=== PATIENT | male | born 1950 | race Caucasian/White ===

== ENCOUNTER 2020-08-21 09:32 | Inpatient (IN) | payer MEDICARE, SELFPAY ==
[2020-08-21] VITALS (52 sets, daily range): BP systolic 118–173; BP diastolic 73–106; PULSE 59–122; RESP 11–27; TEMP 35.9–36.7; O2SAT 87–100; BMI 37.0
--- NOTE | ~2020-08-21 | XR_ITS ---
EXAMINATION: XR chest 1V portable INDICATION: Shortness of breath, congestive heart failure TECHNIQUE: Portable AP chest at 0511 hours COMPARISON: 08/21/2020 FINDINGS: The endotracheal tube ends approximately 7.0 cm above the jose alfredo. The nasogastric tube is f ollowed as far as the stomach. Its tip is beyond the inferior margin of the radiograph. Diffuse inter stitial and airspace opacities persist without significant change. A small left pleural effusion is s uggested. There is no pneumothorax. Cardiomegaly is noted. IMPRESSION: 1. Stable diffuse lung disease, consistent with pneumonia and/or pulmonary edema. Reviewed, dictated and finalized at location A. A CENTER DIRECTOR SCHOOL IMPRESSION: 1. Stable diffuse lung disease, consistent with pneumonia and/or pulmonary nimco a.
--- NOTE | ~2020-08-21 | US_ITS ---
EXAMINATION: US renal BI EXAM DATE: 08/23/2020 12:18 INDICATION: Elevated creatinine. TECHNIQUE: Multiple grayscale and Doppler images of the kidneys were obtained (by a technologist who performed the scan) and subsequently reviewed. Comparison is made to prior examination from 02/04/2014. FINDINGS: Right kidney: There is normal contour and echogenicity. It measures 12.5 x 5.3 x 5.4 centimeters. Th ere are several small anechoic regions with increased through transmission, simple cysts measuring up to 1.6 cm. There is no hydronephrosis. Left kidney: Significantly limited evaluation from current patient positioning (on ventilator) dimens ions obtained approximately 13 x 7 x 6 cm and no definite hydronephrosis. Maddox catheter within collapsed bladder. Incidental note made of small amount of ascites. IMPRESSION: 1. Limited evaluation left kidney, but no hydronephrosis suspected. 2. Incidental small amount of ascites. Reviewed, dictated and finalized at location A. CTOR OF QUALITY IMPROVEMENT
--- NOTE | ~2020-08-21 | XR_ITS ---
EXAMINATION: XR Abdomen PICC EXAM DATE: 09/07/2020 14:22 INDICATION: mid-thigh picc line placement . TECHNIQUE: Frontal projection(s) of the abdomen, pelvis for interpretation. Comparison is made to lashawn or examination from earlier same date. FINDINGS: There is a new left-sided femoral venous line with a loop at the inguinal canal region. Ti p is overlying the common iliac vein. There is a right common femoral venous catheter unchanged. Naso gastric tube. Moderate amount of rectosigmoid gas. No small bowel dilation. IMPRESSION: Left femoral line with loop over inguinal region. Consider power flushing, over the wire catheter exchange or replacing. I discussed these images, options with vascular access nurse Jennifer at 09/07/2020 14:30 WEAP[employer] OFF[employer]ER [employer]. Reviewed, dictated and finalized at location B. ONS OFFICER [employer] IMPRESSION: Left femoral line with loop over inguinal region. Consider power f lushing, over the wire catheter exchange or replacing. I discussed these images, options with vascular access nurse Jennifer at 09/07/2020 14:30 WEAP[employer] OFF[employer]ER [employer].
--- NOTE | ~2020-08-21 | CT_ITS ---
EXAMINATION: CT brain wo con DATE: 08/30/2020 09:30 INDICATION: Altered mental status. Carpal speech. TECHNIQUE: Computed tomography (CT) of the head was performed without intravenous contrast. The mA wa s adjusted according to patient size. Iterative reconstruction technique was employed. Exam dose: 68 1.00 mGy-cm total exam DLP. COMPARISON: 02/04/2014 CT brain FINDINGS: Cavum septum pellucidum. There is nonspecific diminished attenuation of the cerebral white matter, likely due to chronic small vessel ischemic changes. Bilateral carotid siphon internal carotid artery calcifications are noted. No intracranial mass lesion or hemorrhage or cerebrovascular accident is evident. No midline shift or mass effect effect. No subdural or epidural hematoma. No fracture or bone destruction of the cranial vault. Included paranasal sinuses and mastoid air cell s are normally developed and aerated. IMPRESSION: Cerebral atherosclerosis and chronic small vessel ischemic changes of the cerebral white matter No acute intracranial finding Reviewed, dictated and finalized at Location A. Reviewed, dictated and finalized at location A. NG PRESSER
--- NOTE | ~2020-08-21 | XR_ITS ---
EXAMINATION: XR chest 1V portable DATE: 09/13/2020 05:42 INDICATION: Heart failure. Respiratory failure. TECHNIQUE: A single frontal view of the chest was obtained on 2 radiographs. COMPARISON: Chest single view 09/12/2020 FINDINGS: There are small pleural effusions. There are airspace opacities and interstitial opacities throughout the lungs bilaterally with a basilar predominance. No pneumothorax. The heart size is norm al. There is a tracheostomy tube in expected position. A right internal jugular central venous cathet er is seen with tip in the superior vena cava. A left internal jugular central venous catheter is see n with tip in the left brachiocephalic vein. IMPRESSION: 1. Stable diffuse lung disease, consistent with pulmonary edema and/or pneumonia. 2. Stable small pleural effusions. Reviewed, dictated and finalized at location A. IMPRESSION: 1. Stable diffuse lung disease, consistent with pulmonary edema and/or pneumoni a. 2. Stable small pleural effusions.
--- NOTE | ~2020-08-21 | XR_ITS ---
EXAMINATION: XR chest 1V portable DATE: 09/17/2020 05:44 INDICATION: Respiratory failure. TECHNIQUE: A single frontal view of the chest was obtained on 2 radiographs. COMPARISON: Chest single view 09/16/2020 FINDINGS: There is a diffuse interstitial pattern in the lungs. There are airspace opacities in the m id and lower lung zones. There are small pleural effusions no pneumothorax. The heart size is normal. A left internal jugular central venous catheter is seen with tip in the left brachiocephalic vein. T here is a tracheostomy tube in expected position. A right internal jugular central venous catheter is seen with tip in the superior vena cava. IMPRESSION: 1. Stable diffuse lung disease, consistent with pulmonary edema versus pneumonia. 2. Stable small pleural effusions. Reviewed, dictated and finalized at location A. IMPRESSION: 1. Stable diffuse lung disease, consistent with pulmonary edema versus pneumoni a. 2. Stable small pleural effusions.
--- NOTE | ~2020-08-21 | XR_ITS ---
EXAMINATION: XR chest 1V portable INDICATION: Shortness of breath TECHNIQUE: Portable AP chest at 0959 hours COMPARISON: 02/04/2014 FINDINGS: There are small pleural effusions, left greater than right. Cardiomegaly is noted. A mild d iffuse interstitial pattern is present. There are more focal opacities of the lung bases. No pneumoth orax is identified. IMPRESSION: 1. Cardiomegaly with likely pulmonary edema. 2. Small pleural effusions. 3. Bibasilar airspace opacities, consistent with atelectasis versus pneumonia. Reviewed, dictated and finalized at location A. THE HORIZON TARGETING SUPERVISOR
--- NOTE | ~2020-08-21 | XR_ITS ---
EXAMINATION: XR chest 1V portable DATE: 08/28/2020 05:46 INDICATION: Respiratory failure TECHNIQUE: frontal view of the chest was obtained. COMPARISON: Chest radiograph dated 08/27/2020 FINDINGS: Improved aeration of the left lung with resolution of the prior leftward mediastinal shift. There is persistent opacity in the mid and lower lung zone. Mild airspace opacities and mildly increased inter stitial pattern in the right lower lung zone with a few peripheral Milo B-lines. No pneumothorax. T he cardiomediastinal silhouette is normal. IMPRESSION: 1. Mild pulmonary edema and small to moderate left and small right pleural effusions. 2. Significant improvement in aeration of the left lung with residual opacities in the mid and lower lung zone as well as mild opacities in the right lower lung zone which could represent atelectasis an d/or pneumonia. Reviewed, dictated and finalized at location A. HAND FISHING VESSEL IMPRESSION: 1. Mild pulmonary edema and small to moderate left and small right pleural effu sions. 2. Significant improvement in aeration of the left lung with residual opacities in the mid and lower lung zone as well as mild opacities in the right lower clara ng zone which could represent atelectasis and/or pneumonia.
--- NOTE | ~2020-08-21 | XR_ITS ---
EXAMINATION: XR chest 1V portable INDICATION: Respiratory failure TECHNIQUE: Portable AP chest at 0523 hours COMPARISON: 09/08/2020 FINDINGS: The endotracheal tube ends approximately 8.8 cm above the jose alfredo. The nasogastric tube is f ollowed as far as the stomach. Its tip is beyond the inferior margin of the radiograph. A right inter nal jugular dialysis catheter ends with its tip in the distal superior vena cava. Diffuse interstitia l and airspace opacities persist with slight improvement in the upper lung zones. Small pleural effus ions persist but have decreased. There is no pneumothorax. The cardiomediastinal silhouette is stable . IMPRESSION: 1. Diffuse lung disease with interval improvement in the upper lung zones, consistent with pneumonia and/or pulmonary edema and/or acute respiratory distress syndrome (ARDS). Reviewed, dictated and finalized at location A. TER SUPERVISOR IMPRESSION: 1. Diffuse lung disease with interval improvement in the upper lung zones, cons istent with pneumonia and/or pulmonary edema and/or acute respiratory distress syndrome (ARDS).
--- NOTE | ~2020-08-21 | XR_ITS ---
EXAMINATION: XR chest 1V portable EXAM DATE: 09/06/2020 05:41 INDICATION: Respiratory failure. TECHNIQUE: Portable AP frontal chest x-ray was obtained. Comparison is made to prior examination from 09/04/2020. FINDINGS: Endotracheal tube tip is 7 centimeters above the jose alfredo. There is a nasogastric tube seen with tip collimated off the study, but below the left hemidiaphragm. There is right-sided IJ double l umen dialysis catheter. Again there is diffuse ill-defined airspace disease, edema and/or pneumonia small bilateral pleural effusions. There is no pneumothorax suspected. Heart size is upper limits of normal. There is hype rinflation. The bones and soft tissues are unremarkable. There is no significant interval change compared to prior exam. IMPRESSION: 1. ET tube 7 cm above jose alfredo. 2. Diffuse airspace disease, edema and/or pneumonia unchanged. 3. Small pleural effusions. Reviewed, dictated and finalized at location A. ER OPERATOR
--- NOTE | ~2020-08-21 | XR_ITS ---
EXAMINATION: XR chest 1V portable DATE: 09/04/2020 05:30 INDICATION: Respiratory failure. TECHNIQUE: A single frontal view of the chest was obtained. COMPARISON: Chest single view 09/03/20 FINDINGS: Left lateral costophrenic angle is excluded. There are airspace and interstitial opacities throughout the lungs bilaterally with a lower lung predominance. There are small pleural effusions. N o pneumothorax. The heart size is normal. The endotracheal tube tip is 7.2 cm above the jose alfredo. A rig ht internal jugular central venous catheter is seen with tip in the superior vena cava. IMPRESSION: 1. Diffuse lung disease with worsening in left upper lobe, consistent with pulmonary edema versus pne umonia. 2. Small pleural effusions. Reviewed, dictated and finalized at location A. HEALTH SCHEDULER IMPRESSION: 1. Diffuse lung disease with worsening in left upper lobe, consistent with pulm onary edema versus pneumonia. 2. Small pleural effusions.
--- NOTE | ~2020-08-21 | XR_ITS ---
EXAMINATION: XR chest 1V portable DATE: 08/25/2020 05:47 INDICATION: COPD and congestive heart failure. Intubated. TECHNIQUE: frontal view of the chest was obtained. COMPARISON: Chest radiograph dated 08/24/2020 FINDINGS: Endotracheal tube tip 5.2 cm above the jose alfredo. Nasogastric tube extends below the left hemidiaphragm with distal tip collimated off the study. Persistent gradient of basilar predominant hazy airspace opacities in the bilateral mid and lower moses g zones, left greater than right, consistent with layering bilateral pleural effusions with associate d bibasilar atelectasis and/or pneumonia. The cardiomediastinal silhouette is normal. IMPRESSION: 1. Persistent small right and small to moderate left posterior layering pleural effusions with associ ated bibasilar atelectasis and/or pneumonia. Reviewed, dictated and finalized at location A. HOLOGIST IMPRESSION: 1. Persistent small right and small to moderate left posterior layering pleural effusions with associated bibasilar atelectasis and/or pneumonia.
--- NOTE | ~2020-08-21 | XR_ITS ---
EXAMINATION: XR abdomen obstructive series DATE: 09/07/2020 10:46 INDICATION: Abdominal distention. TECHNIQUE: Upright and supine views of the abdomen were obtained. COMPARISON: CT abdomen and pelvis 02/05/2014, chest single view 09/07/2020 FINDINGS: There are no dilated loops of bowel. There is a small volume of stool in the colon. The eliel ogastric tube tip is in the stomach. There is a catheter overlying the right pelvis. No free intraper itoneal gas. There are small pleural effusions. There are airspace opacities in the visualized portio ns of the mid and lower lung zones with a basilar predominance. IMPRESSION: 1. Normal bowel gas pattern. 2. Small pleural effusions. 3. Airspace opacities in the mid and lower lung zones, consistent with pulmonary edema versus pneumon ia. Reviewed, dictated and finalized at location A. T BINDING AND FINISHING WORKER IMPRESSION: 1. Normal bowel gas pattern. 2. Small pleural effusions. 3. Airspace opacities in the mid and lower lung zones, consistent with pulmonar y edema versus pneumonia.
--- NOTE | ~2020-08-21 | XR_ITS ---
EXAMINATION: XR chest 1V portable INDICATION: Respiratory failure TECHNIQUE: Portable AP chest at 0506 hours COMPARISON: 09/06/2020 FINDINGS: A right internal jugular central venous catheter ends with its tip in the distal superior v shawn cava. There are small pleural effusions which are stable. The endotracheal tube is approximately 9.0 cm above the jose alfredo. The nasogastric tube is in the stomach. Diffuse interstitial and airspace op acities persist without significant change. The heart size is upper limits of normal for technique. T here is no pneumothorax. IMPRESSION: 1. Stable diffuse lung disease, consistent with pneumonia and/or pulmonary edema and/or acute respira tory distress syndrome (ARDS). 2. Stable small pleural effusions. 3. Endotracheal tube approximately 9 cm above the jose alfredo Reviewed, dictated and finalized at location A. MER RECOVERY OPERATOR IMPRESSION: 1. Stable diffuse lung disease, consistent with pneumonia and/or pulmonary nimco a and/or acute respiratory distress syndrome (ARDS). 2. Stable small pleural effusions. 3. Endotracheal tube approximately 9 cm above the jose alfredo
--- NOTE | ~2020-08-21 | XR_ITS ---
EXAMINATION: XR chest 1V portable INDICATION: Hypoxia TECHNIQUE: Portable AP chest at 0724 hours COMPARISON: 09/10/2020 FINDINGS: The endotracheal tube ends approximately 9.9 cm above the jose alfredo. The nasogastric tube is f ollowed as far as the stomach. Its tip is beyond the inferior margin of the radiograph. A large bore right internal jugular catheter ends with its tip in the distal superior vena cava. A left internal j ugular catheter ends with its tip in the proximal superior vena cava. Small pleural effusions are sta ble. There are unchanged interstitial and airspace opacities of the mid and lower lung zones. The car diomediastinal silhouette is stable. IMPRESSION: 1. Stable interstitial and airspace opacities of the mid and lower lung zones, consistent with pneumo jennifer and/or pulmonary edema and/or acute respiratory distress syndrome (ARDS). 2. Stable pleural effusions. Reviewed, dictated and finalized at location A. HANDLER IMPRESSION: 1. Stable interstitial and airspace opacities of the mid and lower lung zones, consistent with pneumonia and/or pulmonary edema and/or acute respiratory distr ess syndrome (ARDS). 2. Stable pleural effusions.
--- NOTE | ~2020-08-21 | XR_ITS ---
XR chest 1V portable DATE: 08/29/2020 08:13 INDICATION: Hypoxia. Pulmonary vascular congestion. Respiratory failure. TECHNIQUE: Portable AP chest on August 29, 2020 at 0814 hours COMPARISON: August 28, 2020 portable AP chest at 0512 hours FINDINGS: There is pulmonary vascular congestion and redistribution, prominence of the minor fissure cyst with subpleural edema and there are bilateral pulmonary infiltrates, left greater than right. Th ere is mild improvement of the bilateral infiltrates since August 28, 2020. There is slight right pleural effusion and mild to moderate left pleural effusion. IMPRESSION: Pulmonary vascular congestion, subpleural edema, bilateral infiltrates (left greater than right), bilateral pleural effusions (left greater than right); mild improvement of bilateral infiltr ates since 10/26/2020 Reviewed, dictated and finalized at location A. GER CONCRETE IMPRESSION: Pulmonary vascular congestion, subpleural edema, bilateral infiltra isrrael (left greater than right), bilateral pleural effusions (left greater than r ight); mild improvement of bilateral infiltrates since 10/26/2020
--- NOTE | ~2020-08-21 | XR_ITS ---
EXAMINATION: XR abdomen obstructive series DATE: 09/17/2020 10:21 INDICATION: Adynamic ileus. TECHNIQUE: Upright and supine views of the abdomen were obtained. COMPARISON: Abdomen radiographs 09/16/2020 FINDINGS: There is a gastrostomy tube in expected position. The small bowel is normal in caliber. The re is mild gaseous distention of the colon. No free intra-abdominal gas. There are small pleural effu sions. IMPRESSION: 1. Improved mild gaseous distention of the colon, likely adynamic ileus. 2. Small pleural effusions. Reviewed, dictated and finalized at location A.
--- NOTE | ~2020-08-21 | XR_ITS ---
EXAMINATION: XR abdomen/kub 1V EXAM DATE: 09/05/2020 05:35 INDICATION: Constipation. TECHNIQUE: Frontal projection(s) of the abdomen for interpretation. Comparison is made to prior exami nation from 08/31/2020. FINDINGS: Feeding tube tip and side-port both project over gastric bubble, expected position. There i s a right-sided femoral venous line. There is moderate amount of colonic gas, smaller amount of colon ic stool. No small bowel dilation. There are bony degenerative changes. IMPRESSION: 1. Feeding tube in position. 2. Moderate colonic gas, smaller colonic stool. Reviewed, dictated and finalized at location A. HEAD CARPENTER
--- NOTE | ~2020-08-21 | XR_ITS ---
EXAMINATION: XR chest 1V portable DATE: 09/01/2020 05:39 INDICATION: Respiratory failure. TECHNIQUE: A single frontal view of the chest was obtained. COMPARISON: Chest single view 08/31/2020, CT abdomen and pelvis 02/05/2014 FINDINGS: There are interstitial airspace opacities throughout the lungs bilaterally with a lower moses g predominance. There is a small left pleural effusion. No pneumothorax. The heart size is normal. Th e nasogastric tube tip is beyond the inferior margin of the radiograph, but at least to the stomach. The endotracheal tube tip is 8.1 cm above the jose alfredo. IMPRESSION: 1. Stable diffuse lung disease, consistent with pulmonary edema versus pneumonia. 2. Small left pleural effusion. Reviewed, dictated and finalized at location A. ING MANAGER IMPRESSION: 1. Stable diffuse lung disease, consistent with pulmonary edema versus pneumoni a. 2. Small left pleural effusion.
--- NOTE | ~2020-08-21 | XR_ITS ---
EXAMINATION: XR chest 1V portable DATE: 09/14/2020 05:40 INDICATION: Heart failure. Respiratory failure. TECHNIQUE: A single frontal view of the chest was obtained on 2 radiographs. COMPARISON: Chest single view 09/13/2020 FINDINGS: There are interstitial and airspace opacities throughout the lungs bilaterally. There are s mall pleural effusions. No pneumothorax. The heart size is normal. There is a tracheostomy tube in ex pected position. A left internal jugular central venous catheter is seen with tip in the left brachio cephalic vein. A right internal jugular central venous catheter is seen with tip in superior vena cav a. A gastrostomy tube overlies the stomach. IMPRESSION: 1. Stable diffuse lung disease, consistent with pulmonary edema versus pneumonia. 2. Stable small pleural effusions. Reviewed, dictated and finalized at location A. IMPRESSION: 1. Stable diffuse lung disease, consistent with pulmonary edema versus pneumoni a. 2. Stable small pleural effusions.
--- NOTE | ~2020-08-21 | XR_ITS ---
XR Abdomen PICC 09/08/2020 19:32 Indication: PICC line placement Procedure: KUB Comparison: Comparison to multiple prior studies sequentially, with oldest reviewed study dated 07/2020. Findings: There is a left-sided femoral venous line with loop at the inguinal canal. The distal tip o verlies the common iliac vein. There is a right common femoral venous catheter, position unchanged. M oderate gas throughout the rectosigmoid colon. Impression: 1: Left femoral venous catheter tip in the common iliac vein, coiled proximally overlying the inguina l region. No significant change to position. Reviewed, dictated and finalized at location A. OR SPEECH PATHOLOGIST Impression: 1: Left femoral venous catheter tip in the common iliac vein, coiled proximally overlying the inguinal region. No significant change to position.
--- NOTE | ~2020-08-21 | US_ITS ---
EXAMINATION: US thoracentesis DATE: 09/01/2020 15:44 INDICATION: pleural effusion TECHNIQUE: The skin was prepped and draped in sterile fashion. 1% lidocaine was used for local anesth esia. Under ultrasound guidance, a 5 Fr catheter with trochar was advanced into the left pleural effu evelin. Fluid was aspirated. The catheter was removed, and a dressing was applied. There were no immedi ate complications. FINDINGS: Ultrasound images demonstrate a left pleural effusion and the catheter within the fluid. IMPRESSION: 1. Successful ultrasound-guided thoracentesis yielding 1000 mL of yellow fluid. Reviewed, dictated and finalized at location E. ETARY ADMINISTRATIVE ASSISTANT IMPRESSION: 1. Successful ultrasound-guided thoracentesis yielding 1000 mL of yellow fluid .
--- NOTE | ~2020-08-21 | US_ITS ---
EXAMINATION: US venous doppler LE EXAM DATE: 08/21/2020 18:07 INDICATION: Bilateral leg edema. TECHNIQUE: Multiple grayscale, color flow and Doppler images of the lower extremity deep venous syste ms bilaterally were obtained and reviewed. Comparison is made to prior examination from 10/19/2016. FINDINGS: Right side: The right common femoral, femoral and profunda veins demonstrate normal color flow, respi ratory variation, augmentation and compressibility. Compressibility, color flow confirmed within the right popliteal, posterior tibial, peroneal, and greater saphenous veins. Left side: The left common femoral, femoral and profunda veins demonstrate normal color flow, respira tory variation, augmentation and compressibility. Compressibility, color flow confirmed within the l eft popliteal, posterior tibial, peroneal, and greater saphenous veins. IMPRESSION: 1. No lower extremity deep venous thrombosis bilaterally. Reviewed, dictated and finalized at location A. BIT CLEANER
--- NOTE | ~2020-08-21 | XR_ITS ---
EXAMINATION: XR fl guide central line place DATE: 09/02/2020 13:15 INDICATION: Central line placement TECHNIQUE: 2 fluoroscopic images of the central chest were obtained during procedure performed by Dr. Soriano. Radiologist was not present for the imaging or procedure. The amount of fluoroscopy time us ed during this procedure was 0.5 minutes. COMPARISON: 09/02/2020 FINDINGS: Interval placement of a large-bore dual-lumen tunneled right internal jugular central venous catheter with distal tip at the caudal superior vena cava. Markers from lap sponge projects over the right up per lung likely at the site of catheter insertion. Again seen is a nasogastric tube extending down th e visualized esophagus and collimated beyond the caudal margin of the [id number]. There is also an unchanged endotracheal tube with tip in the proximal thoracic trachea below the level of the thoraci c inlet. IMPRESSION: 1. Fluoroscopy utilized during right internal jugular central venous catheter placement with distal t ip of the catheter at the caudal superior vena cava. Reviewed, dictated and finalized at location B. RIAL CUTTER IMPRESSION: 1. Fluoroscopy utilized during right internal jugular central venous catheter p lacement with distal tip of the catheter at the caudal superior vena cava.
--- NOTE | ~2020-08-21 | XR_ITS ---
EXAMINATION: XR chest ET placement, XR abdomen NG/feed tube insert DATE: 08/31/2020 12:26 INDICATION: Endotracheal tube placement. Orogastric tube placement. TECHNIQUE: 1. Portable AP supine view of the chest was obtained. 2. Portable AP supine view of the abdomen was obtained. COMPARISON: Chest radiograph dated 08/31/2020 at 3:13 AM FINDINGS: Chest: Endotracheal tube tip 7.4 cm above the jose alfredo. Gradient of basilar predominant hazy airspace opacitie s throughout the bilateral lungs with more dense opacities at the lung bases consistent with small ri ght and moderate left posterior layering pleural effusions with associated basilar atelectasis and/or pneumonia. Pulmonary edema with increased interstitial pattern in the lower lungs suggesting mild pu lmonary edema. No pneumothorax. Heart size within normal limits for AP technique. Abdomen : Orogastric tube with distal tip initially in the proximal body of the stomach on the initial image. T he orogastric tube tip has been advanced into the more distal body of the stomach with proximal side- port in the proximal body on the second image. Moderate amount of stool in the transverse colon. No d ilated loops of gas-filled bowel in the visualized upper abdomen. IMPRESSION: 1. Endotracheal tube tip 7.4 cm above the jose alfredo. Consider advancement by 5 cm. 2. Nasogastric tube in the stomach. 3. Likely mild pulmonary edema with small right and moderate-sized left pleural effusions with associ ated basilar atelectasis and/or pneumonia. Reviewed, dictated and finalized at location B. ELLER IMPRESSION: 1. Endotracheal tube tip 7.4 cm above the jose alfredo. Consider advancement by 5 cm. 2. Nasogastric tube in the stomach. 3. Likely mild pulmonary edema with small right and moderate-sized left pleural effusions with associated basilar atelectasis and/or pneumonia.
--- NOTE | ~2020-08-21 | XR_ITS ---
EXAMINATION: XR chest 1V portable EXAM DATE: 08/27/2020 10:34 INDICATION: Respiratory failure. TECHNIQUE: Portable AP frontal chest x-ray was obtained. Comparison is made to prior examination from 08/26/2020. FINDINGS: Compared to yesterday, left lung is completely collapsed, opacified hemithorax. There is it s lateral mediastinal shift, volume loss. Can't quantify amount of pleural fluid Asir. Indistinct rig ht reticulation, most consistent with pulmonary edema. IMPRESSION: 1. Development of completely collapsed left lung. Mucous plugging? 2. Probable pulmonary edema. I discussed this case with Raymundo Vanegas MD at 08/27/2020 10:42 WATER FITNESS INSTRUCTOR. Reviewed, dictated and finalized at location B. R FITNESS INSTRUCTOR
--- NOTE | ~2020-08-21 | US_ITS ---
EXAMINATION: US aorta EXAM DATE: 09/01/2020 15:41 INDICATION: Pulsatile epigastrium. Palpable abnormality. TECHNIQUE: Multiple grayscale and Doppler images of the aorta were obtained (by a technologist who pe rformed the scan) and subsequently reviewed. Correlation is made to CT abdomen 02/05/2014. FINDINGS: Limited exam from body habitus, but the abdominal aorta is normal in proximal and mid aspects at 2.5, 1.[address] scan in 2013 the abdominal aorta was normal in caliber through bifurcatio n. IMPRESSION: No proximal or mid abdominal aortic aneurysm. Reviewed, dictated and finalized at location A. ETING MANAGER HEALTH COMMUNICATIONS
--- NOTE | ~2020-08-21 | XR_ITS ---
EXAMINATION: XR chest 1V portable DATE: 09/02/2020 06:01 INDICATION: Respiratory failure. TECHNIQUE: A single frontal view of the chest was obtained on 2 radiographs. COMPARISON: Chest single view 09/01/2020 FINDINGS: There are interstitial airspace and opacities throughout the lungs bilaterally. There are s mall pleural effusions. No pneumothorax. The heart size is normal. The endotracheal tube tip is 8.2 c m above the jose alfredo. The nasogastric tube tip is in the stomach. IMPRESSION: 1. Diffuse lung disease with improvement in left lower lung zone, consistent with pulmonary edema westley aimee pneumonia. 2. Small pleural effusions. Reviewed, dictated and finalized at location A. ASSEMBLER IMPRESSION: 1. Diffuse lung disease with improvement in left lower lung zone, consistent wi th pulmonary edema versus pneumonia. 2. Small pleural effusions.
--- NOTE | ~2020-08-21 | XR_ITS ---
EXAMINATION: XR chest 1V portable DATE: 08/24/2020 05:44 INDICATION: Intubated. COPD. CHF. TECHNIQUE: frontal view of the chest was obtained. COMPARISON: Chest radiograph dated 08/23/2020 FINDINGS: Endotracheal tube tip 7.5 cm above the jose alfredo. Nasogastric tube extends below the left hemidiaphragm with distal tip collimated off the study. Persistent gradient basilar predominant opacities in the left mid and lower lung and right lower lung zones. Heart cardiac consolidation in the left lower lung zone with obscuration of the diaphragm. Al l diffuse increased interstitial pattern. No pneumothorax. The cardiomediastinal silhouette is normal . IMPRESSION: 1. Endotracheal tube tip 7.5 cm above the jose alfredo. Recommend advancement by 5 cm. 2. Retrocardiac consolidation in the left lower lung zone which could represent atelectasis and/or pn eumonia. 3. Mild pulmonary edema with small right and small to moderate left posterior layering pleural effusi ons Reviewed, dictated and finalized at location A. ER SOLDERER IMPRESSION: 1. Endotracheal tube tip 7.5 cm above the jose alfredo. Recommend advancement by 5 cm . 2. Retrocardiac consolidation in the left lower lung zone which could represent atelectasis and/or pneumonia. 3. Mild pulmonary edema with small right and small to moderate left posterior l ayering pleural effusions
--- NOTE | ~2020-08-21 | XR_ITS ---
EXAMINATION: XR chest 1V portable DATE: 08/31/2020 03:30 INDICATION: Pulmonary edema. TECHNIQUE: A single frontal view of the chest was obtained on 2 radiographs. COMPARISON: Chest single view 08/30/2020, CT abdomen and pelvis 02/05/2014 FINDINGS: There is a diffuse interstitial pattern in the lungs. There are airspace opacities at the l merry bases. There is a moderate-sized left pleural effusion. No pneumothorax. The heart size is normal . IMPRESSION: 1. Worsened diffuse lung disease, likely pulmonary edema. 2. Worsened moderate-sized left pleural effusion. Reviewed, dictated and finalized at location A. DOZER PRESS OPERATOR
--- NOTE | ~2020-08-21 | XR_ITS ---
EXAMINATION: XR chest 1V portable DATE: 08/26/2020 05:40 INDICATION: Pneumonia. Acute respiratory failure. TECHNIQUE: frontal view of the chest was obtained. COMPARISON: Chest radiograph dated 08/25/2020 FINDINGS: Slight decrease in a gradient of hazy basilar predominant opacities in the bilateral mid to lower moses g zones. Persistent retrocardiac consolidation in the left lower lung zone. No pneumothorax. Heart si ze is normal. IMPRESSION: 1. Decrease in size of small bilateral pleural effusions. 2. Persistent retrocardiac consolidation at the left lower lung zone which could represent atelectasi s and/or pneumonia. Reviewed, dictated and finalized at location A. LY REQUIREMENTS OFFICER IMPRESSION: 1. Decrease in size of small bilateral pleural effusions. 2. Persistent retrocardiac consolidation at the left lower lung zone which coul d represent atelectasis and/or pneumonia.
--- NOTE | ~2020-08-21 | XR_ITS ---
EXAMINATION: XR chest 1V portable DATE: 09/12/2020 05:38 INDICATION: Heart failure. Respiratory failure. TECHNIQUE: A single frontal view of the chest was obtained on 2 radiographs. COMPARISON: Chest single view 09/11/2020, CT abdomen and pelvis 02/05/2014 FINDINGS: There are small pleural effusions. There is a diffuse interstitial pattern in the lungs. Th ere are airspace opacities in the mid and lower lung zones with a basilar predominance. No pneumothor ax. The heart size is normal. There is a tracheostomy tube in expected position. A left internal jugu lar central venous catheter is seen with tip in the superior vena cava. A right internal jugular cent ral venous catheter is seen with tip in the superior vena cava. IMPRESSION: 1. Stable diffuse lung disease, consistent with pulmonary edema and basilar predominant atelectasis v ersus pneumonia. 2. Small pleural effusions. Reviewed, dictated and finalized at location A. TERY VAULT INSTALLER IMPRESSION: 1. Stable diffuse lung disease, consistent with pulmonary edema and basilar pre dominant atelectasis versus pneumonia. 2. Small pleural effusions.
--- NOTE | ~2020-08-21 | XR_ITS ---
EXAMINATION: XR chest 1V portable DATE: 09/03/2020 05:56 INDICATION: Respiratory failure. TECHNIQUE: A single frontal view of the chest was obtained. COMPARISON: Chest single view 09/02/2020 FINDINGS: There are airspace and interstitial opacities throughout the lungs bilaterally. There are s mall pleural effusions. No pneumothorax. The heart size is normal. The endotracheal tube tip is 8.1 c m above the jose alfredo. The nasogastric tube tip is beyond the inferior margin of the radiograph, but at least to the stomach. A right internal jugular central venous catheter is seen with tip in the superi or vena cava. IMPRESSION: 1. Stable diffuse lung disease, consistent with pulmonary edema versus pneumonia. 2. Stable small pleural effusions. Reviewed, dictated and finalized at location A. ECTIVE SERVICES OFFICER IMPRESSION: 1. Stable diffuse lung disease, consistent with pulmonary edema versus pneumoni a. 2. Stable small pleural effusions.
--- NOTE | ~2020-08-21 | XR_ITS ---
EXAMINATION: XR chest ET placement DATE: 09/03/2020 08:19 INDICATION: Endotracheal tube adjustment. TECHNIQUE: A single frontal view of the chest was obtained. COMPARISON: Chest single view at 5:13 AM FINDINGS: There are airspace and interstitial opacities in all lung zones bilaterally, left worse daja n right. The lung bases are excluded. No visible pleural effusion. No pneumothorax. The heart size is normal. The endotracheal tube tip is 7.0 cm above the jose alfredo. The nasogastric tube tip is beyond the inferior margin of the radiograph, but at least to the stomach. A right internal jugular central mary ous catheter is seen with tip in the superior vena cava. IMPRESSION: 1. Diffuse lung disease with improvement on the left, consistent with pulmonary edema versus pneumoni a. Reviewed, dictated and finalized at location A. LLIGENCE CLERK IMPRESSION: 1. Diffuse lung disease with improvement on the left, consistent with pulmonary edema versus pneumonia.
--- NOTE | ~2020-08-21 | XR_ITS ---
EXAMINATION: XR chest port-a-cath/central DATE: 09/02/2020 14:10 INDICATION: Central line placement. TECHNIQUE: A single frontal view of the chest was obtained on 2 radiographs. COMPARISON: Chest single view at 5:28 AM FINDINGS: There are interstitial airspace opacities throughout the lungs with a lower lung predominan ce. There are small pleural effusions. No pneumothorax. The heart size is normal. The endotracheal tu be tip is 7.2 cm above the jose alfredo. The nasogastric tube tip is beyond the inferior margin of the radi ograph, but at least to the stomach. A right internal jugular central venous catheter is seen with ti p in the superior vena cava. IMPRESSION: 1. Central line tip in superior vena cava. 2. Worsened diffuse lung disease, consistent with pulmonary edema versus pneumonia. 3. Stable small pleural effusions. Reviewed, dictated and finalized at location A. TOOL OPERATOR IMPRESSION: 1. Central line tip in superior vena cava. 2. Worsened diffuse lung disease, consistent with pulmonary edema versus pneumo jennifer. 3. Stable small pleural effusions.
--- NOTE | ~2020-08-21 | XR_ITS ---
EXAMINATION: XR chest port-a-cath/central INDICATION: Central line insertion TECHNIQUE: Portable AP chest at 1219 hours COMPARISON: 0523 hours FINDINGS: A left internal jugular central venous catheter has been inserted which ends with its tip i n the proximal superior vena cava. The endotracheal tube ends approximately 8.5 cm above the jose alfredo. The nasogastric tube is followed as far as the stomach. Its tip is beyond the inferior margin of the radiograph. A right internal jugular large bore catheter ends with its tip in the distal superior cav a. Small pleural effusions are stable. Diffuse interstitial and airspace opacities persist without si gnificant change. There is no pneumothorax. The cardiomediastinal silhouette is stable. IMPRESSION: 1. Left internal jugular central venous catheter insertion with no pneumothorax, otherwise no change. Reviewed, dictated and finalized at location A. ING ENGINEER IMPRESSION: 1. Left internal jugular central venous catheter insertion with no pneumothorax , otherwise no change.
--- NOTE | ~2020-08-21 | XR_ITS ---
XR chest 1V portable DATE: 08/30/2020 05:43 INDICATION: Congestive heart failure TECHNIQUE: Portable upright AP views on 01/27/2021 at 0520 0521 hours COMPARISON: August 29, 2020 portable AP chest at 0814 hours FINDINGS: There is cardiomegaly and increased pulmonary vascular congestion and redistribution and th ere are increased bilateral pulmonary infiltrates, Milo B-lines as well as prominence of the minor fissure, consistent with congestive heart failure, pulmonary edema. Increased retrocardiac density on left consistent with left lower lobe atelectasis and/or consolidati on. The costophrenic angles are excluded from examination. There may be small pleural effusions. Aortic arch calcification. Diffuse osteopenia. Degenerative spurring of the thoracic spine. IMPRESSION: Increased pulmonary edema since August 29, 2020 Reviewed, dictated and finalized at location A. ATOR OPERATOR
--- NOTE | ~2020-08-21 | XR_ITS ---
EXAMINATION: XR chest 1V portable DATE: 09/14/2020 14:53 INDICATION: Respiratory failure. TECHNIQUE: A single frontal view of the chest was obtained. COMPARISON: Chest single view at 5:12 AM FINDINGS: There are airspace opacities in all lung zones bilaterally with a lower lung predominance. There are small pleural effusions. No pneumothorax. The heart size is normal. A left internal jugular central venous catheter is seen with tip in the left brachiocephalic vein. A right internal jugular central venous catheter is seen with tip in the superior vena cava. There is a tracheostomy tube in e xpected position. IMPRESSION: 1. Diffuse lung disease with improvement in the upper lobes, consistent with pulmonary edema versus p neumonia. 2. Stable small pleural effusions. Reviewed, dictated and finalized at location A. IMPRESSION: 1. Diffuse lung disease with improvement in the upper lobes, consistent with pu lmonary edema versus pneumonia. 2. Stable small pleural effusions.
--- NOTE | ~2020-08-21 | XR_ITS ---
EXAMINATION: XR chest 1V portable INDICATION: Respiratory failure, congestive heart failure TECHNIQUE: Portable AP chest at 0530 hours COMPARISON: 08/22/2020 FINDINGS: The endotracheal tube ends approximately 5.0 cm above the jose alfredo. The nasogastric tube is f ollowed as far as the stomach. Its tip is beyond the inferior margin of the radiograph. Diffuse inter stitial and airspace opacities persist with slight worsening in the left midlung zone. There are smal l, stable pleural effusions. Cardiomegaly is noted. There is no pneumothorax. IMPRESSION: 1. Diffuse lung disease with slight worsening in the left midlung zone, consistent with pneumonia and /or pulmonary edema. 2. Small pleural effusions. 3. Cardiomegaly. Reviewed, dictated and finalized at location A. SITE MANAGER IMPRESSION: 1. Diffuse lung disease with slight worsening in the left midlung zone, consist ent with pneumonia and/or pulmonary edema. 2. Small pleural effusions. 3. Cardiomegaly.
--- NOTE | ~2020-08-21 | XR_ITS ---
EXAMINATION: XR chest 1V portable INDICATION: Respiratory failure TECHNIQUE: Portable AP chest at 0510 hours COMPARISON: 09/07/2020 FINDINGS: The endotracheal tube ends approximately 4.0 cm above the jose alfredo. The nasogastric tube is f ollowed as far as the stomach. Its tip is beyond the inferior margin of the radiograph. A right inter nal jugular dialysis catheter ends with its tip in the distal superior vena cava. Small pleural effus ions have decreased. Diffuse interstitial and airspace opacities persist without significant change. The heart size is upper limits of normal for technique. There is no pneumothorax. IMPRESSION: 1. Stable diffuse lung disease, consistent with pneumonia and/or pulmonary edema and/or acute respira tory distress syndrome (ARDS). 2. Small, improved pleural effusions Reviewed, dictated and finalized at location A. B TRAINER IMPRESSION: 1. Stable diffuse lung disease, consistent with pneumonia and/or pulmonary nimco a and/or acute respiratory distress syndrome (ARDS). 2. Small, improved pleural effusions
--- NOTE | ~2020-08-21 | XR_ITS ---
EXAMINATION: XR chest 1V portable DATE: 09/15/2020 06:06 INDICATION: Heart failure. Respiratory failure. TECHNIQUE: A single frontal view of the chest was obtained on 2 radiographs. COMPARISON: Chest single view 09/14/2020 FINDINGS: There is complete opacification of left hemithorax with volume loss. There is a small right pleural effusion. There are airspace opacities in all right lung zones with a basilar predominance. No pneumothorax. The heart size is obscured. There is a tracheostomy tube in expected position. A lef t internal jugular central venous catheter is seen with tip in the left brachiocephalic vein. A right internal jugular central venous catheter is seen with tip in the superior vena cava. IMPRESSION: 1. Complete opacification of left hemithorax with volume loss with interval worsening, likely predomi nantly atelectasis and mucus plugging. 2. Stable small right pleural effusion. 3. Diffuse right lung disease with a basilar predominance with slight worsening, consistent with pulm onary edema versus pneumonia. Reviewed, dictated and finalized at location A. IMPRESSION: 1. Complete opacification of left hemithorax with volume loss with interval wor sening, likely predominantly atelectasis and mucus plugging. 2. Stable small right pleural effusion. 3. Diffuse right lung disease with a basilar predominance with slight worsening , consistent with pulmonary edema versus pneumonia.
--- NOTE | ~2020-08-21 | XR_ITS ---
EXAMINATION: XR chest 1V portable INDICATION: Respiratory failure TECHNIQUE: Portable AP chest at 0514 hours COMPARISON: 09/09/2020 FINDINGS: The endotracheal tube ends approximately 9.5 cm above the jose alfredo. The nasogastric tube is f ollowed as far as the stomach. Its tip is beyond the inferior margin of the radiograph. A large bore right internal jugular catheter ends with its tip in the distal superior vena cava. A left internal j ugular central venous catheter ends with its tip in the proximal superior vena cava. Small pleural ef fusions have slightly improved. Interstitial and airspace opacities of the mid and lower lung zones p ersist with slight improvement. The heart size is normal. IMPRESSION: 1. Diffuse lung disease with interval improvement, consistent with pneumonia and/or pulmonary edema a nd/or acute respiratory distress syndrome (ARDS). 2. Small but decreased pleural effusions. Reviewed, dictated and finalized at location A. RIDER IMPRESSION: 1. Diffuse lung disease with interval improvement, consistent with pneumonia an d/or pulmonary edema and/or acute respiratory distress syndrome (ARDS). 2. Small but decreased pleural effusions.
--- NOTE | ~2020-08-21 | XR_ITS ---
EXAMINATION: XR chest ET placement EXAM DATE: 08/22/2020 00:00 INDICATION: Endotracheal tube placement. Orogastric tube placement. TECHNIQUE: Portable AP frontal chest x-ray was obtained. Comparison is made to prior examination from earlier same date. FINDINGS: Endotracheal and nasogastric tubes in position. There is been mild interval progression in the amount of acute bilateral edema or pneumonia compared to earlier same date. No pneumothorax. Smal l pleural effusions. The cardiomediastinal silhouette is prominent but magnified on this AP technique . IMPRESSION: 1. Tubes in position. 2. Mild progression moderate amount of pneumonia and/or edema. 3. Small pleural effusions. Reviewed, dictated and finalized at location G. NOPATHOLOGIST
--- NOTE | ~2020-08-21 | XR_ITS ---
EXAMINATION: XR chest 1V portable DATE: 09/16/2020 05:40 INDICATION: Respiratory failure. Heart failure. TECHNIQUE: A single frontal view of the chest was obtained. COMPARISON: Chest single view 09/15/2020 FINDINGS: There are airspace and interstitial opacities in all lung zones bilaterally with a basilar predominance. There are small pleural effusions. No pneumothorax. The heart size is normal. There is a tracheostomy tube in expected position. A left internal jugular central venous catheter is seen wit h tip in the left brachiocephalic vein. A right internal jugular central venous catheter is seen with tip in the superior vena cava. IMPRESSION: 1. Diffuse lung disease with improved aeration of left lung, consistent with pulmonary edema versus p neumonia. 2. Small pleural effusions. Reviewed, dictated and finalized at location A. IMPRESSION: 1. Diffuse lung disease with improved aeration of left lung, consistent with pu lmonary edema versus pneumonia. 2. Small pleural effusions.
--- NOTE | ~2020-08-21 | XR_ITS ---
EXAMINATION: XR abdomen obstructive series DATE: 09/15/2020 08:30 INDICATION: Abdominal distention. TECHNIQUE: Upright and supine views of the abdomen on 3 radiographs were obtained. COMPARISON: CT abdomen and pelvis 02/05/2014, chest single view at 5:10 AM FINDINGS: A gastrostomy tube overlies the stomach. There is gaseous distention of small and large bow el. No free intraperitoneal gas. Partially visualized is improved aeration of left lung. IMPRESSION: 1. Gaseous distention of small and large bowel, consistent with adynamic ileus versus distal colonic obstruction. 2. Partially visualized improved aeration of left lung. Reviewed, dictated and finalized at location A.
--- NOTE | ~2020-08-21 | XR_ITS ---
EXAMINATION: XR abdomen obstructive series DATE: 09/16/2020 13:47 INDICATION: Abdominal distention. TECHNIQUE: Upright and supine views of the abdomen on 3 radiographs were obtained. COMPARISON: Abdomen radiographs 09/15/2020 FINDINGS: There is a gastrostomy tube in expected position. There is gaseous distention of the colon. There is gaseous distention of small bowel loops. No free intraperitoneal gas. There are small pleur al effusions. There are airspace opacities in the lungs bilaterally. IMPRESSION: 1. Gaseous distention of small and large bowel, likely adynamic ileus. 2. Small pleural effusions. 3. Diffuse lung disease, consistent with pulmonary edema versus pneumonia. Reviewed, dictated and finalized at location A.
--- NOTE | ~2020-08-21 | XR_ITS ---
EXAMINATION: [id number] EXAM DATE: 09/01/2020 15:54 INDICATION: Postthoracentesis. TECHNIQUE: Portable AP frontal chest x-ray was obtained. Comparison is made to prior examination from earlier same day. FINDINGS: Endotracheal tube tip is 8 centimeters above the jose alfredo. There is a nasogastric tube seen with tip collimated off the study, but below the left hemidiaphragm. Again there is diffuse bilateral edema and/or pneumonia. No evidence of postprocedural pneumothorax. Heart is normal in size. Evidenc e of small bilateral pleural effusions. Mild to moderate thoracic spondylosis. IMPRESSION: 1. No evidence postprocedure pneumothorax. 2. Diffuse edema and/or pneumonia. 3. Small pleural effusions. Reviewed, dictated and finalized at location A. TRAINING INSTRUCTOR
--- NOTE | 2020-08-21 09:34 | ED.SOB ---
HPI - SOB/Dyspnea General Chief Complaint: Shortness of Breath/Dyspnea Stated Complaint: sob Time Seen by Provider: 08/21/20 09:34 Source: patient Mode of arrival: ambulatory Limitations: no limitations History of Present Illness HPI Narrative: A 70-year-old male comes into the emergency department today with complaints of shortness of breath. He does endorse a history of respiratory problems, his son is present with him and states that he has a history of COPD. Patient's history is somewhat limited as he is quite dyspneic. He states that his symptoms have been present for the last couple of weeks and seem to be escalating. Patient does note that he has an inhaler at home that is no longer helping. He denies any fevers, chills, body aches or headaches. Related Data Home Medications Medication Instructions Recorded Confirmed amlodipine 5 mg PO DAILY 08/21/20 atorvastatin 10 mg PO HS 08/21/20 budesonide-formoterol [Symbicort] 2 puff INHALATION Q12H 08/21/20 clonidine HCl 0.3 mg PO DAILY 08/21/20 duloxetine 60 mg PO DAILY 08/21/20 finasteride 5 mg PO DAILY 08/21/20 gabapentin 600 mg PO TID 08/21/20 lisinopril-hydrochlorothiazide 1 tablet PO DAILY 08/21/20 metformin 850 mg 08/21/20 metoprolol succinate 200 mg PO DAILY 08/21/20 tamsulosin 0.4 mg PO DAILY 08/21/20 Allergies Allergy/AdvReac Type Severity Reaction Status Date / Time No Known Allergies Allergy Verified 08/21/20 09:39 Review of Systems Review of Systems: Narrative: CONSTITUTIONAL: Denies fever, chills, or sweats. EYES: Denies visual changes, redness, or discharge. ENT: Denies rhinorrhea, congestion, sore throat, or otalgia. CARDIOVASCULAR: Denies chest pain, palpitations, or edema. RESPIRATORY: Denies cough or dyspnea. GASTROINTESTINAL: Denies abdominal pain, nausea, vomiting, or diarrhea. GENITOURINARY: Denies dysuria or hematuria. SKIN: Denies rash or itching. MUSCULOSKELETAL: Denies back pain, joint pain, or myalgia. NEUROLOGIC: Denies headache, numbness, dizziness, or weakness. PSYCHIATRIC: Denies anxiety or depression. [facility] Family History Family History Sibling Patient's sister is in good health Family history of diabetes mellitus in first degree relative Father Family history of arthritis, Onset Age: 74 Family history of heart disease in male family member before age 55, Onset Age: 74 Mother Family history of Alzheimer's disease, Onset Age: 82 Patient's mother is , Onset Age: 82 Social History Social History Smoking status: Former smoker Alcohol intake: never Exam Narrative: Exam Narrative: GENERAL: Well-appearing, well-nourished, and exhibits respiratory distress. HEAD: Normocephalic, atraumatic. EYES: PERRLA and EOMI. ENT: Nares clear, no rhinorrhea or epistaxis. Mucous membranes moist. NECK: Supple. No adenopathy or masses. No carotid bruits or JVD CHEST: Tachypneic, coarse breath sounds with expiratory wheezing HEART: Regular rate and rhythm. No murmur heard. Normal peripheral pulses. ABDOMEN: Soft, nontender, nondistended, normal active bowel sounds. EXTREMITIES: Normal range of motion. No edema. Chronic venous stasis changes noted in the bilateral lower extremities SKIN: Warm, dry, no rash. NEURO: No focal deficits. Alert and oriented x3. PSYCH: Normal mood and affect. Course Reevaluation(s) Reevaluation #1: Reevaluated patient to reassess his breathing status. Patient stated that he was breathing easier but overall he seemed to be a bit more confused. He was not answering questions appropriately and seemed a bit more somnolent. Ordered ABG stat with respiratory. Time: 11:34 Consultations Consultation #1: Spoke with Dr. Tello, hospitalist. After discussing pertinent details of the patient's presentation, evaluation and work-up he agrees to accept the patient for admission and fur
--- NOTE | 2020-08-21 09:37 | ECG_ITS ---
Measurements Intervals [place] Rate: 74 P: 73 ID: 158 QRS: 136 QRSD: 89 T: 17 QT: 387 QTc: 430 Interpretive Statements SINUS RHYTHM RIGHT AXIS DEVIATION DELAYED PRECORDIAL R/S TRANSITION BORDERLINE ST-T WAVE ABNORMALITY- ANT/INF LEADS BORDERLINE ECG Electronically Signed On 08-21-2020 11:58:13 SAND MIXER MACHINE by Sergei Gonzalez D.O.
[2020-08-21 10:27] LABS: Anion Gap 7 mmol/L (8-16); Blood Urea Nitrogen 64 mg/dL (9-20); Calcium 8.2 mg/dL (8.4-10.2); Carbon Dioxide 28 mmol/L (22-30); Chloride 106 mmol/L (98-107); Estimated CRCL calculation 25 ml/min; Estimated Glomerular Filt Rate 17; Glucose 127 mg/dL (75-110); Potassium 5.7 mmol/L (3.4-5.0); Sodium 141 mmol/L (137-145)
[2020-08-21 10:38] LABS: Basophils Percent Auto 0.5 % (0.2-1.2); Eosinophils Absolute Auto 0.1 K/mm3 (0-0.3); Eosinophils Percent Auto 1.2 % (0-4.4); Hematocrit 55.7 % (42.0-52.0); Hemoglobin 16.5 g/dL (14.0-18.0); Immature Granulocyte Absolute 0.03 K/mm3 (0.00-0.031); Immature Granulocyte Percent A 0.4 % (0-0.5); Lymphocytes Absolute Auto 0.71 K/mm3 (0.9-3.2); Lymphocytes Percent Auto 8.6 % (18.3-44.2); Mean Corpuscular HGB Conc 29.6 g/dl (32-36); Mean Corpuscular Hemoglobin 28.1 pg (26-34); Mean Corpuscular Volume 94.7 fl (80-100); Mean Platelet Volume 9.1 fl (7.4-10.4); Monocytes Absolute Auto 0.6 K/mm3 (0.1-0.6); Monocytes Percent Auto 7.2 % (2.6-8.5); Neutrophils Absolute Auto 6.8 K/mm3 (1.3-6.7); Neutrophils Percent Auto 82.1 % (45.5-73.1); Platelet Count Result 239 k/mm3 (150-375); Red Blood Count 5.88 M/mm3 (4.6-6.20); Red Cell Distribution Width 18.6 % (11.5-14.5); White Blood Count 8.2 K/mm3 (4.5-10.0)
[2020-08-21] MEDS: FUROSEMIDE INJ 40 MG/4 ML VIAL IV PUSH (10:39)
[2020-08-21] MEDS: IPRATROPIUM BR 0.02% INH SOLN 0.5 MG/2.5 ML VIAL 1 MG INHALATION (10:40)
[2020-08-21] MEDS: ALBUTEROL SULFATE NEB 2.5 MG/0.5 ML INH 10 MG INHALATION (10:40)
[2020-08-21 10:41] LABS: NT Pro B Type Natriuretic Pept 22200 PG/ML (5-100); Troponin I 0.046 ng/mL (0.000-0.034)
[2020-08-21 10:47] LABS: Prothrombin Time 13.7 Seconds (11.1-14.7)
[2020-08-21 10:48] LABS: Partial Thromboplastin Time 30.3 SECONDS (22.3-36.8)
--- NOTE | 2020-08-21 11:30 | PC.NURSE ---
received report from Maki MARSHALL. patient resting on stretcher. respiratory at bedside now for ABG. patient on RA with sat 85%. placed back on 3L NC. respiratory states patient just finished nebulizer treatment. waiting for ABG results. patient is more lethargic than on arrival to ED but awakens to verbal stimuli. oriented x 3-4. aware of current treatment plan.
[2020-08-21 11:39] LABS: Alveolar/Arterial O2 Gradient 17.8 mmHg; Base Excess ABG -0.5 mEq/l (+/-2.0); Fractional Inspired Oxygen 21 %; HCO3 ABG 28.8 mEq/l (22.0-26.0); Oxygen Content ABG 17.4 %vol (16.0-22.0); Oxyhemoglobin 77.8 % THb (90.0-100.0); PO2 FiO2 Ratio Arterial Blood 2.43 %; Total Hemoglobin 15.9 g/dL (12.0-18.0)
[2020-08-21 11:40] LABS: Device ROOM AIR; Modified Allen's Test Pass; Oxygen Saturation ABG 79.1 % (95.0-100.0); PCO2 ABG 67.6 mmHg (35.0-45.0); Site Drawn RIGHT RADIAL; pH ABG 7.248 (7.350-7.450)
--- NOTE | 2020-08-21 12:00 | PC.NURSE ---
respiratory in room. patient placed on bipap. on research and development scientist. call light in reach.
[2020-08-21 12:54] LABS: Alveolar/Arterial O2 Gradient 152.4 mmHg; Fractional Inspired Oxygen 40 %; HCO3 ABG 25.6 mEq/l (22.0-26.0); Oxygen Content ABG 19.4 %vol (16.0-22.0); Oxygen Saturation ABG 88.6 % (95.0-100.0); Oxyhemoglobin 85.6 % THb (90.0-100.0); PCO2 ABG 59.7 mmHg (35.0-45.0); PO2 ABG 64.1 mmHg (80.0-100.0); Total Hemoglobin 16.1 g/dL (12.0-18.0)
[2020-08-21 12:55] LABS: Device NON-INVASIVE VENT; Modified Allen's Test Pass; Site Drawn RIGHT RADIAL
[2020-08-21 12:56] LABS: Non-Invasive Expiratory Pressure 6 CMH2O; Non-Invasive Inspiratory Pressure 15 CMH2O; Non-Invasive Vent Rate 4 /MIN
--- NOTE | 2020-08-21 14:30 | PC.NURSE ---
resting on stretcher. continues to be lethargic but easily awakened. provider aware. waiting for bed assignment upstairs. denies needs when awakened. call light in reach.
--- NOTE | 2020-08-21 15:05 | PC.NURSE ---
patient has bed assigned in IMU. this RN and respiratory to bedside to transport patient on bipap. patient was placed on bedpan. had large BM. patient cleaned and repositioned by ED staff. remains on bipap.
--- NOTE | 2020-08-21 15:30 | PC.NURSE ---
report given to IMU RN. patient taken to 212 via stretcher on bipap and ekg monitor tech. RN in room. report given. patient released to IMU staff care.
--- NOTE | 2020-08-21 16:30 | PM.IMHP ---
H&P: HPI History of Present Illness Date/Time: 08/21/20 16:30 Chief Complaint: Shortness of breath. Narrative: This is a 70-year-old male, former smoker, with COPD/emphysema, diabetes, hypertension, hyperlipidemia, chronic kidney disease, and benign prostatic hyperplasia who presented to the emergency department [facility] shortness of breath. Over the last couple of days he has had progressive dyspnea on lesser and lesser exertion, to the point where his inhalers have not been helping. He has also had some sinus congestion and pain in his maxillary teeth. Today he was seen at [facility] where he was hypoxic in the 70s on arrival for which he was placed on 4 liters nasal cannula. In the emergency department he was hypoxic and hypercarbic on ABG and was placed on BiPAP. At the time my evaluation, the patient is on the BiPAP, sitting at the side of the bed in somewhat of a tripod position. His hands, feet, and ears are cyanotic which he indicates is a chronic finding although may be a bit worse than usual. He also indicates to me that his baseline respiratory status is very poor, to the point where he does not climb steps or go to the store. When walking around the home he will have to stop and rest to catch his breath. It does not sound as though he has ever been evaluated for home oxygen. In any regard, despite changes in the BiPAP he continues to be hypercarbic and the decision was made to intubated after discussions with the patient, Dr. Vanegas (dive superintendent), and Dr. Brice (director of state). Review of Systems Review of Systems: Narrative: Twelve systems were reviewed with pertinent positives and negatives as per HPI. He denies fever, chills, and sweats. No headache. He has been having some sinus congestion and discomfort in his maxillary teeth. He has a mild cough but is been nonproductive. No sick contacts or exposure to those positive for COVID-19 to his knowledge. He denies chest pain, pleuritic pain, and palpitations. Denies concerns for sleep apnea. He has chronic lower extremity edema which is unchanged. No history of DVT. He believes his diabetes is well controlled, and in fact his most recent hemoglobin A1c was I think 5.8%. Except as documented, all other systems were reviewed and are negative PMFSH Past Medical History Medical History (Updated 08/22/20 @ 00:07 by Aditi Fry PA-C) Benign prostatic hyperplasia Chronic kidney failure Baseline creatinine are unknown at this time but was noted to be about 1.80 in 2014. COPD with emphysema Dyslipidemia Essential hypertension Gastroesophageal reflux disease Gout Tobacco abuse Type 2 diabetes mellitus Surgical History Surgical History (Updated 08/21/20 @ 16:36 by Aditi Fry PA-C) History of cardiac catheterization Many years ago, reportedly unremarkable. Family History Family History Sibling Patient's sister is in good health Family history of diabetes mellitus in first degree relative Father Family history of arthritis, Onset Age: 74 Family history of heart disease in male family member before age 55, Onset Age: 74 Mother Family history of Alzheimer's disease, Onset Age: 82 Patient's mother is , Onset Age: 82 Social History Social History (Updated 08/21/20 @ 23:57 by Aditi Fry PA-C) Social History: The patient lives in [place] with his girlfriend. 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 He smoked up to 2 packs of cigarettes per day for greater than 50 years and now smokes about half a pack a day. No alcohol or illicit substance abuse. He designates his daughter Park as his surrogate decision maker and he wishes to be a full code. Smoking packs per day: 0.5 Smoking cigarettes per day: 10.0 Smoking status: Current every day smoker Tobacco type: cigarettes Spiritual care concer
[2020-08-21 16:55] LABS: Troponin I 0.048 ng/mL (0.000-0.034)
--- NOTE | 2020-08-21 17:07 | ADMGEN ---
This patient, Dax Morrison, was admitted to IMU Room 212-01 at 1615. Patient/family oriented to hospital policies and general routines including ID bracelet, bed and alarms, visiting hours, pain management, procedures, bathroom and other care routines, personal items, smoking policy, room service/diet, and visiting hours. Information on how to activate the Rapid Response Team has been discussed. Patient/Family are encouraged to report perceived risks to care and to ask questions if they do not understand what they are told or what they should do.
[2020-08-21 17:30] LABS: Alveolar/Arterial O2 Gradient 223.5 mmHg; Base Excess ABG -1.3 mEq/l (+/-2.0); Carboxyhemoglobin 2.1 % THb (0-2.0); Fractional Inspired Oxygen 50 %; HCO3 ABG 28.2 mEq/l (22.0-26.0); Methemoglobin ABG 0.4 %THb (0-1.5); Oxygen Content ABG 19.4 %vol (16.0-22.0); Oxyhemoglobin 83.3 % THb (90.0-100.0); PO2 ABG 56.6 mmHg (80.0-100.0); PO2 FiO2 Ratio Arterial Blood 1.13 %; Reduced Hemoglobin 14.2 %THb (0-5.0); Total Hemoglobin 16.6 g/dL (12.0-18.0)
[2020-08-21 17:31] LABS: Device NON-INVASIVE VENT; Modified Allen's Test Pass; Oxygen Saturation ABG 83.4 % (95.0-100.0); PCO2 ABG 67.9 mmHg (35.0-45.0); Site Drawn LEFT RADIAL; pH ABG 7.237 (7.350-7.450)
[2020-08-21 17:32] LABS: Non-Invasive Expiratory Pressure 6 CMH2O; Non-Invasive Inspiratory Pressure 15 CMH2O; Non-Invasive Vent Rate 4 /MIN
[2020-08-21 17:36] LABS: Glucose Point of Care 141 (65-105)
[2020-08-21] MEDS: FUROSEMIDE INJ 40 MG/4 ML VIAL 20 MG IV PUSH (18:00)
[2020-08-21 18:59] LABS: Hemoglobin A1C 5.9 % (<5.7)
[2020-08-21 19:58] LABS: Alanine Aminotransferase 40 U/L (4-50); Albumin Level 3.7 g/dL (3.5-5.1); Alkaline Phosphatase 97 U/L (38-126); Anion Gap 5 mmol/L (8-16); Aspartate Amino Transferase 33 U/L (17-59); Bilirubin,Total 0.6 mg/dL (0.2-1.3); Blood Urea Nitrogen 67 mg/dL (9-20); Calcium 8.3 mg/dL (8.4-10.2); Carbon Dioxide 31 mmol/L (22-30); Chloride 106 mmol/L (98-107); Estimated CRCL calculation 25 ml/min; Estimated Glomerular Filt Rate 18; Glucose 125 mg/dL (75-110); Magnesium 1.5 mg/dL (1.6-2.3); Potassium 5.8 mmol/L (3.4-5.0); Sodium 142 mmol/L (137-145)
[2020-08-21 20:16] LABS: Troponin I 0.046 ng/mL (0.000-0.034)
[2020-08-21 21:12] LABS: Glucose Point of Care 111 (65-105)
[2020-08-21] MEDS: ALBUTEROL SULFATE NEB 2.5 MG/0.5 ML INH 5 MG INHALATION (21:26)
[2020-08-21] MEDS: IPRATROPIUM BR 0.02% INH SOLN 0.5 MG/2.5 ML VIAL INHALATION (21:26)
[2020-08-21] MEDS: HEPARIN SODIUM 5,000 UNITS/ML VIAL 5000 UNITS SUB-Q (21:48)
[2020-08-21 21:49] LABS: Alveolar/Arterial O2 Gradient 155.2 mmHg; Carboxyhemoglobin 1.8 % THb (0-2.0); Fractional Inspired Oxygen 40 %; HCO3 ABG 25.4 mEq/l (22.0-26.0); Methemoglobin ABG 0.4 %THb (0-1.5); Oxygen Content ABG 20.5 %vol (16.0-22.0); Oxygen Saturation ABG 88.1 % (95.0-100.0); Oxyhemoglobin 88.1 % THb (90.0-100.0); PCO2 ABG 58.5 mmHg (35.0-45.0); PO2 ABG 62.7 mmHg (80.0-100.0); PO2 FiO2 Ratio Arterial Blood 1.57 %; Reduced Hemoglobin 9.7 %THb (0-5.0); Total Hemoglobin 16.6 g/dL (12.0-18.0)
[2020-08-21 21:51] LABS: Device NON-INVASIVE VENT; Modified Allen's Test Pass; Non-Invasive Expiratory Pressure 8 CMH2O; Non-Invasive Inspiratory Pressure 18 CMH2O; Non-Invasive Vent Rate 20 /MIN; Site Drawn LEFT RADIAL; pH ABG 7.256 (7.350-7.450)
[2020-08-21 21:59] LABS: SARS-CoV-2 RNA PCR Negative
--- NOTE | 2020-08-21 22:34 | PC.NURSE ---
Called daughter Park at pt's request to let her know of impending intubation. Phone number provided by pt [phone]
--- NOTE | 2020-08-21 23:25 | P.PCNBED_ITS ---
Procedures Intubation Intubation Date: 08/21/20 Intubation Time: 23:25 Consent: Patient gave verbal consent. A pre-procedural Time-Out was completed immediately before starting the procedure and confirmed: Patient Identification, Site, Procedure, Patient Position and the Availability of Requisite Equipment: Yes Sedative: etomidate Mg given: 20 Paralytic: succinylcholine Mg given: 75 Laryngoscope: Yasmeen (4) Assist device used: fiber optic device ET tube size: 8 Tube secured depth (cm): 24 Tube secured location: teeth Tube placement confirmation: visualized tube passing through cords, equal breath sounds bilaterally, no breath sounds over epigastrium and confirmation by capnometry Patient tolerated procedure: well Intubation complications: none Additional comments: Chest x-ray pending at this time. I discussed the patient's case with Dr. Vanegas, side seam envelope machine operator, and he agreed with the decision to intubate. Dr. Alber Rico, attending ED, was available in house if needed.
[2020-08-21] MEDS: FENTANYL 2,500MCG/NS250ML(*CRX 2,500 MCG/250 ML BAG IV CONT (23:48)
[2020-08-21] MEDS: MIDAZOLAM 100MG/NS 100ML(*CRX) 100 MG/100 ML BAG 6 MG IV CONT (23:49)
[2020-08-22] VITALS (36 sets, daily range): BP systolic 107–157; BP diastolic 51–97; PULSE 71–100; RESP 20–24; TEMP 36.2–37.2; O2SAT 92–100
[2020-08-22] MEDS: DEXTROSE 50% 25 GM/50 ML SYRINGE IV PUSH ×2 (00:06→05:44)
[2020-08-22] MEDS: SODIUM BICARBONATE 8.4% 50 MEQ/50 ML SYRINGE IV PUSH ×2 (00:06→05:44)
[2020-08-22] MEDS: INSULIN HUMAN REGULAR (*BKC) 100 UNITS/ML 10 UNITS IV PUSH ×2 (00:06→05:44)
[2020-08-22 00:21] LABS: Glucose Point of Care 140 (65-105)
--- NOTE | 2020-08-22 00:22 | PC.NURSE ---
This patient, Dax Morrison, was transferred to [ICU-9 ] for declining respiratory status, pending intubation on 08/21/20 at 2315. Personal belongings sent with patient. Report given to [Joyce]. Appropriate documentation sent with patient.
[2020-08-22] MEDS: CALCIUM GLUC 1,000 MG/NS 50 ML 1,000 MG/50 ML BAG 100 MG IVPB ×2 (00:23→05:58)
[2020-08-22 00:43] LABS: Alveolar/Arterial O2 Gradient 312.8 mmHg; Base Excess ABG -0.3 mEq/l (+/-2.0); Carboxyhemoglobin 1.6 % THb (0-2.0); Fractional Inspired Oxygen 65 %; HCO3 ABG 27.6 mEq/l (22.0-26.0); Methemoglobin ABG 0.4 %THb (0-1.5); Oxygen Content ABG 20.4 %vol (16.0-22.0); Oxygen Saturation ABG 95.4 % (95.0-100.0); Oxyhemoglobin 93.6 % THb (90.0-100.0); PCO2 ABG 58.5 mmHg (35.0-45.0); PO2 FiO2 Ratio Arterial Blood 1.34 %; Reduced Hemoglobin 4.4 %THb (0-5.0); Total Hemoglobin 15.5 g/dL (12.0-18.0); pH ABG 7.292 (7.350-7.450)
[2020-08-22 00:44] LABS: Modified Allen's Test Unable to perform; Site Drawn LEFT RADIAL
[2020-08-22 00:45] LABS: Arterial Blood Gas PEEP 5 cmH2O; Arterial Blood Gas Tidal Volume 550 ml; Arterial Blood Gas Vent Mode CMV; Arterial Blood Gas Ventilator rate 24 /MIN; Device VENTILATOR
[2020-08-22] MEDS: methylPREDNISolone SOD SUCC 125 MG VIAL IV PUSH (00:45)
[2020-08-22] MEDS: ALBUTEROL SULFATE NEB 2.5 MG/0.5 ML INH 5 MG INHALATION ×3 (01:59→14:23)
[2020-08-22] MEDS: IPRATROPIUM BR 0.02% INH SOLN 0.5 MG/2.5 ML VIAL INHALATION ×4 (02:00→20:14)
[2020-08-22 02:17] LABS: Anion Gap 6 mmol/L (8-16); Blood Urea Nitrogen 67 mg/dL (9-20); Carbon Dioxide 30 mmol/L (22-30); Chloride 106 mmol/L (98-107); Estimated CRCL calculation 25 ml/min; Estimated Glomerular Filt Rate 19; Glucose 146 mg/dL (75-110); Potassium 4.8 mmol/L (3.4-5.0); Sodium 142 mmol/L (137-145)
[2020-08-22 04:24] LABS: Basophils Percent Auto 0.2 % (0.2-1.2); Eosinophils Percent Auto 0.1 % (0-4.4); Hematocrit 51.8 % (42.0-52.0); Hemoglobin 15.8 g/dL (14.0-18.0); Immature Granulocyte Absolute 0.04 K/mm3 (0.00-0.031); Immature Granulocyte Percent A 0.3 % (0-0.5); Lymphocytes Absolute Auto 0.24 K/mm3 (0.9-3.2); Mean Corpuscular HGB Conc 30.5 g/dl (32-36); Mean Corpuscular Volume 91.8 fl (80-100); Mean Platelet Volume 8.9 fl (7.4-10.4); Monocytes Absolute Auto 0.3 K/mm3 (0.1-0.6); Monocytes Percent Auto 2.7 % (2.6-8.5); Neutrophils Absolute Auto 11.4 K/mm3 (1.3-6.7); Neutrophils Percent Auto 94.7 % (45.5-73.1); Platelet Count Result 174 k/mm3 (150-375); Red Blood Count 5.64 M/mm3 (4.6-6.20); White Blood Count 12.1 K/mm3 (4.5-10.0)
[2020-08-22 04:44] LABS: Alveolar/Arterial O2 Gradient 321.2 mmHg; Carboxyhemoglobin 1.4 % THb (0-2.0); Fractional Inspired Oxygen 65 %; HCO3 ABG 26.9 mEq/l (22.0-26.0); Methemoglobin ABG 0.3 %THb (0-1.5); Oxygen Content ABG 21.4 %vol (16.0-22.0); Oxygen Saturation ABG 96.7 % (95.0-100.0); Oxyhemoglobin 94.9 % THb (90.0-100.0); PCO2 ABG 47.2 mmHg (35.0-45.0); PO2 ABG 90.9 mmHg (80.0-100.0); Reduced Hemoglobin 3.4 %THb (0-5.0); pH ABG 7.373 (7.350-7.450)
[2020-08-22 04:45] LABS: Arterial Blood Gas PEEP 5 cmH2O; Arterial Blood Gas Tidal Volume 550 ml; Arterial Blood Gas Vent Mode CMV; Arterial Blood Gas Ventilator rate 24 /MIN; Device VENTILATOR; Modified Allen's Test Unable to perform; Site Drawn RIGHT RADIAL
[2020-08-22 04:49] LABS: Anion Gap 7 mmol/L (8-16); Blood Urea Nitrogen 69 mg/dL (9-20); Calcium 8.1 mg/dL (8.4-10.2); Carbon Dioxide 25 mmol/L (22-30); Chloride 110 mmol/L (98-107); Estimated CRCL calculation 26 ml/min; Estimated Glomerular Filt Rate 19; Glucose 125 mg/dL (75-110); Potassium 6.2 mmol/L (3.4-5.0); Sodium 142 mmol/L (137-145)
[2020-08-22] MEDS: SODIUM POLYSTYRENE SULFONONATE 15 GM/60 ML BTL PO (05:43)
[2020-08-22] MEDS: methylPREDNISolone SOD SUCC 125 MG VIAL 60 MG IV PUSH ×2 (05:45→12:05)
[2020-08-22 05:58] LABS: Glucose Point of Care 122 (65-105)
[2020-08-22] MEDS: HEPARIN SODIUM 5,000 UNITS/ML VIAL 5000 UNITS SUB-Q ×2 (08:56→20:00)
[2020-08-22] MEDS: FUROSEMIDE INJ 40 MG/4 ML VIAL 20 MG IV PUSH (08:59)
[2020-08-22 09:45] LABS: Anion Gap 7 mmol/L (8-16); Blood Urea Nitrogen 67 mg/dL (9-20); Calcium 8.2 mg/dL (8.4-10.2); Carbon Dioxide 31 mmol/L (22-30); Chloride 106 mmol/L (98-107); Estimated CRCL calculation 25 ml/min; Estimated Glomerular Filt Rate 19; Glucose 157 mg/dL (75-110); Potassium 5.1 mmol/L (3.4-5.0); Sodium 144 mmol/L (137-145)
[2020-08-22] MEDS: FENTANYL 2,500MCG/NS250ML(*CRX 2,500 MCG/250 ML BAG 20 MCG IV CONT (11:59)
[2020-08-22] MEDS: PERFLUTREN LIPID MICROSPHERES 1.5 ML VIAL DILUTED TO 10 ML TOTAL VOLUME (12:01)
[2020-08-22 12:38] LABS: Glucose Point of Care 167 (65-105)
[2020-08-22] MEDS: MIDAZOLAM 100MG/NS 100ML(*CRX) 100 MG/100 ML BAG 6 MG IV CONT (14:28)
--- NOTE | 2020-08-22 14:52 | WPDCNINT ---
Assessment and Plan Assessment and plan (1) Congestive heart failure: Code(s): I50.9 - Heart failure, unspecified Status: Acute (2) Acute respiratory failure with hypoxia and hypercapnia: Code(s): J96.01 - Acute respiratory failure with hypoxia; J96.02 - Acute respiratory failure with hypercapnia Status: Acute (3) Acute CHF (congestive heart failure): Qualifiers: Heart failure type: unspecified Qualified Code(s): I50.9 - Heart failure, unspecified Code(s): I50.9 - Heart failure, unspecified Status: Acute Assessment and Plan: I reviewed the patient's ABGs, chest x-ray and laboratory work. This patient appears to have subacute congestive heart failure which is a new diagnosis. I will increase his Lasix to 80 mg IV Q 6 hours and monitor his renal function. Hope to extubate in the next 24-48 hours. An echocardiogram was done this morning and is currently pending results. Blood pressure and heart rate are well controlled And no signs of acute coronary syndrome are currently present. (4) COPD (chronic obstructive pulmonary disease): Code(s): J44.9 - Chronic obstructive pulmonary disease, unspecified Status: Acute Assessment and Plan: Continue ipratropium 0.5 mg Q 6 hours scheduled Will add Pulmicort 0.5 mg q.12 hours Change albuterol to 2.5 mg Q 6 hours and p.r.n. only will hold off onsystemic steroids and antibiotics for now. Additional Plan . Code status: Full code Critical care time spent:32 minutes Due to a high probability of clinically significant, life threatening deterioration, the patient required my highest level of preparedness to intervene emergently and I personally spent this critical care time directly and personally managing the patient. This critical care time included obtaining a history; examining the patient; pulse oximetry; ordering and review of studies; arranging urgent treatment with development of a management plan; evaluation of patient's response to treatment; frequent reassessment; and discussions with other providers. It was exclusive of separately billable procedures and treating other patients and teaching time. Please see Assessment and Plan section and the rest of the note for further information on patient assessment and treatment Canal Equipment Maintenance Supervisor Consult Note Consult date: 08/22/20 Time Seen: 14:30 HPI: Dax Morrison is a 70 year old male Full presents with acute respiratory failure and failed NIV therapy and was intubated. I took most of the history from his daughter who was at the bedside. She does not live with him but was aware of his deteriorating condition over the past few weeks. According to her he has been short of breath now for few weeks and refused to seek care. He actually went to an urgent care yesterday and was told he was in congestive heart failure but refused to come to the hospital. He was brought in by EMS with significant hypoxic and hypercapnic respiratory failure. BiPAP was tried in the emergency department with no improvement after changing of settings. It a decision was made to intubate him. And chest x-ray showed bilateral diffuse interstitial infiltrates with mild bilateral pleural effusions. [place] was [address]01 with a creatinine of 3.3. His last creatinine in 2013 was 2.1. He has a history of hypertension, undiagnosed COPD, diabetes but no history of congestive heart failure or acute coronary syndrome or MT according to his daughter. She says he is noncompliant with medications and has a long smoking history but has cut down to about 3 cigarettes a day since he has been ill for the past few weeks. There were no infectious symptoms reported by his significant other no sore throat no runny nose no productive cough no fevers chills or night sweats. He has had no ill contacts with with patients with COVID or patients who have had flu-like illnesses. Review of Systems Review of Systems: All syste
[2020-08-22] MEDS: FUROSEMIDE INJ 100 MG/10 ML VIAL 80 MG IV PUSH ×2 (15:08→20:01)
--- NOTE | 2020-08-22 15:36 | PM.IMPN ---
Progress Note: A&P Assessment and Plan (1) Acute respiratory failure with hypoxia and hypercapnia: Code(s): J96.01 - Acute respiratory failure with hypoxia; J96.02 - Acute respiratory failure with hypercapnia Status: Acute Assessment and Plan: The patient originally presented to urgent care with complaints of shortness of breath and was directed to the ED as he was hypoxic in the 70s on room air. He was placed on BiPAP but despite several setting changes, he continued to be hypercarbic with evidence of respiratory distress and ultimately intubated 08/21/20. Suspect COPD and CHF exacerbation. Stable on MV with improved ABG. Wean vent as tolerated. Appreciate warehouse distribution specialist input. (2) Congestive heart failure: Code(s): I50.9 - Heart failure, unspecified Status: Acute Assessment and Plan: CHF contributing to [place] [address]. Chest x-ray shows cardiomegaly pulmonary edema. Currently on IV diuretics. Urine output improving. Echocardiogram ordered. Continue monitor urine output and renal function. (3) COPD with acute exacerbation: Code(s): J44.1 - Chronic obstructive pulmonary disease with (acute) exacerbation Status: Acute Assessment and Plan: ABG improved. No wheezing. Continue Pulmicort Respules and Atrovent. Solu-Medrol stopped. Antibiotics have been stopped as well. Continue monitor. (4) Elevated troponin: Code(s): R77.8 - Other specified abnormalities of plasma proteins Status: Acute Assessment and Plan: Troponin elevated to 0.046 but flat. EKG showed borderline findings with poor R-wave progression. Most likely type 2 FL related to demand ischemia and/or from his CKD. Continue telemetry. (5) Hyperkalemia: Code(s): E87.5 - Hyperkalemia Status: Acute Assessment and Plan: Potassium 6.2 this morning. This was treated. Repeat potassium 5.1. Monitor closely. (6) Chronic kidney failure: Code(s): N18.9 - Chronic kidney disease, unspecified Status: Chronic Assessment and Plan: Creatinine was 2.1 in 2013. No other values to compare. Creatinine was 3.5 on admission and suspect this is his baseline. It has improved slightly to 3.2 today. Monitor closely on diuretics therapy. (7) Essential hypertension: Code(s): I10 - Essential (primary) hypertension Status: Chronic Assessment and Plan: BP reviewed on 08/22 and remains well controlled. Contineu to monitor. (8) Type 2 diabetes mellitus: Code(s): E11.9 - Type 2 diabetes mellitus without complications Status: Chronic Assessment and Plan: A1c 5.9. The patient's blood glucose was reviewed on 08/22 Glucose remains well controlled. Metformin on hold. Continue AccuCheks covering with sliding scale. Hypoglycemia protocol available as needed. (9) Benign prostatic hyperplasia: Code(s): N40.0 - Benign prostatic hyperplasia without lower urinary tract symptoms Status: Chronic Assessment and Plan: Maddox secured. Flomax and proscar on hold. Resume when able. (10) Tobacco abuse: Code(s): Z72.0 - Tobacco use Status: Acute Assessment and Plan: Tobacco cessation is imperative. (11) DVT prophylaxis: Code(s): Z29.9 - Encounter for prophylactic measures, unspecified Status: Acute Assessment and Plan: Heparin Subjective Date/time seen: 08/22/20 15:36 Interval history: Date of service 08/22 70yo male with COPD, DM, HTN and CKD here for SOB and developed respiratory failure. Patietn had pink urine and pink secretions for the OG tube but these have cleared. Javedn currently on Fentanyl and Versed. PEEP 5 and 60% but turned to 40% this morning. Potassium 6.2 this morning and was treated. Review of Systems Review of Systems: ROS unobtainable: Yes unobtainable due to endotracheal tube Exam Narrative: Exam N
--- NOTE | 2020-08-22 16:26 | ECHO_ITS ---
Patient Info Name: Dax Morrison Age: 70 years : 1950 Gender: Male Ht: 73 in Wt: 284 lbs BSA: 2.62 m2 HR: 76 bpm BP: 142 / 56 mmHg Heart Rhythm: Sinus Rhythm Technical Quality: Poor Exam Date: 08/22/2020 11:12 AM Exam Location: [facility] Card Pulmonary Patient Status: Inpatient Admit Date: 08/21/2020 Staff Ordering Physician: Aditi Fry PA-C Store Clerk Cashier: Traci Simons RDCS Attending Provider: Kevyn Arriola MD Referring Physician: Ang TERAN; Exam Type: CA echo dop color flow w con Contrast/Agitated Saline Contrast/Ag. Saline: Definity Amount: 4.00 ml Summary 1. Small left ventricular cavity size with normal wall thickness and hyperdynamic systolic function, EF greater than 70%. Indeterminate diastolic function. No segmental wall motion abnormalities. 2. Severe right ventricular enlargement, with right ventricular hypertrophy and severe hypokinesis. 3. Left atrial chamber dimension is mildly enlarged. 4. Right atrial chamber dimension is mildly enlarged. 5. There is mild mitral valve regurgitation. 6. There is mild to moderate tricuspid valve regurgitation. 7. Dilated inferior vena cava with no collapse upon inspiration consistent with elevated right atrial pressure. 8. Unable to estimate pulmonary pressure with this study. 9. Technically difficult study. IV echo contrast used. 10. Normal sinus rhythm. Left Ventricle Left ventricular chamber dimension is normal. Left ventricular systolic function is hyperdynamic, estimated at >70%. There is no increased left ventricular wall thickness. Left ventricular septal wall motion is normal. The left ventricular diastolic function is indeterminate. Right Ventricle Right ventricular chamber dimension is severely enlarged. Right ventricular systolic function is reduced. Left Atria Left atrial chamber dimension is mildly enlarged. Right Atria Right atrial chamber dimension is mildly enlarged. Aortic Valve The aortic valve is trileaflet. There is no aortic valve sclerosis. There is no aortic valve stenosis. There is no aortic valve regurgitation. Pulmonic Valve The pulmonic valve is normal. There is no pulmonic valve stenosis. There is no pulmonic regurgitation. Mitral Valve The mitral valve has normal leaflets. There is no mitral valve stenosis. There is mild mitral valve regurgitation. Tricuspid Valve The tricuspid valve leaflets are normal. There is no significant tricuspid valve stenosis. There is mild to moderate tricuspid valve regurgitation. No pulmonary hypertension, estimated pulmonary arterial systolic pressure is Empty. Pericardium/Pleural The pericardium appears normal. There is no pericardial effusion. Inferior Vena Cava Dilated inferior vena cava with no collapse upon inspiration consistent with elevated right atrial pressure. Aorta The aortic root size at the sinus of Valsalva is normal. The prox ascending aorta size is normal. Left Ventricular Outflow Tract Name Value Normal LVOT 2D LVOT Diameter 2.01 cm LVOT Doppler LVOT Peak Gradient
[2020-08-22 18:03] LABS: Glucose Point of Care 137 (65-105)
[2020-08-22] MEDS: BUDESONIDE RESPULE NEB 0.5 MG/2 ML AMP 1 MG INHALATION (20:14)
[2020-08-22 23:22] LABS: Glucose Point of Care 154 (65-105)
[2020-08-23] VITALS (44 sets, daily range): BP systolic 109–143; BP diastolic 53–83; PULSE 71–159; RESP 10–20; TEMP 36.3–36.8; O2SAT 93–100
[2020-08-23] MEDS: FENTANYL 2,500MCG/NS250ML(*CRX 2,500 MCG/250 ML BAG 20 MCG IV CONT (01:18)
[2020-08-23] MEDS: IPRATROPIUM BR 0.02% INH SOLN 0.5 MG/2.5 ML VIAL INHALATION ×3 (02:10→20:02)
[2020-08-23 04:36] LABS: Alveolar/Arterial O2 Gradient 230.9 mmHg; Carboxyhemoglobin 0.9 % THb (0-2.0); Fractional Inspired Oxygen 50 %; HCO3 ABG 30.3 mEq/l (22.0-26.0); Methemoglobin ABG 0.3 %THb (0-1.5); Oxygen Saturation ABG 92.8 % (95.0-100.0); Oxyhemoglobin 91.2 % THb (90.0-100.0); PO2 ABG 67.1 mmHg (80.0-100.0); PO2 FiO2 Ratio Arterial Blood 1.34 %; Reduced Hemoglobin 7.6 %THb (0-5.0); Total Hemoglobin 14.8 g/dL (12.0-18.0); pH ABG 7.383 (7.350-7.450)
[2020-08-23 04:37] LABS: Modified Allen's Test Pass; Site Drawn LEFT RADIAL
[2020-08-23 04:38] LABS: Arterial Blood Gas PEEP 5 cmH2O; Arterial Blood Gas Vent Mode CMV; Arterial Blood Gas Ventilator rate 20 /MIN; Device VENTILATOR
[2020-08-23 04:39] LABS: Arterial Blood Gas Tidal Volume 500 ml
[2020-08-23 06:00] LABS: Glucose Point of Care 148 (65-105)
[2020-08-23 06:54] LABS: Hematocrit 47.6 % (42.0-52.0); Hemoglobin 14.1 g/dL (14.0-18.0); Mean Corpuscular HGB Conc 29.6 g/dl (32-36); Mean Corpuscular Hemoglobin 27.6 pg (26-34); Mean Corpuscular Volume 93.3 fl (80-100); Mean Platelet Volume 9.4 fl (7.4-10.4); Platelet Count Result 207 k/mm3 (150-375); Red Cell Distribution Width 17.2 % (11.5-14.5); White Blood Count 12.8 K/mm3 (4.5-10.0)
[2020-08-23 07:10] LABS: Alanine Aminotransferase 23 U/L (4-50); Albumin Level 2.9 g/dL (3.5-5.1); Alkaline Phosphatase 71 U/L (38-126); Anion Gap 5 mmol/L (8-16); Aspartate Amino Transferase 19 U/L (17-59); Bilirubin,Total 0.5 mg/dL (0.2-1.3); Blood Urea Nitrogen 71 mg/dL (9-20); CRP 4.3 mg/dL (<1.0); Calcium 7.9 mg/dL (8.4-10.2); Carbon Dioxide 31 mmol/L (22-30); Chloride 107 mmol/L (98-107); Estimated CRCL calculation 21 ml/min; Estimated Glomerular Filt Rate 15; Glucose 140 mg/dL (75-110); Magnesium 1.9 mg/dL (1.6-2.3); Phosphorus 5.8 mg/dL (2.5-4.5); Potassium 4.6 mmol/L (3.4-5.0); Sodium 143 mmol/L (137-145)
[2020-08-23 07:24] LABS: Lymphocytes Absolute Manual 0.12 K/mm3 (1.1-4.5); Monocytes Absolute Manual 0.25 K/mm3 (0.1-0.90); Monocytes Percent Manual 2 % (3-9); Neutrophils Percent Manual 97 % (46-73); Platelet Estimate Adequate (Adequate); Total Cells Counted 100
[2020-08-23 07:25] LABS: Hypochromasia 1+ (NORMAL); Smudge Cells PRESENT
[2020-08-23] MEDS: FUROSEMIDE INJ 100 MG/10 ML VIAL 80 MG IV PUSH (08:21)
[2020-08-23] MEDS: HEPARIN SODIUM 5,000 UNITS/ML VIAL 5000 UNITS SUB-Q ×2 (08:22→21:57)
[2020-08-23] MEDS: MIDAZOLAM HCL (*CRX) 2 MG/2 ML VIAL IV PUSH (10:20)
--- NOTE | 2020-08-23 10:24 | PM.CNNEP ---
Assessment and Plan Assessment and plan (1) Chronic kidney failure: Code(s): N18.9 - Chronic kidney disease, unspecified Status: Chronic Assessment and Plan: The patient has chronic kidney disease. His creatinine was 2.1 back in 2013. It is likely that he may have baseline that is higher than that currently. Will try to get old records. Most likely his chronic kidney disease is on the basis of diabetes, hypertension, and vascular disease. (2) MARSHA (acute kidney injury): Code(s): N17.9 - Acute kidney failure, unspecified Status: Acute Assessment and Plan: The patient has acute kidney injury as well. His creatinine maria luisa from 3.2-3.9 within a day. This may be due to his diuretics. However he is fluid overloaded and needs to fluid off for him to get off the ventilator so I agree with continuing the diuretics and spite of the rising creatinine. If he does not make enough urine, he will need to be dialyzed. He is currently getting Lasix and so will switch to Bumex due to better bioavailability at the nephron level. Will add metolazone as well. Will need to watch the electrolytes with all this. There other causes of kidney disease as well, including GN, AIN, and vascular issues. These are less likely in this clinical scenario. (3) Fluid overload, unspecified: Code(s): E87.70 - Fluid overload, unspecified Status: Acute Assessment and Plan: Patient has volume overload. His cardiac function seems to be pretty good except that he probably does have some pulmonary hypertension. Will continue diuretics in order to effect some urine output.. (4) Essential hypertension: Code(s): I10 - Essential (primary) hypertension Status: Chronic Assessment and Plan: Blood pressure is well controlled. (5) COPD (chronic obstructive pulmonary disease): Code(s): J44.9 - Chronic obstructive pulmonary disease, unspecified Status: Acute Assessment and Plan: He currently smokes. (6) Type 2 diabetes mellitus: Code(s): E11.9 - Type 2 diabetes mellitus without complications Status: Chronic Assessment and Plan: On Accu-Cheks and sliding-scale insulin History of Present Illness Reason for Consult Consult date: 08/23/20 Chief Complaint Chief complaint: Acute hypercapnic respiratory failure History of Present Illness Narrative: Dax is a very pleasant 70-year-old gentleman who has multiple medical problems including chronic kidney disease with a creatinine of 2.1 in 2014, BPH, COPD, hypertension, hyperlipidemia, diabetes, he still smokes, GERD, and gout. The patient came into the hospital because of shortness of breath. This had been going on for couple of few days before hospitalization was gradually worse. He is on inhalers at home and was trying does to see if that would make him better but it did not seem to this last couple of days. He also had pain in the sinuses. He went to Urgent Care to see if they could give him an antibiotic but his O2 saturation was low so they sent him over to the ER. Here the patient was admitted eventually transferred sent to the ICU and intubated. His creatinine on admission was. This seemed to improve a little bit by the next day but then today a maria luisa to 3.9 so renal consultation was requested. There is no history of nonsteroidal anti-inflammatory agents according to his admission med list. Currently the patient is intubated in the ICU on multiple medications. He opens his eyes and can follow commands but does not really interact. Past history is as above Review of Systems Review of Systems: ROS unobtainable: Yes unobtainable due to medical condition [facility] Past Medical History Medical History Benign prostatic hyperplasia Chronic kidney failure Baseline creatinine are unknown at this time but was noted to be about 1.80 in 2014. COPD with emph
[2020-08-23] MEDS: MIDAZOLAM 100MG/NS 100ML(*CRX) 100 MG/100 ML BAG 6 MG IV CONT (10:32)
--- NOTE | 2020-08-23 10:38 | PCRCNOTE ---
Window of time for administration has passed. See next scheduled administration.
[2020-08-23 10:59] LABS: Iron 21 ug/dL (49-181)
[2020-08-23 11:03] LABS: Creatine Kinase 142 U/L (55-170)
[2020-08-23 11:05] LABS: Complement C3 86 mg/dL (88-165)
[2020-08-23 11:08] LABS: Percent Iron Saturation 8 % (20-50)
[2020-08-23 11:22] LABS: Erythrocyte Sedimentation Rate 17 mm/hr (0-20)
[2020-08-23 11:26] LABS: Lactic Acid Reflex 0.9 mmol/L (0.7-2.1)
[2020-08-23] MEDS: metOLazone 5 MG TABLET PO (11:38)
[2020-08-23 11:56] LABS: Creatinine Urine 71.3 mg/dL; Total Protein Urine Random 50 mg/dL
[2020-08-23 12:03] LABS: Urea Random Urine 356 MG/DL
--- NOTE | 2020-08-23 12:16 | PM.IMPN ---
Progress Note: A&P Assessment and Plan (1) Acute respiratory failure with hypoxia and hypercapnia: Code(s): J96.01 - Acute respiratory failure with hypoxia; J96.02 - Acute respiratory failure with hypercapnia Status: Acute Assessment and Plan: The patient originally presented to urgent care with complaints of shortness of breath and was sent to the ED as he was hypoxic in the 70s on room air. He was placed on BiPAP but despite several adjustments, he continued to be hypercarbic with evidence of respiratory distress and ultimately intubated 08/21/20. Suspect COPD and CHF exacerbation. Stable on MV with improved ABG. Wean vent as tolerated. Appreciate ecd input. (2) Congestive heart failure: Code(s): I50.9 - Heart failure, unspecified Status: Acute Assessment and Plan: CHF contributing to [place] [address]. Chest x-ray shows cardiomegaly pulmonary edema. Treated with IV diuretics. Urine output better yesterday but decreased overnight. Echo showing small LV cavity, EF 70%, severe RVE with RVH and severe hypokinesis. Indeterminate diastolic function. Appears more right sided failure than left. Continue monitor urine output and renal function. (3) COPD with acute exacerbation: Code(s): J44.1 - Chronic obstructive pulmonary disease with (acute) exacerbation Status: Acute Assessment and Plan: ABG improved. No wheezing. Continue Pulmicort Respules and Atrovent. Solu-Medrol stopped. Antibiotics have been stopped as well. Continue monitor. (4) Elevated troponin: Code(s): R77.8 - Other specified abnormalities of plasma proteins Status: Acute Assessment and Plan: Troponin elevated to 0.046 but flat. EKG showed borderline findings with poor R-wave progression. Most likely type 2 [place] related to demand ischemia and/or from his CKD. Continue telemetry. (5) Hyperkalemia: Code(s): E87.5 - Hyperkalemia Status: Acute Assessment and Plan: Potassium 6.2 yesterday morning that was treated appropriately. Repeat potassium better yesterday and now 4.6 today. Monitor closely. (6) Chronic kidney failure: Code(s): N18.9 - Chronic kidney disease, unspecified Status: Chronic Assessment and Plan: Creatinine was 2.1 in 2013. No other values to compare. Creatinine was 3.5 on admission and suspect this is his baseline. It improved slightly to 3.2 yesterday but Lasix dose increased to 80mg IV Q6h and now Cr 3.9. Changed to Bumex now. Monitor Cr closely on diuretics therapy. (7) Essential hypertension: Code(s): I10 - Essential (primary) hypertension Status: Chronic Assessment and Plan: BP reviewed on 08/23 and remains well controlled. Continue to monitor. (8) Type 2 diabetes mellitus: Code(s): E11.9 - Type 2 diabetes mellitus without complications Status: Chronic Assessment and Plan: A1c 5.9. The patient's blood glucose was reviewed on 08/23 Glucose remains well controlled. Metformin on hold. Continue AccuCheks covering with sliding scale. Hypoglycemia protocol available as needed. (9) Benign prostatic hyperplasia: Code(s): N40.0 - Benign prostatic hyperplasia without lower urinary tract symptoms Status: Chronic Assessment and Plan: Maddox secured. Flomax and proscar on hold. Resume when able. (10) Tobacco abuse: Code(s): Z72.0 - Tobacco use Status: Acute Assessment and Plan: Tobacco cessation is imperative. (11) DVT prophylaxis: Code(s): Z29.9 - Encounter for prophylactic measures, unspecified Status: Acute Assessment and Plan: Heparin Subjective Date/time seen: 08/23/20 12:16 Interval history: Date of service 08/23 70yo male with COPD, DM, HTN and CKD here for SOB and developed respiratory failure. Versed stopped. Still on Fentanyl but will be stopped thi
[2020-08-23 12:19] LABS: Sodium Urine Random 68 meq/L
[2020-08-23 12:48] LABS: Glucose Point of Care 121 (65-105)
--- NOTE | 2020-08-23 13:41 | WPDINTPN ---
Progress Note: A&P Assessment and Plan (1) COPD (chronic obstructive pulmonary disease): Code(s): J44.9 - Chronic obstructive pulmonary disease, unspecified Status: Acute Assessment and Plan: Sputum culture will be sent today. Hold off on antibiotics unless sputum is positive Continue ipratropium 0.5 mg nebulized q.6 hours Continue Pulmicort 1 mg q.12 hours nebulized Continue albuterol 2.5 mg Q 6 hours p.r.n. for wheezing or shortness of breath. (2) Acute CHF (congestive heart failure): Qualifiers: Heart failure type: unspecified Qualified Code(s): I50.9 - Heart failure, unspecified Code(s): I50.9 - Heart failure, unspecified Status: Acute Assessment and Plan: Congestive heart failure with preserved ejection fraction. Ejection fraction was approximately 70%. Diastolic dysfunction could not be assessed. He did have significant right ventricular hypertrophy strain and hypokinesis But pulmonary artery pressures could not be estimated. He did not respond to high-dose Lasix as was expected so will attempt Bumex with metolazone per Nephrology's recommendations. (3) Acute respiratory failure with hypoxia and hypercapnia: Code(s): J96.01 - Acute respiratory failure with hypoxia; J96.02 - Acute respiratory failure with hypercapnia Status: Acute Assessment and Plan: Likely due to mostly congestive heart failure but some COPD as well. (4) Acute on chronic renal failure: Code(s): N17.9 - Acute kidney failure, unspecified; N18.9 - Chronic kidney disease, unspecified Status: Acute Assessment and Plan: Nephrology has been consulted and their input is greatly appreciated. (5) Gastroesophageal reflux disease: Code(s): K21.9 - Gastro-esophageal reflux disease without esophagitis Status: Chronic Additional Plan Spoke to and updated his daughter. Spoke to Dr. Kramer Code Status is full A total of 32 minutes of critical care time was spent excluding all procedures Subjective Date/time seen: 08/23/20 13:41 Interval history: Chest x-ray has improved with decreased pulmonary edema but urine output was suboptimal with 80 mg of IV Lasix scheduled q.6 hours. He did not tolerate a spontaneous breathing trial today and had to be put back on his prior assist controlled ventilator settings. Review of Systems Review of Systems: All systems reviewed & are unremarkable except as noted in HPI and below Exam Narrative: Exam Narrative: General: Acutely ill-appearing male sitting up at the side of the bed on BiPAP, in tripod position. Weight: 124 kilograms. BMI: 37.1. HEENT: PERRL, EOMI. Sclerae anicteric. Tacky mucous membranes. Oropharynx not visualized as he is on the BiPAP. Neck: Supple. No obvious JVD. Respiratory: bilateral inspiratory rhonci Cardiovascular: Regular rate and rhythm with S1-S2. Gastrointestinal: Abdomen is soft, protuberant, and nontender with positive bowel sounds. Skin: Cool and dry. Hands, feet, ears, and nail beds are cyanotic. Feet are dry and callused. There are several, shallow ulcerations of the lower legs, and 1 larger ulceration on the right medial calf which she states was a blister that popped. There chronic skin changes of the lower legs bilaterally. Decreased capillary refill. Extremities: Hands, feet, and nail beds are cyanotic. He has chronic pitting and nonpitting lower extremity edema up to the thighs. No calf pain or tenderness to palpation. Negative Dasha sign bilaterally. Neurological: Alert and oriented. Cranial nerves 2-12 are grossly intact. No gross focal deficits to casual conversation. Psychiatric: Cooperative with appropriate mood and affect. Objective Data Vital Signs Vital Signs: Vital Signs - 24 hr 08/22/20 14:00 08/22/20 14:25 08/22/20 14:28 Temperature Pulse Rate 77 77 77 Respiratory Rate 24 H 24 H 24 H Blood Pressure 130/60 Pulse Oximetry 92 92 0
[2020-08-23] MEDS: BUMETANIDE INJ 1 MG/4 ML VIAL 2 MG IV PUSH (17:37)
[2020-08-23 17:50] LABS: Glucose Point of Care 113 (65-105)
[2020-08-23] MEDS: FENTANYL 2,500MCG/NS250ML(*CRX 2,500 MCG/250 ML BAG 12.5 MCG IV CONT (18:52)
--- NOTE | 2020-08-23 19:17 | ECG_ITS ---
Measurements Intervals [place] Rate: 142 P: [place]: 0 QRS: 51 QRSD: 94 T: 24 QT: 304 QTc: 467 Interpretive Statements ATRIAL FIBRILLATION WITH RAPID VENTRICULAR RESPONSE LOW QRS VOLTAGE IN LIMB LEADS BORDERLINE R WAVE PROGRESSION, ANTERIOR LEADS BORDERLINE ST-T WAVE ABNORMALITY- INF/HIGH LAT LEADS ABNORMAL ECG Electronically Signed On 08-24-2020 7:08:59 ELECTRONICS HARDWARE DESIGN ENGINEER by Sergei Gonzalez D.O.
--- NOTE | 2020-08-23 19:24 | PC.NURSE ---
Pt has elevated heart rate. 12 lead EKG obtained and pt is in Afib with RVR. Dr. Winn notified of patient's condition. New order for amiodarone drip with bolus per hospital protocol.
[2020-08-23] MEDS: AMIODARONE 150 MG/D5W 100 ML 150 MG/100 ML BAG 600 MG IV CONT (19:40)
[2020-08-23] MEDS: AMIODARONE 360 MG/D5W 200 ML 360 MG/200 ML BAG 33.33 MG IV CONT (19:51)
[2020-08-23] MEDS: BUDESONIDE RESPULE NEB 0.5 MG/2 ML AMP 1 MG INHALATION (20:02)
--- NOTE | 2020-08-23 20:08 | ECG_ITS ---
Measurements Intervals [place] Rate: 87 P: 93 SD: 138 QRS: 55 QRSD: 93 T: 7 QT: 377 QTc: 456 Interpretive Statements SINUS RHYTHM ATRIAL PREMATURE COMPLEXES LOW QRS VOLTAGE IN LIMB LEADS BORDERLINE R WAVE PROGRESSION, ANTERIOR LEADS BORDERLINE ST-T WAVE ABNORMALITY- INF/HIGH LAT LEADS BASELINE ARTIFACT- AVR, AVL, AVF, V1 BORDERLINE ECG Electronically Signed On 08-24-2020 7:10:24 EMERGING SOLUTIONS EXECUTIVE by Sergei Gonzalez D.O.
[2020-08-23 23:36] LABS: Glucose Point of Care 116 (65-105)
[2020-08-24] VITALS (48 sets, daily range): BP systolic 114–149; BP diastolic 57–87; PULSE 70–116; RESP 9–95; TEMP 36.2–36.8; O2SAT 14–99; BMI 35.4
[2020-08-24] MEDS: AMIODARONE 360 MG/D5W 200 ML 360 MG/200 ML BAG 16.67 MG IV CONT ×2 (01:19→12:54)
[2020-08-24] MEDS: IPRATROPIUM BR 0.02% INH SOLN 0.5 MG/2.5 ML VIAL INHALATION ×4 (01:43→19:55)
[2020-08-24 04:41] LABS: Hematocrit 48.3 % (42.0-52.0); Hemoglobin 14.7 g/dL (14.0-18.0); Mean Corpuscular HGB Conc 30.4 g/dl (32-36); Mean Corpuscular Hemoglobin 27.9 pg (26-34); Mean Corpuscular Volume 91.7 fl (80-100); Mean Platelet Volume 9.9 fl (7.4-10.4); Platelet Count Result 190 k/mm3 (150-375); Red Blood Count 5.27 M/mm3 (4.6-6.20); Red Cell Distribution Width 17.2 % (11.5-14.5); White Blood Count 9.6 K/mm3 (4.5-10.0)
[2020-08-24 06:02] LABS: Alveolar/Arterial O2 Gradient 224.6 mmHg; Base Excess ABG 9.2 mEq/l (+/-2.0); Carboxyhemoglobin 1.7 % THb (0-2.0); Fractional Inspired Oxygen 50 %; Methemoglobin ABG 0.1 %THb (0-1.5); Oxygen Content ABG 19.6 %vol (16.0-22.0); Oxygen Saturation ABG 95.3 % (95.0-100.0); Oxyhemoglobin 92.5 % THb (90.0-100.0); PCO2 ABG 51.5 mmHg (35.0-45.0); PO2 FiO2 Ratio Arterial Blood 1.48 %; Reduced Hemoglobin 5.7 %THb (0-5.0); Total Hemoglobin 15.1 g/dL (12.0-18.0)
[2020-08-24 06:05] LABS: Arterial Blood Gas Vent Mode ASV; Device VENTILATOR; Modified Allen's Test Unable to perform; Site Drawn RIGHT RADIAL
[2020-08-24 06:06] LABS: Arterial Blood Gas Minute Volume 9 LPM; Arterial Blood Gas PEEP 5 cmH2O
[2020-08-24 06:23] LABS: Glucose Point of Care 104 (65-105)
[2020-08-24] MEDS: MIDAZOLAM 100MG/NS 100ML(*CRX) 100 MG/100 ML BAG 6 MG IV CONT (07:04)
[2020-08-24] MEDS: FENTANYL 2,500MCG/NS250ML(*CRX 2,500 MCG/250 ML BAG 20 MCG IV CONT (07:33)
[2020-08-24] MEDS: BUMETANIDE INJ 1 MG/4 ML VIAL 2 MG IV PUSH ×2 (08:05→17:27)
[2020-08-24] MEDS: metOLazone 5 MG TABLET PO (08:05)
[2020-08-24] MEDS: HEPARIN SODIUM 5,000 UNITS/ML VIAL 5000 UNITS SUB-Q ×2 (08:12→21:14)
[2020-08-24 08:22] LABS: Alanine Aminotransferase 18 U/L (4-50); Alkaline Phosphatase 66 U/L (38-126); Anion Gap 4 mmol/L (8-16); Aspartate Amino Transferase 31 U/L (17-59); Bilirubin,Total 0.6 mg/dL (0.2-1.3); Blood Urea Nitrogen 79 mg/dL (9-20); Calcium 7.7 mg/dL (8.4-10.2); Carbon Dioxide 34 mmol/L (22-30); Chloride 106 mmol/L (98-107); Estimated CRCL calculation 23 ml/min; Estimated Glomerular Filt Rate 17; Glucose 106 mg/dL (75-110); Potassium 5.1 mmol/L (3.4-5.0); Sodium 144 mmol/L (137-145)
[2020-08-24] MEDS: BUDESONIDE RESPULE NEB 0.5 MG/2 ML AMP 1 MG INHALATION ×2 (08:34→19:55)
--- NOTE | 2020-08-24 10:45 | PM.IMPN ---
Progress Note: A&P Assessment and Plan (1) Atrial fib/flutter, transient: Status: Acute Assessment and Plan: Patient with transient AFib with RVR. TSH normal. Treated with Amiodarone and converted to NSR. Will add back his metoprolol but at lower dose. Monitor BP. Contineu tele. (2) Acute respiratory failure with hypoxia and hypercapnia: Code(s): J96.01 - Acute respiratory failure with hypoxia; J96.02 - Acute respiratory failure with hypercapnia Status: Acute Assessment and Plan: The patient originally presented to urgent care with complaints of shortness of breath and was sent to the ED as he was hypoxic in the 70s on room air. He was placed on BiPAP but despite several adjustments, he continued to be hypercarbic with evidence of respiratory distress and ultimately intubated 08/21/20. Suspect COPD and CHF exacerbation. Stable on MV with improved ABG. Wean vent as tolerated. Appreciate kennel operator input. (3) Congestive heart failure: Code(s): I50.9 - Heart failure, unspecified Status: Acute Assessment and Plan: CHF contributing to [place] [address]. Chest x-ray shows cardiomegaly pulmonary edema. Treated with IV diuretics. Urine output excellent. Echo showing small LV cavity, EF 70%, severe RVE with RVH and severe hypokinesis. Indeterminate diastolic function. Appears more right sided failure than left. Continue monitor urine output and renal function. (4) COPD with acute exacerbation: Code(s): J44.1 - Chronic obstructive pulmonary disease with (acute) exacerbation Status: Acute Assessment and Plan: ABG improved. No wheezing. Continue Pulmicort Respules and Atrovent. Solu-Medrol stopped. Antibiotics have been stopped as well. Continue monitor. (5) Elevated troponin: Code(s): R77.8 - Other specified abnormalities of plasma proteins Status: Acute Assessment and Plan: Troponin elevated to 0.046 but flat. EKG showed borderline findings with poor R-wave progression. Most likely type 2 [place] related to demand ischemia and/or from his CKD. Could also be related to AFib if he is having this intermittently. Continue telemetry. (6) Hyperkalemia: Code(s): E87.5 - Hyperkalemia Status: Acute Assessment and Plan: Potassium 6.2 08/22 that was treated appropriately. Repeat potassium improved but up again to 5.1 today. Contineu to follow. Check Cortisol level. Monitor closely. (7) Chronic kidney failure: Code(s): N18.9 - Chronic kidney disease, unspecified Status: Chronic Assessment and Plan: Creatinine was 2.1 in 2013. No other values to compare. Creatinine was 3.5 on admission and suspect this is his baseline. It has remained stable in the 3 range. Was on high dose Lasix but changed to Bumex. Monitor Cr closely on diuretics therapy. (8) Essential hypertension: Code(s): I10 - Essential (primary) hypertension Status: Chronic Assessment and Plan: BP reviewed on 08/24 and remains well controlled. Continue to monitor. Resume metoprolol at lower dose given the AFib. Monitor BP (9) Type 2 diabetes mellitus: Code(s): E11.9 - Type 2 diabetes mellitus without complications Status: Chronic Assessment and Plan: A1c 5.9. The patient's blood glucose was reviewed on 08/24 Glucose remains well controlled. Metformin on hold. Continue AccuCheks covering with sliding scale. Hypoglycemia protocol available as needed. (10) Benign prostatic hyperplasia: Code(s): N40.0 - Benign prostatic hyperplasia without lower urinary tract symptoms Status: Chronic Assessment and Plan: Maddox secured. Flomax and proscar on hold. Resume when able. (11) Tobacco abuse: Code(s): Z72.0 - Tobacco use Status: Acute Assessment and Plan: Tobacco cessation is imperative. (12) DVT prophylaxis:
[2020-08-24] MEDS: dexmedeTOMIDine 400 MCG/100 ML 400 MCG/100 ML BAG 14.84 MCG IV CONT (10:48)
[2020-08-24 11:50] LABS: Glucose Point of Care 131 (65-105)
--- NOTE | 2020-08-24 12:16 | WPDINTPN ---
Progress Note: A&P Assessment and Plan (1) Acute respiratory failure with hypoxia and hypercapnia: Code(s): J96.01 - Acute respiratory failure with hypoxia; J96.02 - Acute respiratory failure with hypercapnia Status: Acute Assessment and Plan: Patient with acute respiratory failure likely related to COPD and CHF. Patient was intubated on 08/21/2020 -currently on ASV mode of ventilation -will start Precedex infusion and wean off fentanyl and Versed infusions -will place patient on SBT once awake and evaluate for extubation -continue bronchodilators, diuretics (2) COPD (chronic obstructive pulmonary disease): Code(s): J44.9 - Chronic obstructive pulmonary disease, unspecified Status: Acute Assessment and Plan: Sputum culture from 08/23/2020 pending. Hold off on antibiotics unless sputum is positive Continue ipratropium 0.5 mg nebulized q.6 hours Continue Pulmicort 1 mg q.12 hours nebulized Continue albuterol 2.5 mg Q 6 hours p.r.n. for wheezing or shortness of breath. (3) Acute CHF (congestive heart failure): Qualifiers: Heart failure type: unspecified Qualified Code(s): I50.9 - Heart failure, unspecified Code(s): I50.9 - Heart failure, unspecified Status: Acute Assessment and Plan: Congestive heart failure with preserved ejection fraction. Ejection fraction was approximately 70%. Diastolic dysfunction could not be assessed. He did have significant right ventricular hypertrophy strain and hypokinesis But pulmonary artery pressures could not be estimated. He did not respond to high-dose Lasix as was expected but responded well tot Bumex with metolazone per Nephrology's recommendations. (4) Acute on chronic renal failure: Code(s): N17.9 - Acute kidney failure, unspecified; N18.9 - Chronic kidney disease, unspecified Status: Acute Assessment and Plan: Nephrology has been consulted and their input is greatly appreciated. (5) Gastroesophageal reflux disease: Code(s): K21.9 - Gastro-esophageal reflux disease without esophagitis Status: Chronic Assessment and Plan: Protonix Additional Plan Discussed with patient's daughter, Lyric, updated her with patient's condition and plan of care. I answered questions Code status: Full code Critical care time spent: 34 minutes Subjective Date/time seen: 08/24/20 12:17 Interval history: Patient remains intubated, on ASV mode of ventilation, 50% FiO2, peep of 5. Patient has been diuresing well. Creatinine slightly down. -patient sedated with fentanyl and Versed infusion -chest x-ray shows pulmonary edema Review of Systems Review of Systems: ROS unobtainable: Yes unobtainable due to endotracheal tube Exam Narrative: Exam Narrative: General: Currently intubated on mechanical ventilation in no acute distress. HEENT: PERRL, Sclerae anicteric. ETT in place Neck: Supple. No obvious JVD. Respiratory: bilateral inspiratory rhonci, good air entry, diminished at bases Cardiovascular: Regular rate and rhythm with S1-S2. Gastrointestinal: Abdomen is soft, protuberant, and nontender with positive bowel sounds. Skin: Cool and dry. Hands, feet, ears, and nail beds are cyanotic. Feet are dry and callused. There are several, shallow ulcerations of the lower legs, and 1 larger ulceration on the right medial calf which she states was a blister that popped. There chronic skin changes of the lower legs bilaterally. Decreased capillary refill. Extremities: Hands, feet, and nail beds are cyanotic. He has chronic pitting and nonpitting lower extremity edema up to the thighs. No calf pain or tenderness to palpation. Negative Dasha sign bilaterally. Neurological: Patient is sedated and intubated, does not open his eyes or follow simple commands Psychiatric: Unable to assess at this time Objective Data Vital Signs Vital Signs: Vital Signs - 24 hr 08/23/20 14:00 08/23/20
[2020-08-24] MEDS: PANTOPRAZOLE SODIUM IV 40 MG VIAL IV PUSH ×2 (12:26→21:14)
[2020-08-24] MEDS: DULoxetine HCL 60 MG CAPSULE.DR PO (12:27)
[2020-08-24] MEDS: METOPROLOL TARTRATE 25 MG TABLET PO ×2 (12:30→21:14)
[2020-08-24] MEDS: EUCERIN CREAM 120 GM JAR 1 APPLIC TOPICAL (12:30)
[2020-08-24] MEDS: GABAPENTIN 300 MG CAPSULE 600 MG PO ×2 (12:30→17:27)
[2020-08-24] MEDS: ALBUTEROL SULFATE NEB 2.5 MG/0.5 ML INH INHALATION ×2 (13:57→19:55)
--- NOTE | 2020-08-24 14:42 | PM.PNNEP ---
Progress Note: A&P Assessment and Plan (1) MARSHA (acute kidney injury): Code(s): N17.9 - Acute kidney failure, unspecified Status: Acute Assessment and Plan: due to diuretics (but this is needed/required at this time creatinine stable if not mildly improved today better diuresis in the last 24 hours follow trend of creatinine with ongoing diuresis dialysis may be needed more so if he fails to have effective diuresis (2) Chronic kidney failure: Code(s): N18.9 - Chronic kidney disease, unspecified Status: Chronic Assessment and Plan: unclear what baseline creatinine is but his creatinine was 2.1 back in 2013 suspect current creatinine is likely higher obtain old records if possible CKD likely secondary to DM, HTN, and vascular disease (3) Acute respiratory failure with hypoxia and hypercapnia: Code(s): J96.01 - Acute respiratory failure with hypoxia; J96.02 - Acute respiratory failure with hypercapnia Status: Acute Assessment and Plan: due to a combination of COPD and CHF on ventilator support continue nebulizer treatments, bronchodilators, and diuretics (4) Fluid overload, unspecified: Code(s): E87.70 - Fluid overload, unspecified Status: Acute Assessment and Plan: cardiac function seems to be pretty good except some pulmonary hypertension continue diuretic follow I/Os (5) Essential hypertension: Code(s): I10 - Essential (primary) hypertension Status: Chronic Assessment and Plan: reasonable control follow trend of hemodynamics (6) Type 2 diabetes mellitus: Code(s): E11.9 - Type 2 diabetes mellitus without complications Status: Chronic Assessment and Plan: follow accu-cheks onsliding-scale insulin Will continue to follow. Subjective Date/time seen: 08/24/20 14:42 Remains intubated/sedated and on mechanical ventilation; reasonable diuresis with current diuretic regimen with relative stability in kidney function; no apparent issues/events overnight or earlier this AM; no distress noted at the time of my visit. Exam Narrative: Exam Narrative: General: WD/WN male in NAD; intubated/sedated Heart: normal S1 and S2; no rub Lungs: crackles bilaterally and decreased BS at bases Abdomen: soft, nontender, nondistended, positive bowel sounds Extremities: no cyanosis or clubbing; 1+edema Skin: chronic skin changes with few ulcerations Objective Data Vital Signs Vital Signs: Vital Signs Temp Pulse Resp BP Pulse Ox 08/24/20 14:00 99 13 127/75 91 08/24/20 13:59 99 91 08/24/20 13:57 91 9 L 08/24/20 13:48 97 14 08/24/20 12:54 95 118/68 08/24/20 12:30 95 08/24/20 12:26 88 10 L 08/24/20 12:25 86 11 L 08/24/20 12:00 36.4 C L 84 12 118/68 91 08/24/20 10:50 75 14 08/24/20 10:48 71 14 08/24/20 10:39 79 91 08/24/20 10:00 75 95 H 148/67 H 14 L 08/24/20 08:55 76 13 08/24/20 08:42 75 10 L 08/24/20 08:35 75 99 08/24/20 08:00 36.6 C 76 10 L 149/74 H 96 08/24/20 07:33 85 11 L 08/24/20 07:04 85 11 L 08/24/20 06:00 81 15 142/68 H 96 08/24/20 05:43 74 96 08/24/20 05:28 79 145/76 H 08/24/20 05:27 72 11 L 08/24/20 05:24 80 11 L 08/24/20 04:00 36.6 C 116 H 12 149/74 H 89 L 08/24/20 02:16 115 H 11 L 08/24/20 02:15 115 H 11 L 08/24/20 02:00 76 10 L 129/61 97 08/24/20 01:52 81 10 L 08/24/20 01:43 75 12 96 08/24/20 01:19 70 118/61 08/24/20 00:00 36.5 C 79 12 121/57 L 97 08/23/20 23:33 77 97 08/23/20 22:00 79 12 111/59 L 96 08/23/20 20:10 79 10 L 08/23/20 20:06 93 08/23/20 20:02 104 H 10 L 95 08/23/20 20:00 36.5 C 137 H 10 L 117/63 96 08/23/20 19:51 146 H 121/66 08/23/20 19:40 158 H 124/83 08/23/20 19:39 156 H 10 L 124/83 94 08/23/20 19:32 159 H
--- NOTE | 2020-08-24 14:42 | P.PNNP_ITS ---
Progress Note: A&P Assessment and Plan (1) MARSHA (acute kidney injury): Code(s): N17.9 - Acute kidney failure, unspecified Status: Acute Assessment and Plan: * due to diuretics (but this is needed/required at this time * creatinine stable if not mildly improved today * better diuresis in the last 24 hours * follow trend of creatinine with ongoing diuresis * dialysis may be needed more so if he fails to have effective diuresis (2) Chronic kidney failure: Code(s): N18.9 - Chronic kidney disease, unspecified Status: Chronic Assessment and Plan: * unclear what baseline creatinine is but his creatinine was 2.1 back in 2013 * suspect current creatinine is likely higher * obtain old records if possible * CKD likely secondary to DM, HTN, and vascular disease (3) Acute respiratory failure with hypoxia and hypercapnia: Code(s): J96.01 - Acute respiratory failure with hypoxia; J96.02 - Acute respiratory failure with hypercapnia Status: Acute Assessment and Plan: * due to a combination of COPD and CHF * on ventilator support * continue nebulizer treatments, bronchodilators, and diuretics (4) Fluid overload, unspecified: Code(s): E87.70 - Fluid overload, unspecified Status: Acute Assessment and Plan: * cardiac function seems to be pretty good except some pulmonary hypertension * continue diuretic * follow I/Os (5) Essential hypertension: Code(s): I10 - Essential (primary) hypertension Status: Chronic Assessment and Plan: * reasonable control * follow trend of hemodynamics (6) Type 2 diabetes mellitus: Code(s): E11.9 - Type 2 diabetes mellitus without complications Status: Chronic Assessment and Plan: * follow accu-cheks * onsliding-scale insulin Will continue to follow. Subjective Date/time seen: 08/24/20 14:42 Remains intubated/sedated and on mechanical ventilation; reasonable diuresis with current diuretic regimen with relative stability in kidney function; no apparent issues/events overnight or earlier this AM; no distress noted at the time of my visit. Exam Narrative: Exam Narrative: General: WD/WN male in NAD; intubated/sedated Heart: normal S1 and S2; no rub Lungs: crackles bilaterally and decreased BS at bases Abdomen: soft, nontender, nondistended, positive bowel sounds Extremities: no cyanosis or clubbing; 1+edema Skin: chronic skin changes with few ulcerations Objective Data Vital Signs Vital Signs: Vital Signs Temp Pulse Resp BP Pulse Ox 08/24/20 14:00 99 13 127/75 91 08/24/20 13:59 99 91 08/24/20 13:57 91 9 L 08/24/20 13:48 97 14 08/24/20 12:54 95 118/68 08/24/20 12:30 95 08/24/20 12:26 88 10 L 08/24/20 12:25 86 11 L 08/24/20 12:00 36.4 C L 84 12 118/68 91 08/24/20 10:50 75 14 08/24/20 10:48 71 14 08/24/20 10:39 79 91 08/24/20 10:00 75 95 H 148/67 H 14 L 08/24/20 08:55 76 13 08/24/20 08:42 75 10 L 08/24/20 08:35 75 99 08/24/20 08:00 36.6 C 76 10 L 149/74 H 96 08/24/20 07:33 85 11 L 08/24/20 07:04 85 11 L 08/24/20 06:00 81 15 142/68 H 96 08/24/20 05:43 74 96 08/24/20 05:28 79 145/76 H 08/24
[2020-08-24 16:43] LABS: Anion Gap 5 mmol/L (8-16); Blood Urea Nitrogen 77 mg/dL (9-20); Calcium 7.8 mg/dL (8.4-10.2); Carbon Dioxide 39 mmol/L (22-30); Chloride 103 mmol/L (98-107); Estimated CRCL calculation 23 ml/min; Estimated Glomerular Filt Rate 17; Glucose 127 mg/dL (75-110); Potassium 4.2 mmol/L (3.4-5.0); Sodium 147 mmol/L (137-145)
[2020-08-24] MEDS: SILVERGEL (ELTA) 45 ML 1 APPLIC TOPICAL (16:45)
[2020-08-24] MEDS: dexmedeTOMIDine 400 MCG/100 ML 400 MCG/100 ML BAG 11.87 MCG IV CONT (18:15)
[2020-08-24 18:16] LABS: Glucose Point of Care 124 (65-105)
[2020-08-24] MEDS: ATORVASTATIN 10 MG TABLET PO (21:14)
[2020-08-25] VITALS (36 sets, daily range): BP systolic 124–159; BP diastolic 58–92; PULSE 72–108; RESP 8–26; TEMP 36–37.8; O2SAT 90–98
[2020-08-25 00:46] LABS: Glucose Point of Care 155 (65-105)
[2020-08-25] MEDS: AMIODARONE 360 MG/D5W 200 ML 360 MG/200 ML BAG 16.67 MG IV CONT (01:10)
[2020-08-25] MEDS: IPRATROPIUM BR 0.02% INH SOLN 0.5 MG/2.5 ML VIAL INHALATION ×4 (02:27→19:44)
[2020-08-25] MEDS: ALBUTEROL SULFATE NEB 2.5 MG/0.5 ML INH INHALATION (02:27)
[2020-08-25] MEDS: dexmedeTOMIDine 400 MCG/100 ML 400 MCG/100 ML BAG 11.87 MCG IV CONT ×2 (02:44→10:18)
[2020-08-25 04:52] LABS: Hematocrit 58.8 % (42.0-52.0); Hemoglobin 16.6 g/dL (14.0-18.0); Mean Corpuscular HGB Conc 28.2 g/dl (32-36); Mean Corpuscular Hemoglobin 27.7 pg (26-34); Mean Corpuscular Volume 98.2 fl (80-100); Mean Platelet Volume 9.2 fl (7.4-10.4); Platelet Count Result 160 k/mm3 (150-375); Red Blood Count 5.99 M/mm3 (4.6-6.20); Red Cell Distribution Width 17.7 % (11.5-14.5); White Blood Count 7.6 K/mm3 (4.5-10.0)
[2020-08-25 05:10] LABS: Alveolar/Arterial O2 Gradient 218.6 mmHg; Base Excess ABG 11.2 mEq/l (+/-2.0); Carboxyhemoglobin 1.2 % THb (0-2.0); Fractional Inspired Oxygen 50 %; HCO3 ABG 38.4 mEq/l (22.0-26.0); Methemoglobin ABG 0.4 %THb (0-1.5); Oxygen Content ABG 20.5 %vol (16.0-22.0); Oxygen Saturation ABG 94.1 % (95.0-100.0); Oxyhemoglobin 91.6 % THb (90.0-100.0); PCO2 ABG 59.8 mmHg (35.0-45.0); PO2 ABG 70.6 mmHg (80.0-100.0); PO2 FiO2 Ratio Arterial Blood 1.41 %; Reduced Hemoglobin 6.8 %THb (0-5.0); Total Hemoglobin 15.9 g/dL (12.0-18.0); pH ABG 7.426 (7.350-7.450)
[2020-08-25 05:11] LABS: Arterial Blood Gas PEEP 5 cmH2O; Arterial Blood Gas Vent Mode ASV; Device VENTILATOR; Modified Allen's Test Unable to perform; Site Drawn RIGHT RADIAL
[2020-08-25 05:12] LABS: Arterial Blood Gas Minute Volume 7 LPM
[2020-08-25 05:15] LABS: Alanine Aminotransferase 20 U/L (4-50); Albumin Level 3.6 g/dL (3.5-5.1); Alkaline Phosphatase 78 U/L (38-126); Anion Gap 7 mmol/L (8-16); Aspartate Amino Transferase 35 U/L (17-59); Blood Urea Nitrogen 75 mg/dL (9-20); Calcium 8.2 mg/dL (8.4-10.2); Carbon Dioxide 34 mmol/L (22-30); Chloride 102 mmol/L (98-107); Estimated CRCL calculation 23 ml/min; Estimated Glomerular Filt Rate 17; Glucose 141 mg/dL (75-110); Magnesium 1.9 mg/dL (1.6-2.3); Phosphorus 5.2 mg/dL (2.5-4.5); Potassium 4.2 mmol/L (3.4-5.0); Sodium 143 mmol/L (137-145)
[2020-08-25 06:43] LABS: Glucose Point of Care 158 (65-105)
[2020-08-25] MEDS: BUDESONIDE RESPULE NEB 0.5 MG/2 ML AMP 1 MG INHALATION ×2 (07:41→19:44)
[2020-08-25] MEDS: metOLazone 5 MG TABLET PO (08:51)
[2020-08-25] MEDS: BUMETANIDE INJ 1 MG/4 ML VIAL 2 MG IV PUSH ×2 (08:51→16:54)
[2020-08-25] MEDS: HEPARIN SODIUM 5,000 UNITS/ML VIAL 5000 UNITS SUB-Q ×2 (08:51→21:16)
[2020-08-25] MEDS: GABAPENTIN 300 MG CAPSULE 600 MG PO ×3 (08:51→16:55)
[2020-08-25] MEDS: EUCERIN CREAM 120 GM JAR 1 APPLIC TOPICAL (08:52)
[2020-08-25] MEDS: PANTOPRAZOLE SODIUM IV 40 MG VIAL IV PUSH ×2 (08:52→21:14)
[2020-08-25] MEDS: METOPROLOL TARTRATE 25 MG TABLET PO ×2 (08:52→21:15)
[2020-08-25] MEDS: SILVERGEL (ELTA) 45 ML 1 APPLIC TOPICAL (08:53)
--- NOTE | 2020-08-25 09:18 | WPDINTPN ---
Progress Note: A&P Assessment and Plan (1) Acute respiratory failure with hypoxia and hypercapnia: Code(s): J96.01 - Acute respiratory failure with hypoxia; J96.02 - Acute respiratory failure with hypercapnia Status: Acute Assessment and Plan: Patient with acute respiratory failure likely related to COPD and CHF. Patient was intubated on 08/21/2020 -currently on ASV mode of ventilation -patient on Precedex for sedation, more awake, will place patient on SBT and evaluate for extubation -chest x-ray and ABGs reviewed, sputum cultures growing staph aureus, started vancomycin (initiated on 08/25/2020) -continue bronchodilators, -diuresed well in the last 24 hours with negative fluid balance (2) COPD (chronic obstructive pulmonary disease): Code(s): J44.9 - Chronic obstructive pulmonary disease, unspecified Status: Acute Assessment and Plan: Sputum culture from 08/23/2020 growing staph aureus, started vancomycin as above Continue ipratropium 0.5 mg nebulized q.6 hours Continue Pulmicort 1 mg q.12 hours nebulized Continue albuterol 2.5 mg Q 6 hours p.r.n. for wheezing or shortness of breath. (3) Acute CHF (congestive heart failure): Qualifiers: Heart failure type: unspecified Qualified Code(s): I50.9 - Heart failure, unspecified Code(s): I50.9 - Heart failure, unspecified Status: Acute Assessment and Plan: Congestive heart failure with preserved ejection fraction. Ejection fraction was approximately 70%. Diastolic dysfunction could not be assessed. He did have significant right ventricular hypertrophy strain and hypokinesis But pulmonary artery pressures could not be estimated. -continuet Bumex with metolazone per Nephrology's recommendations. (4) Acute on chronic renal failure: Code(s): N17.9 - Acute kidney failure, unspecified; N18.9 - Chronic kidney disease, unspecified Status: Acute Assessment and Plan: Nephrology has been consulted and their input is greatly appreciated. -responding well to diuresis, creatinine has been stable at 3.6, will continue to monitor renal function, electrolytes and urine output (5) Gastroesophageal reflux disease: Code(s): K21.9 - Gastro-esophageal reflux disease without esophagitis Status: Chronic Assessment and Plan: Protonix Additional Plan Discussed with patient's daughter, Lyric, updated her with patient's condition and plan of care. I answered questions. She is aware that his sputum cultures are growing staph aureus and we have initiated antibiotics. Code status: Full code Critical care time spent: 33 minutes Subjective Date/time seen: 08/25/20 09:18 Interval history: REASON FOR CONSULT: COPD exacerbation and CHF exacerbation, acute respiratory failure requiring intubation 08/25/2020: Patient remains intubated on ASV mode of ventilation, 50% FiO2, peep of 5. Patient diuresed very well in the last 24 hours. With negative fluid balance. Creatinine stable at 3.6. Patient is on Precedex infusion. Off fentanyl and Versed fusions. Patient has been tolerating tube feeds, chest x-ray still shows bilateral infiltrates and pulmonary vascular congestion Review of Systems Review of Systems: ROS unobtainable: Yes unobtainable due to endotracheal tube Exam Narrative: Exam Narrative: General: Currently intubated on mechanical ventilation in no acute distress. HEENT: PERRL, Sclerae anicteric. ETT in place Neck: Supple. No obvious JVD. Respiratory: bilateral inspiratory rhonci, good air entry, diminished at bases Cardiovascular: Regular rate and rhythm with S1-S2. Gastrointestinal: Abdomen is soft, protuberant, and nontender with positive bowel sounds. Skin: Cool and dry. Hands, feet, ears, and nail beds are cyanotic. Feet are dry and callused. There are several, shallow ulcerations of the lower legs, and one larger ulceration on the right medial calf which she states was a
[2020-08-25 10:33] LABS: Alveolar/Arterial O2 Gradient 194.5 mmHg; Base Excess ABG 10.4 mEq/l (+/-2.0); Fractional Inspired Oxygen 45 %; Oxygen Content ABG 19.3 %vol (16.0-22.0); Oxygen Saturation ABG 91.9 % (95.0-100.0); Oxyhemoglobin 88.8 % THb (90.0-100.0); PCO2 ABG 56.7 mmHg (35.0-45.0); PO2 ABG 61.9 mmHg (80.0-100.0); PO2 FiO2 Ratio Arterial Blood 1.38 %; Total Hemoglobin 15.5 g/dL (12.0-18.0); pH ABG 7.433 (7.350-7.450)
[2020-08-25 10:34] LABS: Arterial Blood Gas Vent Mode SPONTANEOUS; Device VENTILATOR; Modified Allen's Test Pass; Site Drawn LEFT RADIAL
[2020-08-25 10:35] LABS: Arterial Blood Gas Pressure Support 10 cmH2O
--- NOTE | 2020-08-25 10:50 | PCDIET ---
Nutrition Follow-Up Complete: Nutrition Diagnosis: Inadequate oral intake related to oral intubation as evidenced by NPO status. Nutrition Goal: Patient to meet estimated nutritional needs. Goal in progress. Tube feedings on hold for possible extubation; however, patient previously tolerating tube feedings which were advancing toward goal. Last recorded weight is 116.4 kg which is down from last review. -I/O. Bowel Motility: No documented BM as of yet. Labs Reviewed: Hgb (58.8), Glu (158), BUN (75), Cr (3.6), Alb (3.6), PO4 (5.2) Meds Noted: Albuterol, Pulmicort, Lopressor, Lipitor, Bumex, Versed, Precedex, Heparin, Atrovent, Protonix, Vancomycin Additional Notes: Right lower leg blister reported during rounds. Will continue to monitor with same goal. Nutrition Monitoring and Evaluation: Follow up every Monday/Monday. Follow daily in ICU rounds.
[2020-08-25 12:15] LABS: Glucose Point of Care 170 (65-105)
--- NOTE | 2020-08-25 12:25 | PM.PNNEP ---
Progress Note: A&P Assessment and Plan (1) MARSHA (acute kidney injury): Code(s): N17.9 - Acute kidney failure, unspecified Status: Acute Assessment and Plan: due to diuretics (but this is needed/required at this time) creatinine stable at this time better diuresis in the last 24 hours follow trend of creatinine with ongoing diuresis follow trend of repeat labs and UOP (2) Chronic kidney failure: Code(s): N18.9 - Chronic kidney disease, unspecified Status: Chronic Assessment and Plan: unclear what baseline creatinine is but his creatinine was 2.1 back in 2013 suspect current creatinine is likely higher obtain old records if possible CKD likely secondary to DM, HTN, and vascular disease (3) Acute respiratory failure with hypoxia and hypercapnia: Code(s): J96.01 - Acute respiratory failure with hypoxia; J96.02 - Acute respiratory failure with hypercapnia Status: Acute Assessment and Plan: due to a combination of COPD and CHF on ventilator support continue nebulizer treatments, bronchodilators, and diuretics (4) Fluid overload, unspecified: Code(s): E87.70 - Fluid overload, unspecified Status: Acute Assessment and Plan: cardiac function seems to be pretty good except some pulmonary hypertension continue diuretic follow I/Os (5) Essential hypertension: Code(s): I10 - Essential (primary) hypertension Status: Chronic Assessment and Plan: reasonable control follow trend of hemodynamics (6) Type 2 diabetes mellitus: Code(s): E11.9 - Type 2 diabetes mellitus without complications Status: Chronic Assessment and Plan: follow accu-cheks onsliding-scale insulin Discussed with Dr. Vanegas. Will continue to follow. Subjective Date/time seen: 08/25/20 12:25 Remains intubated at the time of my visit; good diuresis in the last 24 hours as noted by I/Os although his CXR still shows evidence of pulmonary vascular congestion; kidney function appears to be tolerating diuresis; no events/issues overnight or earlier this AM. Exam Narrative: Exam Narrative: General: WD/WN male in NAD; intubated/sedated Heart: normal S1 and S2; no rub Lungs: crackles bilaterally and decreased BS at bases Abdomen: soft, nontender, nondistended, positive bowel sounds Extremities: no cyanosis or clubbing; 1+edema Skin: chronic skin changes with few ulcerations Objective Data Vital Signs Vital Signs: Vital Signs Temp Pulse Resp BP Pulse Ox 08/25/20 11:27 88 93 08/25/20 10:18 84 12 08/25/20 10:17 94 12 08/25/20 10:00 85 15 152/85 H 92 08/25/20 08:52 98 08/25/20 08:05 100 90 08/25/20 08:00 36.6 C 103 H 12 149/77 H 95 08/25/20 07:51 100 10 L 08/25/20 07:41 108 H 9 L 93 08/25/20 06:00 88 10 L 124/71 96 08/25/20 05:12 95 94 08/25/20 05:02 100 10 L 08/25/20 05:00 100 157/78 H 08/25/20 04:00 36.4 C 89 10 L 157/78 H 94 08/25/20 02:40 91 10 L 08/25/20 02:27 87 8 L 94 08/25/20 02:00 95 14 143/82 H 96 08/25/20 01:10 95 159/85 H 08/25/20 00:00 36.0 C L 88 10 L 153/92 H 94 08/24/20 22:54 85 95 08/24/20 22:00 84 10 L 139/87 92 08/24/20 21:14 106 H 08/24/20 20:11 75 11 L 08/24/20 20:00 36.6 C 70 10 L 114/58 L 93 08/24/20 19:55 71 9 L 95 08/24/20 18:22 100 10 L 08/24/20 18:21 90 10 L 08/24/20 18:19 92 130/65 08/24/20 18:15 86 12 08/24/20 18:00 83 10 L 130/65 91 08/24/20 16:40 88 92 08/24/20 16:30 88 12 115/71 08/24/20 16:00 36.2 C L 89 11 L 115/71 96 08/24/20 15:01 96 10 L 08/24/20 14:00 99 13 127/75 91 08/24/20 13:59 99 91 08/24/20 13:57 91 9 L 08/24/20 13:48 97 14 08/24/20 12:54 95 118/68 08/24/20 12:30 95 08/24/20 12:26 88 10 L Intake/Output Intake/Output:
[2020-08-25 13:50] LABS: Kappa\\Lambda Light Chains 1.52 (0.26-1.65); Lambda Light Chain 71.5 mg/L (5.7-26.3)
[2020-08-25] MEDS: dexmedeTOMIDine 400 MCG/100 ML 400 MCG/100 ML BAG 17.81 MCG IV CONT (16:53)
[2020-08-25 18:51] LABS: Glucose Point of Care 169 (65-105)
[2020-08-25 20:54] LABS: Alveolar/Arterial O2 Gradient 148.4 mmHg; Base Excess ABG 9.5 mEq/l (+/-2.0); Device NASAL CANNULA; Fractional Inspired Oxygen 40 %; HCO3 ABG 36.4 mEq/l (22.0-26.0); Modified Allen's Test Pass; Oxygen Content ABG 21.2 %vol (16.0-22.0); Oxygen Saturation ABG 94.4 % (95.0-100.0); Oxyhemoglobin 91.8 % THb (90.0-100.0); PCO2 ABG 56.7 mmHg (35.0-45.0); PO2 ABG 71.6 mmHg (80.0-100.0); PO2 FiO2 Ratio Arterial Blood 1.79 %; Site Drawn RIGHT RADIAL; Total Hemoglobin 16.4 g/dL (12.0-18.0); pH ABG 7.425 (7.350-7.450)
[2020-08-25] MEDS: ATORVASTATIN 10 MG TABLET PO (21:14)
--- NOTE | 2020-08-25 22:37 | PC.NURSE ---
Pt self extubated while being turned at 1924. Rt called, placed on NRB mask. RAGINI Phoenix at bedside at 1940 and did not reintubate as pt is doing well. Placed on 5 L NC at 1939. ABG's drawn at 2051. Pt continues to do well. VSS, SAO2 93-98%. Dr. Vanegas updated at 2214 and no new orders received.
[2020-08-25 23:44] LABS: Glucose Point of Care 120 (65-105)
[2020-08-26] VITALS (27 sets, daily range): BP systolic 145–182; BP diastolic 72–104; PULSE 75–94; RESP 13–21; TEMP 36.1–37; O2SAT 84–96
[2020-08-26] MEDS: ONDANSETRON INJ 4 MG/2 ML VIAL IV PUSH (00:25)
[2020-08-26 06:31] LABS: Base Excess ABG 9.8 mEq/l (+/-2.0); HCO3 ABG 37.9 mEq/l (22.0-26.0); Oxygen Saturation ABG 95.1 % (95.0-100.0); PO2 ABG 78.4 mmHg (80.0-100.0); Total Hemoglobin 16.8 g/dL (12.0-18.0)
[2020-08-26 06:32] LABS: Alveolar/Arterial O2 Gradient 206.1 mmHg; Carboxyhemoglobin 1.2 % THb (0-2.0); Methemoglobin ABG 0.5 %THb (0-1.5); Oxygen Content ABG 21.9 %vol (16.0-22.0); Oxyhemoglobin 92.7 % THb (90.0-100.0); PO2 FiO2 Ratio Arterial Blood 1.57 %; Reduced Hemoglobin 5.6 %THb (0-5.0)
[2020-08-26 06:33] LABS: Device NON-INVASIVE VENT; Fractional Inspired Oxygen 50 %; Modified Allen's Test Pass; Site Drawn RIGHT RADIAL
[2020-08-26 06:34] LABS: Non-Invasive Expiratory Pressure 5 CMH2O; Non-Invasive Inspiratory Pressure 15 CMH2O; Non-Invasive Vent Rate 10 /MIN
[2020-08-26 06:50] LABS: Basophils Percent Auto 0.2 % (0.2-1.2); Eosinophils Absolute Auto 0.1 K/mm3 (0-0.3); Eosinophils Percent Auto 0.8 % (0-4.4); Hematocrit 55.3 % (42.0-52.0); Hemoglobin 16.3 g/dL (14.0-18.0); Immature Granulocyte Absolute 0.06 K/mm3 (0.00-0.031); Immature Granulocyte Percent A 0.7 % (0-0.5); Lymphocytes Absolute Auto 0.39 K/mm3 (0.9-3.2); Lymphocytes Percent Auto 4.6 % (18.3-44.2); Mean Corpuscular HGB Conc 29.5 g/dl (32-36); Mean Corpuscular Volume 91.7 fl (80-100); Mean Platelet Volume 9.5 fl (7.4-10.4); Monocytes Absolute Auto 0.7 K/mm3 (0.1-0.6); Monocytes Percent Auto 7.9 % (2.6-8.5); Neutrophils Absolute Auto 7.3 K/mm3 (1.3-6.7); Neutrophils Percent Auto 85.8 % (45.5-73.1); Platelet Count Result 171 k/mm3 (150-375); Red Blood Count 6.03 M/mm3 (4.6-6.20); Red Cell Distribution Width 16.4 % (11.5-14.5); White Blood Count 8.5 K/mm3 (4.5-10.0)
[2020-08-26 07:10] LABS: Potassium 3.5 mmol/L (3.4-5.0)
[2020-08-26 07:17] LABS: Alanine Aminotransferase 21 U/L (4-50); Albumin Level 3.4 g/dL (3.5-5.1); Alkaline Phosphatase 98 U/L (38-126); Aspartate Amino Transferase 33 U/L (17-59); Bilirubin,Total 0.9 mg/dL (0.2-1.3); Blood Urea Nitrogen 65 mg/dL (9-20); Carbon Dioxide > 40 mmol/L (22-30); Chloride 96 mmol/L (98-107); Estimated CRCL calculation 22 ml/min; Estimated Glomerular Filt Rate 16; Glucose 125 mg/dL (75-110); Magnesium 1.7 mg/dL (1.6-2.3); Sodium 146 mmol/L (137-145)
[2020-08-26 07:24] LABS: Anisocytosis 1+ (NORMAL); Platelet Estimate Adequate (Adequate)
[2020-08-26] MEDS: IPRATROPIUM BR 0.02% INH SOLN 0.5 MG/2.5 ML VIAL INHALATION ×3 (08:20→19:47)
[2020-08-26] MEDS: BUDESONIDE RESPULE NEB 0.5 MG/2 ML AMP 1 MG INHALATION ×2 (08:21→19:47)
[2020-08-26] MEDS: acetaZOLAMIDE SODIUM FOR INJ 500 MG VIAL 250 MG IV PUSH (09:11)
[2020-08-26] MEDS: GABAPENTIN 300 MG CAPSULE 600 MG PO ×3 (09:13→18:26)
[2020-08-26] MEDS: metOLazone 5 MG TABLET PO (09:13)
[2020-08-26] MEDS: METOPROLOL TARTRATE 25 MG TABLET PO ×2 (09:14→20:13)
[2020-08-26] MEDS: PANTOPRAZOLE SODIUM IV 40 MG VIAL IV PUSH ×2 (09:14→20:13)
[2020-08-26] MEDS: SILVERGEL (ELTA) 45 ML 1 APPLIC TOPICAL (09:14)
[2020-08-26] MEDS: EUCERIN CREAM 120 GM JAR 1 APPLIC TOPICAL (09:14)
[2020-08-26] MEDS: HEPARIN SODIUM 5,000 UNITS/ML VIAL 5000 UNITS SUB-Q ×2 (09:19→20:13)
[2020-08-26] MEDS: WATER, STERILE FOR INJECTION 10 ML VIAL XX (09:20)
[2020-08-26 09:49] LABS: Arterial Blood Gas PEEP 5 cmH2O
--- NOTE | 2020-08-26 10:56 | WPDINTPN ---
Progress Note: A&P Assessment and Plan (1) Acute respiratory failure with hypoxia and hypercapnia: Code(s): J96.01 - Acute respiratory failure with hypoxia; J96.02 - Acute respiratory failure with hypercapnia Status: Acute Assessment and Plan: Patient with acute respiratory failure likely related to COPD and CHF. Patient was intubated on 08/21/2020 -08/25/2020: ET tube was pulled out so the patient was extubated -initially nasal cannula 5 L, placed on BiPAP. Currently on 06/07, 50% FiO2, does desaturated with removal of the BiPAP. Have discussed with family regarding re-intubation if patient fails BiPAP to which the agreeable. -off all sedation -chest x-ray and ABGs reviewed, sputum cultures growing MRSA, started vancomycin (initiated on 08/25/2020) -continue bronchodilators, -diuresed well in the last 24 hours with negative fluid balance -continue diuresis (2) COPD (chronic obstructive pulmonary disease): Code(s): J44.9 - Chronic obstructive pulmonary disease, unspecified Status: Acute Assessment and Plan: Sputum culture from 08/23/2020 growing MRSA, on vancomycin as above Continue ipratropium 0.5 mg nebulized q.6 hours Continue Pulmicort 1 mg q.12 hours nebulized Continue albuterol 2.5 mg Q 6 hours p.r.n. for wheezing or shortness of breath. (3) Acute CHF (congestive heart failure): Qualifiers: Heart failure type: unspecified Qualified Code(s): I50.9 - Heart failure, unspecified Code(s): I50.9 - Heart failure, unspecified Status: Acute Assessment and Plan: Congestive heart failure with preserved ejection fraction. Ejection fraction was approximately 70%. Diastolic dysfunction could not be assessed. He did have significant right ventricular hypertrophy strain and hypokinesis But pulmonary artery pressures could not be estimated. -patient with contraction alkalosis, will hold Bumex today and give Diamox - continue metolazone per Nephrology's recommendations. (4) Acute on chronic renal failure: Code(s): N17.9 - Acute kidney failure, unspecified; N18.9 - Chronic kidney disease, unspecified Status: Acute Assessment and Plan: Nephrology has been consulted and their input is greatly appreciated. -responding well to diuresis, creatinine has been stable , will continue to monitor renal function, electrolytes and urine output (5) Gastroesophageal reflux disease: Code(s): K21.9 - Gastro-esophageal reflux disease without esophagitis Status: Chronic Assessment and Plan: Protonix Additional Plan Discussed with patient's daughter in rounds and updated her with patient's condition and plan of care. I answered questions. She is aware that his sputum cultures are growing MRSA and we have initiated antibiotics. Code status: Full code Critical care time spent: 33 minutes Subjective Date/time seen: 08/26/20 10:56 Interval history: REASON FOR CONSULT: COPD exacerbation and CHF exacerbation, acute respiratory failure requiring intubation -MRSA in sputum 08/26/2020: Patient is ETT good pulled out last evening, so they extubated him, he did well on nasal cannula initially and then the head to place him on a BiPAP. He is currently on BiPAP 12/, 50% FiO2. Patient does desaturate with removal of his BiPAP. Hemodynamically stable at this time, diuresed very well the last 24 hours. Significant negative fluid balance. Creatinine remains stable, patient is off Precedex infusion. He is awake, alert, follows simple commands and answers to questions. Denies any chest pain, shortness of breath, nausea, vomiting, abdominal pain Review of Systems Review of Systems: All systems reviewed & are unremarkable except as noted in HPI and below Exam Narrative: Exam Narrative: General: On BiPAP, alert in no acute distress HEENT: PERRL, Sclerae anicteric. Neck: Supple. No obvious JVD. Respiratory: bilateral inspiratory rhonci, good
--- NOTE | 2020-08-26 11:11 | PCDIET ---
ICU Rounding Note: Patient self-extubated overnight. Currently on bipap. RN reports emesis overnight which has resolved. MD keeping patient NPO today. Last recorded weight is 114.6kg which is down from last review. -I/O. Bowel Motility: No documented BM. Labs Reviewed: Glu (125), BUN (65), Cr (3.70), Na (146), Alb (3.4), Lele Ca (8.48), PO4 (5.0) Meds Noted: Albuterol, Lipitor, Pulmicort, Bumex, Atrovent, Lopressor, Zofran, Protonix, Vancomycin Additional Notes: Right lower leg blister. No changes reported. Following daily in ICU rounds. Assessing/reassessing every Monday/Monday.
[2020-08-26 11:35] LABS: Glucose Point of Care 130 (65-105)
--- NOTE | 2020-08-26 12:07 | PM.PNNEP ---
Progress Note: A&P Assessment and Plan (1) MARSHA (acute kidney injury): Code(s): N17.9 - Acute kidney failure, unspecified Status: Acute Assessment and Plan: due to diuretics (but this is needed/required at this time) creatinine stable at this time better diuresis in the last 24 hours follow trend of creatinine with ongoing diuresis follow trend of repeat labs and UOP (2) Chronic kidney failure: Code(s): N18.9 - Chronic kidney disease, unspecified Status: Chronic Assessment and Plan: unclear what baseline creatinine is but his creatinine was 2.1 back in 2013 suspect current creatinine is likely higher obtain old records if possible CKD likely secondary to DM, HTN, and vascular disease (3) Acute respiratory failure with hypoxia and hypercapnia: Code(s): J96.01 - Acute respiratory failure with hypoxia; J96.02 - Acute respiratory failure with hypercapnia Status: Acute Assessment and Plan: due to a combination of COPD and CHF on BiPAP continue nebulizer treatments, bronchodilators, and diuretics follow respiratory status closely (4) Fluid overload, unspecified: Code(s): E87.70 - Fluid overload, unspecified Status: Acute Assessment and Plan: cardiac function seems to be pretty good except some pulmonary hypertension continue diuretic follow I/Os (5) Essential hypertension: Code(s): I10 - Essential (primary) hypertension Status: Chronic Assessment and Plan: reasonable control follow trend of hemodynamics (6) Type 2 diabetes mellitus: Code(s): E11.9 - Type 2 diabetes mellitus without complications Status: Chronic Assessment and Plan: follow accu-cheks onsliding-scale insulin Long and extensive discussion (> 20 minutes) with patient's daughter at bedside regarding his kidney function and ongong medical issues as well as the plan of care as outlined above. Will continue to follow. Subjective Date/time seen: 08/26/20 19:07 Patient pulled out his ET tube yesterday evening so they left him extubated; did okay on supplement oxygen but then had to be placed on BiPAP and remains on it currently; daughter at bedside and we discussed the situation; no acute complaints voiced at this time. Exam Narrative: Exam Narrative: General: WD/WN male in NAD; on BiPAP Heart: normal S1 and S2; no rub Lungs: crackles bilaterally and decreased BS at bases Abdomen: soft, nontender, nondistended, positive bowel sounds Extremities: no cyanosis or clubbing; 1+edema Skin: chronic skin changes with few ulcerations Objective Data Vital Signs Vital Signs: Vital Signs Temp Pulse Resp BP Pulse Ox 08/26/20 12:00 36.2 C L 83 18 159/101 H 95 08/26/20 10:43 79 17 92 08/26/20 10:30 85 94 08/26/20 10:00 36.4 C L 86 16 182/104 H 96 08/26/20 09:44 86 84 L 08/26/20 09:14 85 08/26/20 08:34 89 17 08/26/20 08:23 83 16 95 08/26/20 08:21 85 21 H 08/26/20 08:00 36.7 C 89 14 174/88 H 95 08/26/20 06:00 78 15 154/72 H 92 08/26/20 04:03 75 20 95 08/26/20 04:00 37.0 C 82 13 152/84 H 95 08/26/20 02:00 86 20 160/76 H 94 08/25/20 23:56 36.4 C L 88 20 144/76 H 91 08/25/20 23:54 86 20 08/25/20 23:00 79 19 08/25/20 22:00 85 19 153/85 H 94 08/25/20 21:25 88 19 08/25/20 21:15 86 08/25/20 20:30 93 19 08/25/20 20:00 36.9 C 95 19 152/92 H 98 08/25/20 19:51 86 20 08/25/20 19:50 95 19 Intake/Output Intake/Output: Intake & Output 08/23/20 08/24/20 08/25/20 08/26/20 23:59 23:59 23:59 23:59 Intake Total 587.6 761.8 1399.6 1085 Output Total 1782 5156 4851 5450 [facility] [place] -2037.4 -4388.2 -3425.4 -4365 Meds/Results Medications: Active Medications Generic Name Dose Route Start Last Admin Trade Name Freq PRN Reason Stop Dose Admin Albuterol 2.5 mg 08/22/20 14:45
[2020-08-26 13:53] LABS: Complement Total CH50 >60 U/mL (31-60)
[2020-08-26 18:32] LABS: Glucose Point of Care 117 (65-105)
[2020-08-26] MEDS: ALBUTEROL SULFATE NEB 2.5 MG/0.5 ML INH INHALATION (19:55)
[2020-08-26] MEDS: ATORVASTATIN 10 MG TABLET PO (20:13)
[2020-08-27] VITALS (25 sets, daily range): BP systolic 76–179; BP diastolic 54–114; PULSE 84–116; RESP 16–27; TEMP 36–37.5; O2SAT 89–100
[2020-08-27 00:25] LABS: Glucose Point of Care 144 (65-105)
[2020-08-27] MEDS: ALBUTEROL SULFATE NEB 2.5 MG/0.5 ML INH INHALATION ×3 (01:40→20:38)
[2020-08-27] MEDS: IPRATROPIUM BR 0.02% INH SOLN 0.5 MG/2.5 ML VIAL INHALATION ×4 (01:40→20:37)
[2020-08-27 04:30] LABS: Hematocrit 56.5 % (42.0-52.0); Mean Corpuscular HGB Conc 30.1 g/dl (32-36); Mean Corpuscular Hemoglobin 27.4 pg (26-34); Mean Corpuscular Volume 91.1 fl (80-100); Mean Platelet Volume 9.5 fl (7.4-10.4); Platelet Count Result 162 k/mm3 (150-375); Red Cell Distribution Width 16.2 % (11.5-14.5); White Blood Count 9.5 K/mm3 (4.5-10.0)
[2020-08-27 04:58] LABS: Alanine Aminotransferase 21 U/L (4-50); Albumin Level 3.5 g/dL (3.5-5.1); Alkaline Phosphatase 82 U/L (38-126); Aspartate Amino Transferase 29 U/L (17-59); Bilirubin,Total 0.9 mg/dL (0.2-1.3); Blood Urea Nitrogen 57 mg/dL (9-20); Calcium 8.2 mg/dL (8.4-10.2); Carbon Dioxide > 40 mmol/L (22-30); Chloride 95 mmol/L (98-107); Estimated CRCL calculation 22 ml/min; Estimated Glomerular Filt Rate 17; Glucose 109 mg/dL (75-110); Potassium 3.6 mmol/L (3.4-5.0); Sodium 140 mmol/L (137-145)
[2020-08-27] MEDS: BUDESONIDE RESPULE NEB 0.5 MG/2 ML AMP 1 MG INHALATION ×2 (07:49→20:38)
[2020-08-27] MEDS: GABAPENTIN 300 MG CAPSULE 600 MG PO ×3 (08:00→18:00)
[2020-08-27] MEDS: METOPROLOL TARTRATE 25 MG TABLET PO ×2 (08:22→12:27)
[2020-08-27] MEDS: HEPARIN SODIUM 5,000 UNITS/ML VIAL 5000 UNITS SUB-Q ×2 (08:22→21:17)
[2020-08-27] MEDS: SILVERGEL (ELTA) 45 ML 1 APPLIC TOPICAL (08:23)
[2020-08-27] MEDS: PANTOPRAZOLE SODIUM IV 40 MG VIAL IV PUSH ×2 (08:23→21:17)
[2020-08-27] MEDS: acetaZOLAMIDE SODIUM FOR INJ 500 MG VIAL 250 MG IV PUSH (08:23)
[2020-08-27] MEDS: KCL 20 MEQ/SW 100 ML 100 ML 50 MEQ IVPB (08:29)
--- NOTE | 2020-08-27 09:26 | PCRCNOTE ---
Patient on continuous NIV at night, unable to perform apnea link testing until patient is stable on </= 4 lpm nasal cannula.
--- NOTE | 2020-08-27 11:17 | WPDINTPN ---
Progress Note: A&P Assessment and Plan (1) Acute respiratory failure with hypoxia and hypercapnia: Code(s): J96.01 - Acute respiratory failure with hypoxia; J96.02 - Acute respiratory failure with hypercapnia Status: Acute Assessment and Plan: Patient with acute respiratory failure likely related to COPD and CHF. Patient was intubated on 08/21/2020 -08/25/2020: Extubated - patient with increased oxygen requirements, chest x-ray showed left lung whiteout with atelectasis/collapse. Likely secondary to mucus plug as his being diuresed -off all sedation - sputum cultures growing MRSA, started vancomycin (initiated on 08/25/2020) -diuresed well in the last 24 hours with negative fluid balance -continue diuresis -at chest percussion therapy, Pulmozyme, continue bronchodilators (2) COPD (chronic obstructive pulmonary disease): Code(s): J44.9 - Chronic obstructive pulmonary disease, unspecified Status: Acute Assessment and Plan: Sputum culture from 08/23/2020 growing MRSA, on vancomycin as above Continue ipratropium 0.5 mg nebulized q.6 hours Continue Pulmicort 1 mg q.12 hours nebulized Continue albuterol 2.5 mg Q 6 hours (3) Acute CHF (congestive heart failure): Qualifiers: Heart failure type: unspecified Qualified Code(s): I50.9 - Heart failure, unspecified Code(s): I50.9 - Heart failure, unspecified Status: Acute Assessment and Plan: Congestive heart failure with preserved ejection fraction. Ejection fraction was approximately 70%. Diastolic dysfunction could not be assessed. He did have significant right ventricular hypertrophy strain and hypokinesis But pulmonary artery pressures could not be estimated. -patient with contraction alkalosis, will hold Bumex and metolazone today and give Diamox (4) Acute on chronic renal failure: Code(s): N17.9 - Acute kidney failure, unspecified; N18.9 - Chronic kidney disease, unspecified Status: Acute Assessment and Plan: Nephrology has been consulted and their input is greatly appreciated. -responding well to diuresis, creatinine has been stable , will continue to monitor renal function, electrolytes and urine output (5) Gastroesophageal reflux disease: Code(s): K21.9 - Gastro-esophageal reflux disease without esophagitis Status: Chronic Assessment and Plan: Protonix Additional Plan Discussed with patient's daughter in rounds and updated her with patient's condition and plan of care. I answered questions. She is aware that his sputum cultures are growing MRSA and we have initiated antibiotics. She is also aware of the repeat white on the left side, which with patient and the daughter that if the not improve will have to intubate him and perform bronchoscopy Code status: Full code Critical care time spent: 34 minutes Subjective Date/time seen: 08/27/20 11:17 Interval history: REASON FOR CONSULT: COPD exacerbation and CHF exacerbation, acute respiratory failure requiring intubation -MRSA in sputum 08/27/2020: Patient on BiPAP with 100% FiO2, chest x-ray shows complete whiteout of left lung likely related to mucus plugging. He was switched to high-flow nasal therapy with non-rebreather. Chest percussion therapy, Pulmozyme, bronchodilators given. Patient is hemodynamically stable, blood pressures are slightly elevated. Has been responding very well to diuresis. Creatinine remains stable. Patient is awake, alert, answers to questions, follows simple commands. Complains of shortness of breath or denies any chest pain, nausea, vomiting abdominal pain Review of Systems Review of Systems: All systems reviewed & are unremarkable except as noted in HPI and below Exam Narrative: Exam Narrative: General: On BiPAP, alert in no acute distress HEENT: PERRL, Sclerae anicteric. Neck: Supple. No obvious JVD. Respiratory: Significantly decreased breath sounds on the left
--- NOTE | 2020-08-27 11:33 | PCDIET ---
ICU Rounding Note: Diet is advancing to heart healthy, renal. also added Nepro (425kcal, 19g protein) with meals. Last recorded weight is 108.8kg which is down from last review. -I/O. Bowel Motility: Last reported BM on 08/21/20, per RN. Discussed during rounds. Labs Reviewed: Hct (56.5), BUN (57), Cr (3.6), Ca (8.2) Meds Noted: Albuterol, Lipitor, Pulmicort, Bumex, Precedex, Heparin, Atrovent, Lopressor, Zofran, Protonix, KCl, Vancomycin Additional Notes: Right lower leg ulcer documented. Following daily in ICU rounds. Assessing/reassessing every 3 days.
[2020-08-27 12:01] LABS: Glucose Point of Care 172 (65-105)
[2020-08-27] MEDS: DORNASE ALFA INH SOLN 1 MG/ML 2.5 ML AMP 2.5 MG INHALATION ×2 (13:27→20:38)
--- NOTE | 2020-08-27 13:33 | PM.PNNEP ---
Progress Note: A&P Assessment and Plan (1) MARSHA (acute kidney injury): Code(s): N17.9 - Acute kidney failure, unspecified Status: Acute Assessment and Plan: due to diuretics (but this is needed/required at this time) creatinine relatively stable at this time follow trend of creatinine with ongoing diuresis - seems reasonable to hold loop diuretics and give diamox given contraction alkalosis follow trend of repeat labs and UOP (2) Chronic kidney failure: Code(s): N18.9 - Chronic kidney disease, unspecified Status: Chronic Assessment and Plan: unclear what baseline creatinine is but his creatinine was 2.1mg/dl back in 2013 suspect current baseline creatinine is likely higher CKD likely secondary to DM, HTN, and vascular disease (3) Acute respiratory failure with hypoxia and hypercapnia: Code(s): J96.01 - Acute respiratory failure with hypoxia; J96.02 - Acute respiratory failure with hypercapnia Status: Acute Assessment and Plan: due to a combination of COPD and CHF on BiPAP continue nebulizer treatments, bronchodilators, and diuretics follow respiratory status closely given recent CXR findings, may require intubation again with bronchoscopy (4) Fluid overload, unspecified: Code(s): E87.70 - Fluid overload, unspecified Status: Acute Assessment and Plan: cardiac function seems to be pretty good except some pulmonary hypertension continue diuretics follow I/Os (5) Essential hypertension: Code(s): I10 - Essential (primary) hypertension Status: Chronic Assessment and Plan: reasonable control follow trend of hemodynamics (6) Type 2 diabetes mellitus: Code(s): E11.9 - Type 2 diabetes mellitus without complications Status: Chronic Assessment and Plan: follow accu-cheks onsliding-scale insulin Will continue to follow. Subjective Date/time seen: 08/27/20 13:33 Remains on BiPAP therapy at the time of my visit but requiring 100% FiO2 to maintain oxygenation - was previously on non-rebreather mask with high flow oxygen; CXR results noted and has been instituted on chest physiotherapy in hopes this will help with suspected mucus plugging; awake, alert, and responsive at this time; continues to remain responsive to diuretic therapy. Exam Narrative: Exam Narrative: General: WD/WN male in NAD; on BiPAP Heart: normal S1 and S2; no rub Lungs: decreased breath sounds on the left Abdomen: soft, nontender, nondistended, positive bowel sounds Extremities: no cyanosis or clubbing; 1+ edema Skin: chronic skin changes with few ulcerations Objective Data Vital Signs Vital Signs: Vital Signs Temp Pulse Resp BP Pulse Ox 08/27/20 13:28 95 22 H 08/27/20 12:27 101 H 08/27/20 12:00 37.5 C 100 27 H 139/81 94 08/27/20 10:00 95 24 H 166/82 H 89 L 08/27/20 09:03 97 92 08/27/20 08:22 96 08/27/20 08:00 98 22 H 179/99 H 91 08/27/20 07:56 94 23 H 08/27/20 07:53 93 24 H 92 08/27/20 06:00 92 19 158/86 H 91 08/27/20 04:00 36.6 C 88 19 163/91 H 91 08/27/20 02:00 89 20 163/82 H 93 08/27/20 01:46 84 19 08/27/20 01:40 84 18 93 08/27/20 00:00 36.0 C L 86 16 133/71 94 08/26/20 22:20 77 21 H 92 08/26/20 22:00 78 18 152/100 H 95 08/26/20 20:13 94 08/26/20 20:00 36.4 C L 89 19 166/89 H 91 08/26/20 19:57 88 19 08/26/20 19:48 89 18 90 Intake/Output Intake/Output: Intake & Output 08/24/20 08/25/20 08/26/20 08/27/20 23:59 23:59 23:59 23:59 Intake Total 761.8 1899.6 1585 1450 Output Total 5150 4825 5450 [address] [facility]4388.2 -2925.4 -3865 -850 Meds/Results Medications: Active Medications Generic Name Dose Route Start Last Admin Trade Name Freq PRN Reason Stop Dose Admin Albuterol 2.5 mg 08/27/20 14:00 08/27/20 13:27 Albuterol Sulfate Neb 2.5 Mg/0.5 Ml
[2020-08-27 13:38] LABS: Anti Nuclear Antibody Pattern Nuclear, Speckled
[2020-08-27] MEDS: hydrALAZINE HCL 20 MG/ML VIAL 10 MG IV PUSH (17:29)
[2020-08-27 17:37] LABS: Glucose Point of Care 251 (65-105)
[2020-08-27] MEDS: INSULIN ASPART (*BKC) 100 UNITS/ML SUB-Q (17:59)
[2020-08-27 18:28] LABS: Alveolar/Arterial O2 Gradient 567.8 mmHg; Base Excess ABG 6.7 mEq/l (+/-2.0); Carboxyhemoglobin 0.4 % THb (0-2.0); Fractional Inspired Oxygen 100 %; HCO3 ABG 34.9 mEq/l (22.0-26.0); Methemoglobin ABG 0.5 %THb (0-1.5); Oxygen Content ABG 24.8 %vol (16.0-22.0); Oxygen Saturation ABG 95.8 % (95.0-100.0); Oxyhemoglobin 94.4 % THb (90.0-100.0); PO2 ABG 83.8 mmHg (80.0-100.0); PO2 FiO2 Ratio Arterial Blood 0.84 %; Reduced Hemoglobin 4.7 %THb (0-5.0); Total Hemoglobin 18.7 g/dL (12.0-18.0); pH ABG 7.372 (7.350-7.450)
[2020-08-27 18:29] LABS: Device HIGH FLOW THERAPY; Modified Allen's Test Pass; PCO2 ABG 61.4 mmHg (35.0-45.0); Site Drawn LEFT RADIAL
[2020-08-27] MEDS: dexmedeTOMIDine 400 MCG/100 ML 400 MCG/100 ML BAG 8.16 MCG IV CONT (19:00)
[2020-08-27] MEDS: ATORVASTATIN 10 MG TABLET PO (21:18)
[2020-08-27] MEDS: METOPROLOL TARTRATE 50 MG TAB PO (21:18)
[2020-08-27 23:34] LABS: Glucose Point of Care 138 (65-105)
[2020-08-28] VITALS (40 sets, daily range): BP systolic 58–151; BP diastolic 44–89; PULSE 75–114; RESP 13–26; TEMP 36.2–37.3; O2SAT 90–100
[2020-08-28] MEDS: SODIUM CHLORIDE 0.9% IV 250 ML 999 ML IV CONT ×2 (01:10→01:42)
[2020-08-28] MEDS: NOREPINEPHRINE 8 MG/D5W 250 ML 8 MG/250 ML BAG 9.38 MG IV CONT (03:05)
[2020-08-28] MEDS: ALBUTEROL SULFATE NEB 2.5 MG/0.5 ML INH INHALATION ×4 (03:09→20:01)
[2020-08-28] MEDS: IPRATROPIUM BR 0.02% INH SOLN 0.5 MG/2.5 ML VIAL INHALATION ×4 (03:09→20:01)
[2020-08-28 05:24] LABS: Albumin 65 %; Creat 24 Hr 1.26 g/24 h (0.50-2.15); Measured Kappa Chains 1.39 mg/dL (<2.00); Measured Lambda Chains 0.46 mg/dL (<2.00); Pro/Creat Ratio 1062 mg/g creat (<115); Total Kappa Chains 59.77 mg/24 h; Total Lambda Chains 19.78 mg/24 h
[2020-08-28] MEDS: CENTRAL LINE FLUSH 10 ML IV PUSH ×4 (05:25→21:24)
[2020-08-28 05:39] LABS: Hematocrit 52.2 % (42.0-52.0); Mean Corpuscular HGB Conc 30.7 g/dl (32-36); Mean Corpuscular Hemoglobin 27.4 pg (26-34); Mean Corpuscular Volume 89.2 fl (80-100); Platelet Count Result 170 k/mm3 (150-375); Red Blood Count 5.85 M/mm3 (4.6-6.20); Red Cell Distribution Width 16.7 % (11.5-14.5); White Blood Count 11.8 K/mm3 (4.5-10.0)
[2020-08-28 05:54] LABS: Alanine Aminotransferase 24 U/L (4-50); Albumin Level 3.2 g/dL (3.5-5.1); Alkaline Phosphatase 73 U/L (38-126); Anion Gap 3 mmol/L (8-16); Aspartate Amino Transferase 28 U/L (17-59); Bilirubin,Total 0.8 mg/dL (0.2-1.3); Blood Urea Nitrogen 63 mg/dL (9-20); Calcium 7.9 mg/dL (8.4-10.2); Carbon Dioxide 39 mmol/L (22-30); Chloride 95 mmol/L (98-107); Estimated CRCL calculation 20 ml/min; Estimated Glomerular Filt Rate 15; Glucose 124 mg/dL (75-110); Potassium 3.8 mmol/L (3.4-5.0); Sodium 137 mmol/L (137-145)
[2020-08-28] MEDS: BUDESONIDE RESPULE NEB 0.5 MG/2 ML AMP 1 MG INHALATION ×2 (08:03→20:00)
[2020-08-28] MEDS: DORNASE ALFA INH SOLN 1 MG/ML 2.5 ML AMP 2.5 MG INHALATION ×2 (08:04→20:01)
[2020-08-28] MEDS: GABAPENTIN 300 MG CAPSULE 600 MG PO ×3 (09:15→16:58)
[2020-08-28] MEDS: EUCERIN CREAM 120 GM JAR 1 APPLIC TOPICAL (09:16)
[2020-08-28] MEDS: HEPARIN SODIUM 5,000 UNITS/ML VIAL 5000 UNITS SUB-Q ×2 (09:16→21:24)
[2020-08-28] MEDS: SILVERGEL (ELTA) 45 ML 1 APPLIC TOPICAL (09:16)
[2020-08-28] MEDS: PANTOPRAZOLE SODIUM IV 40 MG VIAL IV PUSH ×2 (09:16→21:23)
--- NOTE | 2020-08-28 09:56 | P.PNNP_ITS ---
Progress Note: A&P Assessment and Plan (1) MARSHA (acute kidney injury): Code(s): N17.9 - Acute kidney failure, unspecified Status: Acute Assessment and Plan: * presumably due to diuretics (but this is needed/required at this time) * creatinine relatively stable at this time * follow trend of creatinine with ongoing diuresis * follow trend of repeat labs and UOP (2) Chronic kidney failure: Code(s): N18.9 - Chronic kidney disease, unspecified Status: Chronic Assessment and Plan: * unclear what baseline creatinine is but his creatinine was 2.1mg/dl back in 2013 * suspect current baseline creatinine is likely higher * CKD likely secondary to DM, HTN, and vascular disease (3) Acute respiratory failure with hypoxia and hypercapnia: Code(s): J96.01 - Acute respiratory failure with hypoxia; J96.02 - Acute respiratory failure with hypercapnia Status: Acute Assessment and Plan: * due to a combination of COPD and CHF * on BiPAP PRN and high flow oxygen * continue nebulizer treatments, bronchodilators, and diuretics * follow respiratory status closely (4) Fluid overload, unspecified: Code(s): E87.70 - Fluid overload, unspecified Status: Acute Assessment and Plan: * cardiac function seems to be pretty good except some pulmonary hypertension * continue diuretics * follow I/Os (5) Essential hypertension: Code(s): I10 - Essential (primary) hypertension Status: Chronic Assessment and Plan: * reasonable control * follow trend of hemodynamics (6) Type 2 diabetes mellitus: Code(s): E11.9 - Type 2 diabetes mellitus without complications Status: Chronic Assessment and Plan: * follow accu-cheks * onsliding-scale insulin Will continue to follow. Subjective Date/time seen: 08/28/20 09:56 Still requiring significant oxygen support to maintain his O2 saturations; mentation appears stable at this time although intermittent confusion noted by nursing staff particularly overnight; good urine output noted with relative stability in kidney function; no distress to report. Exam Narrative: Exam Narrative: General: WD/WN male in NAD; on high flow oxygen mask Heart: normal S1 and S2; no rub Lungs: decreased breath sounds on the left Abdomen: soft, nontender, nondistended, positive bowel sounds Extremities: no cyanosis or clubbing; 1+ edema Skin: chronic skin changes with few ulcerations Objective Data Vital Signs Vital Signs: Vital Signs Temp Pulse Resp BP Pulse Ox 08/28/20 09:00 93 22 H 94 08/28/20 08:09 91 16 98 08/28/20 08:05 89 21 H 08/28/20 06:12 93 08/28/20 06:00 89 19 121/65 95 08/28/20 05:45 88 18 08/28/20 05:44 88 151/80 H 08/28/20 04:42 84 108/74 08/28/20 04:03 86 117/68 08/28/20 04:00 37.2 C 86 18 117/68 96 08/28/20 03:41 83 106/85 08/28/20 03:17 83 19 08/28/20 03:10 87 22 H 99 08/28/20 03:05 88 81/49 L 08/28/20 02:42 78 18 76/52 L 99 08/28/20 02:00 77 20 114/55 L 100 08/28/20 01:58 77 20 08/28/20 01:42 75 22 H 81/49 L 99 08/28/20 01:30 77 20 106/70 100 08/28/20 01:15 89 23 H 58/44 L 99 08/28/20 01:14 91 26 H 08/28/20 00:00 36.2 C L 89 24 H 103/73 100
--- NOTE | 2020-08-28 09:56 | PM.PNNEP ---
Progress Note: A&P Assessment and Plan (1) MARSHA (acute kidney injury): Code(s): N17.9 - Acute kidney failure, unspecified Status: Acute Assessment and Plan: presumably due to diuretics (but this is needed/required at this time) creatinine relatively stable at this time follow trend of creatinine with ongoing diuresis follow trend of repeat labs and UOP (2) Chronic kidney failure: Code(s): N18.9 - Chronic kidney disease, unspecified Status: Chronic Assessment and Plan: unclear what baseline creatinine is but his creatinine was 2.1mg/dl back in 2013 suspect current baseline creatinine is likely higher CKD likely secondary to DM, HTN, and vascular disease (3) Acute respiratory failure with hypoxia and hypercapnia: Code(s): J96.01 - Acute respiratory failure with hypoxia; J96.02 - Acute respiratory failure with hypercapnia Status: Acute Assessment and Plan: due to a combination of COPD and CHF on BiPAP PRN and high flow oxygen continue nebulizer treatments, bronchodilators, and diuretics follow respiratory status closely (4) Fluid overload, unspecified: Code(s): E87.70 - Fluid overload, unspecified Status: Acute Assessment and Plan: cardiac function seems to be pretty good except some pulmonary hypertension continue diuretics follow I/Os (5) Essential hypertension: Code(s): I10 - Essential (primary) hypertension Status: Chronic Assessment and Plan: reasonable control follow trend of hemodynamics (6) Type 2 diabetes mellitus: Code(s): E11.9 - Type 2 diabetes mellitus without complications Status: Chronic Assessment and Plan: follow accu-cheks onsliding-scale insulin Will continue to follow. Subjective Date/time seen: 08/28/20 09:56 Still requiring significant oxygen support to maintain his O2 saturations; mentation appears stable at this time although intermittent confusion noted by nursing staff particularly overnight; good urine output noted with relative stability in kidney function; no distress to report. Exam Narrative: Exam Narrative: General: WD/WN male in NAD; on high flow oxygen mask Heart: normal S1 and S2; no rub Lungs: decreased breath sounds on the left Abdomen: soft, nontender, nondistended, positive bowel sounds Extremities: no cyanosis or clubbing; 1+ edema Skin: chronic skin changes with few ulcerations Objective Data Vital Signs Vital Signs: Vital Signs Temp Pulse Resp BP Pulse Ox 08/28/20 09:00 93 22 H 94 02/26/21 08:09 91 16 98 08/28/20 08:05 89 21 H 08/28/20 06:12 93 08/28/20 06:00 89 19 121/65 95 08/28/20 05:45 88 18 08/28/20 05:44 88 151/80 H 08/28/20 04:42 84 108/74 08/28/20 04:03 86 117/68 08/28/20 04:00 37.2 C 86 18 117/68 96 08/28/20 03:41 83 106/85 08/28/20 03:17 83 19 08/28/20 03:10 87 22 H 99 08/28/20 03:05 88 81/49 L 08/28/20 02:42 78 18 76/52 L 99 08/28/20 02:00 77 20 114/55 L 100 08/28/20 01:58 77 20 08/28/20 01:42 75 22 H 81/49 L 99 08/28/20 01:30 77 20 106/70 100 08/28/20 01:15 89 23 H 58/44 L 99 08/28/20 01:14 91 26 H 08/28/20 00:00 36.2 C L 89 24 H 103/73 100 08/27/20 22:00 101 H 23 H 76/54 L 97 08/27/20 21:18 104 H 08/27/20 20:51 107 H 22 H 08/27/20 20:40 106 H 16 97 08/27/20 20:39 103 H 23 H 08/27/20 20:00 36.7 C 106 H 25 H 112/58 L 100 08/27/20 19:00 114 H 26 H 08/27/20 18:00 116 H 24 H 143/114 H 95 08/27/20 16:00 37.4 C 116 H 24 H 143/114 H 95 08/27/20 14:00 96 23 H 144/81 H 94 08/27/20 13:28 95 22 H 08/27/20 12:27 101 H 08/27/20 12:00 37.5 C 100 27 H 139/81 94 08/27/20 10:00 95 24 H 166/82 H 89 L Intake/Output Intake/Output: Intake & Output 08/25/20 08/26/20 08/27/20 08/28/20 23:59 23:59 23:59
[2020-08-28] MEDS: METOPROLOL TARTRATE 25 MG TABLET PO (09:58)
--- NOTE | 2020-08-28 10:57 | PCPTNOTE ---
Physical therapy evaluation completed this date. Spoke with Dr. Vanegas prior to evaluation, instructed to get patient up to chair despite femoral line.
[2020-08-28 11:33] LABS: Vancomycin Trough 15.5 ug/mL (10.0-20.0)
--- NOTE | 2020-08-28 11:34 | PM.IMPN ---
Progress Note: A&P Assessment and Plan (1) Acute respiratory failure with hypoxia and hypercapnia: Code(s): J96.01 - Acute respiratory failure with hypoxia; J96.02 - Acute respiratory failure with hypercapnia Status: Acute Assessment and Plan: The patient originally presented to urgent care with complaints of shortness of breath and was sent to the ED as he was hypoxic in the 70s on room air. He was placed on BiPAP but despite several adjustments, he continued to be hypercarbic with evidence of respiratory distress and ultimately intubated 08/21/20. Suspect COPD and CHF exacerbation. 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 08/28/2020 Patient is extubated now, breathing is better, will continue to monitor. (2) Congestive heart failure: Code(s): I50.9 - Heart failure, unspecified Status: Acute Assessment and Plan: CHF contributing to [place] [address]. Chest x-ray shows cardiomegaly pulmonary edema. Treated with IV diuretics. Urine output better yesterday but decreased overnight. Echo showing small LV cavity, EF 70%, severe RVE with RVH and severe hypokinesis. Indeterminate diastolic function. Appears more right sided failure than left. Continue monitor urine output and renal function. Breathing better today and is extubated now. (3) COPD with acute exacerbation: Code(s): J44.1 - Chronic obstructive pulmonary disease with (acute) exacerbation Status: Acute Assessment and Plan: Extubated normal continue current treatment. (4) Elevated troponin: Code(s): R77.8 - Other specified abnormalities of plasma proteins Status: Acute Assessment and Plan: Troponin elevated to 0.046 but flat. EKG showed borderline findings with poor R-wave progression. Most likely type 2 OH related to demand ischemia and/or from his CKD. Continue telemetry. (5) Hyperkalemia: Code(s): E87.5 - Hyperkalemia Status: Acute Assessment and Plan: Resolved will monitor closely (6) Chronic kidney failure: Code(s): N18.9 - Chronic kidney disease, unspecified Status: Chronic Assessment and Plan: Creatinine was 2.1 in 2013. No other values to compare. Creatinine was 3.5 on admission and suspect this is his baseline. It improved slightly to 3.2 yesterday but Lasix dose increased to 80mg IV Q6h and now Cr 3.9. Changed to Bumex now. Monitor Cr closely on diuretics therapy. (7) Essential hypertension: Code(s): I10 - Essential (primary) hypertension Status: Chronic Assessment and Plan: BP reviewed on 08/23 and remains well controlled. Continue to monitor. (8) Type 2 diabetes mellitus: Code(s): E11.9 - Type 2 diabetes mellitus without complications Status: Chronic Assessment and Plan: A1c 5.9. The patient's blood glucose was reviewed on 08/23 Glucose remains well controlled. Metformin on hold. Continue AccuCheks covering with sliding scale. Hypoglycemia protocol available as needed. (9) Benign prostatic hyperplasia: Code(s): N40.0 - Benign prostatic hyperplasia without lower urinary tract symptoms Status: Chronic Assessment and Plan: Maddox secured. Flomax and proscar on hold. Resume when able. (10) Tobacco abuse: Code(s): Z72.0 - Tobacco use Status: Acute Assessment and Plan: Tobacco cessation is imperative. (11) DVT prophylaxis: Code(s): Z29.9 - Encounter for prophylactic measures, unspecified Status: Acute Assessment and Plan: Heparin Additional Plan Subjective Date/time seen: 08/28/20 11:34 Interval history: Date of service 08/24 70yo male with COPD, DM, HTN and CKD here for SOB and developed respiratory failure. 08/28/2020 Patient was seen during the morning rounds today. Extubated and is on BiPAP. Mild shortness of breath. No chest pain. Mood stable. Review of Systems Review
[2020-08-28 12:50] LABS: Glucose Point of Care 251 (65-105)
[2020-08-28] MEDS: INSULIN ASPART (*BKC) 100 UNITS/ML SUB-Q ×2 (12:53→16:59)
--- NOTE | 2020-08-28 13:14 | WPDINTPN ---
Progress Note: A&P Assessment and Plan (1) Shock: Code(s): R57.9 - Shock, unspecified Status: Acute Assessment and Plan: Patient was hypotensive overnight, could be related to over-diuresis, hypovolemia, metoprolol -metoprolol and diuretics have been discontinued -patient is off Levophed, maintaining adequate blood pressure -will continue monitor closely (2) Acute respiratory failure with hypoxia and hypercapnia: Code(s): J96.01 - Acute respiratory failure with hypoxia; J96.02 - Acute respiratory failure with hypercapnia Status: Acute Assessment and Plan: Patient with acute respiratory failure likely related to COPD and CHF. Patient was intubated on 08/21/2020 -08/25/2020: Extubated -08/27/2020, complete whiteout on the left side likely secondary mucus plugging -continue chest percussion therapy, Pulmozyme, bronchodilators -repeat chest x-ray on 08/28/2020 shows improvement in the aeration on the left side, oxygen requirements trending down - sputum cultures growing MRSA, started vancomycin (initiated on 08/25/2020) -hold diuresis as patient was hypotensive overnight (3) COPD (chronic obstructive pulmonary disease): Code(s): J44.9 - Chronic obstructive pulmonary disease, unspecified Status: Acute Assessment and Plan: Sputum culture from 08/23/2020 growing MRSA, on vancomycin as above Continue ipratropium 0.5 mg nebulized q.6 hours Continue Pulmicort 1 mg q.12 hours nebulized Continue albuterol 2.5 mg Q 6 hours (4) Acute CHF (congestive heart failure): Qualifiers: Heart failure type: unspecified Qualified Code(s): I50.9 - Heart failure, unspecified Code(s): I50.9 - Heart failure, unspecified Status: Acute Assessment and Plan: Congestive heart failure with preserved ejection fraction. Ejection fraction was approximately 70%. Diastolic dysfunction could not be assessed. He did have significant right ventricular hypertrophy strain and hypokinesis But pulmonary artery pressures could not be estimated. -hold all diuretics as patient was hypotensive requiring Levophed briefly overnight (5) Acute on chronic renal failure: Code(s): N17.9 - Acute kidney failure, unspecified; N18.9 - Chronic kidney disease, unspecified Status: Acute Assessment and Plan: Nephrology has been consulted and their input is greatly appreciated. -responding well to diuresis, creatinine has been stable , will continue to monitor renal function, electrolytes and urine output (6) Gastroesophageal reflux disease: Code(s): K21.9 - Gastro-esophageal reflux disease without esophagitis Status: Chronic Assessment and Plan: Protonix Additional Plan DVT prophylaxis: Heparin subcu Nutrition: Heart healthy diet -stress ulcer prophylaxis Protonix Discussed with patient and his daughter in the room and updated them with patient's condition and plan of care. They are aware that there is improvement in aeration on the left side. Patient sitting up in chair, appetite much improved Code status: Full code Critical care time spent: 32 minutes Subjective Date/time seen: 08/28/20 13:14 Interval history: REASON FOR CONSULT: COPD exacerbation and CHF exacerbation, acute respiratory failure requiring intubation -MRSA in sputum 08/28/2020: Patient with a BiPAP at night, getting his chest percussion therapy, bronchodilators, Pulmozyme. Chest x-ray this morning shows significant improvement in aeration of the left lung. Patient was switched to high-flow therapy, oxygen requirements are trending down. Patient did drop his blood pressures overnight, central line was placed in his groin and was on Levophed briefly. Currently Levophed is off. Urine output has been adequate. Patient does not complain of any shortness of breath, chest pain, abdominal pain, nausea, vomiting. Review of Systems Review of Systems: All systems reviewed & ar
--- NOTE | 2020-08-28 13:39 | PCDIET ---
Nutrition Follow-Up Complete: Nutrition Diagnosis: Inadequate oral intake related to oral intubation as evidenced by NPO status. Nutrition Goal: Patient to meet estimated nutritional needs. Goal in progress. Patient eating breakfast during time of rounds and eating well, per RN. Continues on renal dialysis, heart healthy diet with Nepro supplements TID. Last recorded weight is 108.1 kg which is slightly decreased from last review. Bowel Motility: Last BM on 08/21/20. MD informed. Labs Reviewed: WBC (11.8), Hct (52.2), Glu (124), BUN (63), Cr (3.9), Alb (3.2), Lele Ca (8.54) Meds Noted: Albuterol, Zaroxolyn, Lipitor, Hydralazine, Lopressor, Pulmicort, Atrovent, Levophed, Protonix, Bumex, Vancomycin Additional Notes: Right lower leg arterial ulcer. Will continue to monitor with same goal. Nutrition Monitoring and Evaluation: Follow up every 3 days. Follow daily in ICU rounds.
[2020-08-28 16:58] LABS: Glucose Point of Care 253 (65-105)
[2020-08-28 21:21] LABS: Glucose Point of Care 200 (65-105)
[2020-08-28] MEDS: ATORVASTATIN 10 MG TABLET PO (21:24)
[2020-08-29] VITALS (29 sets, daily range): BP systolic 99–166; BP diastolic 45–92; PULSE 89–141; RESP 18–28; TEMP 36.4–37.2; O2SAT 67–99
[2020-08-29] MEDS: ALBUTEROL SULFATE NEB 2.5 MG/0.5 ML INH INHALATION ×4 (02:30→20:08)
[2020-08-29] MEDS: IPRATROPIUM BR 0.02% INH SOLN 0.5 MG/2.5 ML VIAL INHALATION ×4 (02:31→20:08)
[2020-08-29] MEDS: CENTRAL LINE FLUSH 10 ML IV PUSH ×4 (05:21→20:45)
[2020-08-29 05:29] LABS: Hematocrit 46.5 % (42.0-52.0); Hemoglobin 14.1 g/dL (14.0-18.0); Mean Corpuscular HGB Conc 30.3 g/dl (32-36); Mean Corpuscular Hemoglobin 26.4 pg (26-34); Mean Corpuscular Volume 87.1 fl (80-100); Mean Platelet Volume 10.2 fl (7.4-10.4); Platelet Count Result 170 k/mm3 (150-375); Red Blood Count 5.34 M/mm3 (4.6-6.20); Red Cell Distribution Width 15.9 % (11.5-14.5); White Blood Count 11.5 K/mm3 (4.5-10.0)
[2020-08-29 05:51] LABS: Alanine Aminotransferase 30 U/L (4-50); Alkaline Phosphatase 71 U/L (38-126); Anion Gap 4 mmol/L (8-16); Aspartate Amino Transferase 34 U/L (17-59); Bilirubin,Total 0.7 mg/dL (0.2-1.3); Blood Urea Nitrogen 72 mg/dL (9-20); Calcium 7.7 mg/dL (8.4-10.2); Carbon Dioxide 37 mmol/L (22-30); Chloride 93 mmol/L (98-107); Estimated CRCL calculation 21 ml/min; Estimated Glomerular Filt Rate 16; Glucose 146 mg/dL (75-110); Potassium 3.4 mmol/L (3.4-5.0); Sodium 134 mmol/L (137-145)
[2020-08-29] MEDS: BUDESONIDE RESPULE NEB 0.5 MG/2 ML AMP 1 MG INHALATION ×2 (07:30→20:08)
[2020-08-29] MEDS: DORNASE ALFA INH SOLN 1 MG/ML 2.5 ML AMP 2.5 MG INHALATION ×2 (07:30→20:08)
[2020-08-29] MEDS: EUCERIN CREAM 120 GM JAR 1 APPLIC TOPICAL (08:07)
--- NOTE | 2020-08-29 09:00 | WPDINTPN ---
Progress Note: A&P Assessment and Plan (1) Shock: Code(s): R57.9 - Shock, unspecified Status: Acute Assessment and Plan: RESOLVED 08/27 night: Patient was hypotensive could be related to over-diuresis, hypovolemia, metoprolol. Was on Levophed very briefly. Currently off -metoprolol and diuretics have been discontinued -blood pressures have been stable (2) Acute respiratory failure with hypoxia and hypercapnia: Code(s): J96.01 - Acute respiratory failure with hypoxia; J96.02 - Acute respiratory failure with hypercapnia Status: Acute Assessment and Plan: Patient with acute respiratory failure likely related to COPD and CHF. Patient was intubated on 08/21/2020 -08/25/2020: Extubated -08/27/2020, complete whiteout on the left side likely secondary mucus plugging -continue chest percussion therapy, Pulmozyme, bronchodilators -- sputum cultures growing MRSA, started vancomycin (initiated on 08/25/2020) -will start Bumex 1 mg q.12 hours as chest x-ray shows pulmonary vascular congestion, bilateral infiltrates (3) COPD (chronic obstructive pulmonary disease): Code(s): J44.9 - Chronic obstructive pulmonary disease, unspecified Status: Acute Assessment and Plan: Sputum culture from 08/23/2020 growing MRSA, on vancomycin as above Continue ipratropium 0.5 mg nebulized q.6 hours Continue Pulmicort 1 mg q.12 hours nebulized Continue albuterol 2.5 mg Q 6 hours (4) Acute CHF (congestive heart failure): Qualifiers: Heart failure type: unspecified Qualified Code(s): I50.9 - Heart failure, unspecified Code(s): I50.9 - Heart failure, unspecified Status: Acute Assessment and Plan: Congestive heart failure with preserved ejection fraction. Ejection fraction was approximately 70%. Diastolic dysfunction could not be assessed. He did have significant right ventricular hypertrophy strain and hypokinesis But pulmonary artery pressures could not be estimated. -restart Bumex (5) Acute on chronic renal failure: Code(s): N17.9 - Acute kidney failure, unspecified; N18.9 - Chronic kidney disease, unspecified Status: Acute Assessment and Plan: Nephrology has been consulted and their input is greatly appreciated. -responding well to diuresis, creatinine has been stable , will continue to monitor renal function, electrolytes and urine output (6) Gastroesophageal reflux disease: Code(s): K21.9 - Gastro-esophageal reflux disease without esophagitis Status: Chronic Assessment and Plan: Protonix (7) Confusion: Code(s): R41.0 - Disorientation, unspecified Status: Acute Assessment and Plan: Patient more confused, agitated during the night, could be owning -will start patient on low-dose Seroquel Additional Plan DVT prophylaxis: Heparin subcu Nutrition: Heart healthy diet -stress ulcer prophylaxis Protonix Discussed with patient and his daughter in the room and updated them with patient's condition and plan of care. They are aware that there is improvement in aeration on the left side. Patient sitting up in chair, appetite much improved Code status: Full code Critical care time spent: 32 minutes Subjective Date/time seen: 08/29/20 09:01 Interval history: REASON FOR CONSULT: COPD exacerbation and CHF exacerbation, acute respiratory failure requiring intubation -MRSA in sputum 08/29/2020: Patient was on Airvo overnight, got confused, was chewing on his Airvo tubing. This morning patient is more awake, alert, oriented to self, not to place. He otherwise does answer questions appropriately. Denies any shortness of breath, chest pain, abdominal pain at this time. Patient is hemodynamically stable, blood pressures have been stable. Patient has had adequate urine output, afebrile. Remains on high-flow therapy with 30 L flow rate and 85% FiO2 with O2 sats of 100% Review of Systems Rev
[2020-08-29] MEDS: SILVERGEL (ELTA) 45 ML 1 APPLIC TOPICAL (09:20)
[2020-08-29] MEDS: BUMETANIDE INJ 1 MG/4 ML VIAL IV PUSH ×2 (09:20→20:44)
[2020-08-29] MEDS: HEPARIN SODIUM 5,000 UNITS/ML VIAL 5000 UNITS SUB-Q (09:21)
[2020-08-29] MEDS: GABAPENTIN 300 MG CAPSULE 600 MG PO ×3 (09:21→18:14)
[2020-08-29] MEDS: PANTOPRAZOLE SODIUM IV 40 MG VIAL IV PUSH ×2 (09:21→20:43)
[2020-08-29 12:38] LABS: Glucose Point of Care 283 (65-105)
[2020-08-29] MEDS: INSULIN ASPART (*BKC) 100 UNITS/ML SUB-Q ×2 (12:43→18:13)
--- NOTE | 2020-08-29 12:50 | ECG_ITS ---
Measurements Intervals [place] Rate: 138 P: TX: 0 QRS: 90 QRSD: 105 T: 0 QT: 292 QTc: 444 Interpretive Statements ATRIAL FIBRILLATION WITH RAPID VENTRICULAR RESPONSE RIGHT AXIS DEVIATION DELAYED PRECORDIAL R/S TRANSITION LOW QRS VOLTAGE IN LIMB LEADS BORDERLINE T WAVE ABNORMALITY- INFERIOR LEADS BASELINE WANDER- V6 ABNORMAL ECG Electronically Signed On 08-29-2020 15:52:39 [employer] HAND by Sergei Gonzalez D.O.
[2020-08-29] MEDS: METOPROLOL TARTRATE INJ 5 MG/5 ML VIAL IV PUSH (13:00)
[2020-08-29] MEDS: HEPARIN SODIUM 5,000 UNITS/ML VIAL 7000 UNITS IV PUSH (14:14)
[2020-08-29] MEDS: HEPARIN SOD/D5W 100 UNITS/ML 25,000 UNITS/250 ML BAG 15 UNITS IV CONT (14:17)
[2020-08-29 14:25] LABS: INR 1.1; Prothrombin Time 14.4 Seconds (11.1-14.7)
[2020-08-29 14:26] LABS: Partial Thromboplastin Time 34.9 SECONDS (22.3-36.8)
[2020-08-29 14:32] LABS: Basophils Absolute Auto 0.1 K/mm3 (0.0-0.1); Basophils Percent Auto 0.5 % (0.2-1.2); Eosinophils Absolute Auto 0.2 K/mm3 (0-0.3); Eosinophils Percent Auto 1.6 % (0-4.4); Hematocrit 50.3 % (42.0-52.0); Hemoglobin 15.5 g/dL (14.0-18.0); Immature Granulocyte Absolute 0.07 K/mm3 (0.00-0.031); Immature Granulocyte Percent A 0.6 % (0-0.5); Lymphocytes Absolute Auto 0.52 K/mm3 (0.9-3.2); Lymphocytes Percent Auto 4.8 % (18.3-44.2); Mean Corpuscular HGB Conc 30.8 g/dl (32-36); Mean Corpuscular Hemoglobin 27.3 pg (26-34); Mean Corpuscular Volume 88.7 fl (80-100); Mean Platelet Volume 9.9 fl (7.4-10.4); Monocytes Absolute Auto 1.1 K/mm3 (0.1-0.6); Monocytes Percent Auto 10.2 % (2.6-8.5); Neutrophils Percent Auto 82.3 % (45.5-73.1); Platelet Count Result 175 k/mm3 (150-375); Red Blood Count 5.67 M/mm3 (4.6-6.20); Red Cell Distribution Width 16.1 % (11.5-14.5); White Blood Count 10.9 K/mm3 (4.5-10.0)
--- NOTE | 2020-08-29 15:15 | PCPTNOTE ---
The patient treatment was not able to be completed on 08/29/20, per RN due to A-fib. Will plan to continue treatment per plan of care.
[2020-08-29] MEDS: AMIODARONE 150 MG/D5W 100 ML 150 MG/100 ML BAG 600 MG IV CONT (15:22)
--- NOTE | 2020-08-29 15:36 | PM.PNNEP ---
Progress Note: A&P Assessment and Plan (1) MARSHA (acute kidney injury): Code(s): N17.9 - Acute kidney failure, unspecified Status: Acute Assessment and Plan: due to diuretics (but this is needed/required at this time) creatinine relatively stable at this time follow trend of creatinine with ongoing diuresis follow trend of repeat labs and UOP (2) Chronic kidney failure: Code(s): N18.9 - Chronic kidney disease, unspecified Status: Chronic Assessment and Plan: unclear what baseline creatinine is but his creatinine was 2.1mg/dl back in 2013 suspect current baseline creatinine is likely higher CKD likely secondary to DM, HTN, and vascular disease (3) Acute respiratory failure with hypoxia and hypercapnia: Code(s): J96.01 - Acute respiratory failure with hypoxia; J96.02 - Acute respiratory failure with hypercapnia Status: Acute Assessment and Plan: due to a combination of COPD and CHF on BiPAP continue nebulizer treatments, bronchodilators, and diuretics follow respiratory status closely (4) Fluid overload, unspecified: Code(s): E87.70 - Fluid overload, unspecified Status: Acute Assessment and Plan: cardiac function seems to be pretty good except some pulmonary hypertension continue diuretics follow I/Os (5) Essential hypertension: Code(s): I10 - Essential (primary) hypertension Status: Chronic Assessment and Plan: reasonable control follow trend of hemodynamics (6) Type 2 diabetes mellitus: Code(s): E11.9 - Type 2 diabetes mellitus without complications Status: Chronic Assessment and Plan: follow accu-cheks onsliding-scale insulin Will continue to follow. Subjective Date/time seen: 08/29/20 15:36 Respiratory status appears relatively stable in comparison when I saw him yesterday; remains hemodynamically stable with adequate urine output; still with intermittent confusion as noted overnight but seems more awake/alert at this time. Exam Narrative: Exam Narrative: General: WD/WN male in NAD; on high flow oxygen mask Heart: normal S1 and S2; no rub Lungs: decreased breath sounds on the left Abdomen: soft, nontender, nondistended, positive bowel sounds Extremities: no cyanosis or clubbing; 1+ edema Skin: chronic skin changes with few ulcerations Objective Data Vital Signs Vital Signs: Vital Signs Temp Pulse Resp BP Pulse Ox 08/29/20 15:22 105 H 127/76 08/29/20 14:35 136 H 08/29/20 14:15 141 H 116/75 08/29/20 14:00 118 H 25 H 116/75 91 08/29/20 13:39 119 H 18 08/29/20 13:34 128 H 22 H 08/29/20 13:00 129 H 08/29/20 12:00 37.0 C 109 H 25 H 159/92 H 92 08/29/20 10:00 109 H 21 H 134/56 L 94 08/29/20 08:00 36.4 C 98 25 H 133/78 91 08/29/20 07:41 89 22 H 08/29/20 07:32 93 08/29/20 07:30 93 22 H 08/29/20 06:00 98 22 H 99/56 L 91 08/29/20 04:00 37.1 C 102 H 26 H 141/75 H 92 08/29/20 02:40 102 H 20 08/29/20 02:31 101 H 22 H 08/29/20 02:20 67 L 08/29/20 02:00 100 24 H 144/45 H 93 08/29/20 00:50 95 08/29/20 00:00 37.1 C 103 H 20 159/86 H 99 08/28/20 23:35 101 H 16 93 08/28/20 22:00 106 H 23 H 135/89 92 08/28/20 20:25 112 H 20 08/28/20 20:13 93 08/28/20 20:07 108 H 22 H 08/28/20 20:00 37.3 C 104 H 23 H 129/70 96 Intake/Output Intake/Output: Intake & Output 08/26/20 08/27/20 08/28/20 08/29/20 23:59 23:59 23:59 23:59 Intake Total 1585 1450 3069 410 Output Total 5429 [address] [facility] -6039 -087 3290 -6850 Meds/Results Medications: Active Medications Generic Name Dose Route Start Last Admin Trade Name Freq PRN Reason Stop Dose Admin Albuterol 2.5 mg 08/27/20 14:00 08/29/20 13:34 Albuterol Sulfate Neb 2.5 Mg/0.5 Ml Inh INHALATION 2.5 mg Q6HRT TOSHIA Administration Atorvastatin Calcium
--- NOTE | 2020-08-29 16:24 | PM.IMPN ---
Subjective Date/time seen: 08/29/20 16:24 Interval history: COPD exacerbation and CHF exacerbation, acute respiratory failure requiring Objective Data Vital Signs Vital Signs: Vital Signs - 24 hr 08/28/20 17:04 08/28/20 18:00 08/28/20 20:00 Temperature 37.3 C Pulse Rate 105 H 104 H Respiratory Rate 26 H 23 H Blood Pressure 106/86 129/70 Pulse Oximetry 95 91 96 08/28/20 20:07 08/28/20 20:13 08/28/20 20:25 Temperature Pulse Rate 108 H 112 H Respiratory Rate 22 H 20 Blood Pressure Pulse Oximetry 93 08/28/20 22:00 08/28/20 23:35 08/29/20 00:00 Temperature 37.1 C Pulse Rate 106 H 101 H 103 H Respiratory Rate 23 H 16 20 Blood Pressure 135/89 159/86 H Pulse Oximetry 92 93 99 08/29/20 00:50 08/29/20 02:00 08/29/20 02:20 Temperature Pulse Rate 100 Respiratory Rate 24 H Blood Pressure 144/45 H Pulse Oximetry 95 93 67 L 08/29/20 02:31 08/29/20 02:40 08/29/20 04:00 Temperature 37.1 C Pulse Rate 101 H 102 H 102 H Respiratory Rate 22 H 20 26 H Blood Pressure 141/75 H Pulse Oximetry 92 08/29/20 06:00 08/29/20 07:30 08/29/20 07:32 Temperature Pulse Rate 98 93 Respiratory Rate 22 H 22 H Blood Pressure 99/56 L Pulse Oximetry 91 93 08/29/20 07:41 08/29/20 08:00 08/29/20 10:00 Temperature 36.4 C Pulse Rate 89 98 109 H Respiratory Rate 22 H 25 H 21 H Blood Pressure 133/78 134/56 L Pulse Oximetry 91 94 08/29/20 12:00 08/29/20 13:00 08/29/20 13:34 Temperature 37.0 C Pulse Rate 109 H 129 H 128 H Respiratory Rate 25 H 22 H Blood Pressure 159/92 H Pulse Oximetry 92 08/29/20 13:39 08/29/20 14:00 08/29/20 14:15 Temperature Pulse Rate 119 H 118 H 141 H Respiratory Rate 18 25 H Blood Pressure 116/75 116/75 Pulse Oximetry 91 08/29/20 14:35 08/29/20 15:22 Temperature Pulse Rate 136 H 105 H Respiratory Rate Blood Pressure 127/76 Pulse Oximetry Intake/Output Intake/Output: Intake & Output 08/26/20 08/27/20 08/28/20 08/29/20 23:59 23:59 23:59 23:59 Intake Total 1585 1450 3069 290 Output Total 5450 2300 317 955 Balance -4658 -957 5263 -932 Meds/Results Medications: Active Medications Generic Name Dose Route Start Last Admin Trade Name Freq PRN Reason Stop Dose Admin Albuterol 2.5 mg 08/27/20 14:00 08/29/20 13:34 Albuterol Sulfate Neb 2.5 Mg/0.5 Ml Inh INHALATION 2.5 mg Q6HRT TOSHIA Administration Atorvastatin Calcium 10 mg 08/24/20 21:00 08/28/20 21:24 Atorvastatin 10 Mg Tablet PO 10 mg HS TOSHIA Administration Budesonide 1 mg 08/22/20 20:00 08/29/20 07:30 Budesonide Respule Neb 0.5 Mg/2 Ml Amp INHALATION 1 mg Q12HRT TOSHIA Administration Bumetanide 1 mg 08/29/20 09:05 08/29/20 09:20 Bumetanide Inj 1 Mg/4 Ml Vial IV PUSH 1 mg Q12HR TOSHIA Administration Dextrose 12.5 gm 08/21/20 16:29 Dextrose 50% 25 Gm/50 Ml Syringe IV PUSH PRN PRN Hypoglycemia Protocol Dornase Mauricio 2.5 mg 08/27/20 10:40 08/29/20 07:30 Dornase Mauricio Inh Soln 1 Mg/Ml 2.5 Ml Amp INHALATION 2.5 mg Q12HRT TOSHIA Administration Duloxetine HCl 60 mg 08/24/20 11:05 08/24/20 12:27 Duloxetine Hcl 60 Mg Capsule.Dr PO 60 mg DAILY TOSHIA Administration Gabapentin 600 mg 08/24/20 13:00 08/29/20 12:43 Gabapentin 300 Mg Capsule PO 600 mg TID TOSHIA Administration Glucagon 1 mg 08/21/20 16:29 Glucagon For Inj 1 Mg Vial IM PRN PRN Hypoglycemia Protocol Glucose 15 gm 08/21/20 16:29 Glucose Oral Gel 15 Gm Of Glucse In 37.5 Gm Tube PO PRN PRN Hypoglycemia Protocol Heparin Sodium (Porcine) 7,000 units 08/29/20 13:39 Heparin Sodium 5,000 Units/Ml Vial IV PUSH PRN PRN aPTT less than 55 seconds Heparin Sodium (Porcine) 3,500 units 08/29/20 13:39 Heparin Sodium 5,000 Units/Ml Vial IV PUSH PRN PRN aPTT 55 - 70 seconds Hydralazine HCl 10 mg 08/27/20 10:18 08/27/20 17:29 Hydralazine Hcl 20 Mg/Ml
[2020-08-29 17:20] LABS: Glucose Point of Care 209 (65-105)
[2020-08-29] MEDS: ATORVASTATIN 10 MG TABLET PO (20:43)
[2020-08-29] MEDS: QUEtiapine FUMARATE 12.5 MG TABLET PO (20:44)
[2020-08-29 21:10] LABS: Partial Thromboplastin Time 164.2 SECONDS (22.3-36.8)
[2020-08-30] VITALS (31 sets, daily range): BP systolic 106–176; BP diastolic 46–97; PULSE 84–121; RESP 14–26; TEMP 35.9–36.9; O2SAT 10–98
[2020-08-30] MEDS: hydrALAZINE HCL 20 MG/ML VIAL 10 MG IV PUSH (00:40)
[2020-08-30] MEDS: OLANZapine 10 MG INJ VIAL IM (01:43)
[2020-08-30] MEDS: IPRATROPIUM BR 0.02% INH SOLN 0.5 MG/2.5 ML VIAL INHALATION ×4 (02:11→21:20)
[2020-08-30] MEDS: ALBUTEROL SULFATE NEB 2.5 MG/0.5 ML INH INHALATION ×4 (02:11→21:20)
[2020-08-30 04:25] LABS: Basophils Percent Auto 0.3 % (0.2-1.2); Eosinophils Absolute Auto 0.1 K/mm3 (0-0.3); Eosinophils Percent Auto 0.9 % (0-4.4); Hematocrit 48.7 % (42.0-52.0); Hemoglobin 15.1 g/dL (14.0-18.0); Immature Granulocyte Absolute 0.12 K/mm3 (0.00-0.031); Lymphocytes Percent Auto 5.6 % (18.3-44.2); Mean Corpuscular Hemoglobin 27.3 pg (26-34); Mean Corpuscular Volume 87.9 fl (80-100); Mean Platelet Volume 9.8 fl (7.4-10.4); Monocytes Absolute Auto 1.2 K/mm3 (0.1-0.6); Monocytes Percent Auto 9.6 % (2.6-8.5); Neutrophils Absolute Auto 10.3 K/mm3 (1.3-6.7); Neutrophils Percent Auto 82.6 % (45.5-73.1); Platelet Count Result 179 k/mm3 (150-375); Red Blood Count 5.54 M/mm3 (4.6-6.20); Red Cell Distribution Width 15.9 % (11.5-14.5); White Blood Count 12.4 K/mm3 (4.5-10.0)
[2020-08-30 04:41] LABS: Alanine Aminotransferase 31 U/L (4-50); Albumin Level 3.3 g/dL (3.5-5.1); Alkaline Phosphatase 85 U/L (38-126); Aspartate Amino Transferase 35 U/L (17-59); Bilirubin,Total 0.7 mg/dL (0.2-1.3); Blood Urea Nitrogen 74 mg/dL (9-20); Calcium 8.3 mg/dL (8.4-10.2); Carbon Dioxide > 40 mmol/L (22-30); Chloride 93 mmol/L (98-107); Estimated CRCL calculation 19 ml/min; Estimated Glomerular Filt Rate 14; Glucose 210 mg/dL (75-110); Magnesium 1.7 mg/dL (1.6-2.3); Phosphorus 3.4 mg/dL (2.5-4.5); Potassium 3.1 mmol/L (3.4-5.0); Sodium 138 mmol/L (137-145)
[2020-08-30 07:12] LABS: Partial Thromboplastin Time 34.3 SECONDS (22.3-36.8)
[2020-08-30] MEDS: BUDESONIDE RESPULE NEB 0.5 MG/2 ML AMP 1 MG INHALATION ×2 (08:04→21:20)
[2020-08-30] MEDS: DORNASE ALFA INH SOLN 1 MG/ML 2.5 ML AMP 2.5 MG INHALATION ×2 (08:05→21:20)
[2020-08-30 08:19] LABS: Alveolar/Arterial O2 Gradient 340.9 mmHg; Base Excess ABG 7.8 mEq/l (+/-2.0); Fractional Inspired Oxygen 65 %; HCO3 ABG 34.4 mEq/l (22.0-26.0); Oxygen Content ABG 20.1 %vol (16.0-22.0); Oxyhemoglobin 90.5 % THb (90.0-100.0); PCO2 ABG 54.9 mmHg (35.0-45.0); PO2 ABG 62.9 mmHg (80.0-100.0); PO2 FiO2 Ratio Arterial Blood 0.97 %; Total Hemoglobin 15.8 g/dL (12.0-18.0); pH ABG 7.415 (7.350-7.450)
[2020-08-30 08:20] LABS: Device HIGH FLOW THERAPY; Modified Allen's Test Pass; Site Drawn LEFT RADIAL
[2020-08-30] MEDS: HEPARIN SODIUM 5,000 UNITS/ML VIAL 7000 UNITS IV PUSH (08:27)
[2020-08-30] MEDS: HEPARIN SOD/D5W 100 UNITS/ML 25,000 UNITS/250 ML BAG 16 UNITS IV CONT (08:37)
[2020-08-30] MEDS: MAGNESIUM SULF 2 GM/WATER 50ML 2 GM/50 ML BAG IVPB (08:40)
[2020-08-30] MEDS: CENTRAL LINE FLUSH 10 ML IV PUSH ×4 (08:43→21:50)
[2020-08-30] MEDS: INSULIN ASPART (*BKC) 100 UNITS/ML SUB-Q ×2 (08:47→17:22)
[2020-08-30] MEDS: PANTOPRAZOLE SODIUM IV 40 MG VIAL IV PUSH ×2 (08:51→21:49)
[2020-08-30] MEDS: GABAPENTIN 300 MG CAPSULE 600 MG PO ×3 (08:51→17:16)
[2020-08-30] MEDS: SILVERGEL (ELTA) 45 ML 1 APPLIC TOPICAL (08:51)
[2020-08-30] MEDS: EUCERIN CREAM 120 GM JAR 1 APPLIC TOPICAL (08:51)
[2020-08-30 09:15] LABS: Add Urine Microscopic? YES; Appearance Urine Cloudy (Clear); Bacteria Urine 1+ /hpf; Bilirubin Urine Negative (Negative); Blood Urine 3+ (Negative); Color Urine Yellow (Yellow); Glucose Urine UA Negative (Negative); Ketones Urine Negative (Negative); Leukocyte Esterase Ur 2+ LEU/UL (Negative); Mucus Urine Rare /lpf; Nitrate Urine Negative (Negative); Protein Urine 2+ mg/dL (Negative); RBC Urine >75 /hpf (0-2); Specific Grav Ur 1.011 (1.001-1.035); Urobilinogen Urine Negative mg/dL (<2.0); WBC Urine 31-50 /hpf
--- NOTE | 2020-08-30 12:30 | PM.CNCAR ---
Assessment and Plan Assessment and plan (1) Atrial fibrillation with RVR: Code(s): I48.91 - Unspecified atrial fibrillation Status: Acute Assessment and Plan: Resolved at this time, remains on Diltiazem gtt at 10mg/hour. No reponse with IV Metoprolol initially. amiodarone appears to have contributed to conversion from A.Fib to wither MAT vs ST with freq PAC's, although variable P wave morphology suggestive of MAT. No prior known or documented history until yesterday afternoon. Discussed discontinuation of diltiazem infusion in favor of amiodarone as we know precisely when he developed AFib with no prior history along with systemic anticoagulation. Furthermore, as patient is a poor candidate for sedation efforts to restore sinus rhythm with medical therapy far preferable. However, at this time patient appears to be likely be in multifocal atrial tachycardia. As such I recommend continued treatment was respiratory status, monitor electrolytes, replete hypokalemia. Magnesium 1.7. Potassium 3.1 today. If reverts to atrial fibrillation with RVR then will discontinue calcium channel aaron in favor of amiodarone with plan for short-term use given underlying lung disease. Continue systemic anticoagulation for the time being. Discussed embolic stroke risk with patient and his son at bedside, they verbalized understanding. All questions answered to their satisfaction. Depending upon changes in the patient's clinical circumstances management recommendations may change as above. (2) Multifocal atrial tachycardia: Code(s): I47.1 - Supraventricular tachycardia Status: Acute Assessment and Plan: Currently, I believe his rhythm to be more consistent with multi focal atrial tachycardia. Twelve lead EKG today. As above. (3) Confusion: Code(s): R41.0 - Disorientation, unspecified Status: Acute Assessment and Plan: Stable, overnight, reported garbled speech this morning CT head negative for acute bleed. No acute embolic stroke noted no clear focal deficits identified. (4) MARHSA (acute kidney injury): Code(s): N17.9 - Acute kidney failure, unspecified Status: Acute Assessment and Plan: Renal function is not improving thus far. Nephrology following. Hemodialysis may required if this trend persists and/or if intolerant to diuresis with worsening heart failure or hemodynamic instability. (5) Acute respiratory failure with hypoxia and hypercapnia: Code(s): J96.01 - Acute respiratory failure with hypoxia; J96.02 - Acute respiratory failure with hypercapnia Status: Acute Assessment and Plan: Extubated but remains dyspneic on high-flow nasal cannula, chest x-ray today consistent with increased pulmonary edema. (6) Acute CHF (congestive heart failure): Qualifiers: Heart failure type: unspecified Qualified Code(s): I50.9 - Heart failure, unspecified Code(s): I50.9 - Heart failure, unspecified Status: Acute Assessment and Plan: Diuresis as tolerated although progressive renal failure risk for hypotension problematic prompting metolazone and Bumex to be held.. Heart failure with preserved ejection fraction, EF 70%. If AFib recurrence amiodarone recommended. (7) COPD with acute exacerbation: Code(s): J44.1 - Chronic obstructive pulmonary disease with (acute) exacerbation Status: Acute Assessment and Plan: Per primary service. Bronchodilator therapy, Pulmozyme. History of Present Illness History of Present Illness Consult date/time: Date of service: 08/30/20 12:30 Cardiology consultation at the request of Dr. Vanegas for my opinion regarding new onset atrial fibrillation with RVR. Requesting physician: Raymundo Vanegas MD Consult reason: atrial fibrillation Reason For Visit: Acute hypercapnic respiratory failure Narrative: Patient is a 70-year-old male with past medical history significant for CKD
--- NOTE | 2020-08-30 12:31 | ECG_ITS ---
Measurements Intervals [place] Rate: 103 P: NE: 0 QRS: 92 QRSD: 104 T: 1 QT: 338 QTc: 443 Interpretive Statements SINUS RHYTHM FREQUENT ATRIAL PREMATURE COMPLEXES RIGHT AXIS DEVIATION LOW QRS VOLTAGE IN LIMB LEADS POOR R WAVE PROGRESSION, ANTERIOR LEADS BORDERLINE T WAVE ABNORMALITY- INF/HIGH LAT LEADS BASELINE ARTIFACT- I, II, III, AVL, AVF ABNORMAL ECG Electronically Signed On 08-30-2020 16:05:39 [facility] by Sergei Gonzalez D.O.
--- NOTE | 2020-08-30 12:49 | WPDINTPN ---
Progress Note: A&P Assessment and Plan (1) Shock: Code(s): R57.9 - Shock, unspecified Status: Acute Assessment and Plan: RESOLVED 08/27 night: Patient was hypotensive could be related to over-diuresis, hypovolemia, metoprolol. Was on Levophed very briefly. Currently off -metoprolol and diuretics have been discontinued -blood pressures have been stable (2) Acute respiratory failure with hypoxia and hypercapnia: Code(s): J96.01 - Acute respiratory failure with hypoxia; J96.02 - Acute respiratory failure with hypercapnia Status: Acute Assessment and Plan: Patient with acute respiratory failure likely related to COPD and CHF. Patient was intubated on 08/21/2020 -08/25/2020: Extubated -08/27/2020, complete whiteout on the left side likely secondary mucus plugging -continue chest percussion therapy, Pulmozyme, bronchodilators -- sputum cultures growing MRSA, started vancomycin (initiated on 08/25/2020) -chest x-ray shows bilateral infiltrates, increasing pulmonary edema (3) COPD (chronic obstructive pulmonary disease): Code(s): J44.9 - Chronic obstructive pulmonary disease, unspecified Status: Acute Assessment and Plan: Sputum culture from 08/23/2020 growing MRSA, on vancomycin as above Continue ipratropium 0.5 mg nebulized q.6 hours Continue Pulmicort 1 mg q.12 hours nebulized Continue albuterol 2.5 mg Q 6 hours (4) Acute CHF (congestive heart failure): Qualifiers: Heart failure type: unspecified Qualified Code(s): I50.9 - Heart failure, unspecified Code(s): I50.9 - Heart failure, unspecified Status: Acute Assessment and Plan: Congestive heart failure with preserved ejection fraction. Ejection fraction was approximately 70%. Diastolic dysfunction could not be assessed. He did have significant right ventricular hypertrophy strain and hypokinesis But pulmonary artery pressures could not be estimated. -worsening creatinine, hold diuresis (5) Acute on chronic renal failure: Code(s): N17.9 - Acute kidney failure, unspecified; N18.9 - Chronic kidney disease, unspecified Status: Acute Assessment and Plan: Nephrology has been consulted and their input is greatly appreciated. -responding well to diuresis, creatinine has been stable , will continue to monitor renal function, electrolytes and urine output (6) Gastroesophageal reflux disease: Code(s): K21.9 - Gastro-esophageal reflux disease without esophagitis Status: Chronic Assessment and Plan: Protonix (7) Confusion: Code(s): R41.0 - Disorientation, unspecified Status: Acute Assessment and Plan: Patient more confused, agitated during the night, could be sundowning, patient's son did state that he has had some cognitive impairment even once he was at home and this confusion does happen sometimes in the evenings and nights. -Increased Seroquel and will dose as such, that he gets it at 6:00 p.m. (8) Atrial fibrillation with RVR: Code(s): I48.91 - Unspecified atrial fibrillation Status: Acute Assessment and Plan: Patient went to AFib RVR, new onset, likely related to respiratory distress and hypoxia -patient started heparin infusion -continue Cardizem infusion Additional Plan DVT prophylaxis: Heparin infusion Nutrition: Heart healthy diet -stress ulcer prophylaxis Protonix Discussed with patient and his son, Christos, and updated them with patient's condition and plan of care. I did discuss with him the results of the CT scan of the brain. It is at this time that the son told me that patient has had some sundowning and confusion at night and possible mild cognitive impairment and beginning of dementia. Code status: Full code Critical care time spent: 33 minutes Subjective Date/time seen: 08/30/20 12:49 Interval history: REASON FOR CONSULT: COPD exacerbation and CHF exacerbation, acute respiratory failur
[2020-08-30 13:19] LABS: Glucose Point of Care 198 (65-105)
[2020-08-30] MEDS: acetaZOLAMIDE SODIUM FOR INJ 500 MG VIAL 250 MG IV PUSH (14:36)
[2020-08-30 14:58] LABS: Partial Thromboplastin Time 109.8 SECONDS (22.3-36.8)
--- NOTE | 2020-08-30 15:04 | PM.PNNEP ---
Progress Note: A&P Assessment and Plan (1) MARSHA (acute kidney injury): Code(s): N17.9 - Acute kidney failure, unspecified Status: Acute Assessment and Plan: due to diuretics (but this is needed/required at this time) creatinine starting to rise a bit (although had been holding ~ 3.6 - 3.8mg/dl for a while) PRN diuretic therapy for now follow trend of creatinine with ongoing diuresis follow trend of repeat labs and UOP (2) Chronic kidney failure: Code(s): N18.9 - Chronic kidney disease, unspecified Status: Chronic Assessment and Plan: unclear what baseline creatinine is but his creatinine was 2.1mg/dl back in 2013 suspect current baseline creatinine is likely higher CKD likely secondary to DM, HTN, and vascular disease (3) Acute respiratory failure with hypoxia and hypercapnia: Code(s): J96.01 - Acute respiratory failure with hypoxia; J96.02 - Acute respiratory failure with hypercapnia Status: Acute Assessment and Plan: due to a combination of COPD and CHF on BiPAP PRN and high flow oxygen therapy continue nebulizer treatments, bronchodilators, and diuretics follow respiratory status closely (4) Fluid overload, unspecified: Code(s): E87.70 - Fluid overload, unspecified Status: Acute Assessment and Plan: cardiac function seems to be pretty good except some pulmonary hypertension continue diuretics PRN follow I/Os (5) Essential hypertension: Code(s): I10 - Essential (primary) hypertension Status: Chronic Assessment and Plan: reasonable control follow trend of hemodynamics (6) Type 2 diabetes mellitus: Code(s): E11.9 - Type 2 diabetes mellitus without complications Status: Chronic Assessment and Plan: follow accu-cheks onsliding-scale insulin Will continue to follow. Subjective Date/time seen: 08/30/20 15:04 Events noted overnight -- increased confusion with agitation as attempted to get out of bed and pulling out leads/IVs..etc; garbled speech noted earlier this AM so stat Head CT done with no acute intracranial findings; continue to make reasonable urine output (with assistance of diuretics); remains on high flow oxygen therapy. Exam Narrative: Exam Narrative: General: WD/WN male in NAD; on high flow oxygen mask Heart: normal S1 and S2; no rub Lungs: coarse with decreased breath sounds on the left Abdomen: soft, nontender, nondistended, positive bowel sounds Extremities: no cyanosis or clubbing; 1+ edema Skin: chronic skin changes with few ulcerations/wounds Objective Data Vital Signs Vital Signs: Vital Signs Temp Pulse Resp BP Pulse Ox 08/30/20 14:18 95 22 H 08/30/20 14:10 97 21 H 08/30/20 14:00 103 H 20 135/76 97 08/30/20 12:00 35.9 C L 92 21 H 151/69 H 95 08/30/20 10:00 102 H 24 H 137/75 92 08/30/20 08:13 95 22 H 08/30/20 08:11 103 H 95 08/30/20 08:05 94 14 08/30/20 08:00 36.7 C 98 24 H 117/97 H 96 08/30/20 07:27 113 H 95 08/30/20 06:00 36.9 C 109 H 25 H 121/81 91 08/30/20 05:50 103 H 08/30/20 04:00 36.6 C 121 H 26 H 148/68 H 94 08/30/20 03:49 92 08/30/20 02:25 97 23 H 08/30/20 02:22 108 H 24 H 97 08/30/20 02:13 101 H 24 H 08/30/20 02:00 104 H 24 H 176/72 H 96 08/30/20 01:41 107 H 21 H 97 08/30/20 00:30 100 26 H 166/89 H 94 08/30/20 00:20 110 H 93 08/30/20 00:00 101 H 94 08/29/20 23:39 101 H 166/78 H 08/29/20 22:00 96 28 H 142/68 H 91 08/29/20 20:43 91 20 137/89 95 08/29/20 20:26 95 20 08/29/20 20:09 91 19 93 08/29/20 20:00 90 95 08/29/20 18:00 90 24 H 149/66 H 94 Intake/Output Intake/Output: Intake & Output 08/27/20 08/28/20 08/29/20 08/30/20 23:59 23:59 23:59 23:59 Intake Total 1450 3069 850 1030 Output Total 2300 425 2125 750 Balance -850 2644 -0671 280 Meds/Res
--- NOTE | 2020-08-30 16:09 | PM.IMPN ---
Progress Note: A&P Assessment and Plan (1) Acute respiratory failure with hypoxia and hypercapnia: Code(s): J96.01 - Acute respiratory failure with hypoxia; J96.02 - Acute respiratory failure with hypercapnia Status: Acute Assessment and Plan: COPD and CHF exacerbation. Pt is still on high flow oxygen stable on this. (2) Congestive heart failure: Code(s): I50.9 - Heart failure, unspecified Status: Acute Assessment and Plan: CHF contributing to his respiratory failure. (3) COPD with acute exacerbation: Code(s): J44.1 - Chronic obstructive pulmonary disease with (acute) exacerbation Status: Acute Assessment and Plan: Extubated, continue current treatment with high flow oxygen. (4) Elevated troponin: Code(s): R77.8 - Other specified abnormalities of plasma proteins Status: Acute Assessment and Plan: Troponin elevated to 0.046 but flat. EKG showed borderline findings with poor R-wave progression. Most likely type 2 [place] related to demand ischemia and/or from his CKD. Continue telemetry.Pt seen by cardiology. (5) Hyperkalemia: Code(s): E87.5 - Hyperkalemia Status: Acute Assessment and Plan: Hypokalemia wih iv diuretics (6) Chronic kidney failure: Code(s): N18.9 - Chronic kidney disease, unspecified Status: Chronic Assessment and Plan: Creatinine was 2.1 in 2013. CReat is 4.2 now. Pt is on bumexIV Monitor Cr closely on diuretics therapy. Pt seen by nephrology. (7) Essential hypertension: Code(s): I10 - Essential (primary) hypertension Status: Chronic Assessment and Plan: Pt is on vasopressor for hypotension (8) Type 2 diabetes mellitus: Code(s): E11.9 - Type 2 diabetes mellitus without complications Status: Chronic Assessment and Plan: A1c 5.9. Metformin on hold. SSI and accuchecks (9) Benign prostatic hyperplasia: Code(s): N40.0 - Benign prostatic hyperplasia without lower urinary tract symptoms Status: Chronic Assessment and Plan: Maddox secured. (10) Tobacco abuse: Code(s): Z72.0 - Tobacco use Status: Acute Assessment and Plan: Tobacco cessation later (11) DVT prophylaxis: Code(s): Z29.9 - Encounter for prophylactic measures, unspecified Status: Acute Assessment and Plan: Heparin Additional Plan Subjective Date/time seen: 08/30/20 16:09 Interval history: COPD exacerbation and CHF exacerbation, acute respiratory failure requiring high flow therapy. Pt also has history of disorientation, gerd and af. Review of Systems Review of Systems: All systems reviewed & are unremarkable except as noted in HPI and below Exam Narrative: Exam Narrative: General - On high flow oxygen HEENT - PERRLA Chest - mild inspiratory and expiratory coarse breath sounds CVS - RRR S1/S2 Abdo - Soft, ND, +BS - Maddox secured draining clear yellow urine Ext - minimal bilateral LE woody edema, wounds with dressing on right lower leg Objective Data Vital Signs Vital Signs: Vital Signs - 24 hr 08/29/20 18:00 08/29/20 20:00 08/29/20 20:09 Temperature Pulse Rate 90 90 91 Respiratory Rate 24 H 19 Blood Pressure 149/66 H Pulse Oximetry 94 95 93 08/29/20 20:26 08/29/20 20:43 08/29/20 22:00 Temperature Pulse Rate 95 91 96 Respiratory Rate 20 20 28 H Blood Pressure 137/89 142/68 H Pulse Oximetry 95 91 08/29/20 23:39 08/30/20 00:00 08/30/20 00:20 Temperature Pulse Rate 101 H 101 H 110 H Respiratory Rate Blood Pressure 166/78 H Pulse Oximetry 94 93 08/30/20 00:30 08/30/20 01:41 08/30/20 02:00 Temperature Pulse Rate 100 107 H 104 H Respiratory Rate 26 H 21 H 24 H Blood Pressure 166/89 H 176/72 H Pulse Oximetry 94 97 96 08/30/20 02:13 08/30/20 02:22 08/30/20 02:25 Temperature Pulse Rate 101 H 108 H 97 Respira
[2020-08-30] MEDS: QUEtiapine FUMARATE 25 MG TABLET 50 MG PO (17:16)
[2020-08-30 17:20] LABS: Glucose Point of Care 209 (65-105)
[2020-08-30 20:08] LABS: Glucose Point of Care 226 (65-105)
[2020-08-30 21:43] LABS: Partial Thromboplastin Time 80.8 SECONDS (22.3-36.8)
[2020-08-31] VITALS (46 sets, daily range): BP systolic 67–131; BP diastolic 39–70; PULSE 62–114; RESP 13–26; TEMP 35.8–36.5; O2SAT 75–100
[2020-08-31] MEDS: HEPARIN SOD/D5W 100 UNITS/ML 25,000 UNITS/250 ML BAG 14 UNITS IV CONT ×2 (02:03→12:11)
[2020-08-31] MEDS: IPRATROPIUM BR 0.02% INH SOLN 0.5 MG/2.5 ML VIAL INHALATION ×4 (02:16→21:15)
[2020-08-31] MEDS: ALBUTEROL SULFATE NEB 2.5 MG/0.5 ML INH INHALATION ×4 (02:16→21:15)
[2020-08-31] MEDS: LORazepam INJ (*CRX) 2 MG/ML VIAL 1 MG IV PUSH (03:02)
[2020-08-31 03:42] LABS: Alveolar/Arterial O2 Gradient 534.6 mmHg; Base Excess ABG 4.9 mEq/l (+/-2.0); Carboxyhemoglobin 0.7 % THb (0-2.0); Fractional Inspired Oxygen 100 %; HCO3 ABG 34.7 mEq/l (22.0-26.0); Methemoglobin ABG 0.4 %THb (0-1.5); Oxygen Content ABG 19.1 %vol (16.0-22.0); Oxygen Saturation ABG 96.4 % (95.0-100.0); Oxyhemoglobin 95.3 % THb (90.0-100.0); PO2 ABG 100.1 mmHg (80.0-100.0); Reduced Hemoglobin 3.6 %THb (0-5.0); Total Hemoglobin 14.2 g/dL (12.0-18.0)
[2020-08-31 03:43] LABS: Device NON-INVASIVE VENT; Modified Allen's Test Unable to perform; PCO2 ABG 78.3 mmHg (35.0-45.0); Site Drawn RIGHT RADIAL; pH ABG 7.265 (7.350-7.450)
[2020-08-31 03:44] LABS: Non-Invasive Expiratory Pressure 6 CMH2O; Non-Invasive Inspiratory Pressure 12 CMH2O; Non-Invasive Vent Rate 20 /MIN
[2020-08-31 04:40] LABS: Basophils Absolute Auto 0.1 K/mm3 (0.0-0.1); Basophils Percent Auto 0.5 % (0.2-1.2); Eosinophils Absolute Auto 0.1 K/mm3 (0-0.3); Hematocrit 44.4 % (42.0-52.0); Hemoglobin 13.4 g/dL (14.0-18.0); Immature Granulocyte Percent A 0.9 % (0-0.5); Lymphocytes Absolute Auto 0.55 K/mm3 (0.9-3.2); Mean Corpuscular HGB Conc 30.2 g/dl (32-36); Mean Corpuscular Hemoglobin 27.5 pg (26-34); Mean Platelet Volume 10.4 fl (7.4-10.4); Monocytes Absolute Auto 0.9 K/mm3 (0.1-0.6); Monocytes Percent Auto 7.8 % (2.6-8.5); Neutrophils Absolute Auto 9.4 K/mm3 (1.3-6.7); Neutrophils Percent Auto 84.8 % (45.5-73.1); Platelet Count Result 163 k/mm3 (150-375); Red Blood Count 4.88 M/mm3 (4.6-6.20); Red Cell Distribution Width 15.9 % (11.5-14.5); White Blood Count 11.1 K/mm3 (4.5-10.0)
[2020-08-31] MEDS: NOREPINEPHRINE 8 MG/D5W 250 ML 8 MG/250 ML BAG 9.38 MG IV CONT (04:42)
[2020-08-31 04:52] LABS: Partial Thromboplastin Time 87.5 SECONDS (22.3-36.8)
[2020-08-31 04:55] LABS: Lactic Acid Reflex 0.6 mmol/L (0.7-2.1)
[2020-08-31 05:01] LABS: Alanine Aminotransferase 29 U/L (4-50); Albumin Level 2.9 g/dL (3.5-5.1); Alkaline Phosphatase 65 U/L (38-126); Anion Gap 5 mmol/L (8-16); Aspartate Amino Transferase 31 U/L (17-59); Bilirubin,Total 0.5 mg/dL (0.2-1.3); Blood Urea Nitrogen 84 mg/dL (9-20); Calcium 8.3 mg/dL (8.4-10.2); Carbon Dioxide 38 mmol/L (22-30); Chloride 94 mmol/L (98-107); Estimated CRCL calculation 16 ml/min; Estimated Glomerular Filt Rate 11; Glucose 179 mg/dL (75-110); Phosphorus 5.4 mg/dL (2.5-4.5); Potassium 3.3 mmol/L (3.4-5.0); Sodium 137 mmol/L (137-145)
[2020-08-31 05:11] LABS: CRP 19.1 mg/dL (<1.0)
[2020-08-31] MEDS: CENTRAL LINE FLUSH 10 ML IV PUSH ×4 (06:37→20:43)
[2020-08-31] MEDS: BUDESONIDE RESPULE NEB 0.5 MG/2 ML AMP 1 MG INHALATION ×2 (07:44→21:14)
[2020-08-31] MEDS: DORNASE ALFA INH SOLN 1 MG/ML 2.5 ML AMP 2.5 MG INHALATION ×2 (07:45→21:15)
[2020-08-31] MEDS: EUCERIN CREAM 120 GM JAR 1 APPLIC TOPICAL (08:18)
[2020-08-31] MEDS: PANTOPRAZOLE SODIUM IV 40 MG VIAL IV PUSH ×2 (08:20→20:43)
[2020-08-31] MEDS: SILVERGEL (ELTA) 45 ML 1 APPLIC TOPICAL (08:23)
[2020-08-31 08:29] LABS: Glucose Point of Care 199 (65-105)
[2020-08-31 08:44] LABS: Alveolar/Arterial O2 Gradient 198.8 mmHg; Base Excess ABG 4.6 mEq/l (+/-2.0); Fractional Inspired Oxygen 50 %; HCO3 ABG 36.2 mEq/l (22.0-26.0); Oxyhemoglobin 81.2 % THb (90.0-100.0); PO2 ABG 52.9 mmHg (80.0-100.0); PO2 FiO2 Ratio Arterial Blood 1.06 %; Total Hemoglobin 14.9 g/dL (12.0-18.0)
[2020-08-31 08:46] LABS: Device NON-INVASIVE VENT; Modified Allen's Test Pass; Oxygen Saturation ABG 77.9 % (95.0-100.0); PCO2 ABG 93.2 mmHg (35.0-45.0); Site Drawn LEFT RADIAL; pH ABG 7.207 (7.350-7.450)
[2020-08-31 08:47] LABS: Non-Invasive Expiratory Pressure 6 CMH2O; Non-Invasive Inspiratory Pressure 12 CMH2O; Non-Invasive Vent Rate 25 /MIN
[2020-08-31] MEDS: KCL 20 MEQ/SW 100 ML 100 ML 50 MEQ IVPB (09:06)
--- NOTE | 2020-08-31 09:21 | WPDINTPN ---
Progress Note: A&P Assessment and Plan (1) Acute respiratory failure with hypoxia and hypercapnia: Code(s): J96.01 - Acute respiratory failure with hypoxia; J96.02 - Acute respiratory failure with hypercapnia Status: Acute Assessment and Plan: Patient with acute respiratory failure likely related to COPD and CHF. Patient was intubated on 08/21/2020 -08/25/2020: Extubated -08/27/2020, complete whiteout on the left side likely secondary mucus plugging -continue chest percussion therapy, Pulmozyme, bronchodilators -- sputum cultures growing MRSA, started vancomycin (initiated on 08/25/2020) Patient was placed back on BiPAP last night ABG this morning shows worsened hypercarbia and respiratory acidosis I have increased the IPAP to 18 and will recheck ABG in 1 hour. If not better will consider Re-intubation Hold all sedatives at this time (2) Shock: Code(s): R57.9 - Shock, unspecified Status: Acute Assessment and Plan: Patient was restarted on Levophed last night likely combination hypovolemia from diuresis, sedation with Ativan, and acidosis from hypercarbia Hold diuretics continue Levophed At 25% albumin Hold diltiazem infusion (3) COPD (chronic obstructive pulmonary disease): Code(s): J44.9 - Chronic obstructive pulmonary disease, unspecified Status: Acute Assessment and Plan: Sputum culture from 08/23/2020 growing MRSA, on vancomycin as above Continue ipratropium 0.5 mg nebulized q.6 hours Continue Pulmicort 1 mg q.12 hours nebulized Continue albuterol 2.5 mg Q 6 hours (4) Acute CHF (congestive heart failure): Qualifiers: Heart failure type: unspecified Qualified Code(s): I50.9 - Heart failure, unspecified Code(s): I50.9 - Heart failure, unspecified Status: Acute Assessment and Plan: Congestive heart failure with preserved ejection fraction. Ejection fraction was approximately 70%. Diastolic dysfunction could not be assessed. He did have significant right ventricular hypertrophy and hypokinesis But pulmonary artery pressures could not be estimated. -worsening creatinine further, hold diuresis at this time (5) Acute on chronic renal failure: Code(s): N17.9 - Acute kidney failure, unspecified; N18.9 - Chronic kidney disease, unspecified Status: Acute Assessment and Plan: Nephrology is following Patient was getting diuresed but now hypertensive. Hold diuresis at this point May need dialysis Discussed with Dr. Kramer Replace low potassium Continue to monitor renal function, electrolytes and urine output (6) Gastroesophageal reflux disease: Code(s): K21.9 - Gastro-esophageal reflux disease without esophagitis Status: Chronic Assessment and Plan: Protonix (7) Confusion: Code(s): R41.0 - Disorientation, unspecified Status: Acute Assessment and Plan: Secondary to delirium. Received Ativan overnight and now drowsy Hold sedation at this time Will use Precedex if needed once patient is more arousable and and if agitated Seroquel was increased last night. Will reassess depending on how he does during the day (8) Atrial fibrillation with RVR: Code(s): I48.91 - Unspecified atrial fibrillation Status: Acute Assessment and Plan: Patient went to AFib RVR, new onset, likely related to respiratory distress and hypoxia -patient started heparin infusion -hold Cardizem infusion at this time as patient is in controlled rate and also hypotensive Additional Plan DVT prophylaxis: Heparin infusion Nutrition: Heart healthy diet -stress ulcer prophylaxis Protonix Code status: Full code Total Critical Care Time - 35 minutes Due to a high probability of clinically significant, life threatening deterioration, the patient required my highest level of preparedness to intervene emergently and I personally spent this critical care time directly and personally managing t
[2020-08-31 10:15] LABS: Alveolar/Arterial O2 Gradient 320.3 mmHg; Base Excess ABG 4.8 mEq/l (+/-2.0); Fractional Inspired Oxygen 65 %; Oxygen Content ABG 15.4 %vol (16.0-22.0); Oxyhemoglobin 74.2 % THb (90.0-100.0); PCO2 ABG 89.6 mmHg (35.0-45.0); Total Hemoglobin 14.8 g/dL (12.0-18.0); pH ABG 7.222 (7.350-7.450)
[2020-08-31 10:16] LABS: Device NON-INVASIVE VENT; Non-Invasive Expiratory Pressure 6 CMH2O; Non-Invasive Inspiratory Pressure 18 CMH2O; Non-Invasive Vent Rate 25 /MIN; Oxygen Saturation ABG 70.6 % (95.0-100.0); PO2 ABG 45.7 mmHg (80.0-100.0); Site Drawn RIGHT BRACHIAL
--- NOTE | 2020-08-31 10:36 | PCRCNOTE ---
Pt repositioned off of Left side, Pt's SpO2 increased to 97%. Dr. Reynolds aware of this improvement.
--- NOTE | 2020-08-31 11:32 | PCDIET ---
Nutrition Follow-Up Complete: Nutrition Diagnosis: Inadequate oral intake related to oral intubation as evidenced by NPO status. Nutrition Goal: Patient to meet estimated nutritional needs. Goal not met. Patient previously eating fairly well on heart healthy diet with Nepro TID; however, O2 requirements significantly increased and patient may require re-intubation. If tube feedings are started later today, recommend Nepro at 20mL/hr with goal of 45mL/hr. Will re-evaluate on 09/01/20. Last recorded weight is 111.9 kg which is increased from last review. +I/O. Bowel Motility: Last documented BM on 08/29/20 x 1. Labs Reviewed: WBC (11.), Hct (13.4), Glu (179), BUN (84), Cr (5.0), K (3.3), Alb (2.9), PO4 (5.4) Meds Noted: Albumin, Albuterol, Pulmicort, Bumex, Cefepime, Hydralazine, Atrovent, Zaroxolyn, Levophed, Protonix, Vancomycin, KCl Additional Notes: Scattered skin tears, per RN. Right lower leg with arterial ulcer. Nutrition Monitoring and Evaluation: Follow up every Monday/Monday. Follow daily in ICU rounds.
--- NOTE | 2020-08-31 11:38 | PM.PNCARD ---
Progress Note: A&P Additional Plan 70-year-old man with: Paroxysmal atrial fibrillation in the setting of respiratory failure. Patient is currently in sinus rhythm after being bolused with amiodarone yesterday. Given his condition he is at high risk for recurrence of atrial fibrillation. If this occurs I will likely place him back on IV amiodarone hopefully for the short term. Given his comorbidities especially now with worsening renal failure his prognosis seems to be poor. Family is still desirous of aggressive care. López Willson MD [facility] Subjective Date/time seen: Date of service: 08/31/20 11:38 Interval history: Follow-up visit in this 70-year-old man with: Episode of atrial fibrillation with RVR probably driven by respiratory failure, currently in sinus rhythm. Patient received a bolus of IV amiodarone and is back in sinus rhythm. For the moment he is not in atrial fibrillation but is shortly about to be reintubated because of respiratory failure. In addition to this his renal function has been steadily deteriorating and he may require dialysis for volume management. Exam Const: Other: Unresponsive man on a BiPAP mask chronically ill-appearing HENMT: Mouth: Yes moist mucous membranes Eyes: Sclera: sclerae normal Pupils: Equal, round and reactive pupils present Neck: Neck: supple Resp: Other: Breath sounds are diminished at the bases bilaterally Cardio: Rate: regular rate Rhythm: regular rhythm GI: GI Palp: Yes Soft to palpation Auscultation: normal bowel sounds Skin: General skin exam: normal color Neuro: Cognition (Neuro): abnormal cognition Objective Data Vital Signs Vital Signs: Vital Signs - 24 hr 08/30/20 12:00 08/30/20 14:00 08/30/20 14:10 Temperature 35.9 C L Pulse Rate 92 103 H 97 Respiratory Rate 21 H 20 21 H Blood Pressure 151/69 H 135/76 Pulse Oximetry 95 97 08/30/20 14:18 08/30/20 15:40 08/30/20 16:00 Temperature 36.5 C Pulse Rate 95 96 96 Respiratory Rate 22 H 21 H Blood Pressure 145/92 H 140/63 Pulse Oximetry 96 08/30/20 18:00 08/30/20 19:30 08/30/20 20:00 Temperature Pulse Rate 100 84 86 Respiratory Rate 19 21 H Blood Pressure 123/64 Pulse Oximetry 92 95 08/30/20 20:02 08/30/20 21:21 08/30/20 21:37 Temperature 36.3 C L Pulse Rate 86 89 87 Respiratory Rate 20 20 22 H Blood Pressure 112/46 L Pulse Oximetry 10 L 08/30/20 22:00 08/31/20 00:00 08/31/20 00:09 Temperature 36.3 C L 36.5 C Pulse Rate 105 H 114 H 109 H Respiratory Rate 23 H 21 H Blood Pressure 106/66 119/60 Pulse Oximetry 98 100 08/31/20 02:00 08/31/20 02:02 08/31/20 02:27 Temperature Pulse Rate 99 99 97 Respiratory Rate 22 H 22 H Blood Pressure 101/60 Pulse Oximetry 99 08/31/20 02:44 08/31/20 02:45 08/31/20 04:00 Temperature Pulse Rate 96 93 100 Respiratory Rate 25 H 20 Blood Pressure Pulse Oximetry 92 08/31/20 04:01 08/31/20 04:42 08/31/20 05:00 Temperature 35.9 C L Pulse Rate 92 91 85 Respiratory Rate 17 19 Blood Pressure 91/39 L 86/40 L 90/50 L Pulse Oximetry 100 100 08/31/20 06:00 08/31/20 06:30 08/31/20 06:40 Temperature Pulse Rate 85 80 79 Respiratory Rate 25 H Blood Pressure 97/46 L 86/43 L 80/47 L Pulse Oximetry 100 08/31/20 06:45 08/31/20 07:00 08/31/20 07:25 Temperature Pulse Rate 80 74 76 Respiratory Rate Blood Pressure 87/53 L 92/47 L 93/49 L Pulse Oximetry 08/31/20 07:45 08/31/20 07:55 08/31/20 08:00 Temperature 35.8 C L Pulse Rate 77 81 75 Respiratory Rate 26 H 26 H 15 Blood Pressure 112/51 L Pulse Oximetry 96 92 08/31/20 08:26 08/31/20 09:08 08/31/20 10:00 Temperature 35.8 C L Pulse Rate 73 94 72 Respiratory Rate 18 Blood Pressure 113/57 L 91/45 L 131/67 Pulse Oximetry 75 L 08/31/20 10:12 08/31/20 11:07 Temperature Pulse Rate 83 Respiratory Rate 26 H Blood Pressure 130/70 Pulse Oximetry 98 Intake/Output Intake/Output: I
--- NOTE | 2020-08-31 11:57 | WPDPROCEDUR ---
Procedures Intubation Intubation Date: 08/31/20 Intubation Time: 11:30 Consent: Consent obtained from patient's daughter A pre-procedural Time-Out was completed immediately before starting the procedure and confirmed: Patient Identification, Site, Procedure, Patient Position and the Availability of Requisite Equipment: Yes Sedative: etomidate Mg given: 20 Laryngoscope: fiber optic video scope Assist device used: fiber optic device ET tube size: 8 Tube secured depth (cm): 24 Tube secured location: teeth Tube placement confirmation: visualized tube passing through cords, equal breath sounds bilaterally, no breath sounds over epigastrium and confirmation by capnometry Patient tolerated procedure: well Intubation complications: none
--- NOTE | 2020-08-31 11:58 | PM.EVENT ---
Event Note Event Note Event Note: Patient's ABG did not show significant improvement. Spoke to patient's daughter at bedside. Recommended re-intubation. Family agreeable. Patient reintubated without any difficulty. Will repeat chest x-ray and ABG
[2020-08-31] MEDS: dexmedeTOMIDine 400 MCG/100 ML 400 MCG/100 ML BAG 13.99 MCG IV CONT ×2 (12:09→16:08)
[2020-08-31] MEDS: FENTANYL 2,500MCG/NS250ML(*CRX 2,500 MCG/250 ML BAG IV CONT (12:29)
[2020-08-31] MEDS: ALBUMIN HUMAN 25% 25 GM/100 ML 100 ML IVPB ×2 (12:41→18:00)
[2020-08-31] MEDS: INSULIN ASPART (*BKC) 100 UNITS/ML SUB-Q (12:46)
--- NOTE | 2020-08-31 13:29 | PCPTNOTE ---
The PT treatment was held today due to change in medical status. Will continue per Plan of Care frequency and duration.
[2020-08-31 13:52] LABS: Alveolar/Arterial O2 Gradient 520.1 mmHg; Base Excess ABG 6.5 mEq/l (+/-2.0); Carboxyhemoglobin 0.7 % THb (0-2.0); Fractional Inspired Oxygen 100 %; Methemoglobin ABG 0.4 %THb (0-1.5); Oxygen Content ABG 19.4 %vol (16.0-22.0); Oxygen Saturation ABG 97.6 % (95.0-100.0); Oxyhemoglobin 96.5 % THb (90.0-100.0); PO2 ABG 116.2 mmHg (80.0-100.0); PO2 FiO2 Ratio Arterial Blood 1.16 %; Reduced Hemoglobin 2.4 %THb (0-5.0); Total Hemoglobin 14.2 g/dL (12.0-18.0)
[2020-08-31 13:54] LABS: Device VENTILATOR; Modified Allen's Test Pass; PCO2 ABG 76.7 mmHg (35.0-45.0); Site Drawn RIGHT RADIAL; pH ABG 7.289 (7.350-7.450)
[2020-08-31 13:55] LABS: Arterial Blood Gas PEEP 5 cmH2O; Arterial Blood Gas Tidal Volume 450 ml; Arterial Blood Gas Vent Mode CMV; Arterial Blood Gas Ventilator rate 20 /MIN
--- NOTE | 2020-08-31 14:05 | P.PNNP_ITS ---
Progress Note: A&P Assessment and Plan (1) MARSHA (acute kidney injury): Code(s): N17.9 - Acute kidney failure, unspecified Status: Acute Assessment and Plan: * due to low blood pressure. * He is on pressors now. * He did get diuretics on Monday and had a good urine output. * Yesterday blood pressure was lower so diuretics were held and urine output was down a bit. * In spite of positive intake /output his creatinine worsen which makes me think that it is the low blood pressure and possibly infection that is causing his creatinine to rise (2) Chronic kidney failure: Code(s): N18.9 - Chronic kidney disease, unspecified Status: Chronic Assessment and Plan: * unclear what baseline creatinine is but his creatinine was 2.1mg/dl back in 2013 * suspect current baseline creatinine is likely higher * CKD likely secondary to DM, HTN, and vascular disease (3) Acute respiratory failure with hypoxia and hypercapnia: Code(s): J96.01 - Acute respiratory failure with hypoxia; J96.02 - Acute respiratory failure with hypercapnia Status: Acute Assessment and Plan: * due to a combination of COPD and CHF * on BiPAP PRN and high flow oxygen therapy * continue nebulizer treatments, bronchodilators * hold diuretics because of the low blood pressure. * follow respiratory status closely (4) Fluid overload, unspecified: Code(s): E87.70 - Fluid overload, unspecified Status: Acute Assessment and Plan: * cardiac function seems to be pretty good except some pulmonary hypertension * continue diuretics Depending on his blood pressure * follow I/Os (5) Essential hypertension: Code(s): I10 - Essential (primary) hypertension Status: Chronic Assessment and Plan: * reasonable control * follow trend of hemodynamics (6) Type 2 diabetes mellitus: Code(s): E11.9 - Type 2 diabetes mellitus without complications Status: Chronic Assessment and Plan: * follow accu-cheks * onsliding-scale insulin Will continue to follow. Subjective Date/time seen: 08/31/20 14:05 Interval history: Patient is sedated with Ativan. Comfortable on the BiPAP. Getting 50% oxygen. Made about 700cc of urine yesterday Review of Systems Review of Systems: ROS unobtainable: Yes unobtainable due to medical condition Exam Narrative: Exam Narrative: General: WD/WN male in NAD; on high flow oxygen mask Heart: normal S1 and S2; no rub or gallop Lungs: coarse with decreased breath sounds on the left Abdomen: soft, nontender, nondistended, positive bowel sounds Extremities: trace edema Skin: chronic skin changes with few ulcerations/wounds Objective Data Vital Signs Vital Signs: Vital Signs - 24 hr 08/30/20 14:10 08/30/20 14:18 08/30/20 15:40 Temperature Pulse Rate 97 95 96 Respiratory Rate 21 H 22 H Blood Pressure 145/92 H Pulse Oximetry 08/30/20 16:00 08/30/20 18:00 08/30/20 19:30 Temperature 36.5 C Pulse Rate 96 100 84 Respiratory Rate 21 H 19 21 H Blood Pressure 140/63 123/64 Pulse Oximetry 96 92 95 08/30/20 20:00 08/30/20 20:02 08/30/20 21:21 Temperature 36.3 C L Pulse Rate 86 86 89 Respiratory Rate 20 20 Blood Pressure 112/4
--- NOTE | 2020-08-31 14:05 | PM.PNNEP ---
Progress Note: A&P Assessment and Plan (1) MARSHA (acute kidney injury): Code(s): N17.9 - Acute kidney failure, unspecified Status: Acute Assessment and Plan: due to low blood pressure. He is on pressors now. He did get diuretics on Monday and had a good urine output. Yesterday blood pressure was lower so diuretics were held and urine output was down a bit. In spite of positive intake /output his creatinine worsen which makes me think that it is the low blood pressure and possibly infection that is causing his creatinine to rise (2) Chronic kidney failure: Code(s): N18.9 - Chronic kidney disease, unspecified Status: Chronic Assessment and Plan: unclear what baseline creatinine is but his creatinine was 2.1mg/dl back in 2013 suspect current baseline creatinine is likely higher CKD likely secondary to DM, HTN, and vascular disease (3) Acute respiratory failure with hypoxia and hypercapnia: Code(s): J96.01 - Acute respiratory failure with hypoxia; J96.02 - Acute respiratory failure with hypercapnia Status: Acute Assessment and Plan: due to a combination of COPD and CHF on BiPAP PRN and high flow oxygen therapy continue nebulizer treatments, bronchodilators hold diuretics because of the low blood pressure. follow respiratory status closely (4) Fluid overload, unspecified: Code(s): E87.70 - Fluid overload, unspecified Status: Acute Assessment and Plan: cardiac function seems to be pretty good except some pulmonary hypertension continue diuretics Depending on his blood pressure follow I/Os (5) Essential hypertension: Code(s): I10 - Essential (primary) hypertension Status: Chronic Assessment and Plan: reasonable control follow trend of hemodynamics (6) Type 2 diabetes mellitus: Code(s): E11.9 - Type 2 diabetes mellitus without complications Status: Chronic Assessment and Plan: follow accu-cheks onsliding-scale insulin Will continue to follow. Subjective Date/time seen: 08/31/20 14:05 Interval history: Patient is sedated with Ativan. Comfortable on the BiPAP. Getting 50% oxygen. Made about 700cc of urine yesterday Review of Systems Review of Systems: ROS unobtainable: Yes unobtainable due to medical condition Exam Narrative: Exam Narrative: General: WD/WN male in NAD; on high flow oxygen mask Heart: normal S1 and S2; no rub or gallop Lungs: coarse with decreased breath sounds on the left Abdomen: soft, nontender, nondistended, positive bowel sounds Extremities: trace edema Skin: chronic skin changes with few ulcerations/wounds Objective Data Vital Signs Vital Signs: Vital Signs - 24 hr 08/30/20 14:10 08/30/20 14:18 08/30/20 15:40 Temperature Pulse Rate 97 95 96 Respiratory Rate 21 H 22 H Blood Pressure 145/92 H Pulse Oximetry 08/30/20 16:00 08/30/20 18:00 08/30/20 19:30 Temperature 36.5 C Pulse Rate 96 100 84 Respiratory Rate 21 H 19 21 H Blood Pressure 140/63 123/64 Pulse Oximetry 96 92 95 08/30/20 20:00 08/30/20 20:02 08/30/20 21:21 Temperature 36.3 C L Pulse Rate 86 86 89 Respiratory Rate 20 20 Blood Pressure 112/46 L Pulse Oximetry 10 L 08/30/20 21:37 08/30/20 22:00 08/31/20 00:00 Temperature 36.3 C L Pulse Rate 87 105 H 114 H Respiratory Rate 22 H 23 H Blood Pressure 106/66 Pulse Oximetry 98 08/31/20 00:09 08/31/20 02:00 08/31/20 02:02 Temperature 36.5 C Pulse Rate 109 H 99 99 Respiratory Rate 21 H 22 H Blood Pressure 119/60 101/60 Pulse Oximetry 100 99 08/31/20 02:27 08/31/20 02:44 08/31/20 02:45 Temperature Pulse Rate 97 96 93 Respiratory Rate 22 H 25 H 20 Blood Pressure Pulse Oximetry 92 08/31/20 04:00 08/31/20 04:01 08/31/20 04:42 Temperature 35.9 C L Pulse Rate 100 92 91 Respiratory Rate 17 Blood Pressure 91/39 L 86/40 L Pulse Oximet
[2020-08-31 15:53] LABS: Glucose Point of Care 201 (65-105)
--- NOTE | 2020-08-31 16:29 | PM.IMPN ---
Progress Note: A&P Assessment and Plan (1) Acute respiratory failure with hypoxia and hypercapnia: Code(s): J96.01 - Acute respiratory failure with hypoxia; J96.02 - Acute respiratory failure with hypercapnia Status: Acute Assessment and Plan: COPD and CHF exacerbation. Pt is intubated in icu (2) Congestive heart failure: Code(s): I50.9 - Heart failure, unspecified Status: Acute Assessment and Plan: CHF contributing to his respiratory failure. (3) COPD with acute exacerbation: Code(s): J44.1 - Chronic obstructive pulmonary disease with (acute) exacerbation Status: Acute Assessment and Plan: Reintubated in icu (4) Elevated troponin: Code(s): R77.8 - Other specified abnormalities of plasma proteins Status: Acute Assessment and Plan: Troponin elevated to 0.046 but flat. Nstemi related to demand ischemia and/or from his CKD. (5) Hyperkalemia: Code(s): E87.5 - Hyperkalemia Status: Acute Assessment and Plan: Hypokalemia wih iv diuretics, corrected. (6) Chronic kidney failure: Code(s): N18.9 - Chronic kidney disease, unspecified Status: Chronic Assessment and Plan: Creatinine is 5 now bumex stopped (7) Essential hypertension: Code(s): I10 - Essential (primary) hypertension Status: Chronic Assessment and Plan: Pt is on vasopressor for hypotension (8) Type 2 diabetes mellitus: Code(s): E11.9 - Type 2 diabetes mellitus without complications Status: Chronic Assessment and Plan: A1c 5.9. Metformin on hold. SSI and accuchecks (9) Benign prostatic hyperplasia: Code(s): N40.0 - Benign prostatic hyperplasia without lower urinary tract symptoms Status: Chronic Assessment and Plan: Maddox secured. (10) Tobacco abuse: Code(s): Z72.0 - Tobacco use Status: Acute Assessment and Plan: Tobacco cessation later (11) DVT prophylaxis: Code(s): Z29.9 - Encounter for prophylactic measures, unspecified Status: Acute Assessment and Plan: Heparin Additional Plan Subjective Date/time seen: 08/31/20 16:29 Interval history: COPD exacerbation and CHF exacerbation, acute respiratory failure requiring intubation and ventilation. Pt Bp is low and is on vasopressors. ABGs were bad on the BIPAP needed intubation. Review of Systems Review of Systems: All systems reviewed & are unremarkable except as noted in HPI and below Exam Narrative: Exam Narrative: General - Intubated and sedated in icu Chest -BL coarse breath sounds CVS - RRR S1/S2 Abdo - Soft, ND, +BS - Maddox secured draining clear yellow urine Ext - minimal bilateral LE woody edema, wounds with dressing on right lower leg Neuro- sedated Objective Data Vital Signs Vital Signs: Vital Signs - 24 hr 08/30/20 18:00 08/30/20 19:30 08/30/20 20:00 Temperature Pulse Rate 100 84 86 Respiratory Rate 19 21 H Blood Pressure 123/64 Pulse Oximetry 92 95 08/30/20 20:02 08/30/20 21:21 08/30/20 21:37 Temperature 36.3 C L Pulse Rate 86 89 87 Respiratory Rate 20 20 22 H Blood Pressure 112/46 L Pulse Oximetry 10 L 08/30/20 22:00 08/31/20 00:00 08/31/20 00:09 Temperature 36.3 C L 36.5 C Pulse Rate 105 H 114 H 109 H Respiratory Rate 23 H 21 H Blood Pressure 106/66 119/60 Pulse Oximetry 98 100 08/31/20 02:00 08/31/20 02:02 08/31/20 02:27 Temperature Pulse Rate 99 99 97 Respiratory Rate 22 H 22 H Blood Pressure 101/60 Pulse Oximetry 99 08/31/20 02:44 08/31/20 02:45 08/31/20 04:00 Temperature Pulse Rate 96 93 100 Respiratory Rate 25 H 20 Blood Pressure Pulse Oximetry 92 08/31/20 04:01 08/31/20 04:42 08/31/20 05:00 Temperature 35.9 C L Pulse Rate 92 91 85 Respiratory Rate 17 19 Blood Pressure 91/39 L 86/40 L 90/50 L Pulse Oximetry 100 100 0
[2020-08-31 18:00] LABS: Glucose Point of Care 186 (65-105)
[2020-08-31] MEDS: NOREPINEPHRINE 8 MG/D5W 250 ML 8 MG/250 ML BAG 33.75 MG IV CONT (19:02)
[2020-08-31] MEDS: ATORVASTATIN 10 MG TABLET PO (20:43)
[2020-08-31] MEDS: dexmedeTOMIDine 400 MCG/100 ML 400 MCG/100 ML BAG 22.38 MCG IV CONT (21:01)
[2020-08-31] MEDS: NOREPINEPHRINE 8 MG/D5W 250 ML 8 MG/250 ML BAG 31.88 MG IV CONT (21:50)
[2020-09-01] VITALS (57 sets, daily range): BP systolic 78–136; BP diastolic 45–72; PULSE 59–110; RESP 26–33; TEMP 36.7–38.2; O2SAT 91–99; BMI 31.7
[2020-09-01] MEDS: ALBUMIN HUMAN 25% 25 GM/100 ML 100 ML IVPB ×5 (00:09→23:41)
[2020-09-01 00:45] LABS: Glucose Point of Care 164 (65-105)
[2020-09-01] MEDS: dexmedeTOMIDine 400 MCG/100 ML 400 MCG/100 ML BAG 22.38 MCG IV CONT ×6 (00:53→23:41)
[2020-09-01] MEDS: ALBUTEROL SULFATE NEB 2.5 MG/0.5 ML INH INHALATION ×4 (02:20→19:41)
[2020-09-01] MEDS: IPRATROPIUM BR 0.02% INH SOLN 0.5 MG/2.5 ML VIAL INHALATION ×5 (02:20→19:41)
[2020-09-01 04:39] LABS: Hematocrit 40.1 % (42.0-52.0); Hemoglobin 12.2 g/dL (14.0-18.0); Mean Corpuscular HGB Conc 30.4 g/dl (32-36); Mean Corpuscular Hemoglobin 27.5 pg (26-34); Mean Corpuscular Volume 90.3 fl (80-100); Mean Platelet Volume 9.6 fl (7.4-10.4); Platelet Count Result 186 k/mm3 (150-375); Red Blood Count 4.44 M/mm3 (4.6-6.20); White Blood Count 12.3 K/mm3 (4.5-10.0)
[2020-09-01 04:51] LABS: Alanine Aminotransferase 18 U/L (4-50); Albumin Level 3.1 g/dL (3.5-5.1); Alkaline Phosphatase 55 U/L (38-126); Anion Gap 5 mmol/L (8-16); Aspartate Amino Transferase 21 U/L (17-59); Bilirubin,Total 0.8 mg/dL (0.2-1.3); Blood Urea Nitrogen 88 mg/dL (9-20); Calcium 8.2 mg/dL (8.4-10.2); Carbon Dioxide 38 mmol/L (22-30); Chloride 91 mmol/L (98-107); Estimated CRCL calculation 13 ml/min; Estimated Glomerular Filt Rate 9; Glucose 179 mg/dL (75-110); Magnesium 1.8 mg/dL (1.6-2.3); Sodium 134 mmol/L (137-145)
[2020-09-01 04:52] LABS: Partial Thromboplastin Time 55.4 SECONDS (22.3-36.8)
[2020-09-01 05:09] LABS: Alveolar/Arterial O2 Gradient 424.9 mmHg; Base Excess ABG 5.1 mEq/l (+/-2.0); Carboxyhemoglobin 0.6 % THb (0-2.0); Fractional Inspired Oxygen 80 %; Methemoglobin ABG 0.4 %THb (0-1.5); Oxygen Content ABG 17.4 %vol (16.0-22.0); Oxygen Saturation ABG 94.3 % (95.0-100.0); PO2 ABG 77.9 mmHg (80.0-100.0); PO2 FiO2 Ratio Arterial Blood 0.97 %; Total Hemoglobin 13.3 g/dL (12.0-18.0); pH ABG 7.328 (7.350-7.450)
[2020-09-01 05:10] LABS: Modified Allen's Test Unable to perform; PCO2 ABG 64.4 mmHg (35.0-45.0); Site Drawn RIGHT RADIAL
[2020-09-01 05:11] LABS: Device VENTILATOR
[2020-09-01 05:13] LABS: Arterial Blood Gas PEEP 8 cmH2O; Arterial Blood Gas Tidal Volume 480 ml; Arterial Blood Gas Vent Mode ASSIST CONTROL; Arterial Blood Gas Ventilator rate 26 /MIN
[2020-09-01] MEDS: CENTRAL LINE FLUSH 10 ML IV PUSH ×4 (05:27→21:49)
[2020-09-01] MEDS: HEPARIN SODIUM 5,000 UNITS/ML VIAL 3500 UNITS IV PUSH ×2 (05:39→23:34)
[2020-09-01] MEDS: HEPARIN SOD/D5W 100 UNITS/ML 25,000 UNITS/250 ML BAG 16 UNITS IV CONT (05:53)
[2020-09-01 06:36] LABS: Glucose Point of Care 161 (65-105)
[2020-09-01] MEDS: NOREPINEPHRINE 8 MG/D5W 250 ML 8 MG/250 ML BAG 26.25 MG IV CONT (07:05)
[2020-09-01] MEDS: EUCERIN CREAM 120 GM JAR 1 APPLIC TOPICAL (08:12)
[2020-09-01] MEDS: PANTOPRAZOLE SODIUM IV 40 MG VIAL IV PUSH ×2 (08:13→20:27)
[2020-09-01] MEDS: SILVERGEL (ELTA) 45 ML 1 APPLIC TOPICAL (08:15)
[2020-09-01] MEDS: BUDESONIDE RESPULE NEB 0.5 MG/2 ML AMP 1 MG INHALATION ×2 (08:21→19:41)
[2020-09-01] MEDS: DORNASE ALFA INH SOLN 1 MG/ML 2.5 ML AMP 2.5 MG INHALATION ×2 (08:21→19:57)
--- NOTE | 2020-09-01 09:11 | PCPTNOTE ---
Spoke w/ Donovan MARSHALL and requested Hold orders from MD as pt on vent and sedated. Will follow.
--- NOTE | 2020-09-01 09:22 | WPDINTPN ---
Progress Note: A&P Assessment and Plan (1) Acute respiratory failure with hypoxia and hypercapnia: Code(s): J96.01 - Acute respiratory failure with hypoxia; J96.02 - Acute respiratory failure with hypercapnia Status: Acute Assessment and Plan: Patient with acute respiratory failure likely related to COPD and CHF. Patient was intubated on 08/21/2020 -08/25/2020: Self Extubated -08/27/2020, complete whiteout on the left side likely secondary mucus plugging - 08/30-placed back on BiPAP overnight - 08/31 -reintubated for persistent hypercarbia and hypoxia and poor mental status -- sputum cultures growing MRSA, started vancomycin (initiated on 08/25/2020) ABG and chest x-ray reviewed Increased respiratory to 28 Continue vancomycin and cefepime Patient had thick significant secretions. May need bronchoscopy Thoracentesis for large left pleural effusion is ordered and pending (2) Shock: Code(s): R57.9 - Shock, unspecified Status: Acute Assessment and Plan: Continue Levophed Hold diuretics at this time Continue 25% albumin (3) COPD (chronic obstructive pulmonary disease): Code(s): J44.9 - Chronic obstructive pulmonary disease, unspecified Status: Acute Assessment and Plan: Sputum culture from 08/23/2020 growing MRSA, on vancomycin as above Continue ipratropium 0.5 mg nebulized q.6 hours Continue Pulmicort 1 mg q.12 hours nebulized Continue albuterol 2.5 mg Q 6 hours (4) Acute CHF (congestive heart failure): Qualifiers: Heart failure type: unspecified Qualified Code(s): I50.9 - Heart failure, unspecified Code(s): I50.9 - Heart failure, unspecified Status: Acute Assessment and Plan: Congestive heart failure with preserved ejection fraction. Ejection fraction was approximately 70%. Diastolic dysfunction could not be assessed. He did have significant right ventricular hypertrophy and hypokinesis But pulmonary artery pressures could not be estimated. -worsening creatinine further, hold diuresis at this time -will likely need dialysis (5) Acute on chronic renal failure: Code(s): N17.9 - Acute kidney failure, unspecified; N18.9 - Chronic kidney disease, unspecified Status: Acute Assessment and Plan: Nephrology is following Patient was getting diuresed but now hypotensive. Hold diuresis at this point Urine output is poor and crit renal function is getting worse. Needs hemodialysis Discussed with Dr. Kramer. Consulted surgery for dialysis catheter Electrolytes adequate at this time continue to monitor Continue to monitor renal function, electrolytes and urine output (6) Gastroesophageal reflux disease: Code(s): K21.9 - Gastro-esophageal reflux disease without esophagitis Status: Chronic Assessment and Plan: Protonix (7) Confusion: Code(s): R41.0 - Disorientation, unspecified Status: Acute Assessment and Plan: Secondary to delirium. Currently sedated (8) Atrial fibrillation with RVR: Code(s): I48.91 - Unspecified atrial fibrillation Status: Acute Assessment and Plan: Patient went to AFib RVR, new onset, likely related to respiratory distress and hypoxia Patient converted to sinus rhythm at this time -patient started heparin infusion Additional Plan DVT prophylaxis: Heparin infusion Nutrition: Start tube feeds -stress ulcer prophylaxis Protonix Code status: Full code. I spoke to patient's daughter yesterday bedside and she requested patient to be full code and continue aggressive therapy at this time Total Critical Care Time - 32 minutes Due to a high probability of clinically significant, life threatening deterioration, the patient required my highest level of preparedness to intervene emergently and I personally spent this critical care time directly and personally managing the patient. This critical care time included obtaining a history; examining
--- NOTE | 2020-09-01 09:45 | P.PNNP_ITS ---
Progress Note: A&P Assessment and Plan (1) MARSHA (acute kidney injury): Code(s): N17.9 - Acute kidney failure, unspecified Status: Acute Assessment and Plan: * due to low blood pressure. * He is on pressors now. * Urine output is down. * Creatinine is up. * I agree with starting dialysis. * Discussed with Dr Reynolds (2) Chronic kidney failure: Code(s): N18.9 - Chronic kidney disease, unspecified Status: Chronic Assessment and Plan: * unclear what baseline creatinine is but his creatinine was 2.1mg/dl back in 2013 * suspect current baseline creatinine is likely higher * CKD likely secondary to DM, HTN, and vascular disease (3) Acute respiratory failure with hypoxia and hypercapnia: Code(s): J96.01 - Acute respiratory failure with hypoxia; J96.02 - Acute respiratory failure with hypercapnia Status: Acute Assessment and Plan: * due to a combination of COPD and CHF * on ventilator now. (4) Fluid overload, unspecified: Code(s): E87.70 - Fluid overload, unspecified Status: Acute Assessment and Plan: * cardiac function seems to be pretty well except some pulmonary hypertension * Will remove fluid down the line as tolerated by his blood pressure using dialysis * For the 1st treatment I think we will just remove poisons only. * follow I/Os (5) Essential hypertension: Code(s): I10 - Essential (primary) hypertension Status: Chronic Assessment and Plan: * He is on pressors now (6) Type 2 diabetes mellitus: Code(s): E11.9 - Type 2 diabetes mellitus without complications Status: Chronic Assessment and Plan: * follow accu-cheks * onsliding-scale insulin Subjective Date/time seen: 09/01/20 09:45 Interval history: Patient is on the ventilator now. Urine output is down to only 250. Exam Narrative: Exam Narrative: General: WD/WN male in NAD; on high flow oxygen mask Heart: normal S1 and S2; no rub or gallop Lungs: coarse with decreased breath sounds on the left Abdomen: soft, nontender, nondistended, positive bowel sounds Extremities: trace edema Skin: chronic skin changes due to venous stasis Objective Data Vital Signs Vital Signs: Vital Signs - 24 hr 08/31/20 10:00 08/31/20 10:12 08/31/20 11:07 Temperature 35.8 C L Pulse Rate 72 83 Respiratory Rate 18 26 H Blood Pressure 131/67 130/70 Pulse Oximetry 75 L 98 08/31/20 11:59 08/31/20 12:00 08/31/20 12:09 Temperature 36.4 C L Pulse Rate 95 99 100 Respiratory Rate 18 13 Blood Pressure 84/52 L Pulse Oximetry 93 93 08/31/20 12:29 08/31/20 12:45 08/31/20 13:04 Temperature Pulse Rate 101 H Respiratory Rate 16 Blood Pressure 69/43 L 67/48 L Pulse Oximetry 08/31/20 13:09 08/31/20 13:25 08/31/20 14:00 Temperature Pulse Rate 73 69 Respiratory Rate 20 Blood Pressure 74/48 L Pulse Oximetry 98 08/31/20 16:00 08/31/20 16:32 08/31/20 18:00 Temperature Pulse Rate 62 88 71 Respiratory Rate Blood Pressure Pulse Oximetry 98 08/31/20 18:53 08/31/20 20:
--- NOTE | 2020-09-01 09:45 | PM.PNNEP ---
Progress Note: A&P Assessment and Plan (1) MARSHA (acute kidney injury): Code(s): N17.9 - Acute kidney failure, unspecified Status: Acute Assessment and Plan: due to low blood pressure. He is on pressors now. Urine output is down. Creatinine is up. I agree with starting dialysis. Discussed with Dr Reynolds (2) Chronic kidney failure: Code(s): N18.9 - Chronic kidney disease, unspecified Status: Chronic Assessment and Plan: unclear what baseline creatinine is but his creatinine was 2.1mg/dl back in 2013 suspect current baseline creatinine is likely higher CKD likely secondary to DM, HTN, and vascular disease (3) Acute respiratory failure with hypoxia and hypercapnia: Code(s): J96.01 - Acute respiratory failure with hypoxia; J96.02 - Acute respiratory failure with hypercapnia Status: Acute Assessment and Plan: due to a combination of COPD and CHF on ventilator now. (4) Fluid overload, unspecified: Code(s): E87.70 - Fluid overload, unspecified Status: Acute Assessment and Plan: cardiac function seems to be pretty well except some pulmonary hypertension Will remove fluid down the line as tolerated by his blood pressure using dialysis For the 1st treatment I think we will just remove poisons only. follow I/Os (5) Essential hypertension: Code(s): I10 - Essential (primary) hypertension Status: Chronic Assessment and Plan: He is on pressors now (6) Type 2 diabetes mellitus: Code(s): E11.9 - Type 2 diabetes mellitus without complications Status: Chronic Assessment and Plan: follow accu-cheks onsliding-scale insulin Subjective Date/time seen: 09/01/20 09:45 Interval history: Patient is on the ventilator now. Urine output is down to only 250. Exam Narrative: Exam Narrative: General: WD/WN male in NAD; on high flow oxygen mask Heart: normal S1 and S2; no rub or gallop Lungs: coarse with decreased breath sounds on the left Abdomen: soft, nontender, nondistended, positive bowel sounds Extremities: trace edema Skin: chronic skin changes due to venous stasis Objective Data Vital Signs Vital Signs: Vital Signs - 24 hr 08/31/20 10:00 08/31/20 10:12 08/31/20 11:07 Temperature 35.8 C L Pulse Rate 72 83 Respiratory Rate 18 26 H Blood Pressure 131/67 130/70 Pulse Oximetry 75 L 98 08/31/20 11:59 08/31/20 12:00 08/31/20 12:09 Temperature 36.4 C L Pulse Rate 95 99 100 Respiratory Rate 18 13 Blood Pressure 84/52 L Pulse Oximetry 93 93 08/31/20 12:29 08/31/20 12:45 08/31/20 13:04 Temperature Pulse Rate 101 H Respiratory Rate 16 Blood Pressure 69/43 L 67/48 L Pulse Oximetry 08/31/20 13:09 08/31/20 13:25 08/31/20 14:00 Temperature Pulse Rate 73 69 Respiratory Rate 20 Blood Pressure 74/48 L Pulse Oximetry 98 08/31/20 16:00 08/31/20 16:32 08/31/20 18:00 Temperature Pulse Rate 62 88 71 Respiratory Rate Blood Pressure Pulse Oximetry 98 08/31/20 18:53 08/31/20 20:00 08/31/20 20:37 Temperature Pulse Rate 72 70 Respiratory Rate 26 H 26 H Blood Pressure 111/56 L 116/60 Pulse Oximetry 96 08/31/20 21:01 08/31/20 21:15 08/31/20 21:34 Temperature Pulse Rate 70 68 86 Respiratory Rate 26 H 26 H 26 H Blood Pressure Pulse Oximetry 95 08/31/20 21:50 08/31/20 22:00 08/31/20 23:12 Temperature Pulse Rate 84 85 Respiratory Rate 26 H Blood Pressure 98/54 L 99/53 L Pulse Oximetry 96 97 09/01/20 00:00 09/01/20 00:09 09/01/20 00:53 Temperature 37.7 C H Pulse Rate 86 86 98 Respiratory Rate 26 H 26 H Blood Pressure 109/54 L 109/54 L Pulse Oximetry 96 09/01/20 01:00 09/01/20 01:12 09/01/20 01:15 Temperature Pulse Rate 95 95 102 H Respiratory Rate 30 H Blood Pressure 128/71 115/58 L Pulse Oximetry 09/01/20 01:57 09/01/20 02:00 09/01/20 02:03 Tem
--- NOTE | 2020-09-01 09:48 | PM.PNCARD ---
Progress Note: A&P Assessment and Plan (1) Atrial fibrillation with RVR: Code(s): I48.91 - Unspecified atrial fibrillation Status: Acute Assessment and Plan: No reponse with IV Metoprolol initially. amiodarone appears to have contributed to conversion from A.Fib to wither MAT vs ST with freq PAC's, although variable P wave morphology suggestive of MAT. Currently not on any medication to directly treat atrial arrhythmias but on a heparin drip to prevent cardioembolic events. If AFib recurrence amiodarone recommended. (2) Multifocal atrial tachycardia: Code(s): I47.1 - Supraventricular tachycardia Status: Acute Assessment and Plan: Currently, back in NSR. (3) MARSHA (acute kidney injury): Code(s): N17.9 - Acute kidney failure, unspecified Status: Acute Assessment and Plan: Renal function is not improving thus far. Nephrology following. Hemodialysis will be initiated. (4) Acute CHF (congestive heart failure): Qualifiers: Heart failure type: unspecified Qualified Code(s): I50.9 - Heart failure, unspecified Code(s): I50.9 - Heart failure, unspecified Status: Acute Assessment and Plan: Heart failure with preserved ejection fraction, EF 70%. Unable to diurese because of renal failure. (5) Acute respiratory failure with hypoxia and hypercapnia: Code(s): J96.01 - Acute respiratory failure with hypoxia; J96.02 - Acute respiratory failure with hypercapnia Status: Acute Assessment and Plan: Reintubate id 08/31/2020. (6) COPD with acute exacerbation: Code(s): J44.1 - Chronic obstructive pulmonary disease with (acute) exacerbation Status: Acute Assessment and Plan: Treatment of respiratory failure and pneumonia Per primary service. Bronchodilator therapy, Pulmozyme. (7) Pulsatile abdominal mass: Code(s): R19.00 - Intra-abdominal and pelvic swelling, mass and lump, unspecified site Status: Acute Assessment and Plan: Rule out AAA with abdominal ultrasound. Additional Plan Subjective Date/time seen: 09/01/20 09:48 Interval history: Follow-up visit in this 70-year-old man with: Resp failure. Episode of atrial fibrillation with RVR probably driven by respiratory failure, currently in sinus rhythm. Patient received a bolus of IV amiodarone and is back in sinus rhythm. In addition to this his renal function has been steadily deteriorating and he may require dialysis for volume management. DAte of service 09/01/2020: Remains on ventilator, FiO2 60%, remains on Levophed at 14 mics, as well as sedation and heparin. Telemetry shows he is maintaining sinus rhythm. Thoracentesis planned today. Making very little urine and creatinine is rising. Review of Systems Review of Systems: Narrative: Review of systems obtained from the patient's nurse, the chart and the packager hand. ROS unobtainable: Yes unobtainable due to endotracheal tube and unobtainable due to mental status Respiratory: Comments: Intubated and sedated Gastrointestinal: Gastrointestinal: Denies abdominal pain Neurologic: Reports confusion (Sedated) Exam Narrative: Exam Narrative: Older male who appears quite ill in the unit on multiple drips, ventilator, sedated, mildly tachypneic Const: General: comfortable and no acute distress HENMT: Mouth: Yes moist mucous membranes Eyes: General: appearance normal, both eyes and all related structures Neck: Neck: supple Resp: Auscultation: clear to auscultation bilaterally and diminished lung sounds Cardio: Rate: regular rate Rhythm: regular rhythm Heart sounds: no murmurs GI: GI Palp:
--- NOTE | 2020-09-01 11:34 | PCDIET ---
Nutrition Follow-Up Complete: Nutrition Diagnosis: Inadequate oral intake related to oral intubation as evidenced by NPO status. Nutrition Goal: Patient to meet estimated nutritional needs. Goal in progress. Patient currently NPO with plan for thoracentesis and dialysis cath placement. MD plans to resume tube feedings later today. Last recorded weight is 106.1 kg which is down from last review. Bowel Motility: Last documented BM on 08/29/20. Labs Reviewed: Hgb (12.2), Hct (40.1), Glu (179), BUN (88), Cr (6.0), Na (134), Alb (3.1) Meds Noted: Albumin, Albuterol, Lipitor, Pulmicort, Cefepime, Precedex, Fentanyl, Hydralazine, Atrovent, Zaroxolyn, Protonix, Vancomycin Additional Notes: No change in skin reported. Patient had 200mL UOP on 08/31/20 with plan to initiate dialysis. Nutrition Monitoring and Evaluation: Follow up every Monday/Monday. Follow daily in ICU rounds.
[2020-09-01 11:55] LABS: Glucose Point of Care 166 (65-105)
[2020-09-01 13:42] LABS: Partial Thromboplastin Time 35.8 SECONDS (22.3-36.8)
[2020-09-01 14:15] LABS: INR 1.1; Prothrombin Time 14.8 Seconds (11.1-14.7)
[2020-09-01 14:35] LABS: Hepatitis B Surface Antigen Negative (Negative)
[2020-09-01 14:52] LABS: Hepatitis B Surface Anti Res Negative
--- NOTE | 2020-09-01 15:46 | WPDANESEPPF ---
Anes - Initial Pre Proc Eval Procedure: Operation Date: 09/02/20 12:30 Proposed Procedures p Insertion Tunnelled Dialysis Catheter - Shane Soriano MD <Lev Wills MD - Last Filed: 09/03/20 11:53> Date/Time: 09/01/20 15:46 <Lev Wills MD - Last Filed: 09/03/20 11:53> Pre Op Diagnosis: Acute hypercapnic respiratory failure <Lev Wills MD - Last Filed: 09/03/20 11:53> Patient Data Age: 70 Gender: M Height: 1.83 m Weight: 106.1 kg <Lev Wills MD - Last Filed: 09/03/20 11:53> Last Vital Signs Temp 37.3 C 09/01/20 12:00 Pulse 83 09/01/20 15:30 Resp 28 H 09/01/20 15:30 BP 108/54 L 09/01/20 15:30 Pulse Ox 94 09/01/20 15:30 <Lev Wills MD - Last Filed: 09/03/20 11:53> Allergies Allergy/AdvReac Type Severity Reaction Status Date / Time No Known Allergies Allergy Verified 08/21/20 17:17 <Lev Wills MD - Last Filed: 09/03/20 11:53> Home Medications Medication Instructions Recorded Confirmed Type albuterol sulfate 2 puff INHALATION QID PRN 08/21/20 08/21/20 History amlodipine 5 mg PO DAILY 08/21/20 08/21/20 History atorvastatin 10 mg PO HS 08/21/20 08/21/20 History budesonide-formoterol [Symbicort] 2 puff INHALATION Q12H 08/21/20 08/21/20 History clonidine HCl 0.3 mg PO BID 08/21/20 08/21/20 History duloxetine 60 mg PO DAILY 08/21/20 08/21/20 History finasteride 5 mg PO DAILY 08/21/20 08/21/20 History gabapentin 1,200 mg PO TID 08/21/20 08/21/20 History lisinopril-hydrochlorothiazide 1 tablet PO DAILY 08/21/20 08/21/20 History metformin 850 mg PO BIDWM 08/21/20 08/21/20 History metoprolol succinate 200 mg PO DAILY 08/21/20 08/21/20 History tamsulosin 0.4 mg PO DAILY 08/21/20 08/21/20 History triamcinolone acetonide 1 applic TOPICAL TID PRN 08/21/20 08/21/20 History urea 1 applic TOPICAL DAILY PRN 08/21/20 08/21/20 History <Lev Wills MD - Last Filed: 09/03/20 11:53> Laboratory Tests 08/31/20 08/31/20 09/01/20 12:41 17:57 00:04 WBC RBC Hgb Hct MCV MCH MCHC RDW Plt Count MPV PT INR APTT Puncture Site ABG pH ABG pCO2 ABG pO2 ABG PO2/FiO2 Ratio ABG HCO3 ABG O2 Saturation ABG O2 Content ABG Base Excess A-a Gradient Oxyhemoglobin Carboxyhemoglobin Methemoglobin Reduced Hemoglobin Total Hemoglobin O2 Delivery Device O2 Liters/Min Minute Volume Vent Rate Vent Mode FiO2 Tidal Volume PEEP Peak Inspir Pressure Pressure Support Sodium Potassium Chloride Carbon Dioxide Anion Gap BUN Creatinine Estim Creat Clear Calc Estimated GFR Glucose POC Capillary Glucose 201 mg/dl H mg/dl 186 mg/dl H mg/dl 164 mg/dl H mg/dl (65-105) (65-105) (65-105) Calcium Magnesium Total Bilirubin AST ALT Alkaline Phosphatase Total Protein Albumin Hep Bs Antigen Hep Bs Antibody 09/01/20 09/01/20 09/01/20 04:28 04:28 04:28 WBC 12.3 K/mm3 H K/mm3 (4.5-10.0) RBC 4.44 M/mm3 L M/mm3 (4.6-6.20) Hgb 12.2 g/dL L g/dL (14.0-18.0) Hct 40.1 % L % (42.0-52.0) MCV 90.3 fl fl (80-100) MCH 27.5 pg pg (26-34) MCHC 30.4 g/dl L g/dl (32-36) RDW 16.0 % H % (11.5-14.5) Plt Count 186 k/mm3 k/mm3 (150-375) MPV 9.6 fl
--- NOTE | 2020-09-01 16:24 | PM.IMPN ---
Progress Note: A&P Assessment and Plan (1) Shock: Code(s): R57.9 - Shock, unspecified Status: Acute Assessment and Plan: Patient requiring Levophed again since 08/31. Currently at 12mcg/min. Wean as toelrated. Will be challenging for hemodialysis. Continue Levophed maintain map of greater than 65. (2) Acute respiratory failure with hypoxia and hypercapnia: Code(s): J96.01 - Acute respiratory failure with hypoxia; J96.02 - Acute respiratory failure with hypercapnia Status: Acute Assessment and Plan: The patient originally presented to urgent care with complaints of shortness of breath and was sent to the ED as he was hypoxic in the 70s on room air. He was placed on BiPAP but despite several adjustments, he continued to be hypercarbic with evidence of respiratory distress and ultimately intubated 08/21/20. Suspect COPD and CHF exacerbation. Did well and able to be extubated 08/27 but was tenuous and ultimately needed to be re-intubated 08/31/20. Continue supportive care. Wean MV once fluid status better. Appreciate well treatment offsider input. (3) Congestive heart failure: Code(s): I50.9 - Heart failure, unspecified Status: Acute Assessment and Plan: CHF contributing to [place] [address]. Chest x-ray shows cardiomegaly pulmonary edema. Treated with IV diuretics but now stopped due to MARSHA. Echo showing small LV cavity, EF 70%, severe RVE with RVH and severe hypokinesis. Indeterminate diastolic function. Appears more right sided failure than left. Will need HD to control fluid status. (4) COPD with acute exacerbation: Code(s): J44.1 - Chronic obstructive pulmonary disease with (acute) exacerbation Status: Acute Assessment and Plan: ABG noted. No wheezing. Continue Pulmicort Respules and Atrovent. Continue monitor. (5) Elevated troponin: Code(s): R77.8 - Other specified abnormalities of plasma proteins Status: Acute Assessment and Plan: Troponin elevated to 0.046 but flat. EKG showed borderline findings with poor R-wave progression. Most likely type 2 OH related to demand ischemia and/or from his CKD. Continue telemetry. (6) MARSHA (acute kidney injury): Code(s): N17.9 - Acute kidney failure, unspecified Status: Acute Assessment and Plan: Creatinine was 3.5 on admission and suspect this is his baseline. It has remained stable in the 3 range until 08/30 and is now at 6.0. UOP has dropped off. Potassium and bicarb okay. Preparing for HD with Filiberto being placed tomorrow. Monitor Cr closely. (7) Chronic kidney failure: Code(s): N18.9 - Chronic kidney disease, unspecified Status: Chronic Assessment and Plan: Creatinine was 2.1 in 2013. No other values to compare. Creatinine was 3.5 on admission and suspect this is his baseline. As above. (8) Essential hypertension: Code(s): I10 - Essential (primary) hypertension Status: Chronic Assessment and Plan: BP reviewed on 09/01. As above. (9) Type 2 diabetes mellitus: Code(s): E11.9 - Type 2 diabetes mellitus without complications Status: Chronic Assessment and Plan: A1c 5.9. The patient's blood glucose was reviewed on 09/01 Glucose remains reasonable well controlled. Metformin on hold. Continue AccuCheks covering with sliding scale. Hypoglycemia protocol available as needed. (10) Benign prostatic hyperplasia: Code(s): N40.0 - Benign prostatic hyperplasia without lower urinary tract symptoms Status: Chronic Assessment and Plan: Maddox secured. Flomax and proscar on hold. Resume when able. (11) Tobacco abuse: Code(s): Z72.0 - Tobacco use Status: Acute Assessment and Plan: Tobacco cessation is imperative. (12) Hyperkalemia: Code(s): E87.5 - Hyperkalemia Status: Acute Assessment and Plan: Jimmy
[2020-09-01 17:23] LABS: Glucose Point of Care 144 (65-105)
[2020-09-01] MEDS: NOREPINEPHRINE 8 MG/D5W 250 ML 8 MG/250 ML BAG 22.5 MG IV CONT (18:13)
[2020-09-01] MEDS: FENTANYL 2,500MCG/NS250ML(*CRX 2,500 MCG/250 ML BAG 12.5 MCG IV CONT (18:45)
[2020-09-01] MEDS: ATORVASTATIN 10 MG TABLET PO (20:27)
[2020-09-01 21:02] LABS: Vancomycin Trough 23.1 ug/mL (10.0-20.0)
[2020-09-01 23:23] LABS: Partial Thromboplastin Time 65.3 SECONDS (22.3-36.8)
[2020-09-02] VITALS (57 sets, daily range): BP systolic 93–165; BP diastolic 47–72; PULSE 66–111; RESP 6–36; TEMP 36.3–37.1; O2SAT 65–99
[2020-09-02] LABS: Glucose Point of Care 173 (65-105)
[2020-09-02] MEDS: ALBUTEROL SULFATE NEB 2.5 MG/0.5 ML INH INHALATION ×4 (02:08→20:09)
[2020-09-02] MEDS: IPRATROPIUM BR 0.02% INH SOLN 0.5 MG/2.5 ML VIAL INHALATION ×4 (02:08→20:09)
[2020-09-02 04:45] LABS: Alveolar/Arterial O2 Gradient 287.2 mmHg; Base Excess ABG 2.2 mEq/l (+/-2.0); Carboxyhemoglobin 0.4 % THb (0-2.0); Fractional Inspired Oxygen 60 %; HCO3 ABG 28.9 mEq/l (22.0-26.0); Methemoglobin ABG 0.2 %THb (0-1.5); Oxygen Content ABG 16.3 %vol (16.0-22.0); Oxyhemoglobin 93.7 % THb (90.0-100.0); PCO2 ABG 54.7 mmHg (35.0-45.0); PO2 ABG 80.4 mmHg (80.0-100.0); PO2 FiO2 Ratio Arterial Blood 1.34 %; Reduced Hemoglobin 5.7 %THb (0-5.0); Total Hemoglobin 12.3 g/dL (12.0-18.0); pH ABG 7.341 (7.350-7.450)
[2020-09-02 04:46] LABS: Device VENTILATOR; Modified Allen's Test Unable to perform; Site Drawn RIGHT RADIAL
[2020-09-02 04:47] LABS: Arterial Blood Gas PEEP 8 cmH2O; Arterial Blood Gas Tidal Volume 480 ml; Arterial Blood Gas Vent Mode ASSIST CONTROL; Arterial Blood Gas Ventilator rate 28 /MIN
[2020-09-02 05:55] LABS: Hematocrit 36.2 % (42.0-52.0); Hemoglobin 11.3 g/dL (14.0-18.0); Mean Corpuscular HGB Conc 31.2 g/dl (32-36); Mean Corpuscular Hemoglobin 27.6 pg (26-34); Mean Corpuscular Volume 88.5 fl (80-100); Mean Platelet Volume 9.4 fl (7.4-10.4); Platelet Count Result 169 k/mm3 (150-375); Red Blood Count 4.09 M/mm3 (4.6-6.20); Red Cell Distribution Width 16.1 % (11.5-14.5); White Blood Count 10.6 K/mm3 (4.5-10.0)
[2020-09-02] MEDS: dexmedeTOMIDine 400 MCG/100 ML 400 MCG/100 ML BAG 22.38 MCG IV CONT ×5 (06:04→23:53)
[2020-09-02] MEDS: ALBUMIN HUMAN 25% 25 GM/100 ML 100 ML IVPB ×4 (06:05→23:52)
[2020-09-02 06:06] LABS: Partial Thromboplastin Time 94.1 SECONDS (22.3-36.8)
[2020-09-02] MEDS: CENTRAL LINE FLUSH 10 ML IV PUSH ×4 (06:06→22:01)
[2020-09-02 06:20] LABS: Alanine Aminotransferase 19 U/L (4-50); Albumin Level 3.4 g/dL (3.5-5.1); Alkaline Phosphatase 52 U/L (38-126); Anion Gap 12 mmol/L (8-16); Aspartate Amino Transferase 29 U/L (17-59); Bilirubin,Total 0.9 mg/dL (0.2-1.3); Blood Urea Nitrogen 98 mg/dL (9-20); Calcium 8.6 mg/dL (8.4-10.2); Carbon Dioxide 33 mmol/L (22-30); Chloride 89 mmol/L (98-107); Estimated CRCL calculation 12 ml/min; Estimated Glomerular Filt Rate 8; Glucose 166 mg/dL (75-110); Magnesium 1.7 mg/dL (1.6-2.3); Potassium 3.8 mmol/L (3.4-5.0); Sodium 134 mmol/L (137-145)
[2020-09-02 06:38] LABS: Glucose Point of Care 154 (65-105)
[2020-09-02] MEDS: BUDESONIDE RESPULE NEB 0.5 MG/2 ML AMP 1 MG INHALATION ×2 (08:01→20:09)
[2020-09-02] MEDS: DORNASE ALFA INH SOLN 1 MG/ML 2.5 ML AMP 2.5 MG INHALATION ×2 (08:01→20:09)
--- NOTE | 2020-09-02 08:19 | WPDINTPN ---
Progress Note: A&P Assessment and Plan (1) Acute respiratory failure with hypoxia and hypercapnia: Code(s): J96.01 - Acute respiratory failure with hypoxia; J96.02 - Acute respiratory failure with hypercapnia Status: Acute Assessment and Plan: Patient with acute respiratory failure likely related to COPD and CHF. Patient was intubated on 08/21/2020 -08/25/2020: Self Extubated -08/27/2020, complete whiteout on the left side likely secondary mucus plugging - 08/30-placed back on BiPAP overnight - 08/31 -reintubated for persistent hypercarbia and hypoxia and poor mental status 09/01 left thoracentesis with 1 L fluid removed -- sputum cultures growing MRSA, started vancomycin (initiated on 08/25/2020) ABG and chest x-ray reviewed Continue vancomycin and cefepime Patient had thick significant secretions. May need bronchoscopy Plan to start hemodialysis to remove volume Currently on 60% FiO2 and 8 of PEEP (2) Shock: Code(s): R57.9 - Shock, unspecified Status: Acute Assessment and Plan: Continue Levophed Hold diuretics at this time Continue 25% albumin (3) COPD (chronic obstructive pulmonary disease): Code(s): J44.9 - Chronic obstructive pulmonary disease, unspecified Status: Acute Assessment and Plan: Sputum culture from 08/23/2020 growing MRSA, on vancomycin as above Continue ipratropium 0.5 mg nebulized q.6 hours Continue Pulmicort 1 mg q.12 hours nebulized Continue albuterol 2.5 mg Q 6 hours (4) Acute CHF (congestive heart failure): Qualifiers: Heart failure type: unspecified Qualified Code(s): I50.9 - Heart failure, unspecified Code(s): I50.9 - Heart failure, unspecified Status: Acute Assessment and Plan: Congestive heart failure with preserved ejection fraction. Ejection fraction was approximately 70%. Diastolic dysfunction could not be assessed. He did have significant right ventricular hypertrophy and hypokinesis But pulmonary artery pressures could not be estimated. -worsening creatinine further, hold diuresis at this time -will likely need dialysis. (5) Acute on chronic renal failure: Code(s): N17.9 - Acute kidney failure, unspecified; N18.9 - Chronic kidney disease, unspecified Status: Acute Assessment and Plan: Nephrology is following Patient was getting diuresed but now hypotensive. Hold diuresis at this point Urine output is poor and crit renal function is getting worse. Needs hemodialysis Discussed with Dr. Kramer. Tunnel dialysis catheter placement scheduled for today Electrolytes adequate at this time continue to monitor Continue to monitor renal function, electrolytes and urine output (6) Gastroesophageal reflux disease: Code(s): K21.9 - Gastro-esophageal reflux disease without esophagitis Status: Chronic Assessment and Plan: Protonix (7) Confusion: Code(s): R41.0 - Disorientation, unspecified Status: Acute Assessment and Plan: Secondary to delirium. Currently sedated (8) Atrial fibrillation with RVR: Code(s): I48.91 - Unspecified atrial fibrillation Status: Acute Assessment and Plan: Patient went to AFib RVR, new onset, likely related to respiratory distress and hypoxia Patient converted to sinus rhythm at this time Continue heparin infusion Additional Plan DVT prophylaxis: Heparin infusion on hold for procedure Nutrition: Resume tube feeds after procedure -stress ulcer prophylaxis Protonix Code status: Full code as per request from his family Total Critical Care Time - 30 minutes Due to a high probability of clinically significant, life threatening deterioration, the patient required my highest level of preparedness to intervene emergently and I personally spent this critical care time directly and personally managing the patient. This critical care time included obtaining a history; examining the patient; pulse oximetry
[2020-09-02] MEDS: SILVERGEL (ELTA) 45 ML 1 APPLIC TOPICAL (08:53)
[2020-09-02] MEDS: PANTOPRAZOLE SODIUM IV 40 MG VIAL IV PUSH ×2 (08:53→22:00)
--- NOTE | 2020-09-02 09:52 | PM.PNCARD ---
Progress Note: A&P Additional Plan 70-year-old man with: Episode of atrial fibrillation verses am a T several days ago when he was in respiratory extremis and about to be intubated. Briefly on amiodarone currently on no antiarrhythmic treatment and maintaining sinus rhythm with occasional to sometimes frequent APCs. Has also severe chronic lung disease and severe renal failure which apparently is now going to require initiation of dialysis. Obviously patient's family still recur requesting and expecting aggressive care although long-term prognosis seems quite poor. López Willson MD [facility] Subjective Date/time seen: Date of service: 09/02/20 09:52 Interval history: 70-year-old man with: Episode of atrial fib versus MAT when in respiratory distress. Briefly on amiodarone now off of treatment and maintaining sinus rhythm. Remains in the ICU on ventilator support now with severe renal failure anticipating start of dialysis after establishing access later today. Exam Const: Other: Elderly white male intubated sedated on the ventilator in the ICU HENMT: Mouth: Yes moist mucous membranes Eyes: Sclera: sclerae normal Neck: Neck: no JVD Other: Carotid upstrokes are normal bilaterally Resp: Other: Good aeration bilaterally Cardio: Rate: regular rate Rhythm: regular rhythm GI: GI Palp: Yes Soft to palpation Auscultation: normal bowel sounds Skin: General skin exam: normal color Objective Data Vital Signs Vital Signs: Vital Signs - 24 hr 09/01/20 10:00 09/01/20 10:55 09/01/20 11:45 Temperature 37.5 C Pulse Rate 82 83 78 Respiratory Rate 28 H Blood Pressure 109/54 L 113/56 L Pulse Oximetry 95 91 09/01/20 12:00 09/01/20 13:35 09/01/20 13:45 Temperature 37.3 C Pulse Rate 76 85 77 Respiratory Rate 28 H 28 H Blood Pressure 113/55 L 93/48 L Pulse Oximetry 93 92 09/01/20 13:47 09/01/20 14:00 09/01/20 14:30 Temperature Pulse Rate 85 75 79 Respiratory Rate 28 H 28 H Blood Pressure 124/57 L 131/61 Pulse Oximetry 95 09/01/20 15:06 09/01/20 15:10 09/01/20 15:30 Temperature Pulse Rate 82 84 83 Respiratory Rate 28 H 28 H 28 H Blood Pressure 119/54 L 108/54 L Pulse Oximetry 94 94 09/01/20 16:00 09/01/20 17:39 09/01/20 18:00 Temperature 36.7 C Pulse Rate 81 77 72 Respiratory Rate 28 H 28 H Blood Pressure 119/58 L 111/52 L Pulse Oximetry 94 99 95 09/01/20 18:13 09/01/20 18:45 09/01/20 19:35 Temperature Pulse Rate 59 L 80 73 Respiratory Rate 28 H 28 H Blood Pressure 111/52 L 134/62 Pulse Oximetry 09/01/20 19:39 09/01/20 19:41 09/01/20 20:00 Temperature 36.9 C Pulse Rate 72 75 Respiratory Rate 28 H 28 H Blood Pressure 134/59 L Pulse Oximetry 96 97 09/01/20 20:04 09/01/20 20:24 09/01/20 21:54 Temperature Pulse Rate 76 73 80 Respiratory Rate 28 H Blood Pressure 115/68 132/67 Pulse Oximetry 09/01/20 22:00 09/01/20 22:56 09/01/20 23:18 Temperature 36.8 C Pulse Rate 79 73 72 Respiratory Rate 28 H Blood Pressure 115/57 L 127/58 L Pulse Oximetry 96 95 09/01/20 23:41 09/02/20 00:00 09/02/20 01:45 Temperature 36.3 C L Pulse Rate 78 75 97 Respiratory Rate 28 H 28 H 33 H Blood Pressure 106/58 L Pulse Oximetry 94 09/02/20 02:00 09/02/20 02:08 09/02/20 02:15 Temperature Pulse Rate 93 87 89 Respiratory Rate 32 H 28 H 28 H Blood Pressure 133/56 L Pulse Oximetry 97 97 09/02/20 04:00 09/02/20 04:10 09/02/20 04:54 Temperature Pulse Rate 75 71 77 Respiratory Rate 28 H 28 H Blood Pressure 112/59 L Pulse Oximetry 95 96 09/02/20 06:00 09/02/20 06:04 09/02/20 06:43 Temperature Pulse Rate 71 71 70 Respiratory Rate 28 H 28 H Blood Pressure 109/58 L 114/57 L Pulse Oximetry 94 09/02/20 08:00 09/02/20 08:02 09/02/20 08:04 Temperature 36.7 C Pulse Rate 76 69 71 Respiratory Rate 28 H 24 H Blood Pressure 129/71 Pulse Oximetry 94 94 09/02/20 08:15 09/02/20
--- NOTE | 2020-09-02 10:30 | PCDIET ---
ICU Rounding Note: Patient NPO for tunneled dialysis catheter placement today. 09/01/20 had 1L thoracentesis. Plan for dialysis later today. Patient previously resumed Nepro at 20mL/hr but has been NPO for procedure since midnight. Plan to resume feedings after dialysis, per MD. Last recorded weight is 106.1kg which is increased from last review. Bowel Motility: Last documented BM on 08/29/20. MD adding scheduled Miralax and prn Dulcolax. Labs Reviewed: Hgb (11.3), Hct (36.2), Glu (166), BUN (98), Cr (6.8), Na (134), Alb (3.4) Meds Noted: Albumin, Albuterol, Lipitor, Pulmicort, Cefepime, Precedex, Fentanyl, Hydralazine, Atrovent, Zaroxolyn, Protonix, Miralax, Vancomycin Additional Notes: Left elbow skin tear. Right lower leg arterial ulcer. Following daily in ICU rounds. Assessing/reassessing every Monday/Monday.
[2020-09-02] MEDS: FENTANYL 2,500MCG/NS250ML(*CRX 2,500 MCG/250 ML BAG 17.5 MCG IV CONT (11:14)
[2020-09-02] MEDS: NOREPINEPHRINE 8 MG/D5W 250 ML 8 MG/250 ML BAG 13.13 MG IV CONT (11:49)
--- NOTE | 2020-09-02 11:55 | WPDHPUPDATE1 ---
History and Physical Update Update Date/Time: 09/02/20 11:55 History and Physical has been reviewed, including an updated exam of the patient. There are changes in the patient's condition. Patient has been intubated, extubated, and then reintubated over the course of this admission. He also has developed atrial fibrillation and has been on a heparin drip which has been held for 6 hours. His BUN and creatinine are gradually worsening so Dr. Kramer has asked that we place a ultrasound-guided tunneled dialysis catheter for use in acute hemodialysis. Risks, benefits, and alternatives Of placement of a ultrasound-guided tunneled dialysis catheter have been discussed and questions answered. Patient's POA/daughter agrees to proceed with procedure.
[2020-09-02 12:27] LABS: Glucose Point of Care 132 (65-105)
--- NOTE | 2020-09-02 12:30 | PC.NURSE ---
Patient transfered via bed to OR without incident.
[2020-09-02] MEDS: BUPIVACAINE/EPINEPHRINE 0.25% 50 ML VIAL 10 ML INFILTRATE (13:03)
[2020-09-02] MEDS: HEPARIN SODIUM 1,000 UNITS/ML VIAL 1000 UNITS IV PUSH (13:04)
[2020-09-02] MEDS: HEPARIN SODIUM 5,000 UNITS/ML VIAL 10000 UNITS IV PUSH (13:07)
--- NOTE | 2020-09-02 13:14 | PC.NURSE ---
Updated analytical chemist on patient's dialysis line status.
--- NOTE | 2020-09-02 13:25 | PC.NURSE ---
Patient returned via bed with HANNAH Grewal and RN at bedside. No issues noted.
--- NOTE | 2020-09-02 13:38 | PM.PROC ---
Procedure Note - Detailed Date of procedure: 09/02/20 Pre-op diagnosis: Acute hypercapnic respiratory failure End-stage renal disease Post-op diagnosis: same Procedure performed: U S guided Placement of tunneled dialysis catheter (32 CM) Description of procedure: The patient was placed in the supine position on the operating table and after induction of adequate mask general anesthesia by the nurse crm marketing manager, we carefully rotated the patient's head and tilted slightly to the left then prepping both sides of the neck and chest with chlorhexidine. After waiting 3 minutes I carefully draped the patient, and we performed a time-out confirming the patient's site of surgery. Because of his size, a 32 cm DuraFlow catheter was selected. I used ultrasound to identify the right jugular vein in the mid neck and a still image of the vascular anatomy was saved. The visualized right internal jugular vein was cannulated under direct vision with an 18-gauge Arrow needle on a syringe. Good dark blood was aspirated, the J-guidewire was advanced through the needle and into the central venous system under usual Seldinger technique. C-arm fluoroscopy was used to confirm that the wire was then through the central venous system and then we removed the needle and blue guide off the wire. Following this, we measured the DuraFlow catheter such that the tip would be just into the right atrium or in the distal superior vena cava. A hemostat was placed on the drapes over the chest to guide where we would place this. Then the catheter was measured back to the entry site of the J- wire in a curvilinear fashion and down to her chest overlying the right clavicle. Local anesthetic was placed into 3 ramos, the exit site and then 2 more on her lateral neck such that a curvilinear path could be dissected through the subcutaneous tissues up to the insertion site on his right neck. Local anesthetic was infiltrated along the tract prior to tunneling. Incisions were made with a 11 blade knife at the exit site and the 2 counter incisions and then an 11 blade at the wire. The tunneling device was connected to the catheter and this was pulled through these incisions to make the subcutaneous tunnel a curvilinear course through the subcutaneous tissues to the insertion site. Then the wire was serially dilated with a 12, 14, and then a 16-Slovenian dilator over the pull away sheath. We watched the 16-Slovenian dilator and sheath go down into the central venous system with C-arm fluoroscopy and then removed the dilator wire after carefully covering the end of the catheter. I lost some blood, as we then inserted the catheter down into the central venous system. The catheter was held in place with a DeBakey forceps and then we carefully tore away the sheath leaving the catheter within the subcutaneous tissues and down into the jugular vein. Following this, C-arm fluoroscopy was used to examine the full course of the catheter. The tip was just into the right atrium and there was a good curvilinear course of the catheter in the neck down to the exit site over the right clavicle. Minimal bleeding was continuing, so we then went ahead and closed these incisions with some buried subcutaneous sutures of 4-0 Monocryl directly over the catheter at the insertion site and then buried subcutaneous sutures at each of the incisions except the exit site. 3-0 nylon was used to suture the catheter at its hub to the skin and an antibiotic disc was placed at the exit site. Tegaderm applied over this and the patient was taken to the recovery room in good condition. No continuing bleeding was identified in the recovery room. The patient tolerated the procedure well. Chest x-ray in patients's ICU room shows the tip to be at the distal superior vena cava. No evidence of pneumothorax was seen. Estimated blood loss was again about 10 cc. Anesthesia: local (2% xylocaine with epinephrine) and other (GIVS) Surgeon: Shane Soriano,
[2020-09-02] MEDS: HEPARIN SOD/D5W 100 UNITS/ML 25,000 UNITS/250 ML BAG 18 UNITS IV CONT (15:28)
--- NOTE | 2020-09-02 18:12 | PM.PNNEP ---
Progress Note: A&P Assessment and Plan (1) MARSHA (acute kidney injury): Code(s): N17.9 - Acute kidney failure, unspecified Status: Acute Assessment and Plan: due to low blood pressure. He is on pressors now. getting dialysis tonight. Reassess tomorrow and see where we are. (2) Chronic kidney failure: Code(s): N18.9 - Chronic kidney disease, unspecified Status: Chronic Assessment and Plan: unclear what baseline creatinine is but his creatinine was 2.1mg/dl back in 2013 suspect current baseline creatinine is likely higher CKD likely secondary to DM, HTN, and vascular disease (3) Acute respiratory failure with hypoxia and hypercapnia: Code(s): J96.01 - Acute respiratory failure with hypoxia; J96.02 - Acute respiratory failure with hypercapnia Status: Acute Assessment and Plan: due to a combination of COPD and CHF on ventilator now. (4) Fluid overload, unspecified: Code(s): E87.70 - Fluid overload, unspecified Status: Acute Assessment and Plan: cardiac function seems to be pretty well except some pulmonary hypertension Will remove fluid down the line as tolerated by his blood pressure using dialysis Reassess fluid status tomorrow (5) Essential hypertension: Code(s): I10 - Essential (primary) hypertension Status: Chronic Assessment and Plan: He is on pressors now (6) Type 2 diabetes mellitus: Code(s): E11.9 - Type 2 diabetes mellitus without complications Status: Chronic Assessment and Plan: follow accu-cheks onsliding-scale insulin Subjective Date/time seen: 09/02/20 18:12 Interval history: Patient is on the ventilator and sedated he had the PermCath placed earlier today. Now he is on dialysis. Tolerating it well. Removing only 1L of fluid at the most. He was seen at 5:10 p.m. Exam Narrative: Exam Narrative: General: WD/WN male in NAD; on high flow oxygen mask Heart: normal S1 and S2; no rub or gallop Lungs: coarse with decreased breath sounds on the left Abdomen: soft, nontender, nondistended, positive bowel sounds Extremities: trace to1+ edema Skin: chronic skin changes due to venous stasis Objective Data Vital Signs Vital Signs: Vital Signs - 24 hr 09/01/20 18:13 09/01/20 18:45 09/01/20 19:35 Temperature Pulse Rate 59 L 80 73 Respiratory Rate 28 H 28 H Blood Pressure 111/52 L 134/62 Pulse Oximetry 09/01/20 19:39 09/01/20 19:41 09/01/20 20:00 Temperature 36.9 C Pulse Rate 72 75 Respiratory Rate 28 H 28 H Blood Pressure 134/59 L Pulse Oximetry 96 97 09/01/20 20:04 09/01/20 20:24 09/01/20 21:54 Temperature Pulse Rate 76 73 80 Respiratory Rate 28 H Blood Pressure 115/68 132/67 Pulse Oximetry 09/01/20 22:00 09/01/20 22:56 09/01/20 23:18 Temperature 36.8 C Pulse Rate 79 73 72 Respiratory Rate 28 H Blood Pressure 115/57 L 127/58 L Pulse Oximetry 96 95 09/01/20 23:41 09/02/20 00:00 09/02/20 01:45 Temperature 36.3 C L Pulse Rate 78 75 97 Respiratory Rate 28 H 28 H 33 H Blood Pressure 106/58 L Pulse Oximetry 94 09/02/20 02:00 09/02/20 02:08 09/02/20 02:15 Temperature Pulse Rate 93 87 89 Respiratory Rate 32 H 28 H 28 H Blood Pressure 133/56 L Pulse Oximetry 97 97 09/02/20 04:00 09/02/20 04:10 09/02/20 04:54 Temperature Pulse Rate 75 71 77 Respiratory Rate 28 H 28 H Blood Pressure 112/59 L Pulse Oximetry 95 96 09/02/20 06:00 09/02/20 06:04 09/02/20 06:43 Temperature Pulse Rate 71 71 70 Respiratory Rate 28 H 28 H Blood Pressure 109/58 L 114/57 L Pulse Oximetry 94 09/02/20 08:00 09/02/20 08:02 09/02/20 08:04 Temperature 36.7 C Pulse Rate 75 69 71 Respiratory Rate 24 H 24 H Blood Pressure 129/71 Pulse Oximetry 94 94 09/02/20 08:15 09/02/20 08:41 09/02/20 10:00 Temperature Pulse Rate 73 75 73 Respiratory Rate 24 H 28 H
--- NOTE | 2020-09-02 18:28 | PM.IMPN ---
Progress Note: A&P Assessment and Plan (1) Shock: Code(s): R57.9 - Shock, unspecified Status: Acute Assessment and Plan: Patient requiring Levophed again since 08/31. Currently at 7mcg/min. Wean as tolerated. Will be challenging for hemodialysis. Continue Levophed and wean to maintain map of greater than 65. (2) Acute respiratory failure with hypoxia and hypercapnia: Code(s): J96.01 - Acute respiratory failure with hypoxia; J96.02 - Acute respiratory failure with hypercapnia Status: Acute Assessment and Plan: The patient originally presented to urgent care with complaints of shortness of breath and was sent to the ED as he was hypoxic in the 70s on room air. He was placed on BiPAP but despite several adjustments, he continued to be hypercarbic with evidence of respiratory distress and ultimately intubated 08/21/20. Suspect COPD and CHF exacerbation. Did well and able to be extubated 08/27 but was tenuous and ultimately needed to be re-intubated 08/31/20. Continue supportive care. Wean MV once fluid status better. Appreciate director packaging input. (3) Congestive heart failure: Code(s): I50.9 - Heart failure, unspecified Status: Acute Assessment and Plan: CHF contributing to [place] [address]. Chest x-ray shows cardiomegaly pulmonary edema. Treated with IV diuretics but now stopped due to MARSHA. Echo showing small LV cavity, EF 70%, severe RVE with RVH and severe hypokinesis. Indeterminate diastolic function. Appears more right sided failure than left. HD to control fluid status. (4) COPD with acute exacerbation: Code(s): J44.1 - Chronic obstructive pulmonary disease with (acute) exacerbation Status: Acute Assessment and Plan: ABG noted. No wheezing. Continue Pulmicort Respules and Atrovent. Continue monitor. (5) Elevated troponin: Code(s): R77.8 - Other specified abnormalities of plasma proteins Status: Acute Assessment and Plan: Troponin elevated to 0.046 but flat. EKG showed borderline findings with poor R-wave progression. Echo 08/22 showing EF 70% with severe RVE, RVH and severe RV hypokinesis. Most likely type 2 NV and not a recent RV infarct; more likely related to demand ischemia and/or from his CKD. Continue telemetry. (6) MARSHA (acute kidney injury): Code(s): N17.9 - Acute kidney failure, unspecified Status: Acute Assessment and Plan: Creatinine was 3.5 on admission and suspect this is his baseline. It remained stable in the 3 range until 08/30 before climbing to 6.8 today. UOP has dropped off. Potassium and bicarb okay. Tunnelled HD catheter placed and HD started. Appreciate GenSurg and Nephrology input. (7) Chronic kidney failure: Code(s): N18.9 - Chronic kidney disease, unspecified Status: Chronic Assessment and Plan: Creatinine was 2.1 in 2013. No other values to compare. Creatinine was 3.5 on admission and suspect this is his baseline. As above. (8) Essential hypertension: Code(s): I10 - Essential (primary) hypertension Status: Chronic Assessment and Plan: BP reviewed on 09/02. As above. (9) Type 2 diabetes mellitus: Code(s): E11.9 - Type 2 diabetes mellitus without complications Status: Chronic Assessment and Plan: A1c 5.9. The patient's blood glucose was reviewed on 09/02 Glucose remains well controlled. Metformin on hold. Continue AccuCheks covering with sliding scale. Hypoglycemia protocol available as needed. (10) Benign prostatic hyperplasia: Code(s): N40.0 - Benign prostatic hyperplasia without lower urinary tract symptoms Status: Chronic Assessment and Plan: Maddox secured. Flomax and proscar on hold. (11) Tobacco abuse: Code(s): Z72.0 - Tobacco use Status: Acute Assessment and Plan: Tobacco cessation is imperative. (12
[2020-09-02] MEDS: ATORVASTATIN 10 MG TABLET PO (22:01)
[2020-09-02 22:04] LABS: Partial Thromboplastin Time 67.6 SECONDS (22.3-36.8)
[2020-09-02] MEDS: HEPARIN SODIUM 5,000 UNITS/ML VIAL 3500 UNITS IV PUSH (22:18)
[2020-09-02 23:07] LABS: Vancomycin Random 17.1 ug/mL (10-20)
[2020-09-03] VITALS (62 sets, daily range): BP systolic 93–186; BP diastolic 48–95; PULSE 64–118; RESP 18–33; TEMP 35.7–37.2; O2SAT 87–98
[2020-09-03] MEDS: FENTANYL 2,500MCG/NS250ML(*CRX 2,500 MCG/250 ML BAG 20 MCG IV CONT (02:04)
[2020-09-03] MEDS: ALBUTEROL SULFATE NEB 2.5 MG/0.5 ML INH INHALATION ×4 (02:12→20:04)
[2020-09-03] MEDS: IPRATROPIUM BR 0.02% INH SOLN 0.5 MG/2.5 ML VIAL INHALATION ×4 (02:12→20:04)
[2020-09-03 04:41] LABS: Base Excess ABG 2.4 mEq/l (+/-2.0); Carboxyhemoglobin 0.4 % THb (0-2.0); Fractional Inspired Oxygen 60 %; HCO3 ABG 30.2 mEq/l (22.0-26.0); Methemoglobin ABG 0.4 %THb (0-1.5); Oxygen Content ABG 15.5 %vol (16.0-22.0); Oxygen Saturation ABG 93.4 % (95.0-100.0); Oxyhemoglobin 92.2 % THb (90.0-100.0); PO2 ABG 75.5 mmHg (80.0-100.0); PO2 FiO2 Ratio Arterial Blood 1.26 %; Total Hemoglobin 11.9 g/dL (12.0-18.0); pH ABG 7.299 (7.350-7.450)
[2020-09-03 04:42] LABS: Device VENTILATOR; Modified Allen's Test Unable to perform; Site Drawn RIGHT RADIAL
[2020-09-03 04:43] LABS: Arterial Blood Gas Vent Mode ASSIST CONTROL; Arterial Blood Gas Ventilator rate 28 /MIN
[2020-09-03 04:44] LABS: Arterial Blood Gas PEEP 8 cmH2O; Arterial Blood Gas Tidal Volume 480 ml
[2020-09-03 04:51] LABS: Hematocrit 35.7 % (42.0-52.0); Hemoglobin 10.7 g/dL (14.0-18.0); Mean Corpuscular Hemoglobin 27.2 pg (26-34); Mean Corpuscular Volume 90.8 fl (80-100); Mean Platelet Volume 10.1 fl (7.4-10.4); Platelet Count Result 170 k/mm3 (150-375); Red Blood Count 3.93 M/mm3 (4.6-6.20); Red Cell Distribution Width 15.9 % (11.5-14.5); White Blood Count 8.9 K/mm3 (4.5-10.0)
[2020-09-03] MEDS: dexmedeTOMIDine 400 MCG/100 ML 400 MCG/100 ML BAG 22.38 MCG IV CONT (04:55)
[2020-09-03] MEDS: HEPARIN SOD/D5W 100 UNITS/ML 25,000 UNITS/250 ML BAG 20 UNITS IV CONT (04:57)
[2020-09-03 05:12] LABS: Alanine Aminotransferase 24 U/L (4-50); Albumin Level 3.7 g/dL (3.5-5.1); Alkaline Phosphatase 67 U/L (38-126); Anion Gap 8 mmol/L (8-16); Aspartate Amino Transferase 33 U/L (17-59); Bilirubin,Total 0.8 mg/dL (0.2-1.3); Blood Urea Nitrogen 52 mg/dL (9-20); Calcium 8.3 mg/dL (8.4-10.2); Carbon Dioxide 32 mmol/L (22-30); Chloride 96 mmol/L (98-107); Estimated CRCL calculation 17 ml/min; Estimated Glomerular Filt Rate 12; Glucose 175 mg/dL (75-110); Magnesium 1.9 mg/dL (1.6-2.3); Phosphorus 5.2 mg/dL (2.5-4.5); Potassium 4.1 mmol/L (3.4-5.0); Sodium 136 mmol/L (137-145)
[2020-09-03 05:16] LABS: Partial Thromboplastin Time 92.6 SECONDS (22.3-36.8)
[2020-09-03] MEDS: ALBUMIN HUMAN 25% 25 GM/100 ML 100 ML IVPB (05:36)
[2020-09-03] MEDS: CENTRAL LINE FLUSH 10 ML IV PUSH ×4 (05:37→21:03)
[2020-09-03] MEDS: BUDESONIDE RESPULE NEB 0.5 MG/2 ML AMP 1 MG INHALATION ×2 (07:48→20:04)
[2020-09-03] MEDS: DORNASE ALFA INH SOLN 1 MG/ML 2.5 ML AMP 2.5 MG INHALATION (07:50)
[2020-09-03] MEDS: dexmedeTOMIDine 400 MCG/100 ML 400 MCG/100 ML BAG 27.98 MCG IV CONT ×3 (08:58→18:15)
[2020-09-03] MEDS: METOCLOPRAMIDE HCL 10 MG/10 ML SOLN UDC 5 MG PO ×4 (08:58→23:29)
[2020-09-03] MEDS: PANTOPRAZOLE SODIUM IV 40 MG VIAL IV PUSH ×2 (09:03→20:53)
[2020-09-03] MEDS: polyethylene glycoL 3350 17 GM POWD.PACK PO (09:03)
[2020-09-03] MEDS: SILVERGEL (ELTA) 45 ML 1 APPLIC TOPICAL (09:12)
--- NOTE | 2020-09-03 09:20 | WPDINTPN ---
Progress Note: A&P Assessment and Plan (1) Acute respiratory failure with hypoxia and hypercapnia: Code(s): J96.01 - Acute respiratory failure with hypoxia; J96.02 - Acute respiratory failure with hypercapnia Status: Acute Assessment and Plan: Patient with acute respiratory failure likely related to COPD and CHF. Patient was intubated on 08/21/2020 -08/25/2020: Self Extubated -08/27/2020, complete whiteout on the left side likely secondary mucus plugging - 08/30-placed back on BiPAP overnight - 08/31 -reintubated for persistent hypercarbia and hypoxia and poor mental status 09/01 left thoracentesis with 1 L fluid removed 09/03 advance ET tube by 3 cm, increased respiratory rate to 30 -- sputum cultures growing MRSA, started vancomycin (initiated on 08/25/2020) ABG and chest x-ray reviewed Continue vancomycin and cefepime Patient started on hemodialysis to remove volume Currently on 60% FiO2 and 8 of PEEP Sedation holiday. Not ready for to wean from vent (2) Shock: Code(s): R57.9 - Shock, unspecified Status: Acute Assessment and Plan: Continue Levophed Hold diuretics at this time Off 25% albumin now (3) COPD (chronic obstructive pulmonary disease): Code(s): J44.9 - Chronic obstructive pulmonary disease, unspecified Status: Acute Assessment and Plan: Sputum culture from 08/23/2020 growing MRSA, on vancomycin as above Bronchodilators (4) Acute CHF (congestive heart failure): Qualifiers: Heart failure type: unspecified Qualified Code(s): I50.9 - Heart failure, unspecified Code(s): I50.9 - Heart failure, unspecified Status: Acute Assessment and Plan: Congestive heart failure with preserved ejection fraction. Ejection fraction was approximately 70%. Diastolic dysfunction could not be assessed. He did have significant right ventricular hypertrophy and hypokinesis But pulmonary artery pressures could not be estimated. -worsening creatinine further, hold diuresis at this time Now on hemodialysis to remove fluid (5) Acute on chronic renal failure: Code(s): N17.9 - Acute kidney failure, unspecified; N18.9 - Chronic kidney disease, unspecified Status: Acute Assessment and Plan: Nephrology is following Patient was getting diuresed but now hypotensive. Hold diuresis at this point Urine output is poor and crit renal function is getting worse. Needs hemodialysis Discussed with Dr. Kramer. Tunnel dialysis catheter placed 3/3 Patient received hemodialysis on 1 L of fluid was removed yesterday Electrolytes adequate at this time continue to monitor Continue to monitor renal function, electrolytes and urine output (6) Gastroesophageal reflux disease: Code(s): K21.9 - Gastro-esophageal reflux disease without esophagitis Status: Chronic Assessment and Plan: Protonix (7) Confusion: Code(s): R41.0 - Disorientation, unspecified Status: Acute Assessment and Plan: Secondary to delirium. Currently sedated (8) Atrial fibrillation with RVR: Code(s): I48.91 - Unspecified atrial fibrillation Status: Acute Assessment and Plan: Patient went to AFib RVR, new onset, likely related to respiratory distress and hypoxia Patient converted to sinus rhythm at this time Continue heparin infusion Additional Plan DVT prophylaxis: Heparin infusion Nutrition: Add Reglan, advance tube feeds -stress ulcer prophylaxis Protonix Code status: Full code as per request from his family Total Critical Care Time - 32 minutes Due to a high probability of clinically significant, life threatening deterioration, the patient required my highest level of preparedness to intervene emergently and I personally spent this critical care time directly and personally managing the patient. This critical care time included obtaining a history; examining the patient; pulse oximetry; ordering and review of studi
--- NOTE | 2020-09-03 10:03 | WPDANESPN ---
Anes - Prog Note Post-Op Date/Time: 09/03/20 10:03 Cardiovascular status: normal Respiratory status: other (In ICU with resp support as was preoperative ) Airway patency: baseline Mental status: baseline Post-Op hydration status: normal Vital Signs: Last Vital Signs Temp 98.4 F 09/03/20 04:00 Pulse 69 09/03/20 08:30 Resp 30 H 09/03/20 08:30 BP 122/66 09/03/20 07:40 Pulse Ox 93 09/03/20 07:51 Pain Score (VAS): DEIDRE I/O: Intake & Output 09/02/20 09/03/20 09/03/20 23:59 07:59 15:59 Intake Total 519 1276 Output Total 1575 50 Balance -1056 1226 Laboratory Tests 09/03/20 04:36 09/03/20 04:36 08/24/20 09/02/20 09/02/20 11:43 12:05 21:04 WBC RBC Hgb Hct MCV MCH MCHC RDW Plt Count MPV APTT Puncture Site ABG pH ABG pCO2 ABG pO2 ABG PO2/FiO2 Ratio ABG HCO3 ABG O2 Saturation ABG O2 Content ABG Base Excess A-a Gradient Oxyhemoglobin Carboxyhemoglobin Methemoglobin Reduced Hemoglobin Total Hemoglobin O2 Delivery Device O2 Liters/Min Minute Volume Vent Rate Vent Mode FiO2 Tidal Volume PEEP Peak Inspir Pressure Pressure Support Sodium Potassium Chloride Carbon Dioxide Anion Gap BUN Creatinine Estim Creat Clear Calc Estimated GFR Glucose POC Capillary Glucose 132 H Calcium Phosphorus Magnesium Total Bilirubin AST ALT Alkaline Phosphatase Total Protein Albumin Random Vancomycin 17.1 Ur PHIL Interpret 24 hr Not Reportable Free [facility] & Lambda LC Not Reportable 09/02/20 09/03/20 09/03/20 21:44 04:23 04:36 WBC RBC Hgb Hct MCV MCH MCHC RDW Plt Count MPV APTT 67.6 H 92.6 H Puncture Site Right radial ABG pH 7.299 L* ABG pCO2 63.0 H* ABG pO2 75.5 L ABG PO2/FiO2 Ratio 1.26 ABG HCO3 30.2 H ABG O2 Saturation 93.4 L ABG O2 Content 15.5 L ABG Base Excess 2.4 A-a Gradient 283.0 Oxyhemoglobin 92.2 Carboxyhemoglobin 0.4 Methemoglobin 0.4 Reduced Hemoglobin 7.0 H Total Hemoglobin 11.9 L O2 Delivery Device Ventilator O2 Liters/Min Not Reportable Minute Volume Not Reportable Vent Rate 28 Vent Mode Assist control FiO2 60 Tidal Volume 480 PEEP 8 Peak Inspir Pressure Not Reportable Pressure Support Not Reportable Sodium Potassium Chloride Carbon Dioxide Anion Gap BUN Creatinine Estim Creat Clear Calc Estimated GFR Glucose POC Capillary Glucose Calcium Phosphorus Magnesium Total Bilirubin AST ALT Alkaline Phosphatase Total Protein Albumin Random Vancomycin Ur PHIL Interpret [address] [facility] [place] [facility] Lambda LC 09/03/20 09/03/20 04:36 04:36 WBC 8.9 RBC 3.93 L Hgb 10.7 L Hct 35.7 L MCV 90.8 MCH 27.2 MCHC 30.0 L RDW 15.9 H Plt Count 170 MPV 10.1 APTT Puncture Site ABG pH ABG pCO2 ABG pO2 ABG PO2/FiO2 Ratio ABG HCO3 ABG O2 Saturation ABG O2 Content ABG Base Excess A-a Gradient Oxyhemoglobin Carboxyhemoglobin Methemoglobin Reduced Hemoglobin Total Hemoglobin O2 Delivery Device O2 Liters/Min Minute Volume Vent Rate Vent Mode FiO2 Tidal Volume PEEP Peak Inspir Pressure Pressure Support Sodium 136 L Potassium 4.1 Chloride 96 L Carbon Dioxide 32 H Anion Gap 8 BUN 52 H D Creatinine 4.70 H Estim Creat Clear Calc 17 Estimated GFR 12 L Glucose 175 H POC Capillary Glucose Calcium 8.3 L Phosphorus 5.2 H Magnesium 1.9 Total Bilirubin 0.8 AST 33 ALT 24 Alkaline Phosphatase 67 Total Protein 7.0 Albumin 3.7 Random Vancomycin Ur PHIL Interpret [address] [facility] [place] [facility] Lambda LC Post-procedural complaints: none Patient Feedback: Patient satisfied with anesthetic care.
--- NOTE | 2020-09-03 10:32 | PM.PNCARD ---
Progress Note: A&P Assessment and Plan (1) Atrial fibrillation with RVR: Code(s): I48.91 - Unspecified atrial fibrillation Status: Acute Assessment and Plan: No reponse with IV Metoprolol initially. amiodarone appears to have contributed to conversion from A.Fib to wither MAT vs ST with freq PAC's, although variable P wave morphology suggestive of MAT. Currently not on any medication to directly treat atrial arrhythmias but on a heparin drip to prevent cardioembolic events. If AFib recurrence amiodarone recommended. (2) Multifocal atrial tachycardia: Code(s): I47.1 - Supraventricular tachycardia Status: Acute Assessment and Plan: Currently, back in NSR. (3) MARSHA (acute kidney injury): Code(s): N17.9 - Acute kidney failure, unspecified Status: Acute Assessment and Plan: Patient had what dialysis done on September 02 with remover 1 L and plan t today for another dialysis (4) Acute CHF (congestive heart failure): Qualifiers: Heart failure type: unspecified Qualified Code(s): I50.9 - Heart failure, unspecified Code(s): I50.9 - Heart failure, unspecified Status: Acute Assessment and Plan: Heart failure with preserved ejection fraction, EF 70%. Optimize volume status via dialysis (5) Acute respiratory failure with hypoxia and hypercapnia: Code(s): J96.01 - Acute respiratory failure with hypoxia; J96.02 - Acute respiratory failure with hypercapnia Status: Acute Assessment and Plan: Reintubate id 08/31/2020. (6) COPD with acute exacerbation: Code(s): J44.1 - Chronic obstructive pulmonary disease with (acute) exacerbation Status: Acute Assessment and Plan: Treatment of respiratory failure and pneumonia Per primary service. Bronchodilator therapy, Pulmozyme. (7) Pulsatile abdominal mass: Code(s): R19.00 - Intra-abdominal and pelvic swelling, mass and lump, unspecified site Status: Acute Assessment and Plan: Abdominal ultrasound shows no aortic aneurysm Additional Plan López Willson MD [facility] Subjective Date/time seen: 09/03/20 10:32 Interval history: Date of service 09/03 70yo male with COPD, DM, HTN and CKD here for SOB and developed respiratory failure. Had dialysis yesterday with removal of 1 L. Remains in sinus rhythm. No recurrence of AFib or multi focal atrial tachycardia. Requiring low-dose of Levophed 4 mics. Plan to for hemodialysis again today Review of Systems Review of Systems: ROS unobtainable: Yes unobtainable due to endotracheal tube Constitutional: Constitutional: Denies headache(s) ENT: Denies headache(s) Cardiovascular: Cardiovascular: Reports chest pain, Reports diaphoresis, Reports palpitations and Reports dyspnea Gastrointestinal: Gastrointestinal: Reports hematochezia, Reports nausea and Reports vomiting Neurologic: Reports weakness Exam Narrative: Exam Narrative: Older male who appears quite ill in the unit on multiple drips, ventilator, sedated, mildly tachypneic Const: General: comfortable, no acute distress and confusion (Sedated) Orientation/consciousness: confusion (Sedated) Other: Elderly white male intubated sedated on the ventilator in the ICU HENMT: Mouth: Yes moist mucous membranes Eyes: General: appearance normal, both eyes and all related structures Sclera: sclerae normal Pupils: Equal, round and reactive pupils present Neck: Neck: supple and no JVD Other: Carotid upstrokes are normal bilaterally Resp: Auscultation: clear to auscultation bilaterally and diminished lung sounds Other: Good aeration bilaterally Cardio: Rate: regular rate Rhythm: regular rhythm Heart sounds: no murmurs GI: Auscultation: normal bowel sounds Other: Pulsatile epigastriu
[2020-09-03] MEDS: NOREPINEPHRINE 8 MG/D5W 250 ML 8 MG/250 ML BAG 11.25 MG IV CONT (10:51)
--- NOTE | 2020-09-03 11:08 | PCDIET ---
ICU Rounding Note: Tube feedings held overnight for 310mL residual. RN reports 30mL residual this morning and will advance Nepro toward ordered goal rate of 50mL/hr with 30mL water flush every 4 hours. Last recorded weight is 112.3kg which is decreased from last review. +I/O. Patient did have 1.4L UF on 09/02/20. Bowel Motility: Last BM on 08/29/20. Miralax given. RN also aware of order for prn Dulcolax. Labs Reviewed: Hgb (10.7), Hct (35.7), BUN (52), Cr (4.7), Na (136), Ca (8.3), PO4 (5.2) Meds Noted: Albuterol, Lipitor, Pulmicort, Precedex, Fentanyl, Atrovent, Reglan, Levophed, Protonix, Miralax, Vancomycin Additional Notes: Left elbow skin tear. Right leg with arterial ulcer. Following daily in ICU rounds. Assessing/reassessing every Monday/Monday.
[2020-09-03 11:30] LABS: Glucose Point of Care 159 (65-105)
[2020-09-03 12:00] LABS: Partial Thromboplastin Time 132.6 SECONDS (22.3-36.8)
[2020-09-03] MEDS: FENTANYL 2,500MCG/NS250ML(*CRX 2,500 MCG/250 ML BAG 17.5 MCG IV CONT (13:21)
--- NOTE | 2020-09-03 13:52 | PM.PNNEP ---
Progress Note: A&P Assessment and Plan (1) MARSHA (acute kidney injury): Code(s): N17.9 - Acute kidney failure, unspecified Status: Acute Assessment and Plan: due to low blood pressure. He is on pressors now. getting dialysis This afternoon Reassess and see where we are day by day (2) Chronic kidney failure: Code(s): N18.9 - Chronic kidney disease, unspecified Status: Chronic Assessment and Plan: unclear what baseline creatinine is but his creatinine was 2.1mg/dl back in 2013 suspect current baseline creatinine is likely higher CKD likely secondary to DM, HTN, and vascular disease (3) Acute respiratory failure with hypoxia and hypercapnia: Code(s): J96.01 - Acute respiratory failure with hypoxia; J96.02 - Acute respiratory failure with hypercapnia Status: Acute Assessment and Plan: due to a combination of COPD and CHF on ventilator now. (4) Fluid overload, unspecified: Code(s): E87.70 - Fluid overload, unspecified Status: Acute Assessment and Plan: cardiac function seems to be pretty well except some pulmonary hypertension Will remove fluid down the line as tolerated by his blood pressure using dialysis try a little more fluid removal today, as tolerated by his blood pressure (5) Essential hypertension: Code(s): I10 - Essential (primary) hypertension Status: Chronic Assessment and Plan: He is on pressors now (6) Type 2 diabetes mellitus: Code(s): E11.9 - Type 2 diabetes mellitus without complications Status: Chronic Assessment and Plan: follow accu-cheks onsliding-scale insulin Subjective Date/time seen: 09/03/20 13:52 Interval history: Daughter, Park, is in the room. Patient is on the ventilator and sedated He did well in dialysis yesterday. Will try another round today. Take off a little bit of fluid. Exam Narrative: Exam Narrative: General: WD/WN male in NAD; on high flow oxygen mask Heart: normal S1 and S2; no rub or gallop Lungs: coarse with decreased breath sounds on the left Abdomen: soft, nontender, nondistended, positive bowel sounds Extremities: trace to1+ edema Skin: chronic skin changes due to venous stasis Objective Data Vital Signs Vital Signs: Vital Signs - 24 hr 09/02/20 14:00 09/02/20 14:14 09/02/20 14:29 Temperature Pulse Rate 75 75 75 Respiratory Rate 28 H 28 H 28 H Blood Pressure 106/51 L 107/52 L Pulse Oximetry 93 93 09/02/20 14:43 09/02/20 14:59 09/02/20 15:24 Temperature Pulse Rate 75 76 69 Respiratory Rate 28 H 28 H Blood Pressure 109/52 L 103/54 L Pulse Oximetry 94 09/02/20 15:45 09/02/20 15:59 09/02/20 16:00 Temperature 36.7 C 36.7 C Pulse Rate 79 79 79 Respiratory Rate 28 H 28 H Blood Pressure 109/51 L 107/55 L 107/55 L Pulse Oximetry 65 L 95 09/02/20 16:03 09/02/20 16:15 09/02/20 16:30 Temperature 36.7 C Pulse Rate 68 76 66 Respiratory Rate 6 L Blood Pressure 104/52 L 110/55 L 112/50 L Pulse Oximetry 95 09/02/20 16:45 09/02/20 17:00 09/02/20 17:15 Temperature Pulse Rate 81 79 79 Respiratory Rate Blood Pressure 116/52 L 101/53 L 101/47 L Pulse Oximetry 09/02/20 17:25 09/02/20 17:30 09/02/20 17:45 Temperature Pulse Rate 72 79 77 Respiratory Rate Blood Pressure 93/53 L 104/48 L Pulse Oximetry 95 09/02/20 18:00 09/02/20 18:15 09/02/20 18:30 Temperature Pulse Rate 78 78 76 Respiratory Rate 28 H Blood Pressure 96/52 L 101/50 L 105/49 L Pulse Oximetry 95 09/02/20 19:00 09/02/20 19:12 09/02/20 20:00 Temperature 36.7 C Pulse Rate 74 78 74 Respiratory Rate 6 L 28 H 28 H Blood Pressure 120/70 108/53 L Pulse Oximetry 94 09/02/20 20:10 09/02/20 20:16 09/02/20 20:24 Temperature Pulse Rate 76 74 75 Respiratory Rate 28 H 28 H Blood Pressure Pulse Oximetry 95 09/02/20 20:35 09/02/20 21:41
--- NOTE | 2020-09-03 13:54 | PM.IMPN ---
Progress Note: A&P Assessment and Plan (1) Shock: Code(s): R57.9 - Shock, unspecified Status: Acute Assessment and Plan: Patient requiring Levophed again since 08/31. Currently at 6mcg/min. Wean as tolerated. Will be challenging for hemodialysis. Continue Cefepime and Vanco. Continue Levophed and wean to maintain map of greater than 65. (2) Acute respiratory failure with hypoxia and hypercapnia: Code(s): J96.01 - Acute respiratory failure with hypoxia; J96.02 - Acute respiratory failure with hypercapnia Status: Acute Assessment and Plan: The patient originally presented to urgent care with complaints of shortness of breath and was sent to the ED as he was hypoxic in the 70s on room air. He was placed on BiPAP but despite several adjustments, he continued to be hypercarbic with evidence of respiratory distress and ultimately intubated 08/21/20. Suspect COPD and CHF exacerbation. Did well and able to be extubated 08/27 but was tenuous and had left sided white out. Aggressive pulmonary toilet but ultimately needed to be re-intubated 08/31/20. Abx resumed 08/31. Did have a left thoracentesis with 1L removed on 09/01. Continue supportive care. Wean MV once fluid status better. Appreciate financial officer input. (3) Congestive heart failure: Code(s): I50.9 - Heart failure, unspecified Status: Acute Assessment and Plan: CHF contributing to [place] [address]. Chest x-ray showed cardiomegaly and pulmonary edema treated with IV diuretics but now stopped due to MARSHA. Echo showing small LV cavity, EF 70%, severe RVE with RVH and severe hypokinesis. Indeterminate diastolic function. Appears more right sided failure than left. Using HD now to control fluid status. (4) Atrial fibrillation with RVR: Code(s): I48.91 - Unspecified atrial fibrillation Status: Acute Assessment and Plan: No response with IV Metoprolol initially but Amiodarone converted him out of AFib. Currently not on any rate controlling agents. Remains on a heparin drip to prevent cardioembolic events. Cardiology following and recommends using amiodarone if AFib recurs. (5) COPD with acute exacerbation: Code(s): J44.1 - Chronic obstructive pulmonary disease with (acute) exacerbation Status: Acute Assessment and Plan: ABG noted. No wheezing. Continue Pulmicort Respules and Atrovent. Continue to monitor. (6) Elevated troponin: Code(s): R77.8 - Other specified abnormalities of plasma proteins Status: Acute Assessment and Plan: Troponin elevated to 0.046 but flat. EKG showed borderline findings with poor R-wave progression. Echo 08/22 showing EF 70% with severe RVE, RVH and severe RV hypokinesis. Most likely type 2 NV and not a recent RV infarct; more likely related to demand ischemia and/or from his CKD. Continue telemetry. (7) MARSHA (acute kidney injury): Code(s): N17.9 - Acute kidney failure, unspecified Status: Acute Assessment and Plan: Creatinine was 3.5 on admission and suspect this is his baseline. It remained stable in the 3 range until 08/30 before climbing to 6.8 yesterday. UOP has dropped off. Potassium and bicarb okay. Tunnelled HD catheter placed and HD started 09/02. Appreciate GenSurg and Nephrology input. (8) Chronic kidney failure: Code(s): N18.9 - Chronic kidney disease, unspecified Status: Chronic Assessment and Plan: Creatinine was 2.1 in 2013. No other values to compare. Creatinine was 3.5 on admission and suspect this is his baseline. As above. (9) Essential hypertension: Code(s): I10 - Essential (primary) hypertension Status: Chronic Assessment and Plan: BP reviewed on 09/03. As above. (10) Type 2 diabetes mellitus: Code(s): E11.9 - Type 2 diabetes mellitus without complications Status: Chronic Assessment and P
[2020-09-03 15:40] LABS: Glucose Point of Care 166 (65-105)
[2020-09-03 15:41] LABS: Glucose Point of Care 159 (65-105)
[2020-09-03 17:30] LABS: Glucose Point of Care 142 (65-105)
[2020-09-03] MEDS: HEPARIN SOD/D5W 100 UNITS/ML 25,000 UNITS/250 ML BAG 18 UNITS IV CONT (17:33)
[2020-09-03] MEDS: ATORVASTATIN 10 MG TABLET PO (20:53)
[2020-09-03] MEDS: dexmedeTOMIDine 400 MCG/100 ML 400 MCG/100 ML BAG 30.77 MCG IV CONT (21:04)
[2020-09-03 22:15] LABS: Vancomycin Random 12.5 ug/mL (10-20)
[2020-09-03] MEDS: dexmedeTOMIDine 400 MCG/100 ML 400 MCG/100 ML BAG 39.17 MCG IV CONT (23:36)
[2020-09-04] VITALS (47 sets, daily range): BP systolic 72–135; BP diastolic 47–73; PULSE 70–117; RESP 30–35; TEMP 36.3–37.2; O2SAT 92–100
[2020-09-04 00:13] LABS: Glucose Point of Care 193 (65-105)
[2020-09-04] MEDS: FENTANYL 2,500MCG/NS250ML(*CRX 2,500 MCG/250 ML BAG 20 MCG IV CONT ×2 (00:39→13:59)
[2020-09-04] MEDS: BISACODYL 10 MG SUPPOSITORY RECTAL (00:41)
[2020-09-04] MEDS: ALBUTEROL SULFATE NEB 2.5 MG/0.5 ML INH INHALATION ×4 (01:57→19:50)
[2020-09-04] MEDS: IPRATROPIUM BR 0.02% INH SOLN 0.5 MG/2.5 ML VIAL INHALATION ×4 (01:57→19:50)
[2020-09-04] MEDS: dexmedeTOMIDine 400 MCG/100 ML 400 MCG/100 ML BAG 39.17 MCG IV CONT ×2 (02:11→04:40)
[2020-09-04 04:37] LABS: Alveolar/Arterial O2 Gradient 305.4 mmHg; Base Excess ABG 4.7 mEq/l (+/-2.0); Carboxyhemoglobin 0.2 % THb (0-2.0); Fractional Inspired Oxygen 60 %; HCO3 ABG 30.6 mEq/l (22.0-26.0); Methemoglobin ABG 0.4 %THb (0-1.5); Oxygen Saturation ABG 92.8 % (95.0-100.0); Oxyhemoglobin 91.2 % THb (90.0-100.0); PCO2 ABG 51.1 mmHg (35.0-45.0); PO2 ABG 66.2 mmHg (80.0-100.0); Reduced Hemoglobin 8.2 %THb (0-5.0); Total Hemoglobin 11.7 g/dL (12.0-18.0); pH ABG 7.395 (7.350-7.450)
[2020-09-04 04:38] LABS: Device VENTILATOR; Modified Allen's Test Pass; Site Drawn RIGHT RADIAL
[2020-09-04 04:39] LABS: Arterial Blood Gas PEEP 10 cmH2O; Arterial Blood Gas Tidal Volume 480 ml; Arterial Blood Gas Vent Mode CMV; Arterial Blood Gas Ventilator rate 30 /MIN
[2020-09-04 05:53] LABS: Hematocrit 37.7 % (42.0-52.0); Hemoglobin 11.4 g/dL (14.0-18.0); Mean Corpuscular HGB Conc 30.2 g/dl (32-36); Mean Corpuscular Hemoglobin 26.9 pg (26-34); Mean Corpuscular Volume 88.9 fl (80-100); Mean Platelet Volume 9.9 fl (7.4-10.4); Platelet Count Result 195 k/mm3 (150-375); Red Blood Count 4.24 M/mm3 (4.6-6.20); White Blood Count 8.9 K/mm3 (4.5-10.0)
[2020-09-04] MEDS: CENTRAL LINE FLUSH 10 ML IV PUSH ×4 (05:53→20:25)
[2020-09-04] MEDS: METOCLOPRAMIDE HCL 10 MG/10 ML SOLN UDC 5 MG PO ×4 (05:54→23:27)
[2020-09-04 06:14] LABS: Alanine Aminotransferase 29 U/L (4-50); Albumin Level 3.9 g/dL (3.5-5.1); Alkaline Phosphatase 80 U/L (38-126); Anion Gap 7 mmol/L (8-16); Aspartate Amino Transferase 36 U/L (17-59); Blood Urea Nitrogen 35 mg/dL (9-20); Carbon Dioxide 34 mmol/L (22-30); Chloride 94 mmol/L (98-107); Estimated CRCL calculation 22 ml/min; Estimated Glomerular Filt Rate 16; Glucose 186 mg/dL (75-110); Magnesium 1.8 mg/dL (1.6-2.3); Potassium 3.7 mmol/L (3.4-5.0); Sodium 135 mmol/L (137-145)
[2020-09-04] MEDS: dexmedeTOMIDine 400 MCG/100 ML 400 MCG/100 ML BAG 41.96 MCG IV CONT ×8 (07:11→23:55)
[2020-09-04] MEDS: NOREPINEPHRINE 8 MG/D5W 250 ML 8 MG/250 ML BAG 13.13 MG IV CONT (07:12)
[2020-09-04] MEDS: DORNASE ALFA INH SOLN 1 MG/ML 2.5 ML AMP 2.5 MG INHALATION ×2 (08:07→19:50)
[2020-09-04] MEDS: BUDESONIDE RESPULE NEB 0.5 MG/2 ML AMP 1 MG INHALATION ×2 (08:08→19:50)
[2020-09-04] MEDS: LORazepam INJ (*CRX) 2 MG/ML VIAL IV PUSH (08:10)
[2020-09-04] MEDS: PANTOPRAZOLE SODIUM IV 40 MG VIAL IV PUSH ×2 (08:20→20:25)
[2020-09-04] MEDS: SILVERGEL (ELTA) 45 ML 1 APPLIC TOPICAL (08:21)
[2020-09-04] MEDS: polyethylene glycoL 3350 17 GM POWD.PACK PO (08:21)
[2020-09-04] MEDS: HEPARIN SOD/D5W 100 UNITS/ML 25,000 UNITS/250 ML BAG 15 UNITS IV CONT (08:36)
[2020-09-04 08:43] LABS: Partial Thromboplastin Time 58.4 SECONDS (22.3-36.8)
[2020-09-04] MEDS: HEPARIN SODIUM 5,000 UNITS/ML VIAL 3500 UNITS IV PUSH ×2 (08:48→15:12)
--- NOTE | 2020-09-04 09:16 | WPDINTPN ---
Progress Note: A&P Assessment and Plan (1) Acute respiratory failure with hypoxia and hypercapnia: Code(s): J96.01 - Acute respiratory failure with hypoxia; J96.02 - Acute respiratory failure with hypercapnia Status: Acute Assessment and Plan: Patient with acute respiratory failure likely related to COPD and CHF. Patient was intubated on 08/21/2020 -08/25/2020: Self Extubated -08/27/2020, complete whiteout on the left side likely secondary mucus plugging - 08/30-placed back on BiPAP overnight - 08/31 -reintubated for persistent hypercarbia and hypoxia and poor mental status 09/01 left thoracentesis with 1 L fluid removed 09/03 advance ET tube by 3 cm, increased respiratory rate to 30 09/04 -advance ET tube by 1 cm Sputum cultures growing MRSA, started vancomycin (initiated on 08/25/2020) Patient was also started on cefepime on 08/30 ABG and chest x-ray reviewed Continue vancomycin and cefepime through tomorrow which will complete a 7 day course of cefepime and 14 day course of vancomycin Patient started on hemodialysis to remove volume which will be continue He continues to be on on 60% FiO2 and 10 of PEEP Sedation holiday. Not ready for to wean from vent (2) Shock: Code(s): R57.9 - Shock, unspecified Status: Acute Assessment and Plan: Continue Levophed Hold diuretics at this time Off 25% albumin now (3) COPD (chronic obstructive pulmonary disease): Code(s): J44.9 - Chronic obstructive pulmonary disease, unspecified Status: Acute Assessment and Plan: Sputum culture from 08/23/2020 growing MRSA, on vancomycin as above Bronchodilators (4) Acute CHF (congestive heart failure): Qualifiers: Heart failure type: unspecified Qualified Code(s): I50.9 - Heart failure, unspecified Code(s): I50.9 - Heart failure, unspecified Status: Acute Assessment and Plan: Congestive heart failure with preserved ejection fraction. Ejection fraction was approximately 70%. Diastolic dysfunction could not be assessed. He did have significant right ventricular hypertrophy and hypokinesis But pulmonary artery pressures could not be estimated. -worsening creatinine further, hold diuresis at this time Now on hemodialysis to remove fluid (5) Acute on chronic renal failure: Code(s): N17.9 - Acute kidney failure, unspecified; N18.9 - Chronic kidney disease, unspecified Status: Acute Assessment and Plan: Nephrology is following Patient was getting diuresed but now hypotensive. Hold diuresis at this point Urine output is poor and crit renal function is getting worse. Needs hemodialysis Discussed with Dr. Kramer. Tunnel dialysis catheter placed 3/3 Patient received hemodialysis yesterday again and 1 L of fluid was removed Electrolytes adequate at this time continue to monitor Continue to monitor renal function, electrolytes and urine output (6) Gastroesophageal reflux disease: Code(s): K21.9 - Gastro-esophageal reflux disease without esophagitis Status: Chronic Assessment and Plan: Protonix (7) Confusion: Code(s): R41.0 - Disorientation, unspecified Status: Acute Assessment and Plan: Secondary to delirium. Currently sedated (8) Atrial fibrillation with RVR: Code(s): I48.91 - Unspecified atrial fibrillation Status: Acute Assessment and Plan: Patient went to AFib RVR, new onset, likely related to respiratory distress and hypoxia Patient converted to sinus rhythm at this time Continue heparin infusion Additional Plan DVT prophylaxis: Heparin infusion Nutrition: Continue Reglan, advance tube feeds -stress ulcer prophylaxis Protonix Code status: Full code as per request from his family. Overall prognosis is poor due to multiorgan failure and age Total Critical Care Time - 30 minutes Due to a high probability of clinically significant, life threatening deterioration, the patient re
--- NOTE | 2020-09-04 10:40 | PM.IMPN ---
Progress Note: A&P Assessment and Plan (1) Shock: Code(s): R57.9 - Shock, unspecified Status: Acute Assessment and Plan: Possibly sepsis from PNA. Patient requiring Levophed again since 08/31. Currently at 6mcg/min. Wean as tolerated. Will be challenging for hemodialysis. Continue Cefepime and Vanco. Continue Levophed and wean to maintain map of greater than 65. (2) Acute respiratory failure with hypoxia and hypercapnia: Code(s): J96.01 - Acute respiratory failure with hypoxia; J96.02 - Acute respiratory failure with hypercapnia Status: Acute Assessment and Plan: The patient originally presented to urgent care with complaints of shortness of breath and was sent to the ED as he was hypoxic in the 70s on room air. He was placed on BiPAP but despite several adjustments, he continued to be hypercarbic with evidence of respiratory distress and ultimately intubated 08/21/20. COVID negative 08/21/20. Suspect COPD and CHF exacerbation. Did well and able to be extubated 08/27 but was tenuous and had left sided white out by CXR. Aggressive pulmonary toilet but ultimately needed to be re-intubated 08/31/20. Cefepime started 08/30 (Day 6); Vanco started 08/25 (now Day 11). Did have a left thoracentesis with 1L removed on 09/01. Continue supportive care. Wean MV once fluid status better. Appreciate diazo technician input. (3) Congestive heart failure: Code(s): I50.9 - Heart failure, unspecified Status: Acute Assessment and Plan: CHF contributing to [place] [id number]. Chest x-ray showed cardiomegaly and pulmonary edema treated with IV diuretics but now stopped due to MARSHA. Echo showing small LV cavity, EF 70%, severe RVE with RVH and severe hypokinesis. Indeterminate diastolic function. Appears more right sided failure than left. Using HD now to control fluid status. (4) Atrial fibrillation with RVR: Code(s): I48.91 - Unspecified atrial fibrillation Status: Acute Assessment and Plan: No response with IV Metoprolol initially but Amiodarone converted him out of AFib. Currently not on any rate controlling agents. Remains on a heparin drip to prevent cardioembolic events. Cardiology following and recommends using amiodarone if AFib recurs. (5) COPD with acute exacerbation: Code(s): J44.1 - Chronic obstructive pulmonary disease with (acute) exacerbation Status: Acute Assessment and Plan: ABG noted. No wheezing. Continue Pulmicort Respules and Atrovent. Continue to monitor. (6) Elevated troponin: Code(s): R77.8 - Other specified abnormalities of plasma proteins Status: Acute Assessment and Plan: Troponin elevated to 0.046 but flat. EKG showed borderline findings with poor R-wave progression. Echo 08/22 showing EF 70% with severe RVE, RVH and severe RV hypokinesis. Most likely type 2 [place] and not a recent RV infarct; more likely related to demand ischemia and/or from his CKD. Continue telemetry. (7) MARSHA (acute kidney injury): Code(s): N17.9 - Acute kidney failure, unspecified Status: Acute Assessment and Plan: Creatinine was 3.5 on admission and suspect this is his baseline. It remained stable in the 3 range until 08/30 before climbing to 6.8. UOP dropped off as well. Tunnelled HD catheter placed and HD started 09/02. Appreciate GenSurg and Nephrology input. (8) Chronic kidney failure: Code(s): N18.9 - Chronic kidney disease, unspecified Status: Chronic Assessment and Plan: Creatinine was 2.1 in 2013. No other values to compare. Creatinine was 3.5 on admission and suspect this is his baseline. As above. (9) Essential hypertension: Code(s): I10 - Essential (primary) hypertension Status: Chronic Assessment and Plan: BP reviewed on 09/04. As above. (10) Type 2 diabetes mellitus: Code(s): E11.9 - Type 2 diabetes tracey
--- NOTE | 2020-09-04 11:33 | PCNFU ---
Nutrition Follow-Up Complete: Inadequate oral intake related to oral intubation as evidenced by NPO status. Goal: Patient to meet estimated nutritional needs. Progressing towards goal. We will continue current goal. Pt current nutrition is Nepro at 50 ml/hr Last recorded weight is 115 kg,down from 118.7 kg. Bowel Motility:Last BM noted 08/29. Labs Reviewed:Na 135,GFR 16,BUN 35,Cr 3.7,Glu 186 Meds Noted:Albuterol, Lipitor, Pulmicort, Precedex, Fentanyl, Atrovent, Reglan, Levophed, Protonix, Miralax, Vancomycin Additional Notes: Patient had high residual over night of 300 ml. Tube feeding was put on hold and restarted this morning with residual of 90 ml. Patient has not had a BM since 08/29, plans for suppository today. Dialysis again today. Tube feeding rate is appropriate of Nepro at 50 ml/hr which is providing 1980 kcals/89 gms protein. Agree with diet orders. Follow up every Monday/Monday. Follow daily in ICU rounds.
--- NOTE | 2020-09-04 11:47 | PM.PNNEP ---
Progress Note: A&P Assessment and Plan (1) MARSHA (acute kidney injury): Code(s): N17.9 - Acute kidney failure, unspecified Status: Acute Assessment and Plan: due to low blood pressure. He is on pressors now. getting ultrafiltration today Reassess and see where we are day by day (2) Chronic kidney failure: Code(s): N18.9 - Chronic kidney disease, unspecified Status: Chronic Assessment and Plan: unclear what baseline creatinine is but his creatinine was 2.1mg/dl back in 2013 suspect current baseline creatinine is likely higher CKD likely secondary to DM, HTN, and vascular disease (3) Acute respiratory failure with hypoxia and hypercapnia: Code(s): J96.01 - Acute respiratory failure with hypoxia; J96.02 - Acute respiratory failure with hypercapnia Status: Acute Assessment and Plan: due to a combination of COPD and CHF on ventilator now.\ FiO2 is 60% (4) Fluid overload, unspecified: Code(s): E87.70 - Fluid overload, unspecified Status: Acute Assessment and Plan: cardiac function seems to be pretty well except some pulmonary hypertension Will remove fluid down the line as tolerated by his blood pressure using dialysis try a little more fluid removal today, as tolerated by his blood pressure (5) Essential hypertension: Code(s): I10 - Essential (primary) hypertension Status: Chronic Assessment and Plan: He is on pressors now (6) Type 2 diabetes mellitus: Code(s): E11.9 - Type 2 diabetes mellitus without complications Status: Chronic Assessment and Plan: follow accu-cheks onsliding-scale insulin Subjective Date/time seen: 09/04/20 11:47 Interval history: Patient is on the ventilator and sedated He did well in dialysis yesterday. His blood pressure was doing pretty well only 1L of fluid was taken off. Will try another round today. Will just employ dry ultrafiltration so we can get a little extra fluid off. His BUN and potassium are okay Exam Narrative: Exam Narrative: General: WD/WN male in NAD; on high flow oxygen mask Heart: normal S1 and S2; no rub or gallop Lungs: coarse with decreased breath sounds on the left Abdomen: soft, nontender, nondistended, positive bowel sounds Extremities: 1+ edema Skin: chronic skin changes due to venous stasis Objective Data Vital Signs Vital Signs: Vital Signs - 24 hr 09/03/20 12:00 09/03/20 12:10 09/03/20 12:30 Temperature Pulse Rate 97 92 80 Respiratory Rate 30 H 30 H Blood Pressure Pulse Oximetry 09/03/20 12:36 09/03/20 12:54 09/03/20 13:21 Temperature 36.4 C Pulse Rate 91 81 79 Respiratory Rate 30 H 30 H 30 H Blood Pressure 125/61 Pulse Oximetry 93 09/03/20 13:48 09/03/20 13:49 09/03/20 14:00 Temperature Pulse Rate 76 76 77 Respiratory Rate 30 H 30 H Blood Pressure 98/48 L Pulse Oximetry 91 91 09/03/20 16:00 09/03/20 16:12 09/03/20 16:19 Temperature 35.7 C L Pulse Rate 80 79 77 Respiratory Rate 30 H 30 H Blood Pressure 93/53 L 93/53 L 106/52 L Pulse Oximetry 94 94 09/03/20 16:30 09/03/20 16:45 09/03/20 16:50 Temperature Pulse Rate 78 78 80 Respiratory Rate Blood Pressure 123/70 97/49 L Pulse Oximetry 91 09/03/20 17:00 09/03/20 17:15 09/03/20 17:30 Temperature Pulse Rate 78 78 78 Respiratory Rate Blood Pressure 110/52 L 113/53 L 112/54 L Pulse Oximetry 09/03/20 17:45 09/03/20 18:00 09/03/20 18:15 Temperature Pulse Rate 98 96 97 Respiratory Rate 30 H 30 H Blood Pressure 122/67 147/75 H 167/87 H Pulse Oximetry 96 09/03/20 18:30 09/03/20 18:45 09/03/20 19:00 Temperature Pulse Rate 99 107 H 118 H Respiratory Rate 33 H Blood Pressure 169/79 H 154/71 H 173/73 H Pulse Oximetry 09/03/20 19:15 09/03/20 19:30 09/03/20 19:44 Temperature Pulse Rate 100 109 H 114 H Respiratory Rate
[2020-09-04 12:17] LABS: Glucose Point of Care 167 (65-105)
[2020-09-04 14:52] LABS: Partial Thromboplastin Time 63.1 SECONDS (22.3-36.8)
[2020-09-04 16:47] LABS: Glucose Point of Care 185 (65-105)
[2020-09-04] MEDS: ATORVASTATIN 10 MG TABLET PO (20:25)
[2020-09-04 21:48] LABS: Partial Thromboplastin Time 75.4 SECONDS (22.3-36.8)
[2020-09-04] MEDS: NOREPINEPHRINE 8 MG/D5W 250 ML 8 MG/250 ML BAG 22.5 MG IV CONT (22:44)
[2020-09-04 23:03] LABS: Vancomycin Random 22.1 ug/mL (10-20)
[2020-09-04] MEDS: HEPARIN SOD/D5W 100 UNITS/ML 25,000 UNITS/250 ML BAG 19 UNITS IV CONT (23:24)
[2020-09-04 23:33] LABS: Glucose Point of Care 203 (65-105)
[2020-09-05] VITALS (65 sets, daily range): BP systolic 66–168; BP diastolic 43–96; PULSE 76–132; RESP 10–33; TEMP 36.4–37.9; O2SAT 90–100
[2020-09-05] MEDS: INSULIN ASPART (*BKC) 100 UNITS/ML SUB-Q
[2020-09-05] MEDS: dexmedeTOMIDine 400 MCG/100 ML 400 MCG/100 ML BAG 41.96 MCG IV CONT ×3 (02:15→07:03)
[2020-09-05] MEDS: ALBUTEROL SULFATE NEB 2.5 MG/0.5 ML INH INHALATION ×3 (02:23→14:53)
[2020-09-05] MEDS: IPRATROPIUM BR 0.02% INH SOLN 0.5 MG/2.5 ML VIAL INHALATION ×4 (02:23→20:17)
[2020-09-05] MEDS: FENTANYL 2,500MCG/NS250ML(*CRX 2,500 MCG/250 ML BAG 20 MCG IV CONT (02:49)
[2020-09-05 03:54] LABS: Hematocrit 35.3 % (42.0-52.0); Hemoglobin 10.8 g/dL (14.0-18.0); Mean Corpuscular HGB Conc 30.6 g/dl (32-36); Mean Corpuscular Hemoglobin 27.3 pg (26-34); Mean Corpuscular Volume 89.4 fl (80-100); Mean Platelet Volume 9.2 fl (7.4-10.4); Platelet Count Result 192 k/mm3 (150-375); Red Blood Count 3.95 M/mm3 (4.6-6.20); Red Cell Distribution Width 16.6 % (11.5-14.5); White Blood Count 9.2 K/mm3 (4.5-10.0)
[2020-09-05 04:06] LABS: Partial Thromboplastin Time 83.6 SECONDS (22.3-36.8)
[2020-09-05 04:10] LABS: Alanine Aminotransferase 27 U/L (4-50); Albumin Level 3.4 g/dL (3.5-5.1); Alkaline Phosphatase 74 U/L (38-126); Anion Gap 7 mmol/L (8-16); Aspartate Amino Transferase 30 U/L (17-59); Bilirubin,Total 0.7 mg/dL (0.2-1.3); Blood Urea Nitrogen 51 mg/dL (9-20); Calcium 8.5 mg/dL (8.4-10.2); Carbon Dioxide 32 mmol/L (22-30); Chloride 94 mmol/L (98-107); Estimated CRCL calculation 17 ml/min; Estimated Glomerular Filt Rate 12; Glucose 191 mg/dL (75-110); Magnesium 1.9 mg/dL (1.6-2.3); Potassium 4.1 mmol/L (3.4-5.0); Sodium 133 mmol/L (137-145)
[2020-09-05 04:43] LABS: Alveolar/Arterial O2 Gradient 232.7 mmHg; Base Excess ABG 1.6 mEq/l (+/-2.0); Carboxyhemoglobin 0.5 % THb (0-2.0); Fractional Inspired Oxygen 50 %; HCO3 ABG 28.2 mEq/l (22.0-26.0); Methemoglobin ABG 0.5 %THb (0-1.5); Oxygen Content ABG 14.6 %vol (16.0-22.0); Oxygen Saturation ABG 90.7 % (95.0-100.0); Oxyhemoglobin 88.6 % THb (90.0-100.0); PCO2 ABG 53.5 mmHg (35.0-45.0); PO2 ABG 63.6 mmHg (80.0-100.0); PO2 FiO2 Ratio Arterial Blood 1.27 %; Reduced Hemoglobin 10.4 %THb (0-5.0); Total Hemoglobin 11.7 g/dL (12.0-18.0)
[2020-09-05 04:45] LABS: Device VENTILATOR; Modified Allen's Test Unable to perform; Site Drawn RIGHT RADIAL
[2020-09-05 04:46] LABS: Arterial Blood Gas PEEP 10 cmH2O; Arterial Blood Gas Tidal Volume 480 ml; Arterial Blood Gas Vent Mode ASSIST CONTROL; Arterial Blood Gas Ventilator rate 30 /MIN
[2020-09-05] MEDS: CENTRAL LINE FLUSH 10 ML IV PUSH ×4 (05:39→21:26)
[2020-09-05] MEDS: METOCLOPRAMIDE HCL 10 MG/10 ML SOLN UDC 5 MG PO ×3 (05:39→18:08)
[2020-09-05 06:07] LABS: Glucose Point of Care 173 (65-105)
[2020-09-05] MEDS: LORazepam INJ (*CRX) 2 MG/ML VIAL IV PUSH (07:38)
[2020-09-05] MEDS: BUDESONIDE RESPULE NEB 0.5 MG/2 ML AMP 1 MG INHALATION ×2 (07:59→20:16)
[2020-09-05] MEDS: DORNASE ALFA INH SOLN 1 MG/ML 2.5 ML AMP 2.5 MG INHALATION ×2 (08:00→20:16)
[2020-09-05] MEDS: MIDAZOLAM 100MG/NS 100ML(*CRX) 100 MG/100 ML BAG IV CONT (08:16)
[2020-09-05] MEDS: PANTOPRAZOLE SODIUM IV 40 MG VIAL IV PUSH ×2 (08:19→21:26)
[2020-09-05] MEDS: polyethylene glycoL 3350 17 GM POWD.PACK PO (08:19)
[2020-09-05] MEDS: BISACODYL 10 MG SUPPOSITORY RECTAL (08:19)
[2020-09-05] MEDS: SILVERGEL (ELTA) 45 ML 1 APPLIC TOPICAL (08:20)
[2020-09-05 08:40] LABS: Glucose Point of Care 157 (65-105)
--- NOTE | 2020-09-05 08:57 | PM.IMPN ---
Progress Note: A&P Assessment and Plan (1) Shock: Code(s): R57.9 - Shock, unspecified Status: Acute Assessment and Plan: Possibly sepsis from PNA. Patient requiring Levophed again since 08/31. Currently at 11mcg/min. Wean as tolerated. Will be challenging for hemodialysis. Continue Cefepime and Vanco. Continue Levophed and wean to maintain map of greater than 65. (2) Acute respiratory failure with hypoxia and hypercapnia: Code(s): J96.01 - Acute respiratory failure with hypoxia; J96.02 - Acute respiratory failure with hypercapnia Status: Acute Assessment and Plan: The patient originally presented to urgent care with complaints of shortness of breath and was sent to the ED as he was hypoxic in the 70s on room air. He was placed on BiPAP but despite several adjustments, he continued to be hypercarbic with evidence of respiratory distress and ultimately intubated 08/21/20. COVID negative 08/21/20. Suspect COPD and CHF exacerbation. Did well and able to be extubated 08/27 but was tenuous and had left sided white out by CXR. Aggressive pulmonary toilet but ultimately needed to be re-intubated 08/31/20. Cefepime started 08/30 (Day 7); Vanco started 08/25 (now Day 12). Did have a left thoracentesis with 1L removed on 09/01. Continue supportive care. Wean MV once fluid status better. Plan to stop abx after today. Appreciate photocopy operator input. Trach being considered. (3) Congestive heart failure: Code(s): I50.9 - Heart failure, unspecified Status: Acute Assessment and Plan: CHF contributing to [place] [address]. Chest x-ray on admission showed cardiomegaly and pulmonary edema treated with IV diuretics but now stopped due to MARSHA. Echo showing small LV cavity, EF 70%, severe RVE with RVH and severe hypokinesis. Indeterminate diastolic function. Appears more right sided failure than left. Using HD now to control fluid status. (4) Atrial fibrillation with RVR: Code(s): I48.91 - Unspecified atrial fibrillation Status: Acute Assessment and Plan: No response with IV Metoprolol initially but Amiodarone converted him out of AFib. Currently not on any rate controlling agents. Remains on a heparin drip to prevent cardioembolic events. Cardiology following and recommends using amiodarone if AFib recurs. (5) COPD with acute exacerbation: Code(s): J44.1 - Chronic obstructive pulmonary disease with (acute) exacerbation Status: Acute Assessment and Plan: ABG noted. No wheezing. Continue Pulmicort Respules and Atrovent. Continue to monitor. (6) Elevated troponin: Code(s): R77.8 - Other specified abnormalities of plasma proteins Status: Acute Assessment and Plan: Troponin elevated to 0.046 but flat. EKG showed borderline findings with poor R-wave progression. Echo 08/22 showing EF 70% with severe RVE, RVH and severe RV hypokinesis. Most likely type 2 [place] and not a recent RV infarct; more likely related to demand ischemia and/or from his CKD. Brief run of NSVT. Mag 1.9 and Potassium 4.1. Will give Mag. Continue telemetry. (7) MARSHA (acute kidney injury): Code(s): N17.9 - Acute kidney failure, unspecified Status: Acute Assessment and Plan: Creatinine was 3.5 on admission and suspect this is his baseline. It remained stable in the 3 range until 08/30 before climbing to 6.8. UOP dropped off as well. Tunnelled HD catheter placed and HD started 09/02. Taking small amounts of fluid off given his HoTN. Appreciate GenSurg and Nephrology input. (8) Chronic kidney failure: Code(s): N18.9 - Chronic kidney disease, unspecified Status: Chronic Assessment and Plan: Creatinine was 2.1 in 2013. No other values to compare. Creatinine was 3.5 on admission and suspect this is his baseline. As above. (9) Essential hypertension: Code(s): I10 - Essential (
--- NOTE | 2020-09-05 09:03 | WPDINTPN ---
Progress Note: A&P Assessment and Plan (1) Acute respiratory failure with hypoxia and hypercapnia: Code(s): J96.01 - Acute respiratory failure with hypoxia; J96.02 - Acute respiratory failure with hypercapnia Status: Acute Assessment and Plan: Patient with acute respiratory failure likely related to COPD and CHF. Patient was intubated on 08/21/2020 -08/25/2020: Self Extubated -08/27/2020, complete whiteout on the left side likely secondary mucus plugging - 08/30-placed back on BiPAP overnight - 08/31 -reintubated for persistent hypercarbia and hypoxia and poor mental status 09/01 left thoracentesis with 1 L fluid removed 09/03 advance ET tube by 3 cm, increased respiratory rate to 30 09/04 -advance ET tube by 1 cm Sputum cultures growing MRSA, started vancomycin (initiated on 08/25/2020) Patient was also started on cefepime on 08/30 ABG and chest x-ray reviewed Continue vancomycin and cefepime through today which will complete a 7 day course of cefepime and 14 day course of vancomycin Patient started on hemodialysis to remove volume which will be continue He continues to be on on 60% FiO2 and 10 of PEEP. FiO2 temporarily increase this morning as patient was desat in due to dyssynchrony with the ventilator Patient is no where close to weaning and I expect patient will eventually need tracheostomy (2) Shock: Code(s): R57.9 - Shock, unspecified Status: Acute Assessment and Plan: Continue Levophed as needed Hold diuretics at this time Off 25% albumin now (3) COPD (chronic obstructive pulmonary disease): Code(s): J44.9 - Chronic obstructive pulmonary disease, unspecified Status: Acute Assessment and Plan: Sputum culture from 08/23/2020 growing MRSA, on vancomycin as above Bronchodilators (4) Acute CHF (congestive heart failure): Qualifiers: Heart failure type: unspecified Qualified Code(s): I50.9 - Heart failure, unspecified Code(s): I50.9 - Heart failure, unspecified Status: Acute Assessment and Plan: Congestive heart failure with preserved ejection fraction. Ejection fraction was approximately 70%. Diastolic dysfunction could not be assessed. He did have significant right ventricular hypertrophy and hypokinesis But pulmonary artery pressures could not be estimated. -worsening creatinine further, hold diuresis at this time Now on hemodialysis to remove fluid (5) Acute on chronic renal failure: Code(s): N17.9 - Acute kidney failure, unspecified; N18.9 - Chronic kidney disease, unspecified Status: Acute Assessment and Plan: Nephrology is following Patient was getting diuresed but now hypotensive. Hold diuresis at this point Urine output is poor and crit renal function is getting worse. Needs hemodialysis Discussed with Dr. Kramer. Tunnel dialysis catheter placed 3/3 Patient received hemodialysis yesterday again and 1 L of fluid was removed Electrolytes adequate at this time continue to monitor Continue to monitor renal function, electrolytes and urine output (6) Gastroesophageal reflux disease: Code(s): K21.9 - Gastro-esophageal reflux disease without esophagitis Status: Chronic Assessment and Plan: Protonix (7) Confusion: Code(s): R41.0 - Disorientation, unspecified Status: Acute Assessment and Plan: Secondary to delirium. Currently sedated (8) Atrial fibrillation with RVR: Code(s): I48.91 - Unspecified atrial fibrillation Status: Acute Assessment and Plan: Patient went to AFib RVR, new onset, likely related to respiratory distress and hypoxia Patient converted to sinus rhythm at this time Continue heparin infusion Additional Plan DVT prophylaxis: Heparin infusion Nutrition: Continue Reglan, continue tube feeds -stress ulcer prophylaxis Protonix Code status: Full code as per request from his family. Overall prognosis is poor due to multiorgan fail
[2020-09-05] MEDS: dexmedeTOMIDine 400 MCG/100 ML 400 MCG/100 ML BAG 33.57 MCG IV CONT (09:19)
[2020-09-05] MEDS: MAGNESIUM SULF 1 GM/D5W 100 ML 1 GM/100 ML BAG IVPB (10:50)
--- NOTE | 2020-09-05 11:13 | PM.PNNEP ---
Progress Note: A&P Assessment and Plan (1) MARSHA (acute kidney injury): Code(s): N17.9 - Acute kidney failure, unspecified Status: Acute Assessment and Plan: due to low blood pressure. He is back on pressors again. He will get hemodialysis today. This will come with careful ultrafiltration if any. Will monitor blood pressure during the treatment. (2) Chronic kidney failure: Code(s): N18.9 - Chronic kidney disease, unspecified Status: Chronic Assessment and Plan: unclear what baseline creatinine is but his creatinine was 2.1mg/dl back in 2013 suspect current baseline creatinine is likely higher CKD likely secondary to DM, HTN, and vascular disease (3) Acute respiratory failure with hypoxia and hypercapnia: Code(s): J96.01 - Acute respiratory failure with hypoxia; J96.02 - Acute respiratory failure with hypercapnia Status: Acute Assessment and Plan: due to a combination of COPD and CHF on ventilator now. FiO2 is 60% Still (4) Fluid overload, unspecified: Code(s): E87.70 - Fluid overload, unspecified Status: Acute Assessment and Plan: cardiac function seems to be pretty well except some pulmonary hypertension fluid removal as tolerated. Still Making a moderate amount of urine (5) Essential hypertension: Code(s): I10 - Essential (primary) hypertension Status: Chronic Assessment and Plan: He is on pressors now (6) Type 2 diabetes mellitus: Code(s): E11.9 - Type 2 diabetes mellitus without complications Status: Chronic Assessment and Plan: follow accu-cheks onsliding-scale insulin Subjective Date/time seen: 09/05/20 11:13 Interval history: Patient is on the ventilator and sedated he ended up not getting dry ultrafiltration yesterday because of emergencies making it such that he would not have treatment until midnight, so I asked them to delay till today. The patient looks stable. He is still on 60% FiO2. He is on pressors now. Exam Narrative: Exam Narrative: General: WD/WN male in NAD; on high flow oxygen mask Heart: normal S1 and S2; no rub or gallop Lungs: coarse And stable Abdomen: soft, nontender, nondistended, positive bowel sounds Extremities: 1+ edema Skin: chronic skin changes due to venous stasis Objective Data Vital Signs Vital Signs: Vital Signs - 24 hr 09/04/20 11:14 09/04/20 12:00 09/04/20 13:34 Temperature 36.3 C L Pulse Rate 96 79 79 Respiratory Rate 30 H 30 H Blood Pressure 95/57 L Pulse Oximetry 98 97 09/04/20 13:37 09/04/20 13:46 09/04/20 13:59 Temperature Pulse Rate 79 79 81 Respiratory Rate 30 H 30 H Blood Pressure Pulse Oximetry 98 09/04/20 14:00 09/04/20 15:19 09/04/20 16:00 Temperature 36.7 C Pulse Rate 85 91 84 Respiratory Rate 30 H 30 H Blood Pressure 92/56 L 87/49 L 94/58 L Pulse Oximetry 96 95 09/04/20 16:58 09/04/20 17:40 09/04/20 17:41 Temperature Pulse Rate 81 87 87 Respiratory Rate 30 H Blood Pressure 80/52 L Pulse Oximetry 95 09/04/20 18:00 09/04/20 19:51 09/04/20 20:00 Temperature 36.9 C Pulse Rate 86 93 96 Respiratory Rate 30 H 30 H 31 H Blood Pressure 86/53 L 72/48 L Pulse Oximetry 95 100 09/04/20 20:02 09/04/20 20:03 09/04/20 20:17 Temperature Pulse Rate 94 94 97 Respiratory Rate 32 H Blood Pressure 75/49 L Pulse Oximetry 97 09/04/20 21:31 09/04/20 21:32 09/04/20 22:00 Temperature Pulse Rate 97 97 91 Respiratory Rate 35 H 31 H Blood Pressure 135/65 121/63 Pulse Oximetry 92 09/04/20 22:13 09/04/20 22:44 09/04/20 23:11 Temperature Pulse Rate 91 86 87 Respiratory Rate Blood Pressure 121/63 88/50 L Pulse Oximetry 93 09/04/20 23:26 09/04/20 23:55 09/05/20 00:00 Temperature 36.8 C Pulse Rate 87 87 87 Respiratory Rate 30 H 30 H Blood Pressure 106/58 L 87/53 L Pulse Oximetry 92 0
[2020-09-05] MEDS: NOREPINEPHRINE 8 MG/D5W 250 ML 8 MG/250 ML BAG 20.63 MG IV CONT ×2 (12:05→12:06)
[2020-09-05 12:09] LABS: Glucose Point of Care 172 (65-105)
[2020-09-05] MEDS: dexmedeTOMIDine 400 MCG/100 ML 400 MCG/100 ML BAG 25.18 MCG IV CONT (12:09)
[2020-09-05] MEDS: HEPARIN SOD/D5W 100 UNITS/ML 25,000 UNITS/250 ML BAG 19 UNITS IV CONT (13:17)
[2020-09-05 15:26] LABS: Glucose Point of Care 153 (65-105)
[2020-09-05] MEDS: FENTANYL 2,500MCG/NS250ML(*CRX 2,500 MCG/250 ML BAG 17.5 MCG IV CONT (16:24)
[2020-09-05 20:34] LABS: Glucose Point of Care 149 (65-105)
[2020-09-05] MEDS: ATORVASTATIN 10 MG TABLET PO (21:26)
[2020-09-05 22:59] LABS: Vancomycin Random 16.1 ug/mL (10-20)
[2020-09-06] VITALS (42 sets, daily range): BP systolic 66–131; BP diastolic 41–73; PULSE 0–111; RESP 30; TEMP 37.1–38.3; O2SAT 92–99
[2020-09-06] MEDS: METOCLOPRAMIDE HCL 10 MG/10 ML SOLN UDC 5 MG PO ×2 (00:09→06:12)
[2020-09-06 00:23] LABS: Glucose Point of Care 170 (65-105)
[2020-09-06] MEDS: IPRATROPIUM BR 0.02% INH SOLN 0.5 MG/2.5 ML VIAL INHALATION ×4 (02:19→19:28)
[2020-09-06] MEDS: HEPARIN SOD/D5W 100 UNITS/ML 25,000 UNITS/250 ML BAG 19 UNITS IV CONT (02:47)
[2020-09-06] MEDS: NOREPINEPHRINE 8 MG/D5W 250 ML 8 MG/250 ML BAG 26.25 MG IV CONT ×2 (02:51→10:20)
[2020-09-06 04:33] LABS: Base Excess ABG 3.4 mEq/l (+/-2.0); Carboxyhemoglobin 0.3 % THb (0-2.0); Fractional Inspired Oxygen 70 %; HCO3 ABG 29.8 mEq/l (22.0-26.0); Methemoglobin ABG 0.4 %THb (0-1.5); Oxygen Content ABG 15.8 %vol (16.0-22.0); Oxygen Saturation ABG 95.7 % (95.0-100.0); Oxyhemoglobin 93.9 % THb (90.0-100.0); PO2 ABG 83.1 mmHg (80.0-100.0); PO2 FiO2 Ratio Arterial Blood 1.19 %; Reduced Hemoglobin 5.4 %THb (0-5.0); Total Hemoglobin 11.9 g/dL (12.0-18.0)
[2020-09-06 04:34] LABS: Device VENTILATOR; Modified Allen's Test Unable to perform; Site Drawn LEFT RADIAL
[2020-09-06 04:35] LABS: Arterial Blood Gas PEEP 10 cmH2O; Arterial Blood Gas Tidal Volume 480 ml; Arterial Blood Gas Vent Mode ASSIST CONTROL; Arterial Blood Gas Ventilator rate 30 /MIN
[2020-09-06 06:06] LABS: Hematocrit 35.7 % (42.0-52.0); Hemoglobin 10.8 g/dL (14.0-18.0); Mean Corpuscular HGB Conc 30.3 g/dl (32-36); Mean Corpuscular Hemoglobin 26.7 pg (26-34); Mean Corpuscular Volume 88.4 fl (80-100); Mean Platelet Volume 9.7 fl (7.4-10.4); Platelet Count Result 227 k/mm3 (150-375); Red Blood Count 4.04 M/mm3 (4.6-6.20); White Blood Count 11.1 K/mm3 (4.5-10.0)
[2020-09-06] MEDS: CENTRAL LINE FLUSH 10 ML IV PUSH ×4 (06:11→20:17)
[2020-09-06 06:17] LABS: Partial Thromboplastin Time 106.1 SECONDS (22.3-36.8)
[2020-09-06 06:28] LABS: Alanine Aminotransferase 29 U/L (4-50); Albumin Level 3.4 g/dL (3.5-5.1); Alkaline Phosphatase 86 U/L (38-126); Anion Gap 5 mmol/L (8-16); Aspartate Amino Transferase 35 U/L (17-59); Bilirubin,Total 0.6 mg/dL (0.2-1.3); Blood Urea Nitrogen 38 mg/dL (9-20); Calcium 8.5 mg/dL (8.4-10.2); Carbon Dioxide 36 mmol/L (22-30); Chloride 93 mmol/L (98-107); Estimated CRCL calculation 21 ml/min; Estimated Glomerular Filt Rate 15; Glucose 184 mg/dL (75-110); Magnesium 1.9 mg/dL (1.6-2.3); Phosphorus 3.8 mg/dL (2.5-4.5); Potassium 3.8 mmol/L (3.4-5.0); Sodium 134 mmol/L (137-145)
[2020-09-06 06:30] LABS: Glucose Point of Care 169 (65-105)
[2020-09-06] MEDS: FENTANYL 2,500MCG/NS250ML(*CRX 2,500 MCG/250 ML BAG 17.5 MCG IV CONT ×2 (07:18→22:02)
[2020-09-06] MEDS: BUDESONIDE RESPULE NEB 0.5 MG/2 ML AMP 1 MG INHALATION ×2 (08:00→19:28)
[2020-09-06] MEDS: DORNASE ALFA INH SOLN 1 MG/ML 2.5 ML AMP 2.5 MG INHALATION (08:00)
[2020-09-06 08:19] LABS: Glucose Point of Care 164 (65-105)
[2020-09-06] MEDS: SILVERGEL (ELTA) 45 ML 1 APPLIC TOPICAL (08:22)
[2020-09-06] MEDS: PANTOPRAZOLE SODIUM IV 40 MG VIAL IV PUSH ×2 (08:31→20:17)
[2020-09-06] MEDS: polyethylene glycoL 3350 17 GM POWD.PACK PO (08:32)
--- NOTE | 2020-09-06 08:42 | WPDINTPN ---
Progress Note: A&P Assessment and Plan (1) Acute respiratory failure with hypoxia and hypercapnia: Code(s): J96.01 - Acute respiratory failure with hypoxia; J96.02 - Acute respiratory failure with hypercapnia Status: Acute Assessment and Plan: Patient with acute respiratory failure likely related to COPD and CHF. Patient was intubated on 08/21/2020 -08/25/2020: Self Extubated -08/27/2020, complete whiteout on the left side likely secondary mucus plugging - 08/30-placed back on BiPAP overnight - 08/31 -reintubated for persistent hypercarbia and hypoxia and poor mental status 09/01 left thoracentesis with 1 L fluid removed 09/03 advance ET tube by 3 cm, increased respiratory rate to 30 09/04 -advance ET tube by 1 cm Sputum cultures growing MRSA, started vancomycin (initiated on 08/25/2020) Patient was also started on cefepime on 08/30 ABG and chest x-ray reviewed Completed 7 day course of cefepime and will complete 14 day course of vancomycin with tomorrow's dose Patient started on hemodialysis to remove volume which will be continue He continues to be on on 70% FiO2 and 10 of PEEP. (2) Shock: Code(s): R57.9 - Shock, unspecified Status: Acute Assessment and Plan: Continue Levophed as needed Will hold further dialysis at this time. Patient has RV failure and is likely sensitive to volume removal Will give 25% albumin (3) COPD (chronic obstructive pulmonary disease): Code(s): J44.9 - Chronic obstructive pulmonary disease, unspecified Status: Acute Assessment and Plan: Sputum culture from 08/23/2020 growing MRSA, on vancomycin as above Bronchodilators (4) Acute CHF (congestive heart failure): Qualifiers: Heart failure type: unspecified Qualified Code(s): I50.9 - Heart failure, unspecified Code(s): I50.9 - Heart failure, unspecified Status: Acute Assessment and Plan: Congestive heart failure with preserved ejection fraction. Ejection fraction was approximately 70%. Diastolic dysfunction could not be assessed. He did have significant right ventricular hypertrophy and hypokinesis But pulmonary artery pressures could not be estimated. -worsening creatinine further, hold diuresis at this time Now on hemodialysis to remove fluid (5) Acute on chronic renal failure: Code(s): N17.9 - Acute kidney failure, unspecified; N18.9 - Chronic kidney disease, unspecified Status: Acute Assessment and Plan: Nephrology is following Patient was getting diuresed but now hypotensive. Hold diuresis at this point Urine output is poor and crit renal function is getting worse. Needs hemodialysis Discussed with Dr. Kramer. Tunnel dialysis catheter placed 3/3 Patient received hemodialysis yesterday again and > 1 L of fluid was removed Electrolytes adequate at this time continue to monitor Continue to monitor renal function, electrolytes and urine output (6) Gastroesophageal reflux disease: Code(s): K21.9 - Gastro-esophageal reflux disease without esophagitis Status: Chronic Assessment and Plan: Protonix (7) Confusion: Code(s): R41.0 - Disorientation, unspecified Status: Acute Assessment and Plan: Secondary to delirium. Currently sedated (8) Atrial fibrillation with RVR: Code(s): I48.91 - Unspecified atrial fibrillation Status: Acute Assessment and Plan: Patient went to AFib RVR, new onset, likely related to respiratory distress and hypoxia Patient converted to sinus rhythm at this time Continue heparin infusion Additional Plan DVT prophylaxis: Heparin infusion Nutrition: Tube feeds were held again last night due to high residuals. I will increase Reglan and resume tube feeds at low rate today. May need post pyloric Dobbhoff -stress ulcer prophylaxis Protonix Code status: Full code as per request from his family. Overall prognosis is poor due to multiorgan failure and age Total
--- NOTE | 2020-09-06 11:36 | PM.PNNEP ---
Progress Note: A&P Assessment and Plan (1) MARSHA (acute kidney injury): Code(s): N17.9 - Acute kidney failure, unspecified Status: Acute Assessment and Plan: due to low blood pressure. He is On norepinephrine 18 mics. He will get hemodialysis Tomorrow. Discussed with . because of the right-sided heart failure, he might be volume sensitive. However chest x-ray does show still show infiltrates. Will remove fluid as tolerated, perhaps just when he gets to keep him even. (2) Chronic kidney failure: Code(s): N18.9 - Chronic kidney disease, unspecified Status: Chronic Assessment and Plan: unclear what baseline creatinine is but his creatinine was 2.1mg/dl back in 2013 suspect current baseline creatinine is likely higher CKD likely secondary to DM, HTN, and vascular disease (3) Acute respiratory failure with hypoxia and hypercapnia: Code(s): J96.01 - Acute respiratory failure with hypoxia; J96.02 - Acute respiratory failure with hypercapnia Status: Acute Assessment and Plan: due to a combination of COPD and CHF on ventilator now. FiO2 is up to 80% (4) Fluid overload, unspecified: Code(s): E87.70 - Fluid overload, unspecified Status: Acute Assessment and Plan: cardiac function seems to be pretty well except some pulmonary hypertension fluid removal as tolerated. Still Making a moderate amount of urine (5) Essential hypertension: Code(s): I10 - Essential (primary) hypertension Status: Chronic Assessment and Plan: He is on pressors now (6) Type 2 diabetes mellitus: Code(s): E11.9 - Type 2 diabetes mellitus without complications Status: Chronic Assessment and Plan: follow accu-cheks on sliding-scale insulin Subjective Date/time seen: 09/06/20 11:36 Interval history: Patient is on the ventilator and sedated he had dialysis yesterday. They removed about 1500cc. Unfortunately his blood pressure prevented removal of more. Exam Narrative: Exam Narrative: General: WD/WN male in NAD; on high flow oxygen mask Heart: normal S1 and S2; no rub or gallop Lungs: coarse and stable Abdomen: soft, nontender, nondistended, positive bowel sounds Extremities: 1+ edema Skin: chronic skin changes due to venous stasis Objective Data Vital Signs Vital Signs: Vital Signs - 24 hr 09/05/20 12:00 09/05/20 14:00 09/05/20 14:53 Temperature 36.4 C Pulse Rate 97 103 H 100 Respiratory Rate 30 H 30 H 31 H Blood Pressure 97/59 L 95/59 L Pulse Oximetry 95 94 09/05/20 14:56 09/05/20 15:01 09/05/20 15:19 Temperature Pulse Rate 101 H 101 H 103 H Respiratory Rate 31 H 32 H Blood Pressure Pulse Oximetry 95 09/05/20 15:45 09/05/20 15:50 09/05/20 16:00 Temperature 36.4 C Pulse Rate 101 H 101 H 103 H Respiratory Rate 10 L 32 H Blood Pressure 90/56 L 84/48 L 87/52 L Pulse Oximetry 98 97 09/05/20 16:15 09/05/20 16:24 09/05/20 16:30 Temperature Pulse Rate 101 H 103 H 104 H Respiratory Rate 32 H Blood Pressure 99/57 L 104/57 L Pulse Oximetry 09/05/20 16:45 09/05/20 17:00 09/05/20 17:15 Temperature Pulse Rate 102 H 102 H 106 H Respiratory Rate Blood Pressure 96/57 L 111/58 L 124/69 Pulse Oximetry 09/05/20 17:30 09/05/20 17:45 09/05/20 18:00 Temperature Pulse Rate 108 H 118 H 107 H Respiratory Rate 30 H Blood Pressure 139/68 162/78 H 168/96 H Pulse Oximetry 95 90 09/05/20 18:15 09/05/20 18:30 09/05/20 18:45 Temperature Pulse Rate 128 H 128 H 131 H Respiratory Rate Blood Pressure 155/78 H 163/73 H 145/80 H Pulse Oximetry 09/05/20 19:00 09/05/20 19:15 09/05/20 19:20 Temperature Pulse Rate 128 H 129 H 126 H Respiratory Rate Blood Pressure 155/73 H 142/70 H 146/73 H Pulse Oximetry 09/05/20 19:25 09/05/20 19:26 09/05/20 19:35 Temperature 36.4 C Pulse Rate 126 H 129
[2020-09-06 12:28] LABS: Glucose Point of Care 122 (65-105)
[2020-09-06] MEDS: ALBUMIN HUMAN 25% 25 GM/100 ML 100 ML IVPB ×2 (12:30→17:23)
[2020-09-06] MEDS: MIDAZOLAM 100MG/NS 100ML(*CRX) 100 MG/100 ML BAG IV CONT (12:30)
[2020-09-06] MEDS: METOCLOPRAMIDE HCL 10 MG/10 ML SOLN UDC PO ×2 (12:32→17:24)
[2020-09-06 12:42] LABS: Partial Thromboplastin Time 96.6 SECONDS (22.3-36.8)
--- NOTE | 2020-09-06 14:51 | PM.IMPN ---
Progress Note: A&P Assessment and Plan (1) Shock: Code(s): R57.9 - Shock, unspecified Status: Acute Assessment and Plan: Possibly sepsis from PNA. Also Hypotensive due to right sided failure and probably very fluid sensitive. Patient requiring Levophed again since 08/31. Wean Levophed as tolerated. Will be challenging for hemodialysis. Continue Vanco; completed Cefepime. Continue Levophed and wean to maintain map of greater than 65. (2) Acute respiratory failure with hypoxia and hypercapnia: Code(s): J96.01 - Acute respiratory failure with hypoxia; J96.02 - Acute respiratory failure with hypercapnia Status: Acute Assessment and Plan: The patient originally presented to urgent care with complaints of shortness of breath and was sent to the ED as he was hypoxic in the 70s on room air. He was placed on BiPAP but despite several adjustments, he continued to be hypercarbic with evidence of respiratory distress and ultimately intubated 08/21/20. COVID negative 08/21/20. Suspect COPD and CHF exacerbation +/- PNA. Did well and able to be extubated 08/27 but was tenuous and had left sided white out by CXR. Aggressive pulmonary toilet but ultimately needed to be re-intubated 08/31/20. Cefepime stopped 09/05/20 after 7 days; Vanco started 08/25 (now Day 13). Did have a left thoracentesis with 1L removed on 09/01. Continue supportive care. Wean MV once fluid status better. Appreciate undercar specialist input. Trach being considered. (3) Pneumonia: Code(s): J18.9 - Pneumonia, unspecified organism Status: Acute Assessment and Plan: Patient probably had PNA on admission contributing to his respiratory failure and shock. Complicated by his right sided heart failure. No BCx drawn. Sputum on 08/23/20 showing yeast and MRSA. Completed Cefepime x 7 days. Vanco started 06/24 with plans to complete 14 days. Wean vent as toelrated. Fevers noted; reculture if develops fever again. Check sputum cultures since patient has increased secretions. (4) Congestive heart failure: Code(s): I50.9 - Heart failure, unspecified Status: Acute Assessment and Plan: CHF contributing to [place] [address]. Chest x-ray on admission showed cardiomegaly and pulmonary edema treated with IV diuretics but now stopped due to MARSHA. Echo showing small LV cavity, EF 70%, severe RVE with RVH and severe hypokinesis. Indeterminate diastolic function. Appears more right sided failure than left. Using HD now to control fluid status. (5) Atrial fibrillation with RVR: Code(s): I48.91 - Unspecified atrial fibrillation Status: Acute Assessment and Plan: No response with IV Metoprolol initially but Amiodarone converted him out of AFib. Currently not on any rate controlling agents. Remains on a heparin drip to prevent cardioembolic events. Cardiology following and recommends using amiodarone if AFib recurs. (6) COPD with acute exacerbation: Code(s): J44.1 - Chronic obstructive pulmonary disease with (acute) exacerbation Status: Acute Assessment and Plan: ABG noted. No wheezing. Continue Pulmicort Respules and Atrovent. Continue to monitor. (7) Elevated troponin: Code(s): R77.8 - Other specified abnormalities of plasma proteins Status: Acute Assessment and Plan: Troponin elevated to 0.046 but flat. EKG showed borderline findings with poor R-wave progression. Echo 08/22 showing EF 70% with severe RVE, RVH and severe RV hypokinesis. Most likely type 2 [place] and not a recent RV infarct; more likely related to demand ischemia and/or from his CKD. Brief run of NSVT the other day but no recurrence. Monitor on tele. (8) MARSHA (acute kidney injury): Code(s): N17.9 - Acute kidney failure, unspecified Status: Acute Assessment and Plan: Creatinine was 3.5 on admission and suspect this is his baseline. It
[2020-09-06 16:06] LABS: Glucose Point of Care 127 (65-105)
[2020-09-06] MEDS: HEPARIN SOD/D5W 100 UNITS/ML 25,000 UNITS/250 ML BAG 17 UNITS IV CONT (17:22)
[2020-09-06] MEDS: ATORVASTATIN 10 MG TABLET PO (20:17)
[2020-09-06 20:19] LABS: Glucose Point of Care 138 (65-105)
[2020-09-07] VITALS (59 sets, daily range): BP systolic 91–157; BP diastolic 50–93; PULSE 84–146; RESP 30–32; TEMP 36.5–37.6; O2SAT 90–99
[2020-09-07 00:16] LABS: Glucose Point of Care 131 (65-105)
[2020-09-07] MEDS: ALBUMIN HUMAN 25% 25 GM/100 ML 100 ML IVPB (00:19)
[2020-09-07] MEDS: METOCLOPRAMIDE HCL 10 MG/10 ML SOLN UDC PO ×5 (00:19→23:45)
[2020-09-07] MEDS: IPRATROPIUM BR 0.02% INH SOLN 0.5 MG/2.5 ML VIAL INHALATION ×4 (02:02→19:11)
[2020-09-07] MEDS: NOREPINEPHRINE 8 MG/D5W 250 ML 8 MG/250 ML BAG 11.25 MG IV CONT (04:21)
[2020-09-07 04:34] LABS: Hematocrit 30.8 % (42.0-52.0); Hemoglobin 9.6 g/dL (14.0-18.0); Mean Corpuscular HGB Conc 31.2 g/dl (32-36); Mean Corpuscular Hemoglobin 27.5 pg (26-34); Mean Corpuscular Volume 88.3 fl (80-100); Platelet Count Result 196 k/mm3 (150-375); Red Blood Count 3.49 M/mm3 (4.6-6.20); Red Cell Distribution Width 17.2 % (11.5-14.5); White Blood Count 8.3 K/mm3 (4.5-10.0)
[2020-09-07 04:37] LABS: Glucose Point of Care 167 (65-105)
[2020-09-07 04:46] LABS: Alveolar/Arterial O2 Gradient 313.8 mmHg; Base Excess ABG 2.5 mEq/l (+/-2.0); Carboxyhemoglobin 0.1 % THb (0-2.0); Fractional Inspired Oxygen 60 %; HCO3 ABG 28.6 mEq/l (22.0-26.0); Methemoglobin ABG 0.4 %THb (0-1.5); Oxygen Content ABG 13.8 %vol (16.0-22.0); Oxyhemoglobin 87.3 % THb (90.0-100.0); PCO2 ABG 50.8 mmHg (35.0-45.0); PO2 ABG 58.1 mmHg (80.0-100.0); PO2 FiO2 Ratio Arterial Blood 0.97 %; Reduced Hemoglobin 12.2 %THb (0-5.0); Total Hemoglobin 11.2 g/dL (12.0-18.0); pH ABG 7.368 (7.350-7.450)
[2020-09-07 04:46] LABS: Partial Thromboplastin Time 74.8 SECONDS (22.3-36.8)
[2020-09-07 04:48] LABS: Device VENTILATOR; Modified Allen's Test Pass; Site Drawn RIGHT RADIAL
[2020-09-07 04:48] LABS: Alanine Aminotransferase 27 U/L (4-50); Albumin Level 3.5 g/dL (3.5-5.1); Alkaline Phosphatase 69 U/L (38-126); Anion Gap 9 mmol/L (8-16); Aspartate Amino Transferase 35 U/L (17-59); Bilirubin,Total 0.9 mg/dL (0.2-1.3); Blood Urea Nitrogen 52 mg/dL (9-20); Calcium 8.7 mg/dL (8.4-10.2); Carbon Dioxide 32 mmol/L (22-30); Chloride 91 mmol/L (98-107); Estimated CRCL calculation 16 ml/min; Estimated Glomerular Filt Rate 11; Glucose 176 mg/dL (75-110); Magnesium 1.8 mg/dL (1.6-2.3); Phosphorus 4.4 mg/dL (2.5-4.5); Potassium 3.9 mmol/L (3.4-5.0); Sodium 132 mmol/L (137-145)
[2020-09-07 04:49] LABS: Arterial Blood Gas PEEP 10 cmH2O; Arterial Blood Gas Tidal Volume 480 ml; Arterial Blood Gas Vent Mode CMV; Arterial Blood Gas Ventilator rate 30 /MIN
[2020-09-07] MEDS: BISACODYL 10 MG SUPPOSITORY RECTAL (05:15)
[2020-09-07] MEDS: CENTRAL LINE FLUSH 10 ML IV PUSH ×5 (05:15→20:11)
[2020-09-07] MEDS: BUDESONIDE RESPULE NEB 0.5 MG/2 ML AMP 1 MG INHALATION ×2 (07:36→19:11)
[2020-09-07] MEDS: HEPARIN SOD/D5W 100 UNITS/ML 25,000 UNITS/250 ML BAG 17 UNITS IV CONT ×2 (08:26→23:44)
[2020-09-07] MEDS: SILVERGEL (ELTA) 45 ML 1 APPLIC TOPICAL (08:31)
[2020-09-07] MEDS: polyethylene glycoL 3350 17 GM POWD.PACK PO (08:31)
[2020-09-07] MEDS: PANTOPRAZOLE SODIUM IV 40 MG VIAL IV PUSH ×2 (08:31→20:10)
[2020-09-07 08:42] LABS: Glucose Point of Care 150 (65-105)
--- NOTE | 2020-09-07 09:50 | PM.IMPN ---
Progress Note: A&P Assessment and Plan (1) Shock: Code(s): R57.9 - Shock, unspecified Status: Acute Assessment and Plan: Possibly sepsis from PNA. Also Hypotensive due to right sided failure and probably very fluid sensitive. Patient requiring Levophed again since 08/31. Wean Levophed as tolerated. Will be challenging for hemodialysis. Continue Vanco through today; completed Cefepime. Continue Levophed and wean to maintain map of greater than 65. (2) Acute respiratory failure with hypoxia and hypercapnia: Code(s): J96.01 - Acute respiratory failure with hypoxia; J96.02 - Acute respiratory failure with hypercapnia Status: Acute Assessment and Plan: The patient originally presented to urgent care with complaints of shortness of breath and was sent to the ED as he was hypoxic in the 70s on room air. He was placed on BiPAP but despite several adjustments, he continued to be hypercarbic with evidence of respiratory distress and ultimately intubated 08/21/20. COVID negative 08/21/20. Suspect COPD and CHF exacerbation +/- PNA. Did well and able to be extubated 08/27 but was tenuous and had left sided white out by CXR. Aggressive pulmonary toilet but ultimately needed to be re-intubated 08/31/20. Cefepime stopped 09/05/20 after 7 days; Vanco started 08/25 (now Day 14) and will end today. Did have a left thoracentesis with 1L removed on 09/01. CXR today reviewed showing more concerning for ARDS; consider COVID. Continue supportive care. Wean MV as he tolerates. Appreciate client server developer input; discussed. Trach being considered. (3) Pneumonia: Code(s): J18.9 - Pneumonia, unspecified organism Status: Acute Assessment and Plan: Patient probably had PNA on admission contributing to his respiratory failure and shock. Complicated by his right sided heart failure. No BCx drawn. Sputum on 08/23/20 showing yeast and MRSA. Completed Cefepime x 7 days. Vanco started 06/24 with plans to complete 14 days and ending today. Wean vent as tolerated. Fevers resolved; reculture if develops fever again. Check sputum cultures since patient has increased secretions. (4) Congestive heart failure: Code(s): I50.9 - Heart failure, unspecified Status: Acute Assessment and Plan: CHF contributing to [place] [address]. Chest x-ray on admission showed cardiomegaly and pulmonary edema treated with IV diuretics but now stopped due to MARSHA. Echo showing small LV cavity, EF 70%, severe RVE with RVH and severe hypokinesis. Indeterminate diastolic function. Appears more right sided failure than left. Using HD now to control fluid status. (5) Atrial fibrillation with RVR: Code(s): I48.91 - Unspecified atrial fibrillation Status: Acute Assessment and Plan: No response with IV Metoprolol initially but Amiodarone converted him out of AFib. Currently not on any rate controlling agents. Remains in NSR. Remains on a heparin drip to prevent cardioembolic events. Cardiology following and recommends using amiodarone if AFib recurs. Continue telemetry monitoring. (6) COPD with acute exacerbation: Code(s): J44.1 - Chronic obstructive pulmonary disease with (acute) exacerbation Status: Acute Assessment and Plan: ABG noted. No wheezing. Continue Pulmicort Respules and Atrovent. Continue to monitor. (7) Elevated troponin: Code(s): R77.8 - Other specified abnormalities of plasma proteins Status: Acute Assessment and Plan: Troponin elevated to 0.046 but flat. EKG showed borderline findings with poor R-wave progression. Echo 08/22 showing EF 70% with severe RVE, RVH and severe RV hypokinesis. Most likely type 2 [place] and not a recent RV infarct; more likely related to demand ischemia and/or from his CKD. Brief run of NSVT the other day but no recurrence. Monitor on tele. (8) MARSHA (acute kidney injury):
--- NOTE | 2020-09-07 11:26 | PCDIET ---
ICU Rounding Note: Patient had 600mL residual overnight. Nepro currently infusing at 20mL/hr. ordering obstructive series. Last recorded weight is 118kg which is increased from last review. +I/O. Bowel Motility: Last documented BM on 08/29/20. Dulcolax and Miralax given today. Labs Reviewed: Hgb (9.6), Hct (30.8), Glu (176), BUN (52), Cr (5.1), Na (132) Meds Noted: Miralax, Dulcolax, Lipitor, Pulmicort, Epogen, Versed, Atrovent, Xopenex, Reglan, Levophed, Vancomycin, Protonix Additional Notes: Right lower leg with arterial ulcer. Right neck incision open to air. Left elbow with skin tear. Following daily in ICU rounds. Assessing/reassessing every Monday/Monday.
--- NOTE | 2020-09-07 12:01 | WPDINTPN ---
Progress Note: A&P Assessment and Plan (1) Acute respiratory failure with hypoxia and hypercapnia: Code(s): J96.01 - Acute respiratory failure with hypoxia; J96.02 - Acute respiratory failure with hypercapnia Status: Acute Assessment and Plan: Patient with acute respiratory failure likely related to COPD and CHF. Patient was intubated on 08/21/2020 -08/25/2020: Self Extubated -08/27/2020, complete whiteout on the left side likely secondary mucus plugging - 08/31 -reintubated for persistent hypercarbia and hypoxia and poor mental status 3/ left thoracentesis with 1 L fluid removed Sputum cultures growing MRSA, status post vancomycin (14 days) and cefepime (7 days) ABG and chest x-ray reviewed, peep of 10 with increasing FiO2 requirement -on fentanyl and Versed for sedation -hemodialysis per Nephrology (2) Shock: Code(s): R57.9 - Shock, unspecified Status: Acute Assessment and Plan: Continue Levophed as needed - Patient with RV failure, volume overload on chest x-ray and sensitive to volume removal -status post albumin (3) COPD (chronic obstructive pulmonary disease): Code(s): J44.9 - Chronic obstructive pulmonary disease, unspecified Status: Acute Assessment and Plan: Sputum culture from 08/23/2020 growing MRSA, on vancomycin as above -repeat sputum cultures from 09/07/2019 pending -continue bronchodilator Bronchodilators (4) Acute CHF (congestive heart failure): Qualifiers: Heart failure type: unspecified Qualified Code(s): I50.9 - Heart failure, unspecified Code(s): I50.9 - Heart failure, unspecified Status: Acute Assessment and Plan: Congestive heart failure with preserved ejection fraction. Ejection fraction was approximately 70%. Diastolic dysfunction could not be assessed. He did have significant right ventricular hypertrophy and hypokinesis But pulmonary artery pressures could not be estimated. -worsening creatinine further, diuresis at this time, nephrology following the patient - Now on hemodialysis to remove fluid (5) Acute on chronic renal failure: Code(s): N17.9 - Acute kidney failure, unspecified; N18.9 - Chronic kidney disease, unspecified Status: Acute Assessment and Plan: Nephrology is following -diuresis was tried which helped patient for some time but continued to worsen his renal function, patient was more uremic - Tunnel dialysis catheter placed 3/3 -hemodialysis per urology -continue to monitor electrolytes, renal function (6) Gastroesophageal reflux disease: Code(s): K21.9 - Gastro-esophageal reflux disease without esophagitis Status: Chronic Assessment and Plan: Protonix (7) Atrial fibrillation with RVR: Code(s): I48.91 - Unspecified atrial fibrillation Status: Acute Assessment and Plan: Patient went to AFib RVR, new onset, likely related to respiratory distress and hypoxia Patient converted to sinus rhythm at this time Continue heparin infusion Additional Plan DVT prophylaxis: Heparin infusion Nutrition: Tube feeds were held again last night due to high residuals. Continue Reglan, patient on MiraLax and p.r.n. suppository. -stress ulcer prophylaxis Protonix Discussed with daughter Park, updated with patient's condition and plan of care. She is aware that patient has right heart failure, acute on chronic kidney disease requiring dialysis now, chest x-ray with worsening infiltrates requiring mechanical ventilation with increasing FiO2 requirements and high PEEP. I also touched on the topic of tracheostomy and PEG tube placement she personally said that he would not want this and she does not want him to get a trach and a PEG. She is going to discuss with the family and probably will have a family meeting with me to discuss further plan of care. I did discuss with her overall prognosis, which is poor due to multiorgan failure Code statu
[2020-09-07 12:08] LABS: Glucose Point of Care 152 (65-105)
[2020-09-07] MEDS: FENTANYL 2,500MCG/NS250ML(*CRX 2,500 MCG/250 ML BAG 17.5 MCG IV CONT (12:10)
[2020-09-07] MEDS: MIDAZOLAM 100MG/NS 100ML(*CRX) 100 MG/100 ML BAG IV CONT (12:12)
--- NOTE | 2020-09-07 15:37 | PM.PNNEP ---
Progress Note: A&P Assessment and Plan (1) MARSHA (acute kidney injury): Code(s): N17.9 - Acute kidney failure, unspecified Status: Acute Assessment and Plan: due to low blood pressure and necessity of diuretic therapy still requiring pressor support at this time HD + DUF today as tolerated; possible DUF tomorrow push fluid removal as tolerated (2) Chronic kidney failure: Code(s): N18.9 - Chronic kidney disease, unspecified Status: Chronic Assessment and Plan: unclear what baseline creatinine is but his creatinine was 2.1mg/dl back in 2013 suspect current baseline creatinine is likely higher CKD likely secondary to DM, HTN, and vascular disease (3) Acute respiratory failure with hypoxia and hypercapnia: Code(s): J96.01 - Acute respiratory failure with hypoxia; J96.02 - Acute respiratory failure with hypercapnia Status: Acute Assessment and Plan: due to a combination of COPD and CHF on ventilator now. wean as tolerated (4) Shock: Code(s): R57.9 - Shock, unspecified Status: Acute Assessment and Plan: on pressor support follow trend of hemodynamics (5) Fluid overload, unspecified: Code(s): E87.70 - Fluid overload, unspecified Status: Acute Assessment and Plan: cardiac function seems to be pretty well except some pulmonary hypertension fluid removal as tolerated. makin a moderate amount of urine (6) Type 2 diabetes mellitus: Code(s): E11.9 - Type 2 diabetes mellitus without complications Status: Chronic Assessment and Plan: follow accu-cheks on sliding-scale insulin Will continue to follow. Subjective Date/time seen: 09/07/20 15:37 Tolerating hemodialysis treatment at the time of my visit (seen on HD at 3:10PM); pressors titrated up a bit during dialysis treatment but otherwise no distress noted; no events overnight or earlier this AM; family not present at this time. Exam Narrative: Exam Narrative: General: WD/WN male in NAD;intubated Heart: normal S1 and S2; no rub Lungs: coarse and stable Abdomen: soft, nontender, nondistended, positive bowel sounds Extremities: 1+ edema Skin: chronic skin changes due to venous stasis Objective Data Vital Signs Vital Signs: Vital Signs Temp Pulse Resp BP Pulse Ox 09/07/20 14:56 86 95/53 L 09/07/20 14:10 92 30 H 09/07/20 14:01 91 93 09/07/20 14:00 87 30 H 114/57 L 92 09/07/20 13:59 90 30 H 09/07/20 12:12 90 30 H 09/07/20 12:10 90 30 H 09/07/20 12:00 37.2 C 90 30 H 109/59 L 93 09/07/20 11:59 89 109/59 L 09/07/20 11:21 89 30 H 93 09/07/20 11:17 92 91/50 L 09/07/20 10:52 93 92 09/07/20 10:01 95 95/50 L 09/07/20 10:00 95 30 H 95/50 L 90 09/07/20 09:59 96 09/07/20 08:34 93 110/57 L 09/07/20 08:00 37.4 C 92 30 H 105/54 L 92 09/07/20 07:49 92 30 H 09/07/20 07:41 93 94 09/07/20 07:37 92 30 H 09/07/20 06:00 91 30 H 91/50 L 91 09/07/20 05:53 92 30 H 09/07/20 04:38 98 93 09/07/20 04:00 37.4 C 92 30 H 145/72 H 95 09/07/20 03:13 98 97 09/07/20 02:06 104 H 95 09/07/20 02:03 103 H 30 H 09/07/20 02:00 102 H 30 H 91/56 L 95 09/07/20 00:00 37.0 C 105 H 30 H 99/52 L 93 09/06/20 23:18 100 92 09/06/20 22:02 99 30 H 09/06/20 22:00 97 30 H 96/53 L 97 09/06/20 20:00 37.3 C 99 30 H 98/52 L 97 09/06/20 19:38 99 30 H 09/06/20 19:33 99 97 09/06/20 19:29 95 30 H 09/06/20 18:00 92 30 H 96/51 L 98 09/06/20 17:32 93 95 09/06/20 16:00 37.1 C 99 30 H 99/52 L 96 Intake/Output Intake/Output: Intake & Output 09/04/20 09/05/20 09/06/20 09/07/20 23:59 23:59 23:59 23:59 Intake Total 4172 3186 2263 1246 Output Total 1275 1610 1045 30 Balance 2897 1576 1218 1216 Meds/Results Medications: Active Medications Ge
[2020-09-07 16:26] LABS: Glucose Point of Care 127 (65-105)
--- NOTE | 2020-09-07 18:26 | ECG_ITS ---
Measurements Intervals [place] Rate: 125 P: [place]: 0 QRS: 77 QRSD: 102 T: 27 QT: 308 QTc: 444 Interpretive Statements ATRIAL FIBRILLATION WITH RAPID VENTRICULAR RESPONSE BORDERLINE R WAVE PROGRESSION, ANTERIOR LEADS BORDERLINE ST-T WAVE ABNORMALITY- INFERIOR LEADS ABNORMAL ECG Electronically Signed On 09-07-2020 20:10:25 MELTER CLERK by Sergei Gonzalez D.O.
[2020-09-07] MEDS: AMIODARONE 150 MG/D5W 100 ML 150 MG/100 ML BAG 600 MG IV CONT (18:54)
[2020-09-07] MEDS: AMIODARONE 360 MG/D5W 200 ML 360 MG/200 ML BAG 33.33 MG IV CONT (18:55)
[2020-09-07] MEDS: ATORVASTATIN 10 MG TABLET PO (20:10)
[2020-09-07] MEDS: NOREPINEPHRINE 8 MG/D5W 250 ML 8 MG/250 ML BAG 22.5 MG IV CONT (20:11)
[2020-09-07 20:13] LABS: Glucose Point of Care 162 (65-105)
[2020-09-07] MEDS: PHARMACIST COMMUNICATION ORDER 1 EACH XX (22:11)
[2020-09-08] VITALS (65 sets, daily range): BP systolic 83–137; BP diastolic 51–73; PULSE 84–121; RESP 30–97; TEMP 35–38.1; O2SAT 30–100
[2020-09-08 00:03] LABS: Glucose Point of Care 170 (65-105)
[2020-09-08] MEDS: AMIODARONE 360 MG/D5W 200 ML 360 MG/200 ML BAG 33.33 MG IV CONT (00:32)
--- NOTE | 2020-09-08 01:06 | ECG_ITS ---
Measurements Intervals [place] Rate: 82 P: 10 MO: 145 QRS: 63 QRSD: 109 T: 29 QT: 390 QTc: 457 Interpretive Statements SINUS RHYTHM BORDERLINE R WAVE PROGRESSION, ANTERIOR LEADS BORDERLINE ST-T WAVE ABNORMALITY- INFERIOR LEADS BASELINE ARTIFACT- II, III, AVF BORDERLINE ECG Electronically Signed On 09-08-2020 7:14:57 CAREER SERVICES REPRESENTATIVE by Sergei Gonzalez D.O.
[2020-09-08] MEDS: IPRATROPIUM BR 0.02% INH SOLN 0.5 MG/2.5 ML VIAL INHALATION ×4 (02:18→19:45)
[2020-09-08] MEDS: FENTANYL 2,500MCG/NS250ML(*CRX 2,500 MCG/250 ML BAG 20 MCG IV CONT (02:23)
[2020-09-08 04:34] LABS: Hemoglobin 10.2 g/dL (14.0-18.0); Mean Corpuscular HGB Conc 30.9 g/dl (32-36); Mean Corpuscular Volume 87.3 fl (80-100); Mean Platelet Volume 10.5 fl (7.4-10.4); Platelet Count Result 253 k/mm3 (150-375); Red Blood Count 3.78 M/mm3 (4.6-6.20); Red Cell Distribution Width 17.1 % (11.5-14.5); White Blood Count 9.3 K/mm3 (4.5-10.0)
[2020-09-08 04:49] LABS: Alanine Aminotransferase 33 U/L (4-50); Albumin Level 3.5 g/dL (3.5-5.1); Alkaline Phosphatase 81 U/L (38-126); Anion Gap 9 mmol/L (8-16); Aspartate Amino Transferase 37 U/L (17-59); Bilirubin,Total 0.7 mg/dL (0.2-1.3); Blood Urea Nitrogen 46 mg/dL (9-20); Calcium 8.4 mg/dL (8.4-10.2); Carbon Dioxide 32 mmol/L (22-30); Chloride 92 mmol/L (98-107); Estimated CRCL calculation 16 ml/min; Estimated Glomerular Filt Rate 11; Glucose 202 mg/dL (75-110); Magnesium 1.8 mg/dL (1.6-2.3); Potassium 3.9 mmol/L (3.4-5.0); Sodium 133 mmol/L (137-145)
[2020-09-08 04:54] LABS: Partial Thromboplastin Time 75.8 SECONDS (22.3-36.8)
[2020-09-08] MEDS: INSULIN ASPART (*BKC) 100 UNITS/ML SUB-Q ×2 (04:56→16:12)
[2020-09-08] MEDS: METOCLOPRAMIDE HCL 10 MG/10 ML SOLN UDC PO ×3 (05:02→17:11)
[2020-09-08] MEDS: CENTRAL LINE FLUSH 10 ML IV PUSH ×6 (05:02→22:00)
[2020-09-08] MEDS: NOREPINEPHRINE 8 MG/D5W 250 ML 8 MG/250 ML BAG 18.75 MG IV CONT (05:03)
[2020-09-08 05:45] LABS: Alveolar/Arterial O2 Gradient 371.9 mmHg; Base Excess ABG 5.8 mEq/l (+/-2.0); Carboxyhemoglobin 0.3 % THb (0-2.0); Fractional Inspired Oxygen 70 %; HCO3 ABG 30.5 mEq/l (22.0-26.0); Methemoglobin ABG 0.4 %THb (0-1.5); Oxygen Content ABG 14.7 %vol (16.0-22.0); Oxygen Saturation ABG 96.1 % (95.0-100.0); Oxyhemoglobin 93.9 % THb (90.0-100.0); PCO2 ABG 44.8 mmHg (35.0-45.0); PO2 FiO2 Ratio Arterial Blood 1.13 %; Reduced Hemoglobin 5.4 %THb (0-5.0); Total Hemoglobin 11.1 g/dL (12.0-18.0); pH ABG 7.451 (7.350-7.450)
[2020-09-08 05:46] LABS: Device VENTILATOR; Modified Allen's Test Unable to perform; Site Drawn RIGHT RADIAL
[2020-09-08 05:49] LABS: Arterial Blood Gas PEEP 10 cmH2O; Arterial Blood Gas Tidal Volume 480 ml; Arterial Blood Gas Vent Mode CMV; Arterial Blood Gas Ventilator rate 30 /MIN
[2020-09-08 08:03] LABS: Glucose Point of Care 164 (65-105)
[2020-09-08] MEDS: SILVERGEL (ELTA) 45 ML 1 APPLIC TOPICAL (08:05)
[2020-09-08] MEDS: PANTOPRAZOLE SODIUM IV 40 MG VIAL IV PUSH ×2 (08:05→20:40)
[2020-09-08] MEDS: polyethylene glycoL 3350 17 GM POWD.PACK PO (08:05)
--- NOTE | 2020-09-08 08:29 | WPDINTPN ---
Progress Note: A&P Assessment and Plan (1) Acute respiratory failure with hypoxia and hypercapnia: Code(s): J96.01 - Acute respiratory failure with hypoxia; J96.02 - Acute respiratory failure with hypercapnia Status: Acute Assessment and Plan: Patient with acute respiratory failure likely related to COPD and CHF. Patient was intubated on 08/21/2020 -08/25/2020: Self Extubated -08/27/2020, complete whiteout on the left side likely secondary mucus plugging - 08/31 -reintubated for persistent hypercarbia and hypoxia and poor mental status - 09/01 left thoracentesis with 1 L fluid removed Sputum cultures growing MRSA, status post vancomycin (14 days) and cefepime (7 days) -cultures on 09/06 growing yeast ABG and chest x-ray reviewed, peep of 10 , weaning FiO2 -on fentanyl and Versed for sedation -hemodialysis per Nephrology (2) Shock: Code(s): R57.9 - Shock, unspecified Status: Acute Assessment and Plan: Continue Levophed as needed - Patient with RV failure, volume overload on chest x-ray and sensitive to volume removal -status post albumin Blood cx repeated on 09/08, as pt was febrile with a Tmax of 100.6 (3) COPD (chronic obstructive pulmonary disease): Code(s): J44.9 - Chronic obstructive pulmonary disease, unspecified Status: Acute Assessment and Plan: Sputum culture from 08/23/2020 growing MRSA, on vancomycin as above -repeat sputum cultures from 09/07/2019 pending -continue bronchodilator Bronchodilators (4) Acute CHF (congestive heart failure): Qualifiers: Heart failure type: unspecified Qualified Code(s): I50.9 - Heart failure, unspecified Code(s): I50.9 - Heart failure, unspecified Status: Acute Assessment and Plan: Congestive heart failure with preserved ejection fraction. Ejection fraction was approximately 70%. Diastolic dysfunction could not be assessed. He did have significant right ventricular hypertrophy and hypokinesis But pulmonary artery pressures could not be estimated. -worsening creatinine further, Hold diuresis at this time, nephrology following the patient - Now on hemodialysis to remove fluid (5) Acute on chronic renal failure: Code(s): N17.9 - Acute kidney failure, unspecified; N18.9 - Chronic kidney disease, unspecified Status: Acute Assessment and Plan: Nephrology is following -diuresis was tried which helped patient for some time but continued to worsen his renal function, patient was more uremic - Tunnel dialysis catheter placed 3/3 -hemodialysis per urology -continue to monitor electrolytes, renal function (6) Gastroesophageal reflux disease: Code(s): K21.9 - Gastro-esophageal reflux disease without esophagitis Status: Chronic Assessment and Plan: Protonix (7) Atrial fibrillation with RVR: Code(s): I48.91 - Unspecified atrial fibrillation Status: Acute Assessment and Plan: 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 -currently in sinus rhythm - Continue heparin infusion Additional Plan DVT prophylaxis: Heparin infusion Nutrition: Patient on tube feeds at 20 mL/hour and tolerating, will increase slow gradually to goal. Continue Reglan, patient on MiraLax and p.r.n. suppository. -stress ulcer prophylaxis Protonix Likely is a meeting with family members today on 09/08/202009/07:Discussed with daughter Park, updated with patient's condition and plan of care. She is aware that patient has right heart failure, acute on chronic kidney disease requiring dialysis now, chest x-ray with worsening infiltrates requiring mechanical ventilation with increasing FiO2 requirements and high PEEP. I also touched on the topic of tracheostomy and PEG tube placement she personally said that he would not want this and she does not want him t
[2020-09-08] MEDS: BUDESONIDE RESPULE NEB 0.5 MG/2 ML AMP 1 MG INHALATION ×2 (09:06→19:44)
--- NOTE | 2020-09-08 10:58 | PCDIET ---
Nutrition Follow-Up Complete: Nutrition Diagnosis: Inadequate oral intake related to oral intubation as evidenced by NPO status. Nutrition Goal: Patient to meet estimated nutritional needs. Goal in progress. MD order to increase Nepro to 30mL/hr - RN will check residual and possibly advance toward goal of 45mL/hr later today. New order for Pro-Stat (100kcal, 15g protein) BID obtained to ensure protein needs being met. Last recorded weight is 116.5 kg which is down from last review. Patient had 1.9L UF yesterday with plan for dialysis again today. Bowel Motility: Last BM on 09/07/20. Labs Reviewed: Hgb (10.2), Hct (33.0), Glu (202), BUN (46), Cr (5.0), Na (133), Alb (3.5) Meds Noted: Levophed, Protonix, Miralax, Atrovent, Xopenex, Lipitor, Dulcolax, Pulmicort, Epogen, Reglan, Versed Additional Notes: Residuals 160mL and below since last review. No change in skin reported; right leg with arterial ulcer and skin tears. Will continue to monitor with same goal. Nutrition Monitoring and Evaluation: Follow up every Monday/Monday. Follow daily in ICU rounds.
[2020-09-08] MEDS: AMIODARONE 360 MG/D5W 200 ML 360 MG/200 ML BAG 16.67 MG IV CONT (11:14)
[2020-09-08 11:21] LABS: Glucose Point of Care 187 (65-105)
--- NOTE | 2020-09-08 11:29 | PM.PNNEP ---
Progress Note: A&P Assessment and Plan (1) MARSHA (acute kidney injury): Code(s): N17.9 - Acute kidney failure, unspecified Status: Acute Assessment and Plan: due to low blood pressure and necessity of diuretic therapy still requiring pressor support at this time plan DUF today push fluid removal as tolerated (2) Chronic kidney failure: Code(s): N18.9 - Chronic kidney disease, unspecified Status: Chronic Assessment and Plan: unclear what baseline creatinine is but his creatinine was 2.1mg/dl back in 2013 suspect current baseline creatinine is likely higher CKD likely secondary to DM, HTN, and vascular disease (3) Acute respiratory failure with hypoxia and hypercapnia: Code(s): J96.01 - Acute respiratory failure with hypoxia; J96.02 - Acute respiratory failure with hypercapnia Status: Acute Assessment and Plan: due to a combination of COPD and CHF on ventilator now. wean as tolerated (4) Shock: Code(s): R57.9 - Shock, unspecified Status: Acute Assessment and Plan: on pressor support follow trend of hemodynamics (5) Fluid overload, unspecified: Code(s): E87.70 - Fluid overload, unspecified Status: Acute Assessment and Plan: cardiac function seems to be pretty well except some pulmonary hypertension fluid removal as tolerated. makin a moderate amount of urine (6) Type 2 diabetes mellitus: Code(s): E11.9 - Type 2 diabetes mellitus without complications Status: Chronic Assessment and Plan: follow accu-cheks on sliding-scale insulin Long and extensive discussion (> 20 minutes) with daughter at bedside today particularly since we making limited progress with fluid removal give his hemodynamics and significant inputs. Discussed case with Dr. Vanegas as well. Will continue to follow. Subjective Date/time seen: 09/08/20 11:30 Tolerated dialysis yesterday with about 2L fluid removal; remains intubated/sedated and on mechanical ventilation; no real change at this time aside from low grade fevers overnight; case discussed with daughter at bedside. Exam Narrative: Exam Narrative: General: WD/WN male in NAD;intubated Heart: normal S1 and S2; no rub Lungs: coarse breath sounds Abdomen: soft, nontender, nondistended, positive bowel sounds Extremities: no cyanosis but 1+ edema Skin: chronic skin changes due to venous stasis Objective Data Vital Signs Vital Signs: Vital Signs Temp Pulse Resp BP Pulse Ox 09/08/20 11:14 93 94/51 L 09/08/20 10:00 92 30 H 96/58 L 91 09/08/20 09:58 91 09/08/20 09:16 94 96/54 L 09/08/20 09:15 90 30 H 09/08/20 09:05 91 30 H 100 09/08/20 08:49 93 93/54 L 09/08/20 08:18 95 30 H 100 09/08/20 08:00 37.7 C H 96 30 H 102/59 L 100 09/08/20 06:04 95 30 H 09/08/20 06:00 95 30 H 125/69 100 09/08/20 05:51 91 100 09/08/20 04:00 37.3 C 91 30 H 137/64 99 09/08/20 02:30 85 100 09/08/20 02:23 86 30 H 09/08/20 02:00 37.0 C 93 30 H 113/73 93 09/08/20 00:33 83/52 L 09/08/20 00:00 38.1 C H 121 H 97 H 110/65 98 09/07/20 23:18 119 H 97 09/07/20 22:00 120 H 30 H 96/51 L 99 09/07/20 21:05 117 H 32 H 09/07/20 20:07 126 H 96/51 L 09/07/20 20:00 37.6 C 122 H 30 H 96/51 L 97 09/07/20 19:35 122 H 30 H 96 09/07/20 19:15 36.6 C 122 H 30 H 102/64 96 09/07/20 19:11 114 H 30 H 09/07/20 19:08 123 H 106/55 L 09/07/20 18:55 131 H 100/59 L 09/07/20 18:54 131 H 100/59 L 09/07/20 18:21 146 H 09/07/20 18:05 98 114/59 L 09/07/20 18:00 93 30 H 114/59 L 95 09/07/20 17:46 36.5 C 89 30 H 95/53 L 92 09/07/20 17:45 98 133/54 L 09/07/20 17:30 90 125/58 L 92 09/07/20 17:24 36.5 C 89 30 H 95/53 L 92 09/07/20 17:15 94 113/53 L 09/07/20 17:00 95 121/56 L 09/07/20 16:46
--- NOTE | 2020-09-08 11:55 | PM.IMPN ---
Progress Note: A&P Assessment and Plan (1) Shock: Code(s): R57.9 - Shock, unspecified Status: Acute Assessment and Plan: Possibly sepsis from PNA. Also hypotensive due to right sided failure and is probably very fluid sensitive. Patient requiring Levophed again since 08/31. Wean Levophed as tolerated. Will be challenging for hemodialysis. Completed Cefepime x7 days and Vanco x 14 days. Low grade fevers and BCx collected. Hold on resuming abx. Continue Levophed and wean to maintain map of greater than 65. (2) Acute respiratory failure with hypoxia and hypercapnia: Code(s): J96.01 - Acute respiratory failure with hypoxia; J96.02 - Acute respiratory failure with hypercapnia Status: Acute Assessment and Plan: The patient originally presented to urgent care with complaints of shortness of breath and was sent to the ED as he was hypoxic in the 70s on room air. He was placed on BiPAP but despite several adjustments, he continued to be hypercarbic with evidence of respiratory distress and ultimately intubated 08/21/20. COVID negative 08/21/20. Suspect COPD and CHF exacerbation +/- PNA. Did well and able to be extubated 08/27 but was tenuous and had left sided white out by CXR. Aggressive pulmonary toilet but ultimately needed to be re-intubated 08/31/20. Cefepime stopped 09/05/20 after 7 days; Vanco started 08/25 (now Day 14) and will end today. Did have a left thoracentesis with 1L removed on 09/01. CXR today reviewed showing more concerning for ARDS; consider COVID. Continue supportive care. Wean vent as he tolerates. Appreciate feed crusher operator input. Trach being considered. (3) Pneumonia: Code(s): J18.9 - Pneumonia, unspecified organism Status: Acute Assessment and Plan: Patient probably had PNA on admission contributing to his respiratory failure and shock. Complicated by his right sided heart failure. No BCx drawn. Sputum on 08/23/20 showing yeast and MRSA. Completed Cefepime x 7 days and Vanco x 14 days (ending 09/07/20). Wean vent as tolerated. Low grade fever last night and BCx collected. Will hold on abx and follow. Sputum culture growing yeast (4) Congestive heart failure: Code(s): I50.9 - Heart failure, unspecified Status: Acute Assessment and Plan: CHF contributing to [place] [id number]. Chest x-ray on admission showed cardiomegaly and pulmonary edema treated with IV diuretics but now stopped due to MARSHA. Echo showing small LV cavity, EF 70%, severe RVE with RVH and severe hypokinesis. Indeterminate diastolic function. Appears more right sided failure than left. Using HD now to control fluid status but only able to take off small amounts at a time. (5) Atrial fibrillation with RVR: Code(s): I48.91 - Unspecified atrial fibrillation Status: Acute Assessment and Plan: No response with IV Metoprolol initially but Amiodarone converted him out of AFib. Was not on any rate controlling agents. Remains on a heparin drip to prevent cardioembolic events. When back iin AFib last night but converted back to NSR with Amio. Remains on AMio drip for now. Continue telemetry monitoring. (6) COPD with acute exacerbation: Code(s): J44.1 - Chronic obstructive pulmonary disease with (acute) exacerbation Status: Acute Assessment and Plan: ABG noted. No wheezing. Continue Pulmicort Respules and Atrovent. Continue to monitor. (7) Elevated troponin: Code(s): R77.8 - Other specified abnormalities of plasma proteins Status: Acute Assessment and Plan: Troponin elevated to 0.046 but flat. EKG showed borderline findings with poor R-wave progression. Echo 08/22 showing EF 70% with severe RVE, RVH and severe RV hypokinesis. Most likely type 2 UT and not a recent RV infarct; more likely related to demand ischemia and/or from his CKD. Brief run of NSVT the other day but no recurrence.
[2020-09-08] MEDS: HEPARIN SOD/D5W 100 UNITS/ML 25,000 UNITS/250 ML BAG 17 UNITS IV CONT (12:52)
[2020-09-08] MEDS: ALBUMIN HUMAN 25% 12.5 GM/50ML 50 ML IVPB (15:21)
[2020-09-08] MEDS: FENTANYL 2,500MCG/NS250ML(*CRX 2,500 MCG/250 ML BAG 15 MCG IV CONT (15:30)
[2020-09-08 16:11] LABS: Glucose Point of Care 230 (65-105)
[2020-09-08] MEDS: NOREPINEPHRINE 8 MG/D5W 250 ML 8 MG/250 ML BAG 31.88 MG IV CONT (17:11)
[2020-09-08] MEDS: HEPARIN SODIUM 1,000 UNITS/ML VIAL 4000 UNITS (17:22)
[2020-09-08] MEDS: MIDAZOLAM 100MG/NS 100ML(*CRX) 100 MG/100 ML BAG IV CONT (20:26)
[2020-09-08] MEDS: ATORVASTATIN 10 MG TABLET PO (20:39)
[2020-09-08 22:20] LABS: Glucose Point of Care 180 (65-105)
[2020-09-09] VITALS (61 sets, daily range): BP systolic 93–148; BP diastolic 54–78; PULSE 84–140; RESP 18–30; TEMP 36.2–37.6; O2SAT 86–98
[2020-09-09] MEDS: CENTRAL LINE FLUSH 10 ML IV PUSH ×9 (00:04→22:02)
[2020-09-09] MEDS: METOCLOPRAMIDE HCL 10 MG/10 ML SOLN UDC PO ×4 (00:05→17:15)
[2020-09-09 00:18] LABS: Glucose Point of Care 176 (65-105)
[2020-09-09] MEDS: NOREPINEPHRINE 8 MG/D5W 250 ML 8 MG/250 ML BAG 31.88 MG IV CONT (01:09)
[2020-09-09] MEDS: IPRATROPIUM BR 0.02% INH SOLN 0.5 MG/2.5 ML VIAL INHALATION ×4 (02:10→20:34)
[2020-09-09] MEDS: HEPARIN SOD/D5W 100 UNITS/ML 25,000 UNITS/250 ML BAG 17 UNITS IV CONT (03:40)
--- NOTE | 2020-09-09 04:52 | ECG_ITS ---
Measurements Intervals [place] Rate: 110 P: [place]: 0 QRS: 87 QRSD: 100 T: 12 QT: 374 QTc: 507 Interpretive Statements ATRIAL FIBRILLATION WITH RAPID VENTRICULAR RESPONSE POOR R WAVE PROGRESSION, ANTERIOR LEADS ABNORMAL ECG Electronically Signed On 09-09-2020 7:01:01 GLASS BLOWING INSTRUCTOR by Sergei Gonzalez D.O.
[2020-09-09 04:54] LABS: Alveolar/Arterial O2 Gradient 239.3 mmHg; Carboxyhemoglobin 0.3 % THb (0-2.0); Device VENTILATOR; Fractional Inspired Oxygen 50 %; HCO3 ABG 28.3 mEq/l (22.0-26.0); Methemoglobin ABG 0.3 %THb (0-1.5); Modified Allen's Test Unable to perform; Oxygen Content ABG 14.1 %vol (16.0-22.0); Oxygen Saturation ABG 92.6 % (95.0-100.0); PCO2 ABG 46.5 mmHg (35.0-45.0); PO2 ABG 64.9 mmHg (80.0-100.0); Reduced Hemoglobin 9.4 %THb (0-5.0); Site Drawn RIGHT RADIAL; Total Hemoglobin 11.1 g/dL (12.0-18.0); pH ABG 7.402 (7.350-7.450)
[2020-09-09 04:55] LABS: Arterial Blood Gas PEEP 10 cmH2O; Arterial Blood Gas Tidal Volume 480 ml; Arterial Blood Gas Vent Mode CMV; Arterial Blood Gas Ventilator rate 30 /MIN
[2020-09-09 05:18] LABS: Glucose Point of Care 166 (65-105)
[2020-09-09 05:43] LABS: Hematocrit 32.1 % (42.0-52.0); Mean Corpuscular HGB Conc 31.2 g/dl (32-36); Mean Corpuscular Volume 86.8 fl (80-100); Mean Platelet Volume 10.1 fl (7.4-10.4); Platelet Count Result 285 k/mm3 (150-375); White Blood Count 10.2 K/mm3 (4.5-10.0)
[2020-09-09 05:51] LABS: Partial Thromboplastin Time 54.6 SECONDS (22.3-36.8)
[2020-09-09 06:08] LABS: Alanine Aminotransferase 43 U/L (4-50); Albumin Level 3.4 g/dL (3.5-5.1); Alkaline Phosphatase 82 U/L (38-126); Anion Gap 12 mmol/L (8-16); Aspartate Amino Transferase 50 U/L (17-59); Bilirubin,Total 0.7 mg/dL (0.2-1.3); Blood Urea Nitrogen 65 mg/dL (9-20); Calcium 8.4 mg/dL (8.4-10.2); Carbon Dioxide 30 mmol/L (22-30); Chloride 90 mmol/L (98-107); Estimated CRCL calculation 13 ml/min; Estimated Glomerular Filt Rate 9; Glucose 175 mg/dL (75-110); Magnesium 1.8 mg/dL (1.6-2.3); Potassium 3.8 mmol/L (3.4-5.0); Sodium 132 mmol/L (137-145)
[2020-09-09] MEDS: AMIODARONE 360 MG/D5W 200 ML 360 MG/200 ML BAG 33.33 MG IV CONT ×3 (07:00→18:43)
[2020-09-09 07:49] LABS: Glucose Point of Care 167 (65-105)
[2020-09-09] MEDS: BUDESONIDE RESPULE NEB 0.5 MG/2 ML AMP 1 MG INHALATION ×2 (08:19→20:34)
--- NOTE | 2020-09-09 08:46 | PM.PNCARD ---
Progress Note: A&P Assessment and Plan (1) Atrial fibrillation with RVR: Code(s): I48.91 - Unspecified atrial fibrillation Status: Acute Assessment and Plan: Will repeat amiodarone bolus with 150 mg IV x1 then start oral amiodarone 200 mg p.o. b.i.d. (2) Multifocal atrial tachycardia: Code(s): I47.1 - Supraventricular tachycardia Status: Acute Assessment and Plan: (3) MARSHA (acute kidney injury): Code(s): N17.9 - Acute kidney failure, unspecified Status: Acute Assessment and Plan: Patient had what dialysis done on September 02 with remover 1 L and plan t today for another dialysis (4) Acute CHF (congestive heart failure): Qualifiers: Heart failure type: unspecified Qualified Code(s): I50.9 - Heart failure, unspecified Code(s): I50.9 - Heart failure, unspecified Status: Acute Assessment and Plan: Heart failure with preserved ejection fraction, EF 70%. Optimize volume status via dialysis (5) Acute respiratory failure with hypoxia and hypercapnia: Code(s): J96.01 - Acute respiratory failure with hypoxia; J96.02 - Acute respiratory failure with hypercapnia Status: Acute Assessment and Plan: Reintubated 08/31/2020. (6) COPD with acute exacerbation: Code(s): J44.1 - Chronic obstructive pulmonary disease with (acute) exacerbation Status: Acute Assessment and Plan: Treatment of respiratory failure and pneumonia Per primary service. Bronchodilator therapy, Pulmozyme. (7) Pulsatile abdominal mass: Code(s): R19.00 - Intra-abdominal and pelvic swelling, mass and lump, unspecified site Status: Acute Assessment and Plan: Abdominal ultrasound shows no aortic aneurysm Subjective Date/time seen: 09/09/20 08:46 Interval history: 70yo male with COPD, DM, HTN and CKD here for SOB and developed respiratory failure. Intubated and sedated. Still requiring Levophed at 9mcg/min. Increased to 70% FiO2 and on 10 PEEP. Tolerated TF at 20mL/hr Date of service 09/09/2020: In and out of atrial fibrillation and currently back in AFib at this point. Minimally responsive Review of Systems Review of Systems: All systems reviewed & are unremarkable except as noted in HPI and below ROS unobtainable: Yes unobtainable due to endotracheal tube Eyes: Eyes: Reports as per HPI and Reports no additional eye complaints Cardiovascular: Cardiovascular: Reports chest pain, Reports diaphoresis, Reports palpitations and Reports dyspnea Respiratory: Respiratory: Reports as per HPI, Reports no additional respiratory complaints, Reports cough and Reports dyspnea Gastrointestinal: Gastrointestinal: Reports hematochezia, Reports nausea and Reports vomiting Genitourinary: Genitourinary: Reports no additional male genitourinary complaints and Reports as per HPI Musculoskeletal: Musculoskeletal: Reports no additional musculoskeletal complaints and Reports as per HPI Integumentary/Breasts: Skin/Breast: Reports system reviewed and no additional complaints, except as docu and Reports as per HPI Psychiatric: Psychiatric: Reports no additional psychiatric complaints and Reports as per HPI Endocrine: Endocrine: Reports no additional endocrine complaints, Reports as per HPI and Reports palpitations Hematologic/Lymphatic: Hematologic/Lymphatic: Reports no additional hematologic/lymphatic complaints and Reports as per HPI Allergic/Immunologic: Allergic/Immunologic: Reports no additional allergic/immunologic complaints and Reports as per HPI Exam Narrative: Exam Narrative: Older male who appears quite ill in the unit on multiple drips, ventilator, sedated Const: General: comfortable and no acute distress Other: Elderly white male intubated sedated on the
[2020-09-09] MEDS: FENTANYL 2,500MCG/NS250ML(*CRX 2,500 MCG/250 ML BAG 15 MCG IV CONT (09:17)
[2020-09-09] MEDS: AMIODARONE 150 MG/D5W 100 ML 150 MG/100 ML BAG 600 MG IV CONT (09:19)
[2020-09-09] MEDS: polyethylene glycoL 3350 17 GM POWD.PACK PO (09:24)
[2020-09-09] MEDS: PANTOPRAZOLE SODIUM IV 40 MG VIAL IV PUSH ×2 (09:25→20:27)
--- NOTE | 2020-09-09 09:38 | WPDINTPN ---
Progress Note: A&P Assessment and Plan (1) Acute respiratory failure with hypoxia and hypercapnia: Code(s): J96.01 - Acute respiratory failure with hypoxia; J96.02 - Acute respiratory failure with hypercapnia Status: Acute Assessment and Plan: Patient with acute respiratory failure likely related to COPD and CHF. Patient was intubated on 08/21/2020 -08/25/2020: Self Extubated -08/27/2020, complete whiteout on the left side likely secondary mucus plugging - 08/31 -reintubated for persistent hypercarbia and hypoxia and poor mental status - 3/ left thoracentesis with 1 L fluid removed Sputum cultures growing MRSA, status post vancomycin (14 days) and cefepime (7 days) -cultures on 09/06 growing yeast ABG and chest x-ray reviewed, peep of 10 , weaning FiO2 -on fentanyl and Versed for sedation -hemodialysis per Nephrology (2) Shock: Code(s): R57.9 - Shock, unspecified Status: Acute Assessment and Plan: Continue Levophed as needed - Patient with RV failure, volume overload on chest x-ray and sensitive to volume removal -status post albumin - Blood cx repeated on 09/08, as pt was febrile with a Tmax of 100.6 -left mid thigh PICC line tip in the common iliac vein, coiled proximally overlying the inguinal region. Have held heparin, will place left IJ central line and remove the PICC line along with the left femoral central line (3) COPD (chronic obstructive pulmonary disease): Code(s): J44.9 - Chronic obstructive pulmonary disease, unspecified Status: Acute Assessment and Plan: Sputum culture from 08/23/2020 growing MRSA, on vancomycin as above -repeat sputum cultures from 09/07/2019 pending -continue bronchodilator Bronchodilators (4) Acute CHF (congestive heart failure): Qualifiers: Heart failure type: unspecified Qualified Code(s): I50.9 - Heart failure, unspecified Code(s): I50.9 - Heart failure, unspecified Status: Acute Assessment and Plan: Congestive heart failure with preserved ejection fraction. Ejection fraction was approximately 70%. Diastolic dysfunction could not be assessed. He did have significant right ventricular hypertrophy and hypokinesis But pulmonary artery pressures could not be estimated. -worsening creatinine further, Hold diuresis at this time, nephrology following the patient - Now on hemodialysis for fluid removed (5) Acute on chronic renal failure: Code(s): N17.9 - Acute kidney failure, unspecified; N18.9 - Chronic kidney disease, unspecified Status: Acute Assessment and Plan: Nephrology is following -diuresis was tried which helped patient for some time but continued to worsen his renal function, patient was more uremic - Tunnel dialysis catheter placed 3/3 -hemodialysis per urology -continue to monitor electrolytes, renal function (6) Gastroesophageal reflux disease: Code(s): K21.9 - Gastro-esophageal reflux disease without esophagitis Status: Chronic Assessment and Plan: Protonix (7) Atrial fibrillation with RVR: Code(s): I48.91 - Unspecified atrial fibrillation Status: Acute Assessment and Plan: Patient went to AFib RVR hospital clinic assistant again on 09/08/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 -patient in AFib RVR, discussed with Cardiology, will give additional amiodarone bolus and start him on p.o. amiodarone. - Continue heparin infusion Additional Plan DVT prophylaxis: Heparin infusion Nutrition: Patient on tube feeds at 20 mL/hour and tolerating, will increase slow gradually to goal. Continue Reglan, patient on MiraLax and p.r.n. suppository. -stress ulcer prophylaxis Protonix 09/08/2020: I met with tracey Nick and Lyric in the conference room along with care coordination pastoral care and bedside RN. We discussed at length regarding his right heart failure, COPD, acute on c
[2020-09-09] MEDS: AMIODARONE HCL 200 MG TABLET PO (09:45)
[2020-09-09] MEDS: NOREPINEPHRINE 8 MG/D5W 250 ML 8 MG/250 ML BAG 28.13 MG IV CONT ×2 (10:39→18:45)
--- NOTE | 2020-09-09 11:19 | PCDIET ---
ICU Rounding Note: Patient tolerating Nepro at 45mL/hr with 30mL water flush every 4 hours. MD order to hold Pro-Stat due to fluid content and potential for constipation. Last recorded weight is 115.9kg which is down from last review. -I/O. Patient had 2.8L UF on 09/08/20 with plan for dialysis again today. Bowel Motility: Last BM on 09/07/20. Labs Reviewed: Hgb (10.0), Hct (32.1), Glu (175), BUN (65), Cr (6.1), Na (132), Alb (3.4) Meds Noted: Lipitor, Pulmicort, Fentanyl, Atrovent, Xopenex, Reglan, Versed, Levophed, Protonix, Miralax, Dulcolax Additional Notes: No change in skin reported. Following daily in ICU rounds. Assessing/reassessing every Monday/Monday.
[2020-09-09] MEDS: EPOETIN ALFA-EPBX 10,000 UNITS/ML VIAL 10000 UNITS IV PUSH (11:27)
--- NOTE | 2020-09-09 12:19 | P.PCNBED_ITS ---
Procedures Central Line Placement Left IJ: Central Line Date: 09/09/20 Central Line Time: 12:05 Discussed w/ the patient/family/POA,the placement of a central venous catheter, including its clinical necessity/indication & associated potential risks, benifits and alternatives.: Yes The patient/family/POA understand(s) and acknowledge(s) the need to proceed with central venous catheter insertion as an important element of the patient's clinical management.: Yes Time Out Performed: Yes Patient Position: trendelenburg Patient placed on monitor/pulse ox: Yes Provider Prep: mask, sterile gown, sterile gloves, Max. sterile barrier precautions, cap and hand hygiene with conventional soap/water or alcohol based hand rub Central line prep: 2% Chlorhexidine scrub and sterile full body sheet applied Local anesthesia used: lidocaine 1% Amount of anesthesia used (ml): 3 Sterile US Technique with sterile gel/sterile probe covers: Yes Central line lumen inserted: triple [place]: 12 Length (cm): 16 Depth of Insertion (cm): 16 Post Procedure: sutured in place, good blood return, all ports aspirated, flushed, capped, transparent dressing, hemostatic product, antimicrobial product, securement product and aseptic technique maintained throughout procedure Post procedure x-ray: tip of catheter in good position and no pneumothorax seen Patient tolerated procedure: well Complications: none
--- NOTE | 2020-09-09 12:19 | PM.PNNEP ---
Progress Note: A&P Assessment and Plan (1) MARSHA (acute kidney injury): Code(s): N17.9 - Acute kidney failure, unspecified Status: Acute Assessment and Plan: due to low blood pressure and necessity of diuretic therapy still requiring pressor support at this time plan DUF today push fluid removal as tolerated (2) Chronic kidney failure: Code(s): N18.9 - Chronic kidney disease, unspecified Status: Chronic Assessment and Plan: unclear what baseline creatinine is but his creatinine was 2.1mg/dl back in 2013 suspect current baseline creatinine is likely higher CKD likely secondary to DM, HTN, and vascular disease (3) Acute respiratory failure with hypoxia and hypercapnia: Code(s): J96.01 - Acute respiratory failure with hypoxia; J96.02 - Acute respiratory failure with hypercapnia Status: Acute Assessment and Plan: due to a combination of COPD and CHF on ventilator now. wean as tolerated (4) Shock: Code(s): R57.9 - Shock, unspecified Status: Acute Assessment and Plan: on pressor support follow trend of hemodynamics (5) Fluid overload, unspecified: Code(s): E87.70 - Fluid overload, unspecified Status: Acute Assessment and Plan: cardiac function seems to be pretty well except some pulmonary hypertension fluid removal as tolerated. makin a moderate amount of urine (6) Type 2 diabetes mellitus: Code(s): E11.9 - Type 2 diabetes mellitus without complications Status: Chronic Assessment and Plan: follow accu-cheks on sliding-scale insulin Will continue to follow. Subjective Date/time seen: 09/09/20 12:19 Tolerated dry ultrafiltration yesterday with ~ 2800cc fluid removal; tolerating dialysis at the time of my visit but fluid removal more difficult today; in/out afib and remains on full ventilatory support as well as pressor therapy to maintain his MAP. Exam Narrative: Exam Narrative: General: WD/WN male in NAD;intubated Heart: normal S1 and S2; no rub Lungs: coarse breath sounds Abdomen: soft, nontender, nondistended, positive bowel sounds Extremities: no cyanosis; 1+ edema Skin: venous stasis changes noted Objective Data Vital Signs Vital Signs: Vital Signs Temp Pulse Resp BP Pulse Ox 09/09/20 12:15 123 H 106/67 09/09/20 12:11 98 09/09/20 12:00 127 H 101/57 L 09/09/20 11:45 127 H 103/78 09/09/20 11:30 138 H 108/68 09/09/20 11:15 140 H 113/67 09/09/20 11:00 132 H 109/70 09/09/20 10:50 112 H 130/66 09/09/20 10:40 36.3 C L 122 H 18 108/63 93 09/09/20 10:39 117 H 108/68 09/09/20 10:00 124 H 30 H 109/68 92 09/09/20 09:45 123 H 09/09/20 09:19 128 H 118/73 09/09/20 09:17 115 H 30 H 09/09/20 09:00 135 H 108/68 09/09/20 08:29 115 H 30 H 09/09/20 08:19 118 H 30 H 86 L 09/09/20 08:00 37.6 C H 120 H 30 H 97/61 L 90 09/09/20 07:52 90 09/09/20 06:05 116 H 30 H 09/09/20 06:03 114 H 30 H 09/09/20 06:00 37.4 C 116 H 30 H 96/54 L 94 09/09/20 04:39 116 H 92 09/09/20 04:33 94/60 L 09/09/20 04:00 36.2 C L 91 30 H 148/75 H 94 09/09/20 03:00 88 132/67 09/09/20 02:45 89 126/68 09/09/20 02:16 88 30 H 09/09/20 02:13 91 93 09/09/20 02:10 87 30 H 09/09/20 02:00 87 30 H 123/67 93 09/09/20 01:09 88 117/67 09/09/20 01:02 88 117/67 09/09/20 00:00 84 30 H 116/64 94 09/08/20 23:38 84 113/67 09/08/20 22:38 84 95 09/08/20 22:00 36.9 C 86 30 H 104/60 98 09/08/20 20:26 86 30 H 09/08/20 20:03 86 30 H 09/08/20 20:00 36.9 C 85 30 H 113/59 L 100 09/08/20 19:51 85 100 09/08/20 19:45 85 30 H 09/08/20 18:00 85 30 H 92/55 L 100 09/08/20 17:59 85 09/08/20 17:30 93 100 09/08/20 17:11 84 92/62 L 09/08/20 17:10 36.9 C 84 30 H 92/
[2020-09-09] MEDS: MIDODRINE HCL 10 MG TABLET PO ×2 (12:42→17:15)
[2020-09-09 12:54] LABS: Glucose Point of Care 180 (65-105)
[2020-09-09 16:10] LABS: Glucose Point of Care 230 (65-105)
--- NOTE | 2020-09-09 16:36 | PM.IMPN ---
Progress Note: A&P Assessment and Plan (1) Shock: Code(s): R57.9 - Shock, unspecified Status: Acute Assessment and Plan: Possibly sepsis from PNA. Also hypotensive due to right sided failure and is probably very fluid sensitive. Patient requiring Levophed again since 08/31. Wean Levophed as tolerated. Will be challenging for hemodialysis. Completed Cefepime x7 days and Vanco x 14 days. Low grade fevers and BCx collected. Hold on resuming abx. Continue Levophed and wean to maintain map of greater than 65. ICU team managing. (2) Acute respiratory failure with hypoxia and hypercapnia: Code(s): J96.01 - Acute respiratory failure with hypoxia; J96.02 - Acute respiratory failure with hypercapnia Status: Acute Assessment and Plan: The patient originally presented to urgent care with complaints of shortness of breath and was sent to the ED as he was hypoxic in the 70s on room air. He was placed on BiPAP but despite several adjustments, he continued to be hypercarbic with evidence of respiratory distress and ultimately intubated 08/21/20. COVID negative 08/21/20. Suspect COPD and CHF exacerbation +/- PNA. Did well and able to be extubated 08/27 but was tenuous and had left sided white out by CXR. Aggressive pulmonary toilet but ultimately needed to be re-intubated 08/31/20. Cefepime stopped 09/05/20 after 7 days; Vanco started 08/25 (now Day 14) and will end today. Did have a left thoracentesis with 1L removed on 09/01. CXR today reviewed showing more concerning for ARDS; consider COVID. Continue supportive care. Wean vent as he tolerates. 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 Trach being considered. (3) Pneumonia: Code(s): J18.9 - Pneumonia, unspecified organism Status: Acute Assessment and Plan: Patient probably had PNA on admission contributing to his respiratory failure and shock. Complicated by his right sided heart failure. No BCx drawn. Sputum on 08/23/20 showing yeast and MRSA. Completed Cefepime x 7 days and Vanco x 14 days (ending 09/07/20). Wean vent as tolerated. Low grade fever last night and BCx collected. Will hold on abx and follow. Sputum culture growing yeast (4) Congestive heart failure: Code(s): I50.9 - Heart failure, unspecified Status: Acute Assessment and Plan: CHF contributing to [place] [address]. Chest x-ray on admission showed cardiomegaly and pulmonary edema treated with IV diuretics but now stopped due to MARSHA. Echo showing small LV cavity, EF 70%, severe RVE with RVH and severe hypokinesis. Indeterminate diastolic function. Appears more right sided failure than left. Using HD now to control fluid status but only able to take off small amounts at a time. (5) Atrial fibrillation with RVR: Code(s): I48.91 - Unspecified atrial fibrillation Status: Acute Assessment and Plan: No response with IV Metoprolol initially but Amiodarone converted him out of AFib. Was not on any rate controlling agents. Remains on a heparin drip to prevent cardioembolic events. When back iin AFib last night but converted back to NSR with Amio. Remains on AMio drip for now. Continue telemetry monitoring. (6) COPD with acute exacerbation: Code(s): J44.1 - Chronic obstructive pulmonary disease with (acute) exacerbation Status: Acute Assessment and Plan: ABG noted. No wheezing. Continue Pulmicort Respules and Atrovent. Continue to monitor. (7) Elevated troponin: Code(s): R77.8 - Other specified abnormalities of plasma proteins Status: Acute Assessment and Plan: Troponin elevated to 0.046 but flat. EKG showed borderline findings with poor R-wave progression. Echo 08/22 showing EF 70% with severe RVE, RVH and severe RV hypokinesis. Most likely type 2 MN and not a recent RV infarct; more likely related to demand ischemia and/or from his CKD. Brief run of NSVT the other day b
[2020-09-09] MEDS: INSULIN ASPART (*BKC) 100 UNITS/ML SUB-Q (16:37)
[2020-09-09] MEDS: SILVERGEL (ELTA) 45 ML 1 APPLIC TOPICAL (16:38)
[2020-09-09] MEDS: ATORVASTATIN 10 MG TABLET PO (20:27)
[2020-09-09 21:02] LABS: Glucose Point of Care 182 (65-105)
[2020-09-09 21:31] LABS: Partial Thromboplastin Time 69.5 SECONDS (22.3-36.8)
[2020-09-09] MEDS: HEPARIN SODIUM 5,000 UNITS/ML VIAL 3500 UNITS IV PUSH (21:56)
[2020-09-10] VITALS (44 sets, daily range): BP systolic 98–143; BP diastolic 44–64; PULSE 76–93; RESP 30–91; TEMP 36.1–37.1; O2SAT 89–94
[2020-09-10] MEDS: METOCLOPRAMIDE HCL 10 MG/10 ML SOLN UDC PO ×4 (00:10→17:53)
[2020-09-10 00:18] LABS: Glucose Point of Care 189 (65-105)
[2020-09-10] MEDS: AMIODARONE 360 MG/D5W 200 ML 360 MG/200 ML BAG 33.33 MG IV CONT ×2 (01:35→07:48)
[2020-09-10] MEDS: IPRATROPIUM BR 0.02% INH SOLN 0.5 MG/2.5 ML VIAL INHALATION ×4 (02:10→20:01)
[2020-09-10] MEDS: HEPARIN SOD/D5W 100 UNITS/ML 25,000 UNITS/250 ML BAG 19 UNITS IV CONT ×2 (03:53→16:37)
[2020-09-10 03:54] LABS: Hematocrit 31.1 % (42.0-52.0); Hemoglobin 9.9 g/dL (14.0-18.0); Mean Corpuscular HGB Conc 31.8 g/dl (32-36); Mean Corpuscular Hemoglobin 27.3 pg (26-34); Mean Corpuscular Volume 85.7 fl (80-100); Mean Platelet Volume 9.8 fl (7.4-10.4); Platelet Count Result 256 k/mm3 (150-375); Red Blood Count 3.63 M/mm3 (4.6-6.20); Red Cell Distribution Width 17.2 % (11.5-14.5); White Blood Count 10.5 K/mm3 (4.5-10.0)
[2020-09-10] MEDS: INSULIN ASPART (*BKC) 100 UNITS/ML SUB-Q ×2 (04:00→08:05)
[2020-09-10 04:16] LABS: Partial Thromboplastin Time 80.4 SECONDS (22.3-36.8)
[2020-09-10 04:18] LABS: Alanine Aminotransferase 45 U/L (4-50); Albumin Level 3.4 g/dL (3.5-5.1); Alkaline Phosphatase 92 U/L (38-126); Anion Gap 12 mmol/L (8-16); Aspartate Amino Transferase 48 U/L (17-59); Bilirubin,Total 0.5 mg/dL (0.2-1.3); Blood Urea Nitrogen 58 mg/dL (9-20); Calcium 8.6 mg/dL (8.4-10.2); Carbon Dioxide 29 mmol/L (22-30); Chloride 91 mmol/L (98-107); Estimated CRCL calculation 16 ml/min; Estimated Glomerular Filt Rate 11; Glucose 225 mg/dL (75-110); Magnesium 1.9 mg/dL (1.6-2.3); Potassium 3.9 mmol/L (3.4-5.0); Sodium 132 mmol/L (137-145)
[2020-09-10 04:53] LABS: Alveolar/Arterial O2 Gradient 235.1 mmHg; Base Excess ABG 2.9 mEq/l (+/-2.0); Carboxyhemoglobin 0.1 % THb (0-2.0); Fractional Inspired Oxygen 50 %; HCO3 ABG 28.8 mEq/l (22.0-26.0); Methemoglobin ABG 0.3 %THb (0-1.5); Oxygen Content ABG 13.7 %vol (16.0-22.0); Oxygen Saturation ABG 91.9 % (95.0-100.0); Oxyhemoglobin 89.3 % THb (90.0-100.0); PCO2 ABG 50.5 mmHg (35.0-45.0); PO2 ABG 64.6 mmHg (80.0-100.0); PO2 FiO2 Ratio Arterial Blood 1.29 %; Reduced Hemoglobin 10.3 %THb (0-5.0); Total Hemoglobin 10.9 g/dL (12.0-18.0); pH ABG 7.374 (7.350-7.450)
[2020-09-10 04:54] LABS: Arterial Blood Gas Vent Mode CMV; Arterial Blood Gas Ventilator rate 30 /MIN; Device VENTILATOR; Modified Allen's Test Unable to perform; Site Drawn RIGHT RADIAL
[2020-09-10 04:55] LABS: Arterial Blood Gas PEEP 10 cmH2O; Arterial Blood Gas Tidal Volume 480 ml
[2020-09-10] MEDS: CENTRAL LINE FLUSH 10 ML IV PUSH ×7 (05:30→20:34)
[2020-09-10 05:31] LABS: Glucose Point of Care 208 (65-105)
[2020-09-10] MEDS: NOREPINEPHRINE 8 MG/D5W 250 ML 8 MG/250 ML BAG 16.88 MG IV CONT (05:53)
[2020-09-10] MEDS: BUDESONIDE RESPULE NEB 0.5 MG/2 ML AMP 1 MG INHALATION ×2 (07:54→20:01)
[2020-09-10 08:06] LABS: Glucose Point of Care 207 (65-105)
[2020-09-10] MEDS: MIDODRINE HCL 10 MG TABLET PO ×3 (08:28→17:53)
[2020-09-10] MEDS: SILVERGEL (ELTA) 45 ML 1 APPLIC TOPICAL (08:29)
[2020-09-10] MEDS: polyethylene glycoL 3350 17 GM POWD.PACK PO (08:29)
[2020-09-10] MEDS: PANTOPRAZOLE SODIUM IV 40 MG VIAL IV PUSH ×2 (08:29→20:33)
--- NOTE | 2020-09-10 10:51 | PM.PNCARD ---
Progress Note: A&P Assessment and Plan (1) Atrial fibrillation with RVR: Code(s): I48.91 - Unspecified atrial fibrillation Status: Acute Assessment and Plan: Will reduce amiodarone to 0.5 mg / minute (2) Multifocal atrial tachycardia: Code(s): I47.1 - Supraventricular tachycardia Status: Acute Assessment and Plan: (3) MARSHA (acute kidney injury): Code(s): N17.9 - Acute kidney failure, unspecified Status: Acute Assessment and Plan: Per Nephrology (4) Acute CHF (congestive heart failure): Qualifiers: Heart failure type: unspecified Qualified Code(s): I50.9 - Heart failure, unspecified Code(s): I50.9 - Heart failure, unspecified Status: Acute Assessment and Plan: Heart failure with preserved ejection fraction, EF 70%. Optimize volume status via dialysis (5) Acute respiratory failure with hypoxia and hypercapnia: Code(s): J96.01 - Acute respiratory failure with hypoxia; J96.02 - Acute respiratory failure with hypercapnia Status: Acute Assessment and Plan: Reintubated 08/31/2020. (6) COPD with acute exacerbation: Code(s): J44.1 - Chronic obstructive pulmonary disease with (acute) exacerbation Status: Acute Assessment and Plan: Treatment of respiratory failure and pneumonia Per primary service. Bronchodilator therapy, Pulmozyme. (7) Pulsatile abdominal mass: Code(s): R19.00 - Intra-abdominal and pelvic swelling, mass and lump, unspecified site Status: Acute Assessment and Plan: Abdominal ultrasound shows no aortic aneurysm Additional Plan López Willson MD [facility] Subjective Date/time seen: 09/10/20 10:51 Interval history: 70yo male with COPD, DM, HTN and CKD here for SOB and developed respiratory failure. Intubated and sedated. Still requiring Levophed at 9mcg/min. Increased to 70% FiO2 and on 10 PEEP. Tolerated TF at 20mL/hr Date of service 09/10/2020: Back in sinus rhythm on amiodarone drip. No hemoptysis Review of Systems Review of Systems: All systems reviewed & are unremarkable except as noted in HPI and below ROS unobtainable: Yes unobtainable due to endotracheal tube Eyes: Eyes: Reports as per HPI and Reports no additional eye complaints Cardiovascular: Cardiovascular: Reports chest pain, Reports diaphoresis, Reports palpitations and Reports dyspnea Respiratory: Respiratory: Reports as per HPI, Reports no additional respiratory complaints, Reports cough and Reports dyspnea Gastrointestinal: Gastrointestinal: Reports hematochezia, Reports nausea and Reports vomiting Genitourinary: Genitourinary: Reports no additional male genitourinary complaints and Reports as per HPI Musculoskeletal: Musculoskeletal: Reports no additional musculoskeletal complaints and Reports as per HPI Integumentary/Breasts: Skin/Breast: Reports system reviewed and no additional complaints, except as docu and Reports as per HPI Psychiatric: Psychiatric: Reports no additional psychiatric complaints and Reports as per HPI Endocrine: Endocrine: Reports no additional endocrine complaints, Reports as per HPI and Reports palpitations Hematologic/Lymphatic: Hematologic/Lymphatic: Reports no additional hematologic/lymphatic complaints and Reports as per HPI Allergic/Immunologic: Allergic/Immunologic: Reports no additional allergic/immunologic complaints and Reports as per HPI Exam Narrative: Exam Narrative: Older male who appears quite ill in the unit on multiple drips, ventilator, sedated Const: General: comfortable and no acute distress Other: Elderly white male intubated sedated on the ventilator in the ICU HENMT: Mouth: Yes moist mucous membranes Eyes: General: appearance normal, both eyes and all rel
--- NOTE | 2020-09-10 10:58 | PCDIET ---
ICU Rounding Note: Patient tolerating Nepro at 45mL/hr goal rate with 30mL water flush every 4 hours. Family has decided to proceed with tracheostomy and feeding tube. Last recorded weight is 116.7kg which is increased from last review. +I/O. Patient had 860mL UF on 09/09/20. Bowel Motility: +BM yesterday, per nursing report. Labs Reviewed: Hgb (9.9), Hct (31.1), Glu (207), BUN (58), Cr (5.2), Na (132), Alb (3.4) Meds Noted: Protonix, Miralax, Amiodarone, Lipitor, Pulmicort, Epogen, Fentanyl, Novolog, Atrovent, Xopenex, Reglan, Versed, Midodrine, Levophed Additional Notes: Right leg with arterial ulcer. Skin tears and reddened back also reported. Following daily in ICU rounds. Assessing/reassessing every Monday/Monday.
--- NOTE | 2020-09-10 11:16 | WPDINTPN ---
Progress Note: A&P Assessment and Plan (1) Acute respiratory failure with hypoxia and hypercapnia: Code(s): J96.01 - Acute respiratory failure with hypoxia; J96.02 - Acute respiratory failure with hypercapnia Status: Acute Assessment and Plan: Patient with acute respiratory failure likely related to COPD and CHF. Patient was intubated on 08/21/2020 -08/25/2020: Self Extubated -08/27/2020, complete whiteout on the left side likely secondary mucus plugging - 08/31 -reintubated for persistent hypercarbia and hypoxia and poor mental status - 09/01 left thoracentesis with 1 L fluid removed -Sputum cultures growing MRSA, status post vancomycin (14 days) and cefepime (7 days) -repeat sputum culture cultures on 09/06 growing yeast -ABG and chest x-ray reviewed, peep of 10 , weaning FiO2 -will discontinue fentanyl Versed, to wake patient up, if you require sedation will start low-dose Precedex -hemodialysis per Nephrology (2) Shock: Code(s): R57.9 - Shock, unspecified Status: Acute Assessment and Plan: Continue Levophed as needed - Patient with RV failure, volume overload on chest x-ray and sensitive to volume removal -status post albumin - Blood cx repeated on 09/08, -currently afebrile - Started on Midodrine 09/09 -left IJ line was placed on 09/09/2020. Removed right femoral central line and left mid thigh femoral PICC line 09/09/2020 (3) COPD (chronic obstructive pulmonary disease): Code(s): J44.9 - Chronic obstructive pulmonary disease, unspecified Status: Acute Assessment and Plan: Sputum culture from 08/23/2020 growing MRSA, on vancomycin as above -repeat sputum cultures from 09/07/2019 growing Yeast -continue bronchodilator Bronchodilators (4) Acute CHF (congestive heart failure): Qualifiers: Heart failure type: unspecified Qualified Code(s): I50.9 - Heart failure, unspecified Code(s): I50.9 - Heart failure, unspecified Status: Acute Assessment and Plan: Congestive heart failure with preserved ejection fraction. Ejection fraction was approximately 70%. Diastolic dysfunction could not be assessed. He did have significant right ventricular hypertrophy and hypokinesis But pulmonary artery pressures could not be estimated. -worsening creatinine further, Hold diuresis at this time, nephrology following the patient - Now on hemodialysis for fluid removed (5) Acute on chronic renal failure: Code(s): N17.9 - Acute kidney failure, unspecified; N18.9 - Chronic kidney disease, unspecified Status: Acute Assessment and Plan: Nephrology is following -diuresis was tried which helped patient for some time but continued to worsen his renal function, patient was more uremic - Tunnel dialysis catheter placed 3/3 -hemodialysis per urology -continue to monitor electrolytes, renal function (6) Gastroesophageal reflux disease: Code(s): K21.9 - Gastro-esophageal reflux disease without esophagitis Status: Chronic Assessment and Plan: Protonix (7) Atrial fibrillation with RVR: Code(s): I48.91 - Unspecified atrial fibrillation Status: Acute Assessment and Plan: 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 -patient in AFib RVR, discussed with Cardiology, On Iv Amiodarone - Continue heparin infusion Additional Plan DVT prophylaxis: Heparin infusion Nutrition: Patient on tube feeds at 20 mL/hour and tolerating, will increase slow gradually to goal. Continue Reglan, patient on MiraLax and p.r.n. suppository. -stress ulcer prophylaxis Protonix 09/10/2020: D/w Park, daughter, she stated that after discussing with her sister and brother they have decided to go ahead with tracheostomy and PEG tube placement. Requests the pt be a Full Code. 09/08/2020: I met with daughters Park and
--- NOTE | 2020-09-10 11:21 | PM.IMPN ---
Progress Note: A&P Assessment and Plan (1) Shock: Code(s): R57.9 - Shock, unspecified Status: Acute Assessment and Plan: Possibly sepsis from PNA. Also hypotensive due to right sided failure and is probably very fluid sensitive. Patient requiring Levophed again since 08/31. Wean Levophed as tolerated. Will be challenging for hemodialysis. Completed Cefepime x7 days and Vanco x 14 days. Low grade fevers and BCx collected. Hold on resuming abx. Will continue Levophed and wean to maintain map of greater than 65. ICU team managing. (2) Acute respiratory failure with hypoxia and hypercapnia: Code(s): J96.01 - Acute respiratory failure with hypoxia; J96.02 - Acute respiratory failure with hypercapnia Status: Acute Assessment and Plan: The patient originally presented to urgent care with complaints of shortness of breath and was sent to the ED as he was hypoxic in the 70s on room air. He was placed on BiPAP but despite several adjustments, he continued to be hypercarbic with evidence of respiratory distress and ultimately intubated 08/21/20. COVID negative 08/21/20. Suspect COPD and CHF exacerbation +/- PNA. Did well and able to be extubated 08/27 but was tenuous and had left sided white out by CXR. Aggressive pulmonary toilet but ultimately needed to be re-intubated 08/31/20. Cefepime stopped 09/05/20 after 7 days; Vanco started 08/25 (now Day 14) and will end today. Did have a left thoracentesis with 1L removed on 09/01. CXR today reviewed showing more concerning for ARDS; consider COVID. Continue supportive care. Wean vent as he tolerates. Appreciate office machine installer input. Trach being considered. (3) Pneumonia: Code(s): J18.9 - Pneumonia, unspecified organism Status: Acute Assessment and Plan: Patient probably had PNA on admission contributing to his respiratory failure and shock. Complicated by his right sided heart failure. No BCx drawn. Sputum on 08/23/20 showing yeast and MRSA. Completed Cefepime x 7 days and Vanco x 14 days (ending 09/07/20). Wean vent as tolerated. Low grade fever last night and BCx collected. Will continue current treatment (4) Congestive heart failure: Code(s): I50.9 - Heart failure, unspecified Status: Acute Assessment and Plan: CHF contributing [place] [address]. Chest x-ray on admission showed cardiomegaly and pulmonary edema treated with IV diuretics but now stopped due to MARSHA. Echo showing small LV cavity, EF 70%, severe RVE with RVH and severe hypokinesis. Indeterminate diastolic function. Appears more right sided failure than left. Using HD now to control fluid status but only able to take off small amounts at a time. (5) Atrial fibrillation with RVR: Code(s): I48.91 - Unspecified atrial fibrillation Status: Acute Assessment and Plan: No response with IV Metoprolol initially but Amiodarone converted him out of AFib. Was not on any rate controlling agents. Remains on a heparin drip to prevent cardioembolic events. When back iin AFib last night but converted back to NSR with Amio. Remains on AMio drip for now. Continue telemetry monitoring. (6) COPD with acute exacerbation: Code(s): J44.1 - Chronic obstructive pulmonary disease with (acute) exacerbation Status: Acute Assessment and Plan: ABG noted. No wheezing. Continue Pulmicort Respules and Atrovent. Continue to monitor. (7) Elevated troponin: Code(s): R77.8 - Other specified abnormalities of plasma proteins Status: Acute Assessment and Plan: Troponin elevated to 0.046 but flat. EKG showed borderline findings with poor R-wave progression. Echo 08/22 showing EF 70% with severe RVE, RVH and severe RV hypokinesis. Most likely type 2 MN and not a recent RV infarct; more likely related to demand ischemia and/or from his CKD. Brief run of NSVT the other day but no recurrence. Mo
[2020-09-10 12:08] LABS: Glucose Point of Care 157 (65-105)
--- NOTE | 2020-09-10 15:28 | PM.PNNEP ---
Progress Note: A&P Assessment and Plan (1) MARSHA (acute kidney injury): Code(s): N17.9 - Acute kidney failure, unspecified Status: Acute Assessment and Plan: due to low blood pressure and necessity of diuretic therapy started on midodrine yesterday to help with blood pressure plan HD tomorrow push fluid removal as tolerated (2) Chronic kidney failure: Code(s): N18.9 - Chronic kidney disease, unspecified Status: Chronic Assessment and Plan: unclear what baseline creatinine is but his creatinine was 2.1mg/dl back in 2013 suspect that his baseline creatinine is actually higher than 2.1mg/dl due to a component of kidney disease progression CKD likely secondary to DM, HTN, and vascular disease (3) Acute respiratory failure with hypoxia and hypercapnia: Code(s): J96.01 - Acute respiratory failure with hypoxia; J96.02 - Acute respiratory failure with hypercapnia Status: Acute Assessment and Plan: due to a combination of COPD and CHF on ventilator now wean as tolerated suspect will need tracheostomy (4) Shock: Code(s): R57.9 - Shock, unspecified Status: Acute Assessment and Plan: on pressor support PRN follow trend of hemodynamics (5) Fluid overload, unspecified: Code(s): E87.70 - Fluid overload, unspecified Status: Acute Assessment and Plan: cardiac function seems to be pretty well except some pulmonary hypertension fluid removal as tolerated. making a moderate amount of urine (6) Type 2 diabetes mellitus: Code(s): E11.9 - Type 2 diabetes mellitus without complications Status: Chronic Assessment and Plan: follow accu-cheks on sliding-scale insulin Will continue to follow. Subjective Date/time seen: 09/10/20 15:28 Dialysis yesterday but did not tolerate much fluid removal despite attempts to do so; remains intubated and on mechanical ventilation; otherwise, no real change noted at this time. Exam Narrative: Exam Narrative: General: WD/WN male in NAD; intubated Heart: normal S1 and S2; no rub Lungs: coarse breath sounds Abdomen: soft, nontender, nondistended, positive bowel sounds Extremities: no cyanosis; 1+ edema Skin: venous stasis changes apparent Objective Data Vital Signs Vital Signs: Vital Signs Temp Pulse Resp BP Pulse Ox 09/10/20 15:00 91 131/57 L 09/10/20 14:29 92 140/62 09/10/20 14:00 91 30 H 140/62 89 L 09/10/20 13:58 93 30 H 09/10/20 12:00 37.1 C 86 30 H 126/64 09/10/20 11:00 86 126/51 L 09/10/20 10:31 79 94 09/10/20 10:00 37.1 C 86 30 H 143/64 H 90 09/10/20 08:30 81 111/54 L 09/10/20 08:05 80 30 H 09/10/20 08:00 36.8 C 80 30 H 125/63 90 09/10/20 07:57 80 94 09/10/20 07:56 77 30 H 09/10/20 07:48 76 114/51 L 09/10/20 07:36 76 114/51 L 09/10/20 06:00 36.4 C L 80 30 H 98/51 L 91 09/10/20 05:53 79 115/50 L 09/10/20 05:30 79 115/50 L 09/10/20 05:27 80 112/44 L 09/10/20 04:57 82 92 09/10/20 04:00 36.2 C L 83 30 H 111/63 91 09/10/20 02:20 84 30 H 09/10/20 02:14 83 93 09/10/20 02:10 83 30 H 09/10/20 02:00 83 122/63 92 09/10/20 01:46 82 115/62 09/10/20 01:35 83 109/59 L 09/10/20 00:44 83 109/59 L 09/10/20 00:15 107/54 L 09/10/20 00:00 36.7 C 86 30 H 116/64 93 09/09/20 23:42 115/60 09/09/20 23:03 91 93 09/09/20 22:00 105 H 30 H 118/76 96 09/09/20 20:47 91 30 H 09/09/20 20:36 92 30 H 09/09/20 20:10 86 98 09/09/20 20:00 36.4 C 87 30 H 102/66 98 09/09/20 18:45 85 108/70 09/09/20 18:43 100 103/65 09/09/20 18:24 92 107/72 09/09/20 18:00 93 30 H 93/63 L 93 Intake/Output Intake/Output: Intake & Output 09/07/20 09/08/20 09/09/20 09/10/20 23:59 23:59 23:59 23:59 Intake Total 2028 2446 2830.78 2736.2 Output Total
[2020-09-10 16:10] LABS: Glucose Point of Care 170 (65-105)
[2020-09-10] MEDS: AMIODARONE 360 MG/D5W 200 ML 360 MG/200 ML BAG 16.67 MG IV CONT (16:38)
--- NOTE | 2020-09-10 17:30 | WPDGICN ---
Assessment and Plan Assessment and plan (1) Dysphagia: Code(s): R13.10 - Dysphagia, unspecified Status: Acute Assessment and Plan: prolonged ICU stay and still vent dependent, had to be reintubated plan is to proceed with g-tube and also ENT will place tracheostomy daughter at bedside and agreeable with procedures (2) Pneumonia: Code(s): J18.9 - Pneumonia, unspecified organism Status: Acute (3) Shock: Code(s): R57.9 - Shock, unspecified Status: Acute Assessment and Plan: on levophed, by primary (4) Acute on chronic renal failure: Code(s): N17.9 - Acute kidney failure, unspecified; N18.9 - Chronic kidney disease, unspecified Status: Acute Assessment and Plan: nephrology support (5) Acute respiratory failure with hypoxia and hypercapnia: Code(s): J96.01 - Acute respiratory failure with hypoxia; J96.02 - Acute respiratory failure with hypercapnia Status: Acute Assessment and Plan: requiring mechanical ventilation (6) Acute CHF (congestive heart failure): Qualifiers: Heart failure type: unspecified Qualified Code(s): I50.9 - Heart failure, unspecified Code(s): I50.9 - Heart failure, unspecified Status: Acute Assessment and Plan: diuresed, cardiology on board (7) COPD with acute exacerbation: Code(s): J44.1 - Chronic obstructive pulmonary disease with (acute) exacerbation Status: Acute (8) Atrial fibrillation with RVR: Code(s): I48.91 - Unspecified atrial fibrillation Status: Acute (9) Confusion: Code(s): R41.0 - Disorientation, unspecified Status: Acute GI Consult Note Consult date/time: 09/10/20 17:30 Reason for consult: dysphagia, prolonged intubation HPI: Dax Morrison is a 70 year old male former smoker, with COPD/emphysema, diabetes, hypertension, hyperlipidemia, chronic kidney disease admitted initially 08/21/2020 with worsening shortness of breath, admitted to ICU and intubated. He has a prolonged ICU staty with ongoing acute respiratory failure with hypoxia and hypercapnia, at some point self extubated but had to be reintubated, also shock on levophed, acute heart failure with cardiology on board, renal failure on dialysis by nephrology. Primary team had extensive discussion with family and decided to proceed with tracheostomy and g-tube placement. Review of Systems Constitutional: Constitutional: Reports fatigue and Reports weakness Eyes: Eyes: Reports no additional eye complaints ENT: Reports system reviewed and no additional complaints, except as documented Cardiovascular: Cardiovascular: Reports leg edema Respiratory: Respiratory: Reports dyspnea Gastrointestinal: Gastrointestinal: Denies nausea Genitourinary: Comments: on renal support Integumentary/Breasts: Skin/Breast: Denies dry skin Neurologic: Reports confusion PMFSH Past Medical History Medical History MARSHA (acute kidney injury) Benign prostatic hyperplasia Chronic kidney failure Baseline creatinine are unknown at this time but was noted to be about 1.80 in 2014. COPD with emphysema Dyslipidemia Essential hypertension Fluid overload, unspecified Gastroesophageal reflux disease Gout Tobacco abuse Type 2 diabetes mellitus Surgical History Surgical History History of cardiac catheterization Many years ago, reportedly unremarkable. Family History Family History Sibling Patient's sister is in good health Family history of diabetes mellitus in first degree relative Father Family history of arthritis, Onset Age: 74 Family history of heart disease in male family member before age 55, Onset Age: 74 Mother Family history of Alzheimer's disease, Onset Age: 82 Patient's mother is deceas
[2020-09-10] MEDS: ATORVASTATIN 10 MG TABLET PO (20:33)
[2020-09-10 20:47] LABS: Glucose Point of Care 154 (65-105)
[2020-09-10] MEDS: FENTANYL 2,500MCG/NS250ML(*CRX 2,500 MCG/250 ML BAG IV CONT (21:54)
[2020-09-10] MEDS: MIDAZOLAM 100MG/NS 100ML(*CRX) 100 MG/100 ML BAG IV CONT (22:06)
[2020-09-11] VITALS (51 sets, daily range): BP systolic 80–137; BP diastolic 49–92; PULSE 83–119; RESP 23–31; TEMP 36.1–37.1; O2SAT 86–99
[2020-09-11] MEDS: METOCLOPRAMIDE HCL 10 MG/10 ML SOLN UDC PO (00:07)
[2020-09-11 00:15] LABS: Glucose Point of Care 176 (65-105)
[2020-09-11] MEDS: IPRATROPIUM BR 0.02% INH SOLN 0.5 MG/2.5 ML VIAL INHALATION ×3 (02:43→20:26)
[2020-09-11] MEDS: AMIODARONE 360 MG/D5W 200 ML 360 MG/200 ML BAG 16.67 MG IV CONT (04:40)
[2020-09-11] MEDS: CENTRAL LINE FLUSH 10 ML IV PUSH ×7 (05:46→21:01)
[2020-09-11 05:49] LABS: Glucose Point of Care 132 (65-105)
[2020-09-11 06:09] LABS: Partial Thromboplastin Time 38.3 SECONDS (22.3-36.8)
--- NOTE | 2020-09-11 06:56 | WPDCN ---
Assessment and Plan Assessment and plan (1) Pneumonia: Code(s): J18.9 - Pneumonia, unspecified organism Status: Acute Assessment and Plan: PEEP of 10, FiO2 of 70%. Plan is for the OR for tracheostomy. The risks were discussed per nursing including bleeding infection the need for further procedures in failure to decannulate trach. Per nursing the family or POA voiced understanding. (2) Respiratory insufficiency: Code(s): R06.89 - Other abnormalities of breathing Status: Acute (3) COPD (chronic obstructive pulmonary disease): Code(s): J44.9 - Chronic obstructive pulmonary disease, unspecified Status: Acute (4) Respiratory failure: Code(s): J96.90 - Respiratory failure, unspecified, unspecified whether with hypoxia or hypercapnia Status: Acute HPI Data of Consult Date/Time: 09/11/20 06:56 Requesting Physician: Bernabe Richard MD Primary Care Provider: WILLEM Cortez Narrative Narrative: Dax Morrison is a 70 year old male with history of pneumonia and respiratory failure/insufficiency. I was consulted for placement of tracheostomy. Review of Systems Constitutional: Constitutional: Denies fatigue, Denies fever(s) and Denies lethargy Eyes: Eyes: Denies blurry vision and Denies change in vision ENT: Reports as per HPI Cardiovascular: Cardiovascular: Denies chest pain Respiratory: Respiratory: Denies cough Endocrine: Endocrine: Denies fatigue Hematologic/Lymphatic: Hematologic/Lymphatic: Denies easy bleeding, Denies easy bruising and Denies lymphadenopathy Allergic/Immunologic: Allergic/Immunologic: Denies seasonal rhinorrhea [facility] Past Medical History Medical History (Updated 09/11/20 @ 06:57 by Blas Zuleta MD) MARSHA (acute kidney injury) Benign prostatic hyperplasia Chronic kidney failure Baseline creatinine are unknown at this time but was noted to be about 1.80 in 2014. COPD with emphysema Dyslipidemia Dysphagia Essential hypertension Fluid overload, unspecified Gastroesophageal reflux disease Gout Tobacco abuse Type 2 diabetes mellitus Surgical History Surgical History History of cardiac catheterization Many years ago, reportedly unremarkable. Family History Family History Sibling Patient's sister is in good health Family history of diabetes mellitus in first degree relative Father Family history of arthritis, Onset Age: 74 Family history of heart disease in male family member before age 55, Onset Age: 74 Mother Family history of Alzheimer's disease, Onset Age: 82 Patient's mother is , Onset Age: 82 Social History Social History Social History: The patient lives in [place] with his girlfriend. 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 He smoked up to 2 packs of cigarettes per day for greater than 50 years and now smokes about half a pack a day. No alcohol or illicit substance abuse. He designates his daughter Park as his surrogate decision maker and he wishes to be a full code. Smoking packs per day: 0.5 Smoking cigarettes per day: 10.0 Smoking status: Current every day smoker Tobacco type: cigarettes Spiritual care concerns: No Meds Home Medications and Allergies Home Medications Medication Instructions Recorded Confirmed Type albuterol sulfate 2 puff INHALATION QID PRN 08/21/20 08/21/20 History amlodipine 5 mg PO DAILY 08/21/20 08/21/20 History atorvastatin 10 mg PO HS 08/21/20 08/21/20 History budesonide-formoterol [Symbicort] 2 puff INHALATION Q12H 08/21/20 08/21/20 History clonidine HCl 0.3 mg PO BID 08/21/20 08/21/20 History duloxetine 60 mg PO DAILY 08/21/20 08/21/20 History finasteride 5 mg PO DAILY 08/21/20 08/21/20 History gabapentin 1,200 mg PO TID 08/21/20
--- NOTE | 2020-09-11 06:58 | PM.IMHP ---
H&P: HPI History of Present Illness Date/Time: 09/11/20 06:58 70-year-old male presents with respiratory failure/insufficiency as well as COPD and pneumonia. Plan is for tracheostomy in OR. Chief Complaint: Respiratory failure, respiratory insufficiency, COPD Review of Systems Constitutional: Constitutional: Denies fatigue, Denies fever(s) and Denies lethargy Eyes: Eyes: Denies blurry vision and Denies change in vision ENT: Reports as per HPI Cardiovascular: Cardiovascular: Denies chest pain Respiratory: Respiratory: Denies cough Endocrine: Endocrine: Denies fatigue Hematologic/Lymphatic: Hematologic/Lymphatic: Denies easy bleeding, Denies easy bruising and Denies lymphadenopathy Allergic/Immunologic: Allergic/Immunologic: Denies seasonal rhinorrhea [facility] Past Medical History Medical History (Updated 09/11/20 @ 06:57 by Blas Zuleta MD) MARSHA (acute kidney injury) Benign prostatic hyperplasia Chronic kidney failure Baseline creatinine are unknown at this time but was noted to be about 1.80 in 2014. COPD with emphysema Dyslipidemia Dysphagia Essential hypertension Fluid overload, unspecified Gastroesophageal reflux disease Gout Tobacco abuse Type 2 diabetes mellitus Surgical History Surgical History History of cardiac catheterization Many years ago, reportedly unremarkable. Family History Family History Sibling Patient's sister is in good health Family history of diabetes mellitus in first degree relative Father Family history of arthritis, Onset Age: 74 Family history of heart disease in male family member before age 55, Onset Age: 74 Mother Family history of Alzheimer's disease, Onset Age: 82 Patient's mother is , Onset Age: 82 Social History Social History Social History: The patient lives in [place] with his girlfriend. 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 He smoked up to 2 packs of cigarettes per day for greater than 50 years and now smokes about half a pack a day. No alcohol or illicit substance abuse. He designates his daughter Park as his surrogate decision maker and he wishes to be a full code. Smoking packs per day: 0.5 Smoking cigarettes per day: 10.0 Smoking status: Current every day smoker Tobacco type: cigarettes Spiritual care concerns: No Meds Home Medications and Allergies Home Medications Medication Instructions Recorded Confirmed Type albuterol sulfate 2 puff INHALATION QID PRN 08/21/20 08/21/20 History amlodipine 5 mg PO DAILY 08/21/20 08/21/20 History atorvastatin 10 mg PO HS 08/21/20 08/21/20 History budesonide-formoterol [Symbicort] 2 puff INHALATION Q12H 08/21/20 08/21/20 History clonidine HCl 0.3 mg PO BID 08/21/20 08/21/20 History duloxetine 60 mg PO DAILY 08/21/20 08/21/20 History finasteride 5 mg PO DAILY 08/21/20 08/21/20 History gabapentin 1,200 mg PO TID 08/21/20 08/21/20 History lisinopril-hydrochlorothiazide 1 tablet PO DAILY 08/21/20 08/21/20 History metformin 850 mg PO BIDWM 08/21/20 08/21/20 History metoprolol succinate 200 mg PO DAILY 08/21/20 08/21/20 History tamsulosin 0.4 mg PO DAILY 08/21/20 08/21/20 History triamcinolone acetonide 1 applic TOPICAL TID PRN 08/21/20 08/21/20 History urea 1 applic TOPICAL DAILY PRN 08/21/20 08/21/20 History Allergies Allergy/AdvReac Type Severity Reaction Status Date / Time No Known Allergies Allergy Verified 08/21/20 17:17 Vital Signs Vital Signs - 24 hr 09/10/20 07:36 09/10/20 07:48 09/10/20 07:56 Temperature Pulse Rate 76 76 77 Respiratory Rate 30 H Blood Pressure 114/51 L 114/51 L Pulse Oximetry 09/10/20 07:57 09/10/20 08:00 09/10/20 08:05 Temperature 36.8 C Pulse Rate 80 80 80 Respiratory Rate 30 H 30 H Blood Pressure 125/63 Pulse Oximetry 94 9
--- NOTE | 2020-09-11 06:59 | WPDHPUPDATE1 ---
History and Physical Update Update Date/Time: 09/11/20 06:59 History and Physical has been reviewed, including an updated exam of the patient. There are NO changes in the patient's condition. Risks, benefits, and alternatives have been discussed and questions answered. Patient agrees to proceed with procedure.
[2020-09-11] MEDS: MIDAZOLAM HCL (*CRX) 2 MG/2 ML VIAL (07:16)
[2020-09-11] MEDS: BUDESONIDE RESPULE NEB 0.5 MG/2 ML AMP 1 MG INHALATION ×2 (07:42→20:25)
[2020-09-11 08:36] LABS: Glucose Point of Care 129 (65-105)
[2020-09-11] MEDS: MIDODRINE HCL 10 MG TABLET PO (08:42)
[2020-09-11] MEDS: PANTOPRAZOLE SODIUM IV 40 MG VIAL IV PUSH ×2 (08:42→21:00)
[2020-09-11] MEDS: EPOETIN ALFA-EPBX 10,000 UNITS/ML VIAL 10000 UNITS IV PUSH (09:43)
--- NOTE | 2020-09-11 10:52 | PM.IMPN ---
Progress Note: A&P Assessment and Plan (1) Shock: Code(s): R57.9 - Shock, unspecified Status: Acute Assessment and Plan: Possibly sepsis from PNA. Also hypotensive due to right sided failure and is probably very fluid sensitive. Patient requiring Levophed again since 08/31. Wean Levophed as tolerated. Will be challenging for hemodialysis. Completed Cefepime x7 days and Vanco x 14 days. Low grade fevers and BCx collected. Hold on resuming abx. Will continue Levophed and wean to maintain map of greater than 65. ICU team managing. (2) Acute respiratory failure with hypoxia and hypercapnia: Code(s): J96.01 - Acute respiratory failure with hypoxia; J96.02 - Acute respiratory failure with hypercapnia Status: Acute Assessment and Plan: The patient originally presented to urgent care with complaints of shortness of breath and was sent to the ED as he was hypoxic in the 70s on room air. He was placed on BiPAP but despite several adjustments, he continued to be hypercarbic with evidence of respiratory distress and ultimately intubated 08/21/20. COVID negative 08/21/20. Suspect COPD and CHF exacerbation +/- PNA. Did well and able to be extubated 08/27 but was tenuous and had left sided white out by CXR. Aggressive pulmonary toilet but ultimately needed to be re-intubated 08/31/20. Cefepime stopped 09/05/20 after 7 days; Vanco started 08/25 (now Day 14) and will end today. Did have a left thoracentesis with 1L removed on 09/01. CXR today reviewed showing more concerning for ARDS; consider COVID. Continue supportive care. Wean vent as he tolerates. Appreciate platform architect input. Trach being considered. (3) Pneumonia: Code(s): J18.9 - Pneumonia, unspecified organism Status: Acute Assessment and Plan: Patient probably had PNA on admission contributing to his respiratory failure and shock. Complicated by his right sided heart failure. No BCx drawn. Sputum on 08/23/20 showing yeast and MRSA. Completed Cefepime x 7 days and Vanco x 14 days (ending 09/07/20). Wean vent as tolerated. Low grade fever last night and BCx collected. Will continue current treatment (4) Congestive heart failure: Code(s): I50.9 - Heart failure, unspecified Status: Acute Assessment and Plan: CHF contributing to [place] [address]. Chest x-ray on admission showed cardiomegaly and pulmonary edema treated with IV diuretics but now stopped due to MARSHA. Echo showing small LV cavity, EF 70%, severe RVE with RVH and severe hypokinesis. Indeterminate diastolic function. Appears more right sided failure than left. Using HD now to control fluid status but only able to take off small amounts at a time. (5) Atrial fibrillation with RVR: Code(s): I48.91 - Unspecified atrial fibrillation Status: Acute Assessment and Plan: No response with IV Metoprolol initially but Amiodarone converted him out of AFib. Was not on any rate controlling agents. Remains on a heparin drip to prevent cardioembolic events. When back iin AFib last night but converted back to NSR with Amio. Remains on AMio drip for now. Continue telemetry monitoring. (6) COPD with acute exacerbation: Code(s): J44.1 - Chronic obstructive pulmonary disease with (acute) exacerbation Status: Acute Assessment and Plan: ABG noted. No wheezing. Continue Pulmicort Respules and Atrovent. Continue to monitor. (7) Elevated troponin: Code(s): R77.8 - Other specified abnormalities of plasma proteins Status: Acute Assessment and Plan: Troponin elevated to 0.046 but flat. EKG showed borderline findings with poor R-wave progression. Echo 08/22 showing EF 70% with severe RVE, RVH and severe RV hypokinesis. 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 Brief run of NSVT the other day but no recurrence. Mo
--- NOTE | 2020-09-11 11:11 | WPDINTPN ---
Progress Note: A&P Assessment and Plan (1) Acute respiratory failure with hypoxia and hypercapnia: Code(s): J96.01 - Acute respiratory failure with hypoxia; J96.02 - Acute respiratory failure with hypercapnia Status: Acute Assessment and Plan: Patient with acute respiratory failure likely related to COPD and CHF. Patient was intubated on 08/21/2020 -08/25/2020: Self Extubated -08/27/2020, complete whiteout on the left side likely secondary mucus plugging - 08/31 -reintubated for persistent hypercarbia and hypoxia and poor mental status - 3/ left thoracentesis with 1 L fluid removed 09/11/2020: Patient desaturated this morning, it to place him on 100% FiO2 and peep of 12 for short amount of time likely related to decrease sedation and vent synchrony. Once we increase the sedation, he was more synchronous with the ventilator with improvement in oxygen saturations. Currently on peep of 10 in 70% FiO2 -PATIENT TO GET A PEG TUBE AND TRACHEOSTOMY TODAY ON 09/11/2020, this was discussed at length with Valorie and Lyric, the daughters and the son was also updated, all of them and agreement to the PEG and tracheostomy. -Sputum cultures growing MRSA, status post vancomycin (14 days) and cefepime (7 days) -repeat sputum culture cultures on 09/06 growing yeast -ABG and chest x-ray reviewed, peep of 10 , weaning FiO2 -will add low-dose Seroquel, so I can continue wean off the sedation -hemodialysis per Nephrology (2) Shock: Code(s): R57.9 - Shock, unspecified Status: Acute Assessment and Plan: RESOLVED: PATIENT OFF LEVOPHED - Patient with RV failure, volume overload on chest x-ray and sensitive to volume removal -status post albumin - Blood cx repeated on 09/08, -currently afebrile - Started on Midodrine 09/09 -left IJ line was placed on 09/09/2020. Removed right femoral central line and left mid thigh femoral PICC line 09/09/2020 (3) COPD (chronic obstructive pulmonary disease): Code(s): J44.9 - Chronic obstructive pulmonary disease, unspecified Status: Acute Assessment and Plan: Sputum culture from 08/23/2020 growing MRSA, on vancomycin as above -repeat sputum cultures from 09/07/2019 growing Yeast -continue bronchodilator Bronchodilators (4) Acute CHF (congestive heart failure): Qualifiers: Heart failure type: unspecified Qualified Code(s): I50.9 - Heart failure, unspecified Code(s): I50.9 - Heart failure, unspecified Status: Acute Assessment and Plan: Congestive heart failure with preserved ejection fraction. Ejection fraction was approximately 70%. Diastolic dysfunction could not be assessed. He did have significant right ventricular hypertrophy and hypokinesis But pulmonary artery pressures could not be estimated. -worsening creatinine further, Hold diuresis at this time, nephrology following the patient - Now on hemodialysis for fluid removed (5) Acute on chronic renal failure: Code(s): N17.9 - Acute kidney failure, unspecified; N18.9 - Chronic kidney disease, unspecified Status: Acute Assessment and Plan: Nephrology is following -diuresis was tried which helped patient for some time but continued to worsen his renal function, patient was more uremic - Tunnel dialysis catheter placed 3/3 -hemodialysis per urology -continue to monitor electrolytes, renal function (6) Gastroesophageal reflux disease: Code(s): K21.9 - Gastro-esophageal reflux disease without esophagitis Status: Chronic Assessment and Plan: Protonix (7) Atrial fibrillation with RVR: Code(s): I48.91 - Unspecified atrial fibrillation Status: Acute Assessment and Plan: Patient went to AFib RVR counter pocket sewer again on 09/08/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 -patient in AFib RVR, discussed with Cardiology, continue IV amiodarone - Continue hepa
--- NOTE | 2020-09-11 11:47 | PCNFU ---
Nutrition Follow-Up Complete: Inadequate oral intake related to oral intubation as evidenced by NPO status. Goal: Patient to meet estimated nutritional needs. Progressing towards goal, we will continue current goal. Pt current nutrition is NPO. Last recorded weight is 118.5 kg, down from 118.7 on admit. Bowel Motility:+BM reported 09/07. Labs Reviewed:no new labs to report. Meds Noted:Protonix, Miralax, Amiodarone, Lipitor, Pulmicort, Epogen, Fentanyl, Novolog, Atrovent, Xopenex, Reglan, Versed, Midodrine, Levophed Additional Notes: Patient NPO today for PEG/Trach. Currently getting dialysis. Recommend tube feedings to continue with Nepro at 45 ml/hr with free water flush of 30 ml q 4 hours. Follow up every Monday/Monday. Follow daily in ICU rounds.
--- NOTE | 2020-09-11 11:51 | WPDANESEPPF ---
Anes - Initial Pre Proc Eval Procedure: Operation Date: 09/02/20 12:30 Proposed Procedures p Insertion Tunnelled Dialysis Catheter - Shane Soriano MD Operation Date: 09/11/20 14:30 Proposed Procedures p Esophagogastroduodenoscopy - John Escobedo MD s Percutaneous Endoscopic Gastrostomy Placement - John Escobedo MD Operation Date: 09/11/20 14:30 Proposed Procedures p Tracheostomy - Blas Zuleta MD Date/Time: 09/11/20 11:51 Surgeon: Bernabe Richard MD Pre Op Diagnosis: Acute hypercapnic respiratory failure Patient Data Age: 70 Gender: M Height: 1.83 m Weight: 118.5 kg Last Vital Signs Temp 36.6 C 09/11/20 08:50 Pulse 115 H 09/11/20 11:45 Resp 30 H 09/11/20 10:00 BP 116/66 09/11/20 11:45 Pulse Ox 94 09/11/20 11:11 Allergies Allergy/AdvReac Type Severity Reaction Status Date / Time No Known Allergies Allergy Verified 08/21/20 17:17 Home Medications Medication Instructions Recorded Confirmed Type albuterol sulfate 2 puff INHALATION QID PRN 08/21/20 08/21/20 History amlodipine 5 mg PO DAILY 08/21/20 08/21/20 History atorvastatin 10 mg PO HS 08/21/20 08/21/20 History budesonide-formoterol [Symbicort] 2 puff INHALATION Q12H 08/21/20 08/21/20 History clonidine HCl 0.3 mg PO BID 08/21/20 08/21/20 History duloxetine 60 mg PO DAILY 08/21/20 08/21/20 History finasteride 5 mg PO DAILY 08/21/20 08/21/20 History gabapentin 1,200 mg PO TID 08/21/20 08/21/20 History lisinopril-hydrochlorothiazide 1 tablet PO DAILY 08/21/20 08/21/20 History metformin 850 mg PO BIDWM 08/21/20 08/21/20 History metoprolol succinate 200 mg PO DAILY 08/21/20 08/21/20 History tamsulosin 0.4 mg PO DAILY 08/21/20 08/21/20 History triamcinolone acetonide 1 applic TOPICAL TID PRN 08/21/20 08/21/20 History urea 1 applic TOPICAL DAILY PRN 08/21/20 08/21/20 History Laboratory Tests 09/10/20 09/10/20 09/10/20 12:06 16:06 20:09 APTT POC Capillary Glucose 157 mg/dl H mg/dl 170 mg/dl H mg/dl 154 mg/dl H mg/dl (65-105) (65-105) (65-105) 09/11/20 09/11/20 09/11/20 00:05 04:35 05:43 APTT 38.3 SECONDS H SECONDS (22.3-36.8) POC Capillary Glucose 176 mg/dl H mg/dl 132 mg/dl H mg/dl (65-105) (65-105) 09/11/20 08:35 APTT POC Capillary Glucose 129 mg/dl H mg/dl (65-105) Patient hx anesthesia problems: none Family hx anesthesia problems: none [facility] Past Medical History Medical History (Updated 09/11/20 @ 06:57 by Blas Zuleta MD) MARSHA (acute kidney injury) Benign prostatic hyperplasia Chronic kidney failure Baseline creatinine are unknown at this time but was noted to be about 1.80 in 2014. COPD with emphysema Dyslipidemia Dysphagia Essential hypertension Fluid overload, unspecified Gastroesophageal reflux disease Gout Tobacco abuse Type 2 diabetes mellitus Surgical History Surgical History History of cardiac catheterization Many years ago, reportedly unremarkable. Family History Family History Sibling Patient's sister is in good health Family history of diabetes mellitus in first degree relative Father Family history of arthritis, Onset Age: 74 Family history of heart disease in male family member before age 55, Onset Age: 74 Mother Family history of Alzheimer's disease, Onset Age: 82 Patient's mother is , Onset Age: 82 Social History Social History Social History: The patient lives in [place] with his girlfriend. 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 He smoked up to 2 packs of cigarettes per day for greater than 50 years and now smokes about half a pack a day. No alcohol or illicit substance abuse. He designates his daughter Park as his surrogate decision maker and he wishes to be a full
[2020-09-11 12:06] LABS: Glucose Point of Care 131 (65-105)
--- NOTE | 2020-09-11 12:20 | P.PNNP_ITS ---
Progress Note: A&P Assessment and Plan (1) MARSHA (acute kidney injury): Code(s): N17.9 - Acute kidney failure, unspecified Status: Acute Assessment and Plan: * due to low blood pressure and necessity of diuretic therapy * plan HD today and possible DUF tomorrow * push fluid removal as tolerated * follow electrolytes, volume status, and clearance (2) Chronic kidney failure: Code(s): N18.9 - Chronic kidney disease, unspecified Status: Chronic Assessment and Plan: * unclear what baseline creatinine is but his creatinine was 2.1mg/dl back in 2013 * suspect that his baseline creatinine is actually higher than 2.1mg/dl due to a component of kidney disease progression * CKD likely secondary to DM, HTN, and vascular disease * dialysis dependent at this time (3) Acute respiratory failure with hypoxia and hypercapnia: Code(s): J96.01 - Acute respiratory failure with hypoxia; J96.02 - Acute respiratory failure with hypercapnia Status: Acute Assessment and Plan: * due to a combination of COPD and CHF * remains on full ventilator support * wean as tolerated * tracheostomy and PEG tube planned today (4) Shock: Code(s): R57.9 - Shock, unspecified Status: Acute Assessment and Plan: * off pressors * on midodrine therapy * follow trend of hemodynamics (5) Fluid overload, unspecified: Code(s): E87.70 - Fluid overload, unspecified Status: Acute Assessment and Plan: * cardiac function seems to be pretty well except some pulmonary hypertension * fluid removal as tolerated with HD/DUF * making a moderate amount of urine (6) Type 2 diabetes mellitus: Code(s): E11.9 - Type 2 diabetes mellitus without complications Status: Chronic Assessment and Plan: * follow accu-cheks * on sliding-scale insulin Will continue to follow. Subjective Date/time seen: 09/11/20 12:20 Just about to complete dialysis treatment at the time of my visit (seen on HD at 12:00PM) and able to get about 2L fluid removal; planned for tracheostomy and PEG tube placement this afternoon; no apparent distress noted; remains hemodynamically stable off vasopressor therapy; still in afib with heart rates in the 100 - 110s. Exam Narrative: Exam Narrative: General: WD/WN male in NAD; intubated Heart: normal S1 and S2; no rub Lungs: coarse breath sounds Abdomen: soft, nontender, nondistended, positive bowel sounds Extremities: no cyanosis; 1+ edema Skin: venous stasis changes apparent Objective Data Vital Signs Vital Signs: Vital Signs Temp Pulse Resp BP Pulse Ox 09/11/20 12:00 117 H 30 H 113/56 L 91 09/11/20 11:45 115 H 116/66 09/11/20 11:30 117 H 98/55 L 09/11/20 11:15 113 H 103/67 09/11/20 11:11 114 H 94 09/11/20 11:00 116 H 121/50 L 09/11/20 10:45 117 H 112/63 09/11/20 10:30 117 H 107/52 L 09/11/20 10:15 118 H 111/56 L 09/11/20 10:00 107 H 30 H 107/52 L 92 09/11/20 09:45 119 H 116/60 09/11/20 09:30 105 H 119/92 H 09/11/20 09:15 86 120/60 09/11/20 09:00 83 101/52 L 09/11/20 08:50 36.6 C 84 30 H 103/54 L 98 09/11/20 08:00 36.6 C 83 30 H 131/61 97 09/11/20 07:52 83 30 H 09/11/20 07:45 84 98 09/11/20 07:44 85 30 H
--- NOTE | 2020-09-11 12:20 | PM.PNNEP ---
Progress Note: A&P Assessment and Plan (1) MARSHA (acute kidney injury): Code(s): N17.9 - Acute kidney failure, unspecified Status: Acute Assessment and Plan: due to low blood pressure and necessity of diuretic therapy plan HD today and possible DUF tomorrow push fluid removal as tolerated follow electrolytes, volume status, and clearance (2) Chronic kidney failure: Code(s): N18.9 - Chronic kidney disease, unspecified Status: Chronic Assessment and Plan: unclear what baseline creatinine is but his creatinine was 2.1mg/dl back in 2013 suspect that his baseline creatinine is actually higher than 2.1mg/dl due to a component of kidney disease progression CKD likely secondary to DM, HTN, and vascular disease dialysis dependent at this time (3) Acute respiratory failure with hypoxia and hypercapnia: Code(s): J96.01 - Acute respiratory failure with hypoxia; J96.02 - Acute respiratory failure with hypercapnia Status: Acute Assessment and Plan: due to a combination of COPD and CHF remains on full ventilator support wean as tolerated tracheostomy and PEG tube planned today (4) Shock: Code(s): R57.9 - Shock, unspecified Status: Acute Assessment and Plan: off pressors on midodrine therapy follow trend of hemodynamics (5) Fluid overload, unspecified: Code(s): E87.70 - Fluid overload, unspecified Status: Acute Assessment and Plan: cardiac function seems to be pretty well except some pulmonary hypertension fluid removal as tolerated with HD/DUF making a moderate amount of urine (6) Type 2 diabetes mellitus: Code(s): E11.9 - Type 2 diabetes mellitus without complications Status: Chronic Assessment and Plan: follow accu-cheks on sliding-scale insulin Will continue to follow. Subjective Date/time seen: 09/11/20 12:20 Just about to complete dialysis treatment at the time of my visit (seen on HD at 12:00PM) and able to get about 2L fluid removal; planned for tracheostomy and PEG tube placement this afternoon; no apparent distress noted; remains hemodynamically stable off vasopressor therapy; still in afib with heart rates in the 100 - 110s. Exam Narrative: Exam Narrative: General: WD/WN male in NAD; intubated Heart: normal S1 and S2; no rub Lungs: coarse breath sounds Abdomen: soft, nontender, nondistended, positive bowel sounds Extremities: no cyanosis; 1+ edema Skin: venous stasis changes apparent Objective Data Vital Signs Vital Signs: Vital Signs Temp Pulse Resp BP Pulse Ox 09/11/20 12:00 117 H 30 H 113/56 L 91 09/11/20 11:45 115 H 116/66 09/11/20 11:30 117 H 98/55 L 09/11/20 11:15 113 H 103/67 09/11/20 11:11 114 H 94 09/11/20 11:00 116 H 121/50 L 09/11/20 10:45 117 H 112/63 09/11/20 10:30 117 H 107/52 L 09/11/20 10:15 118 H 111/56 L 09/11/20 10:00 107 H 30 H 107/52 L 92 09/11/20 09:45 119 H 116/60 09/11/20 09:30 105 H 119/92 H 09/11/20 09:15 86 120/60 09/11/20 09:00 83 101/52 L 09/11/20 08:50 36.6 C 84 30 H 103/54 L 98 09/11/20 08:00 36.6 C 83 30 H 131/61 97 09/11/20 07:52 83 30 H 09/11/20 07:45 84 98 09/11/20 07:44 85 30 H 09/11/20 07:00 85 30 H 09/11/20 06:48 85 30 H 09/11/20 06:47 85 30 H 112/61 09/11/20 06:00 86 30 H 118/61 92 09/11/20 05:05 86 93 09/11/20 05:00 86 L 09/11/20 04:40 87 120/59 L 09/11/20 04:38 87 120/59 L 09/11/20 04:30 36.1 C L 87 30 H 120/59 L 93 09/11/20 04:00 87 09/11/20 02:43 88 30 H 09/11/20 02:02 85 95 09/11/20 02:00 87 30 H 97/54 L 95 09/11/20 00:51 88 31 H 09/11/20 00:00 37.0 C 88 31 H 119/61 93 09/10/20 23:11 88 91 09/10/20 22:06 89 30 H 09/10/20 22:00 89 30 H 123/58 L 93 09/10/20 21:54 89 30 H 09/10/20 20:13 8
[2020-09-11] MEDS: ceFAZolin 2 GM/D5W 50 ML 2 GM/50 ML BAG IVPB (13:43)
[2020-09-11] MEDS: LIDO 1%/EPINEPHRINE 1:100,000 50 ML VIAL INFILTRATE (13:46)
--- NOTE | 2020-09-11 14:42 | PM.PNCARD ---
Progress Note: A&P Assessment and Plan (1) Atrial fibrillation with RVR: Code(s): I48.91 - Unspecified atrial fibrillation Status: Acute Assessment and Plan: Amiodarone was increased to 1.0 mg / minute earlier today which I agree with. (2) Multifocal atrial tachycardia: Code(s): I47.1 - Supraventricular tachycardia Status: Acute Assessment and Plan: (3) MARSHA (acute kidney injury): Code(s): N17.9 - Acute kidney failure, unspecified Status: Acute Assessment and Plan: Per Nephrology (4) Acute CHF (congestive heart failure): Qualifiers: Heart failure type: unspecified Qualified Code(s): I50.9 - Heart failure, unspecified Code(s): I50.9 - Heart failure, unspecified Status: Acute Assessment and Plan: Heart failure with preserved ejection fraction, EF 70%. Optimize volume status via dialysis (5) Acute respiratory failure with hypoxia and hypercapnia: Code(s): J96.01 - Acute respiratory failure with hypoxia; J96.02 - Acute respiratory failure with hypercapnia Status: Acute Assessment and Plan: Reintubated 08/31/2020. (6) COPD with acute exacerbation: Code(s): J44.1 - Chronic obstructive pulmonary disease with (acute) exacerbation Status: Acute Assessment and Plan: Treatment of respiratory failure and pneumonia Per primary service. Bronchodilator therapy, Pulmozyme. (7) Pulsatile abdominal mass: Code(s): R19.00 - Intra-abdominal and pelvic swelling, mass and lump, unspecified site Status: Acute Assessment and Plan: Abdominal ultrasound shows no aortic aneurysm Subjective Date/time seen: 09/11/20 14:42 Interval history: 70yo male with COPD, DM, HTN and CKD here for SOB and developed respiratory failure. Intubated and sedated. Still requiring Levophed at 9mcg/min. Increased to 70% FiO2 and on 10 PEEP. Tolerated TF at 20mL/hr Date of service 09/11/2020: In and out of AFib. Back in AFib earlier today. Recently transferred from the PACU following trach. Review of Systems Review of Systems: All systems reviewed & are unremarkable except as noted in HPI and below ROS unobtainable: Yes unobtainable due to endotracheal tube Eyes: Eyes: Reports as per HPI and Reports no additional eye complaints Cardiovascular: Cardiovascular: Reports chest pain, Reports diaphoresis, Reports palpitations and Reports dyspnea Respiratory: Respiratory: Reports as per HPI, Reports no additional respiratory complaints, Reports cough and Reports dyspnea Gastrointestinal: Gastrointestinal: Reports hematochezia, Reports nausea and Reports vomiting Genitourinary: Genitourinary: Reports no additional male genitourinary complaints and Reports as per HPI Musculoskeletal: Musculoskeletal: Reports no additional musculoskeletal complaints and Reports as per HPI Integumentary/Breasts: Skin/Breast: Reports system reviewed and no additional complaints, except as docu and Reports as per HPI Psychiatric: Psychiatric: Reports no additional psychiatric complaints and Reports as per HPI Endocrine: Endocrine: Reports no additional endocrine complaints, Reports as per HPI and Reports palpitations Hematologic/Lymphatic: Hematologic/Lymphatic: Reports no additional hematologic/lymphatic complaints and Reports as per HPI Allergic/Immunologic: Allergic/Immunologic: Reports no additional allergic/immunologic complaints and Reports as per HPI Exam Narrative: Exam Narrative: Older male who appears quite ill in the unit on multiple drips, ventilator, sedated Const: General: comfortable and no acute distress Other: Elderly white male intubated sedated on the ventilator in the ICU HENMT: Mouth: Yes moist mucous membranes Eyes: General: appearan
--- NOTE | 2020-09-11 14:49 | PM.PROC ---
Procedure Note - Detailed Date of procedure: 09/11/20 Pre-op diagnosis: Acute hypercapnic respiratory failure Post-op diagnosis: same Procedure performed: Tracheostomy Description of procedure: Consent and the patient's identity were confirmed in his ICU room. He was brought to the operating room and a time-out was performed. Paralytics were administered the patient was prepped and draped for the aforementioned procedure. 1 cc of 1% lidocaine with 1 100,000 parts epinephrine was injected deep to a horizontal incision drawn approximately 2 cm above the sternal notch. A 15 blade was utilized to cut the epidermis and dermis. Bovie electrocautery at a setting of 15 was utilized to dissect down to the subcutaneous fat. Subcutaneous lipectomy was then performed. Midline dissection was carried out with blunt dissection as well as Bovie electrocautery until the thyroid isthmus was identified. The thyroid isthmus was then transected in its and a vertical fashion using Bovie electrocautery. At this point anesthesia was of form the airway and tracheotomy site been identified. The FiO2 was then raise to the patient's oxygen saturation was 100%. When all hands were ready the tracheotomy was performed and anesthesia slowly removed there tube into the was no longer visible in the tracheotomy. In 8 proximal XLT Shiley cuffed trach was then placed and cuff inflated. End-tidal CO2 was confirmed. The trach was sutured in its 4 corners with the 0 interrupted silk suture. López trach ties were applied. This marked end of procedure. Care of the patient was then turned over to Anesthesiology once again. Anesthesia: GLMA and GETA Surgeon: Blas Zuleta MD Estimated blood loss (mL): 5 Complications: No immediate complications Condition: stable Disposition: ICU
--- NOTE | 2020-09-11 14:51 | WPDCN ---
Assessment and Plan Assessment and plan (1) Respiratory failure: Code(s): J96.90 - Respiratory failure, unspecified, unspecified whether with hypoxia or hypercapnia Status: Acute Assessment and Plan: Please leave trach sutures and trach ties in place until postoperative day 5. I will come to remove them next week Monday. The trach tie should be tight and not changed 1 should not be able to get more than 2 fingers in. HPI Data of Consult Date/Time: 09/11/20 14:51 Requesting Physician: Bernabe Richard MD Primary Care Provider: WILLEM VÁSQUEZ Consult Narrative Narrative: Dax Morrison is a 70 year old male [facility] Past Medical History Medical History (Updated 09/11/20 @ 06:57 by Blas Zuleta MD) MARSHA (acute kidney injury) Benign prostatic hyperplasia Chronic kidney failure Baseline creatinine are unknown at this time but was noted to be about 1.80 in 2013. COPD with emphysema Dyslipidemia Dysphagia Essential hypertension Fluid overload, unspecified Gastroesophageal reflux disease Gout Tobacco abuse Type 2 diabetes mellitus Surgical History Surgical History History of cardiac catheterization Many years ago, reportedly unremarkable. Family History Family History Sibling Patient's sister is in good health Family history of diabetes mellitus in first degree relative Father Family history of arthritis, Onset Age: 74 Family history of heart disease in male family member before age 55, Onset Age: 74 Mother Family history of Alzheimer's disease, Onset Age: 82 Patient's mother is , Onset Age: 82 Social History Social History Social History: The patient lives in [place] with his girlfriend. 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 He smoked up to 2 packs of cigarettes per day for greater than 50 years and now smokes about half a pack a day. No alcohol or illicit substance abuse. He designates his daughter Park as his surrogate decision maker and he wishes to be a full code. Smoking packs per day: 0.5 Smoking cigarettes per day: 10.0 Smoking status: Current every day smoker Tobacco type: cigarettes Spiritual care concerns: No Meds Home Medications and Allergies Home Medications Medication Instructions Recorded Confirmed Type albuterol sulfate 2 puff INHALATION QID PRN 08/21/20 08/21/20 History amlodipine 5 mg PO DAILY 08/21/20 08/21/20 History atorvastatin 10 mg PO HS 08/21/20 08/21/20 History budesonide-formoterol [Symbicort] 2 puff INHALATION Q12H 08/21/20 08/21/20 History clonidine HCl 0.3 mg PO BID 08/21/20 08/21/20 History duloxetine 60 mg PO DAILY 08/21/20 08/21/20 History finasteride 5 mg PO DAILY 08/21/20 08/21/20 History gabapentin 1,200 mg PO TID 08/21/20 08/21/20 History lisinopril-hydrochlorothiazide 1 tablet PO DAILY 08/21/20 08/21/20 History metformin 850 mg PO BIDWM 08/21/20 08/21/20 History metoprolol succinate 200 mg PO DAILY 08/21/20 08/21/20 History tamsulosin 0.4 mg PO DAILY 08/21/20 08/21/20 History triamcinolone acetonide 1 applic TOPICAL TID PRN 08/21/20 08/21/20 History urea 1 applic TOPICAL DAILY PRN 08/21/20 08/21/20 History Allergies Allergy/AdvReac Type Severity Reaction Status Date / Time No Known Allergies Allergy Verified 08/21/20 17:17 Vital Signs Vital Signs - 24 hr 09/10/20 15:00 09/10/20 16:00 09/10/20 16:38 Temperature 36.6 C Pulse Rate 91 91 90 Respiratory Rate 30 H Blood Pressure 131/57 L 131/57 L 126/57 L Pulse Oximetry 90 09/10/20 16:52 09/10/20 16:54 09/10/20 17:03 Temperature Pulse Rate 92 91 90 Respiratory Rate 30 H 30 H Blood Pressure Pulse Oximetry 92 09/10/20 18:00 09/10/20 20:00 09/10/20 20:01 Temperature 37.1 C 36.1 C L Pulse Rate 92 88 88 Respiratory R
[2020-09-11 14:55] LABS: Glucose Point of Care 179 (65-105)
[2020-09-11] MEDS: AMIODARONE 360 MG/D5W 200 ML 360 MG/200 ML BAG 33.33 MG IV CONT ×2 (15:00→21:01)
[2020-09-11 15:01] LABS: Alveolar/Arterial O2 Gradient 544.6 mmHg; Base Excess ABG 1.1 mEq/l (+/-2.0); Carboxyhemoglobin 0.3 % THb (0-2.0); Fractional Inspired Oxygen 100 %; HCO3 ABG 27.9 mEq/l (22.0-26.0); Methemoglobin ABG 0.4 %THb (0-1.5); Oxygen Content ABG 15.1 %vol (16.0-22.0); Oxygen Saturation ABG 97.8 % (95.0-100.0); Oxyhemoglobin 96.2 % THb (90.0-100.0); PCO2 ABG 55.1 mmHg (35.0-45.0); PO2 ABG 113.3 mmHg (80.0-100.0); PO2 FiO2 Ratio Arterial Blood 1.13 %; Reduced Hemoglobin 3.1 %THb (0-5.0); pH ABG 7.323 (7.350-7.450)
[2020-09-11 15:05] LABS: Device VENTILATOR; Modified Allen's Test Pass; Site Drawn RIGHT RADIAL
[2020-09-11 15:06] LABS: Arterial Blood Gas PEEP 12 cmH2O; Arterial Blood Gas Tidal Volume 480 ml; Arterial Blood Gas Vent Mode CMV; Arterial Blood Gas Ventilator rate 30 /MIN
[2020-09-11] MEDS: ceFAZolin SODIUM 1 GM VIAL IV PUSH (15:20)
[2020-09-11] MEDS: CENTRAL LINE FLUSH 20 ML IV PUSH (15:27)
--- NOTE | 2020-09-11 15:40 | SUR.OPER ---
20 FR [employer] PEG TUBE LOT NO [id number] EXP 07-07-2022
--- NOTE | 2020-09-11 15:45 | SUR.OPER ---
LIDOCAINE 1% 2 ML GIVEN LOT # [id number] 07-26
[2020-09-11] MEDS: SILVERGEL (ELTA) 45 ML 1 APPLIC TOPICAL (17:45)
[2020-09-11 18:03] LABS: Glucose Point of Care 162 (65-105)
[2020-09-11 21:24] LABS: Glucose Point of Care 159 (65-105)
[2020-09-11] MEDS: MIDAZOLAM 100MG/NS 100ML(*CRX) 100 MG/100 ML BAG IV CONT (22:32)
[2020-09-11] MEDS: HEPARIN SOD/D5W 100 UNITS/ML 25,000 UNITS/250 ML BAG 19 UNITS IV CONT (23:17)
[2020-09-11 23:36] LABS: Glucose Point of Care 155 (65-105)
[2020-09-12] VITALS (32 sets, daily range): BP systolic 82–142; BP diastolic 53–79; PULSE 70–108; RESP 22–30; TEMP 36–37; O2SAT 89–100
[2020-09-12] MEDS: ATORVASTATIN 10 MG TABLET PO ×2 (00:58→21:05)
[2020-09-12] MEDS: METOCLOPRAMIDE HCL 10 MG/10 ML SOLN UDC PO ×2 (00:58→06:29)
[2020-09-12] MEDS: IPRATROPIUM BR 0.02% INH SOLN 0.5 MG/2.5 ML VIAL INHALATION ×4 (01:25→19:34)
[2020-09-12] MEDS: AMIODARONE 360 MG/D5W 200 ML 360 MG/200 ML BAG 33.33 MG IV CONT ×2 (03:01→08:32)
[2020-09-12 03:58] LABS: Alveolar/Arterial O2 Gradient 310.2 mmHg; Base Excess ABG 2.4 mEq/l (+/-2.0); Carboxyhemoglobin 0.3 % THb (0-2.0); Fractional Inspired Oxygen 60 %; HCO3 ABG 27.3 mEq/l (22.0-26.0); Methemoglobin ABG 0.3 %THb (0-1.5); Oxygen Content ABG 15.5 %vol (16.0-22.0); Oxygen Saturation ABG 94.1 % (95.0-100.0); Oxyhemoglobin 92.5 % THb (90.0-100.0); PCO2 ABG 43.6 mmHg (35.0-45.0); PO2 ABG 69.6 mmHg (80.0-100.0); PO2 FiO2 Ratio Arterial Blood 1.16 %; Reduced Hemoglobin 6.9 %THb (0-5.0); Total Hemoglobin 11.9 g/dL (12.0-18.0); pH ABG 7.415 (7.350-7.450)
[2020-09-12 03:59] LABS: Device VENTILATOR; Modified Allen's Test Pass; Site Drawn LEFT RADIAL
[2020-09-12 04:00] LABS: Arterial Blood Gas PEEP 10 cmH2O; Arterial Blood Gas Tidal Volume 480 ml; Arterial Blood Gas Vent Mode CMV; Arterial Blood Gas Ventilator rate 30 /MIN
[2020-09-12 05:54] LABS: Glucose Point of Care 162 (65-105)
[2020-09-12 06:11] LABS: Alanine Aminotransferase 27 U/L (4-50); Albumin Level 3.1 g/dL (3.5-5.1); Alkaline Phosphatase 84 U/L (38-126); Anion Gap 12 mmol/L (8-16); Aspartate Amino Transferase 27 U/L (17-59); Bilirubin,Total 0.4 mg/dL (0.2-1.3); Blood Urea Nitrogen 50 mg/dL (9-20); Calcium 8.4 mg/dL (8.4-10.2); Carbon Dioxide 28 mmol/L (22-30); Chloride 93 mmol/L (98-107); Estimated CRCL calculation 16 ml/min; Estimated Glomerular Filt Rate 11; Glucose 175 mg/dL (75-110); Magnesium 1.8 mg/dL (1.6-2.3); Partial Thromboplastin Time 99.8 SECONDS (22.3-36.8); Phosphorus 3.8 mg/dL (2.5-4.5); Potassium 3.5 mmol/L (3.4-5.0); Sodium 133 mmol/L (137-145)
[2020-09-12] MEDS: CENTRAL LINE FLUSH 10 ML IV PUSH ×6 (06:28→21:05)
[2020-09-12] MEDS: BUDESONIDE RESPULE NEB 0.5 MG/2 ML AMP 1 MG INHALATION ×2 (08:26→19:34)
[2020-09-12] MEDS: polyethylene glycoL 3350 17 GM POWD.PACK PO (08:30)
[2020-09-12] MEDS: MIDODRINE HCL 10 MG TABLET PO ×3 (08:30→17:22)
[2020-09-12] MEDS: PANTOPRAZOLE SODIUM IV 40 MG VIAL IV PUSH (08:30)
[2020-09-12] MEDS: SILVERGEL (ELTA) 45 ML 1 APPLIC TOPICAL (08:30)
--- NOTE | 2020-09-12 08:49 | WPDINTPN ---
Progress Note: A&P Assessment and Plan (1) Acute respiratory failure with hypoxia and hypercapnia: Code(s): J96.01 - Acute respiratory failure with hypoxia; J96.02 - Acute respiratory failure with hypercapnia Status: Acute Assessment and Plan: Patient with acute respiratory failure likely related to pneumonia, significant atelectasis, COPD and CHF. Patient was intubated on 08/21/2020 -08/25/2020: Self Extubated -08/27/2020, complete whiteout on the left side likely secondary to mucus plugging - 08/31 -reintubated for persistent hypercarbia and hypoxia and poor mental status - 09/01 left thoracentesis with 1 L fluid removed Tracheostomy and PEG tube placement done on 09/11 -Sputum cultures grew MRSA, status post vancomycin (14 days) and cefepime (7 days) -repeat sputum culture cultures on 09/06 growing yeast -ABG and chest x-ray reviewed. Will wean PEEP and FiO2 if tolerated. I will increase the tidal volume to 530 range so that his respiratory rate can be decreased from 30 to early 20s. He is 6 ft and can have 540-620 mL tidal volume based on 7-8 mL/kg body weight. He does not have any evidence of ARDS and can allow him higher tidal volumes so that his respiratory rate can be decreased. In my opinion, he gets is synchronous whenever sedatives are weaned off because of requirement of very high respiratory rate. -he is currently on fentanyl and Versed. His Versed will be weaned off and may need to be started on Precedex drip if he started to have anxiety and if not synchronous with the ventilator. There is sedation vacation trial if tolerated. (2) Shock: Code(s): R57.9 - Shock, unspecified Status: Acute Assessment and Plan: RESOLVED: PATIENT OFF LEVOPHED - Patient with RV failure, volume overload on chest x-ray and sensitive to volume removal - Started on Midodrine 09/09. Continue midodrine at current dose. Blood pressure is borderline low. -left IJ line was placed on 09/09/2020. Removed right femoral central line and left mid thigh femoral PICC line 09/09/2020 (3) COPD (chronic obstructive pulmonary disease): Code(s): J44.9 - Chronic obstructive pulmonary disease, unspecified Status: Acute Assessment and Plan: Sputum culture from 08/23/2020 growing MRSA. Completed vancomycin for 14 days. -repeat sputum cultures from 09/07/2019 growing Yeast which is likely colonizer -continue bronchodilator Bronchodilators (4) Acute CHF (congestive heart failure): Qualifiers: Heart failure type: unspecified Qualified Code(s): I50.9 - Heart failure, unspecified Code(s): I50.9 - Heart failure, unspecified Status: Acute Assessment and Plan: Congestive heart failure with preserved ejection fraction. Ejection fraction was approximately 70%. Diastolic dysfunction could not be assessed. He did have significant right ventricular hypertrophy and hypokinesis but pulmonary artery pressures could not be estimated. -he has significant edema and fluid overload. He was diuresed with Lasix with worsening renal parameters. - Now on hemodialysis for fluid removal as per nephrology service. (5) Acute on chronic renal failure: Code(s): N17.9 - Acute kidney failure, unspecified; N18.9 - Chronic kidney disease, unspecified Status: Acute Assessment and Plan: Nephrology is following -diuresis was tried which helped patient for some time but continued to worsen his renal function, patient was more uremic - Tunnel dialysis catheter placed 3/3 -hemodialysis per urology -continue to monitor electrolytes, renal function and intake output record (6) Gastroesophageal reflux disease: Code(s): K21.9 - Gastro-esophageal reflux disease without esophagitis Status: Chronic Assessment and Plan: Protonix (7) Atrial fibrillation with RVR: Code(s): I48.91 - Unspecified atrial fibrillation Status: Acute Assessment and Plan: Radha
[2020-09-12 08:59] LABS: Glucose Point of Care 152 (65-105)
--- NOTE | 2020-09-12 09:00 | PM.IMPN ---
Progress Note: A&P Assessment and Plan (1) Shock: Code(s): R57.9 - Shock, unspecified Status: Acute Assessment and Plan: Possibly sepsis from PNA. Also hypotensive due to right sided failure and is probably very fluid sensitive. Patient requiring Levophed again since 08/31. Wean Levophed as tolerated. Will be challenging for hemodialysis. Completed Cefepime x7 days and Vanco x 14 days. Low grade fevers and BCx collected. Hold on resuming abx. Will continue Levophed and wean to maintain map of greater than 65. ICU team managing. (2) Acute respiratory failure with hypoxia and hypercapnia: Code(s): J96.01 - Acute respiratory failure with hypoxia; J96.02 - Acute respiratory failure with hypercapnia Status: Acute Assessment and Plan: The patient originally presented to urgent care with complaints of shortness of breath and was sent to the ED as he was hypoxic in the 70s on room air. He was placed on BiPAP but despite several adjustments, he continued to be hypercarbic with evidence of respiratory distress and ultimately intubated 08/21/20. COVID negative 08/21/20. Suspect COPD and CHF exacerbation +/- PNA. Did well and able to be extubated 08/27 but was tenuous and had left sided white out by CXR. Aggressive pulmonary toilet but ultimately needed to be re-intubated 08/31/20. Cefepime stopped 09/05/20 after 7 days; Vanco started 08/25 (now Day 14) and will end today. Did have a left thoracentesis with 1L removed on 09/01. CXR today reviewed showing more concerning for ARDS; consider COVID. Patient had trach and G-tube placed yesterday, doing slightly better today, will continue current treatment. (3) Pneumonia: Code(s): J18.9 - Pneumonia, unspecified organism Status: Acute Assessment and Plan: Patient probably had PNA on admission contributing to his respiratory failure and shock. Complicated by his right sided heart failure. No BCx drawn. Sputum on 08/23/20 showing yeast and MRSA. Completed Cefepime x 7 days and Vanco x 14 days (ending 09/07/20). Had treat the done yesterday. Will continue current treatment (4) Congestive heart failure: Code(s): I50.9 - Heart failure, unspecified Status: Acute Assessment and Plan: CHF contributing to [place] [id number]. Chest x-ray on admission showed cardiomegaly and pulmonary edema treated with IV diuretics but now stopped due to MARSHA. Echo showing small LV cavity, EF 70%, severe RVE with RVH and severe hypokinesis. Indeterminate diastolic function. Appears more right sided failure than left. Using HD now to control fluid status but only able to take off small amounts at a time. (5) Atrial fibrillation with RVR: Code(s): I48.91 - Unspecified atrial fibrillation Status: Acute Assessment and Plan: No response with IV Metoprolol initially but Amiodarone converted him out of AFib. Was not on any rate controlling agents. Remains on a heparin drip to prevent cardioembolic events. When back iin AFib last night but converted back to NSR with Amio. Remains on AMio drip for now. Continue telemetry monitoring. (6) COPD with acute exacerbation: Code(s): J44.1 - Chronic obstructive pulmonary disease with (acute) exacerbation Status: Acute Assessment and Plan: ABG noted. No wheezing. Continue Pulmicort Respules and Atrovent. Continue to monitor. (7) Elevated troponin: Code(s): R77.8 - Other specified abnormalities of plasma proteins Status: Acute Assessment and Plan: Troponin elevated to 0.046 but flat. EKG showed borderline findings with poor R-wave progression. Echo 08/22 showing EF 70% with severe RVE, RVH and severe RV hypokinesis. Most likely type 2 VT and not a recent RV infarct; more likely related to demand ischemia and/or from his CKD. Brief run of NSVT the other day but no recurrence. Monitor on tele. (8) MARSHA (acute ki
[2020-09-12 10:53] LABS: Hematocrit 30.2 % (42.0-52.0); Hemoglobin 9.2 g/dL (14.0-18.0); Mean Corpuscular HGB Conc 30.5 g/dl (32-36); Mean Corpuscular Hemoglobin 26.6 pg (26-34); Mean Corpuscular Volume 87.3 fl (80-100); Mean Platelet Volume 9.2 fl (7.4-10.4); Platelet Count Result 238 k/mm3 (150-375); Red Blood Count 3.46 M/mm3 (4.6-6.20); Red Cell Distribution Width 16.8 % (11.5-14.5); White Blood Count 9.9 K/mm3 (4.5-10.0)
[2020-09-12 11:09] LABS: Partial Thromboplastin Time 89.4 SECONDS (22.3-36.8)
--- NOTE | 2020-09-12 11:22 | WPDGIPROGNO ---
Progress Note: A&P Assessment and Plan (1) Dysphagia: Code(s): R13.10 - Dysphagia, unspecified Status: Acute Assessment and Plan: from prolonged intubation and ICU stay yesterday placed G-tube successfully and tolerating feeding per RN report will follow from [place], call if questions (2) Respiratory failure: Code(s): J96.90 - Respiratory failure, unspecified, unspecified whether with hypoxia or hypercapnia Status: Acute Assessment and Plan: he also underwent tracheostomy yesterday, on ventilatory support and sedated (3) Atrial fibrillation with RVR: Code(s): I48.91 - Unspecified atrial fibrillation Status: Acute Assessment and Plan: cardiology on board, on amiodarone and heparin gtt (4) COPD (chronic obstructive pulmonary disease): Code(s): J44.9 - Chronic obstructive pulmonary disease, unspecified Status: Acute Assessment and Plan: by primary team Subjective Date/time seen: 09/12/20 11:22 Interval history: RN reports that he tolerated tube feeding, he is sedated Review of Systems Review of Systems: All systems reviewed & are unremarkable except as noted in HPI and below Exam Const: Other: sedated, seems comfortable HENMT: Other: trach in place Eyes: General: appearance normal, both eyes and all related structures Neck: Other: trac Resp: Auscultation: diminished lung sounds Cardio: Rhythm: abnormal rhythm irregularly irregular GI: GI Palp: Yes Soft to palpation and No Guarding due to palpation present (GI) Auscultation: normal bowel sounds Other: g-tube site clean, looks ok Skin: General skin exam: normal color Neuro: Other: sedated Psych: Other: unable to assess Objective Data Vital Signs Vital Signs: Vital Signs - 24 hr 09/11/20 11:30 09/11/20 11:45 09/11/20 12:00 Temperature 97.9 F Pulse Rate 117 H 115 H 118 H Respiratory Rate 30 H Blood Pressure 98/55 L 116/66 101/61 Pulse Oximetry 91 09/11/20 12:05 09/11/20 14:23 09/11/20 15:07 Temperature 97.9 F Pulse Rate 116 H 103 H 118 H Respiratory Rate 29 H 23 H Blood Pressure 109/64 137/78 Pulse Oximetry 94 97 09/11/20 15:17 09/11/20 15:18 09/11/20 16:00 Temperature 98.2 F Pulse Rate 102 H 102 H 94 Respiratory Rate 30 H 30 H Blood Pressure 83/49 L 92/64 L Pulse Oximetry 98 98 09/11/20 16:34 09/11/20 17:42 09/11/20 18:01 Temperature Pulse Rate 87 105 H Respiratory Rate 30 H Blood Pressure 80/53 L Pulse Oximetry 99 96 09/11/20 18:15 09/11/20 20:00 09/11/20 20:30 Temperature 98.7 F Pulse Rate 94 101 H 97 Respiratory Rate 30 H 29 H Blood Pressure 101/59 L 101/62 Pulse Oximetry 92 95 94 09/11/20 20:32 09/11/20 20:47 09/11/20 21:02 Temperature Pulse Rate 97 94 99 Respiratory Rate 30 H 30 H 30 H Blood Pressure Pulse Oximetry 09/11/20 22:00 09/11/20 23:38 09/12/20 00:00 Temperature 98.4 F Pulse Rate 102 H 95 97 Respiratory Rate 30 H 30 H Blood Pressure 100/71 82/56 L Pulse Oximetry 95 97 95 09/12/20 00:05 09/12/20 01:26 09/12/20 01:36 Temperature Pulse Rate 80 82 Respiratory Rate 30 H 30 H Blood Pressure Pulse Oximetry 97 09/12/20 01:45 09/12/20 02:00 09/12/20 02:45 Temperature Pulse Rate 80 81 Respiratory Rate 30 H Blood Pressure 100/56 L Pulse Oximetry 98 94 96 09/12/20 04:00 09/12/20 04:56 09/12/20 06:00 Temperature 98.6 F Pulse Rate 78 77 74 Respiratory Rate 30 H 30 H Blood Pressure 98/56 L 97/53 L Pulse Oximetry 94 94 95 09/12/20 07:45 09/12/20 08:00 09/12/20 08:26 Temperature 96.8 F L Pulse Rate 73 71 70 Respiratory Rate 30 H 30 H 30 H Blood Pressure 110/65 Pulse Oximetry 100 09/12/20 08:32 09/12/20 09:14 09/12/20 10:00 Temperature Pulse Rate 70 70 76 Respiratory Rate 22 H Blood Pressure 115/58 L Pulse Oximetry 99 99 94 09/12/20 11:08 Temperature Pulse Rate 74 Respiratory Rate Blood Pressure Pul
--- NOTE | 2020-09-12 11:23 | P.PNNP_ITS ---
Progress Note: A&P Assessment and Plan (1) MARSHA (acute kidney injury): Code(s): N17.9 - Acute kidney failure, unspecified Status: Acute Assessment and Plan: * due to low blood pressure and necessity of diuretic therapy * plan HD yesterday and continue M/W/F schedule for now * push fluid removal as tolerated * follow electrolytes, volume status, and clearance (2) Chronic kidney failure: Code(s): N18.9 - Chronic kidney disease, unspecified Status: Chronic Assessment and Plan: * unclear what baseline creatinine is but his creatinine was 2.1mg/dl back in 2013 * suspect that his baseline creatinine is actually higher than 2.1mg/dl due to a component of kidney disease progression * CKD likely secondary to DM, HTN, and vascular disease * dialysis dependent at this time (3) Acute respiratory failure with hypoxia and hypercapnia: Code(s): J96.01 - Acute respiratory failure with hypoxia; J96.02 - Acute respiratory failure with hypercapnia Status: Acute Assessment and Plan: * due to a combination of COPD and CHF * remains on full ventilator support * wean as tolerated * s/p tracheostomy (4) Shock: Code(s): R57.9 - Shock, unspecified Status: Acute Assessment and Plan: * off pressors * on midodrine therapy * follow trend of hemodynamics (5) Fluid overload, unspecified: Code(s): E87.70 - Fluid overload, unspecified Status: Acute Assessment and Plan: * cardiac function seems to be pretty well except some pulmonary hypertension * fluid removal as tolerated with HD/DUF * making a moderate amount of urine (6) Type 2 diabetes mellitus: Code(s): E11.9 - Type 2 diabetes mellitus without complications Status: Chronic Assessment and Plan: * follow accu-cheks * on sliding-scale insulin Will continue to follow. Subjective Date/time seen: 09/12/20 11:23 Tolerated dialysis yesterday AM as well as tracheostomy and PEG tube placement yesterday afternoon; remains on ventilator support with relatively stable hemodynamics; no apparent distress noted; no events/issues overnight or earlier this AM. Exam Narrative: Exam Narrative: General: WD/WN male in NAD; intubated Heart: normal S1 and S2; no rub Lungs: coarse breath sounds Abdomen: soft, nontender, nondistended, positive bowel sounds Extremities: no cyanosis; 1+ edema Skin: venous stasis changes present Objective Data Vital Signs Vital Signs: Vital Signs Temp Pulse Resp BP Pulse Ox 09/12/20 11:08 74 96 09/12/20 10:00 76 22 H 115/58 L 94 09/12/20 09:14 70 99 09/12/20 08:32 70 99 09/12/20 08:26 70 30 H 09/12/20 08:00 36.0 C L 71 30 H 110/65 100 09/12/20 07:45 73 30 H 09/12/20 06:00 37.0 C 74 30 H 97/53 L 95 09/12/20 04:56 77 94 09/12/20 04:00 78 30 H 98/56 L 94 09/12/20 02:45 96 09/12/20 02:00 81 30 H 100/56 L 94 09/12/20 01:45 80 98 09/12/20 01:36 82 30 H 09/12/20 01:26 80 30 H 09/12/20 00:05 97 09/12/20 00:00 36.9 C 97 30 H 82/56 L 95 09/11/20 23:38 95 97 09/11/20 22:00 102 H 30 H 100/71 95 09/11/20 21:02 99 30 H 09/11/20 20:47 94 30 H 09/11/20 20:32 97 30 H 09/11/20 20:30 97
--- NOTE | 2020-09-12 11:23 | PM.PNNEP ---
Progress Note: A&P Assessment and Plan (1) MARSHA (acute kidney injury): Code(s): N17.9 - Acute kidney failure, unspecified Status: Acute Assessment and Plan: due to low blood pressure and necessity of diuretic therapy plan HD yesterday and continue M/W/F schedule for now push fluid removal as tolerated follow electrolytes, volume status, and clearance (2) Chronic kidney failure: Code(s): N18.9 - Chronic kidney disease, unspecified Status: Chronic Assessment and Plan: unclear what baseline creatinine is but his creatinine was 2.1mg/dl back in 2013 suspect that his baseline creatinine is actually higher than 2.1mg/dl due to a component of kidney disease progression CKD likely secondary to DM, HTN, and vascular disease dialysis dependent at this time (3) Acute respiratory failure with hypoxia and hypercapnia: Code(s): J96.01 - Acute respiratory failure with hypoxia; J96.02 - Acute respiratory failure with hypercapnia Status: Acute Assessment and Plan: due to a combination of COPD and CHF remains on full ventilator support wean as tolerated s/p tracheostomy (4) Shock: Code(s): R57.9 - Shock, unspecified Status: Acute Assessment and Plan: off pressors on midodrine therapy follow trend of hemodynamics (5) Fluid overload, unspecified: Code(s): E87.70 - Fluid overload, unspecified Status: Acute Assessment and Plan: cardiac function seems to be pretty well except some pulmonary hypertension fluid removal as tolerated with HD/DUF making a moderate amount of urine (6) Type 2 diabetes mellitus: Code(s): E11.9 - Type 2 diabetes mellitus without complications Status: Chronic Assessment and Plan: follow accu-cheks on sliding-scale insulin Will continue to follow. Subjective Date/time seen: 09/12/20 11:23 Tolerated dialysis yesterday AM as well as tracheostomy and PEG tube placement yesterday afternoon; remains on ventilator support with relatively stable hemodynamics; no apparent distress noted; no events/issues overnight or earlier this AM. Exam Narrative: Exam Narrative: General: WD/WN male in NAD; intubated Heart: normal S1 and S2; no rub Lungs: coarse breath sounds Abdomen: soft, nontender, nondistended, positive bowel sounds Extremities: no cyanosis; 1+ edema Skin: venous stasis changes present Objective Data Vital Signs Vital Signs: Vital Signs Temp Pulse Resp BP Pulse Ox 09/12/20 11:08 74 96 09/12/20 10:00 76 22 H 115/58 L 94 09/12/20 09:14 70 99 09/12/20 08:32 70 99 09/12/20 08:26 70 30 H 09/12/20 08:00 36.0 C L 71 30 H 110/65 100 09/12/20 07:45 73 30 H 09/12/20 06:00 37.0 C 74 30 H 97/53 L 95 09/12/20 04:56 77 94 09/12/20 04:00 78 30 H 98/56 L 94 09/12/20 02:45 96 09/12/20 02:00 81 30 H 100/56 L 94 09/12/20 01:45 80 98 09/12/20 01:36 82 30 H 09/12/20 01:26 80 30 H 09/12/20 00:05 97 09/12/20 00:00 36.9 C 97 30 H 82/56 L 95 09/11/20 23:38 95 97 09/11/20 22:00 102 H 30 H 100/71 95 09/11/20 21:02 99 30 H 09/11/20 20:47 94 30 H 09/11/20 20:32 97 30 H 09/11/20 20:30 97 94 09/11/20 20:00 37.1 C 101 H 29 H 101/62 95 09/11/20 18:15 94 30 H 101/59 L 92 09/11/20 18:01 80/53 L 09/11/20 17:42 105 H 30 H 96 09/11/20 16:34 87 99 09/11/20 16:00 36.8 C 94 30 H 92/64 L 98 09/11/20 15:18 102 H 30 H 83/49 L 98 09/11/20 15:17 102 H 09/11/20 15:07 118 H 97 09/11/20 14:23 103 H 23 H 137/78 94 09/11/20 12:05 36.6 C 116 H 29 H 109/64 09/11/20 12:00 36.6 C 118 H 30 H 101/61 91 09/11/20 11:45 115 H 116/66 09/11/20 11:30 117 H 98/55 L Intake/Output Intake/Output: Intake & Output 09/09/20 09/10/20 09/11/20 09/12/20 23:59 23:59 23:59 23:59 Intake Total 2830.
[2020-09-12 11:34] LABS: Glucose Point of Care 157 (65-105)
--- NOTE | 2020-09-12 11:36 | WPDANESPN ---
Anes - Prog Note Post-Op Date/Time: 09/12/20 11:36 Cardiovascular status: other (amioderone gtt- NSR) Respiratory status: other (trached-peep 8/60% o2) Airway patency: other (trach) Mental status: other (versed/fent Gtt sedation) Post-Op hydration status: normal Vital Signs: Last Vital Signs Temp 36.0 C L 09/12/20 08:00 Pulse 74 09/12/20 11:08 Resp 22 H 09/12/20 10:00 BP 115/58 L 09/12/20 10:00 Pulse Ox 96 09/12/20 11:08 Pain Score (VAS): trached and sedated I/O: Intake & Output 09/11/20 09/12/20 09/12/20 23:59 07:59 15:59 Intake Total 381 292 200 Output Total 25 0 Balance 356 292 200 Laboratory Tests 09/12/20 10:45 09/12/20 05:37 09/11/20 09/11/20 09/11/20 11:55 14:41 14:52 WBC RBC Hgb Hct MCV MCH MCHC RDW Plt Count MPV APTT Puncture Site Right radial ABG pH 7.323 L ABG pCO2 55.1 H ABG pO2 113.3 H ABG PO2/FiO2 Ratio 1.13 ABG HCO3 27.9 H ABG O2 Saturation 97.8 ABG O2 Content 15.1 L ABG Base Excess 1.1 A-a Gradient 544.6 Oxyhemoglobin 96.2 Carboxyhemoglobin 0.3 Methemoglobin 0.4 Reduced Hemoglobin 3.1 Total Hemoglobin 11.0 L O2 Delivery Device Ventilator O2 Liters/Min Not Reportable Minute Volume Not Reportable Vent Rate 30 Vent Mode Cmv FiO2 100 Tidal Volume 480 PEEP 12 Peak Inspir Pressure Not Reportable Pressure Support Not Reportable Sodium Potassium Chloride Carbon Dioxide Anion Gap BUN Creatinine Estim Creat Clear Calc Estimated GFR Glucose POC Capillary Glucose 131 H 179 H Calcium Phosphorus Magnesium Total Bilirubin AST ALT Alkaline Phosphatase Total Protein Albumin 09/11/20 09/11/20 09/11/20 17:59 21:19 23:31 WBC RBC Hgb Hct MCV MCH MCHC RDW Plt Count MPV APTT Puncture Site ABG pH ABG pCO2 ABG pO2 ABG PO2/FiO2 Ratio ABG HCO3 ABG O2 Saturation ABG O2 Content ABG Base Excess A-a Gradient Oxyhemoglobin Carboxyhemoglobin Methemoglobin Reduced Hemoglobin Total Hemoglobin O2 Delivery Device O2 Liters/Min Minute Volume Vent Rate Vent Mode FiO2 Tidal Volume PEEP Peak Inspir Pressure Pressure Support Sodium Potassium Chloride Carbon Dioxide Anion Gap BUN Creatinine Estim Creat Clear Calc Estimated GFR Glucose POC Capillary Glucose 162 H 159 H 155 H Calcium Phosphorus Magnesium Total Bilirubin AST ALT Alkaline Phosphatase Total Protein Albumin 09/12/20 09/12/20 09/12/20 03:48 05:34 05:37 WBC RBC Hgb Hct MCV MCH MCHC RDW Plt Count MPV APTT 99.8 H Puncture Site Left radial ABG pH 7.415 ABG pCO2 43.6 ABG pO2 69.6 L ABG PO2/FiO2 Ratio 1.16 ABG HCO3 27.3 H ABG O2 Saturation 94.1 L ABG O2 Content 15.5 L ABG Base Excess 2.4 A-a Gradient 310.2 Oxyhemoglobin 92.5 Carboxyhemoglobin 0.3 Methemoglobin 0.3 Reduced Hemoglobin 6.9 H Total Hemoglobin 11.9 L O2 Delivery Device Ventilator O2 Liters/Min Not Reportable Minute Volume Not Reportable Vent Rate 30 Vent Mode Cmv FiO2 60 Tidal Volume 480 PEEP 10 Peak Inspir Pressure Not Reportable Pressure Support Not Reportable Sodium Potassium Chloride Carbon Dioxide Anion Gap BUN Creatinine Estim Creat Clear Calc Estimated GFR Glucose POC Capillary Glucose 162 H Calcium Phosphorus Magnesium Total Bilirubin AST ALT Alkaline Phosphatase Total Protein Albumin 09/12/20 09/12/20 09/12/20 05:37 08:17 10:45 WBC RBC Hgb Hct MCV MCH MCHC RDW Plt Count MPV APTT 89.4 H Puncture Site ABG pH ABG pCO2 ABG
[2020-09-12] MEDS: HEPARIN SOD/D5W 100 UNITS/ML 25,000 UNITS/250 ML BAG 19 UNITS IV CONT (12:21)
[2020-09-12 17:28] LABS: Glucose Point of Care 178 (65-105)
[2020-09-12] MEDS: APIXABAN 2.5 MG TABLET PO (21:05)
[2020-09-12] MEDS: AMIODARONE HCL 200 MG TABLET PO (21:05)
[2020-09-12 21:36] LABS: Glucose Point of Care 144 (65-105)
[2020-09-13] VITALS (27 sets, daily range): BP systolic 115–138; BP diastolic 52–72; PULSE 70–100; RESP 22–26; TEMP 36–36.9; O2SAT 89–93
[2020-09-13 00:06] LABS: Glucose Point of Care 143 (65-105)
[2020-09-13] MEDS: IPRATROPIUM BR 0.02% INH SOLN 0.5 MG/2.5 ML VIAL INHALATION ×4 (01:55→20:10)
[2020-09-13 05:42] LABS: Hematocrit 31.1 % (42.0-52.0); Hemoglobin 9.6 g/dL (14.0-18.0); Mean Corpuscular HGB Conc 30.9 g/dl (32-36); Mean Corpuscular Volume 87.6 fl (80-100); Mean Platelet Volume 8.9 fl (7.4-10.4); Platelet Count Result 265 k/mm3 (150-375); Red Blood Count 3.55 M/mm3 (4.6-6.20); Red Cell Distribution Width 17.2 % (11.5-14.5)
[2020-09-13 05:53] LABS: Partial Thromboplastin Time 43.5 SECONDS (22.3-36.8)
[2020-09-13 06:37] LABS: Anion Gap 11 mmol/L (8-16); Blood Urea Nitrogen 61 mg/dL (9-20); Calcium 8.5 mg/dL (8.4-10.2); Carbon Dioxide 30 mmol/L (22-30); Chloride 93 mmol/L (98-107); Estimated CRCL calculation 13 ml/min; Estimated Glomerular Filt Rate 9; Glucose 169 mg/dL (75-110); Phosphorus 5.7 mg/dL (2.5-4.5); Potassium 3.4 mmol/L (3.4-5.0); Sodium 134 mmol/L (137-145)
[2020-09-13] MEDS: CENTRAL LINE FLUSH 10 ML IV PUSH ×4 (06:43→19:35)
[2020-09-13] MEDS: APIXABAN 2.5 MG TABLET PO ×2 (07:53→19:34)
[2020-09-13] MEDS: AMIODARONE HCL 200 MG TABLET PO ×2 (07:53→19:34)
[2020-09-13] MEDS: MIDODRINE HCL 10 MG TABLET PO (07:54)
[2020-09-13] MEDS: SILVERGEL (ELTA) 45 ML 1 APPLIC TOPICAL (07:54)
[2020-09-13] MEDS: polyethylene glycoL 3350 17 GM POWD.PACK PO (07:54)
[2020-09-13] MEDS: PANTOPRAZOLE SODIUM IV 40 MG VIAL IV PUSH (07:54)
[2020-09-13 08:17] LABS: Glucose Point of Care 155 (65-105)
--- NOTE | 2020-09-13 08:30 | WPDINTPN ---
Progress Note: A&P Assessment and Plan (1) Acute respiratory failure with hypoxia and hypercapnia: Code(s): J96.01 - Acute respiratory failure with hypoxia; J96.02 - Acute respiratory failure with hypercapnia Status: Acute Assessment and Plan: Patient with acute respiratory failure likely related to pneumonia, significant atelectasis, COPD and CHF. Patient was intubated on 08/21/2020 -08/25/2020: Self Extubated -08/27/2020, complete whiteout on the left side likely secondary to mucus plugging - 08/31 -reintubated for persistent hypercarbia and hypoxia and poor mental status - 09/01 left thoracentesis with 1 L fluid removed Tracheostomy and PEG tube placement done on 09/11 -Sputum cultures grew MRSA, status post vancomycin (14 days) and cefepime (7 days) -repeat sputum culture cultures on 09/06 growing yeast -ABG and chest x-ray reviewed. He seems to be doing much better now with adjustment of his vent settings where has started volume was increased to 530 from 480 and respiratory rate was decreased from 30-22. He was is synchronous earlier whenever sedatives would be weaned off. Continue to wean FiO2 and PEEP if tolerated. He is 6 ft and can have 540-620 mL tidal volume based on 7-8 mL/kg body weight. He does not have any evidence of ARDS and can allow him higher tidal volumes so that his respiratory rate can be decreased. He can be placed on T-piece/Trach trial if he continued to do well and his FiO2 is down to 40-50 range. - His sedatives have been weaned off. He is awake with spontaneous eye opening but not following command. He is not communicative as well. (2) Shock: Code(s): R57.9 - Shock, unspecified Status: Acute Assessment and Plan: RESOLVED: PATIENT OFF LEVOPHED - Patient with RV failure, volume overload on chest x-ray and sensitive to volume removal - Started on Midodrine 09/09. Continue midodrine at current dose. Blood pressure is borderline normal. -left IJ line was placed on 09/09/2020. Removed right femoral central line and left mid thigh femoral PICC line 09/09/2020 (3) COPD (chronic obstructive pulmonary disease): Code(s): J44.9 - Chronic obstructive pulmonary disease, unspecified Status: Acute Assessment and Plan: Sputum culture from 08/23/2020 growing MRSA. Completed vancomycin for 14 days. -repeat sputum cultures from 09/07/2019 growing Yeast which is likely colonizer -continue bronchodilator Bronchodilators He is not actively wheezing. Systemic steroids not indicated. (4) Acute CHF (congestive heart failure): Qualifiers: Heart failure type: unspecified Qualified Code(s): I50.9 - Heart failure, unspecified Code(s): I50.9 - Heart failure, unspecified Status: Acute Assessment and Plan: Congestive heart failure with preserved ejection fraction. Ejection fraction was approximately 70%. Diastolic dysfunction could not be assessed. He did have significant right ventricular hypertrophy and hypokinesis but pulmonary artery pressures could not be estimated. - He has significant edema and fluid overload. He was diuresed with Lasix with worsening renal parameters. - Now on hemodialysis for fluid removal as per nephrology service. He will likely be dialysis in the a.m.. He had dialysis on Monday after placement of the dialysis catheter. (5) Acute on chronic renal failure: Code(s): N17.9 - Acute kidney failure, unspecified; N18.9 - Chronic kidney disease, unspecified Status: Acute Assessment and Plan: Nephrology is following -diuresis was tried which helped patient for some time but continued to worsen his renal function, patient was more uremic - Tunnel dialysis catheter placed 3/3 -hemodialysis per nephrology -continue to monitor electrolytes, renal function and intake output record (6) Gastroesophageal reflux disease: Code(s): K21.9 - Gastro-esophageal reflux disease without esophagitis
[2020-09-13] MEDS: BUDESONIDE RESPULE NEB 0.5 MG/2 ML AMP 1 MG INHALATION ×2 (08:33→20:10)
--- NOTE | 2020-09-13 10:25 | P.PNIM_ITS ---
Progress Note: A&P Assessment and Plan (1) Shock: Code(s): R57.9 - Shock, unspecified Status: Acute Assessment and Plan: Possibly sepsis from PNA. Also hypotensive due to right sided failure and is probably very fluid sensitive. Patient requiring Levophed again since 08/31. Wean Levophed as tolerated. Will be challenging for hemodialysis. Completed Cefepime x7 days and Vanco x 14 days. Low grade fevers and BCx collected. Hold on resuming abx. Will continue Levophed and wean to maintain map of greater than 65. ICU team managing. (2) Acute respiratory failure with hypoxia and hypercapnia: Code(s): J96.01 - Acute respiratory failure with hypoxia; J96.02 - Acute respiratory failure with hypercapnia Status: Acute Assessment and Plan: The patient originally presented to urgent care with complaints of shortness of breath and was sent to the ED as he was hypoxic in the 70s on room air. He was placed on BiPAP but despite several adjustments, he continued to be hypercarbic with evidence of respiratory distress and ultimately intubated 08/21/20. COVID negative 08/21/20. Suspect COPD and CHF exacerbation +/- PNA. Did well and able to be extubated 08/27 but was tenuous and had left sided white out by CXR. Aggressive pulmonary toilet but ultimately needed to be re-intubated 08/31/20. Cefepime stopped 09/05/20 after 7 days; Vanco started 08/25 (now Day 14) and will end today. Did have a left thoracentesis with 1L removed on 09/01. CXR today re viewed showing more concerning for ARDS; consider COVID. Patient had trach and G-tube placed yesterday, doing slightly better today, will continue current treatment. (3) Pneumonia: Code(s): J18.9 - Pneumonia, unspecified organism Status: Acute Assessment and Plan: Patient probably had PNA on admission contributing to his respiratory failure and shock. Complicated by his right sided heart failure. No BCx drawn. Sputum on 08/23/20 showing yeast and MRSA. Completed Cefepime x 7 days and Vanco x 14 days (ending 09/07/20). Had treat the done yesterday. Will continue current treatment (4) Congestive heart failure: Code(s): I50.9 - Heart failure, unspecified Status: Acute Assessment and Plan: CHF contributing to [place] [id number]. Chest x-ray on admission showed cardiomegaly and pulmonary edema treated with IV diuretics but now stopped due to MARSHA. Echo showing small LV cavity, EF 70%, severe RVE with RVH and severe hypokinesis. Indeterminate diastolic function. Appears more right sided failure than left. Using HD now to control fluid status but only able to take off small amounts at a time. (5) Atrial fibrillation with RVR: Code(s): I48.91 - Unspecified atrial fibrillation Status: Acute Assessment and Plan: No response with IV Metoprolol initially but Amiodarone converted him out of Izzy b. Was not on any rate controlling agents. Remains on a heparin drip to prevent cardioembolic events. When back iin AFib last night but converted back to NSR with Amio. Remains on AMio drip for now. Continue telemetry monitoring. (6) COPD with acute exacerbation: Code(s): J44.1 - Chronic obstructive pulmonary disease with (acute) exacerbation Status: Acute Assessment and Plan: ABG noted. No wheezing. Continue Pulmicort Respules and Atrovent. Continue to monitor. (7) Elevated troponin: Code(s): R77.8 - Other specified abnormalities of plasma proteins Status: Acute Assessment and Plan: Troponin elevated to 0.046 but flat. EKG showed bord
[2020-09-13 11:55] LABS: Glucose Point of Care 145 (65-105)
--- NOTE | 2020-09-13 13:08 | PM.PNNEP ---
Progress Note: A&P Assessment and Plan (1) MARSHA (acute kidney injury): Code(s): N17.9 - Acute kidney failure, unspecified Status: Acute Assessment and Plan: due to low blood pressure and necessity of diuretic therapy plan HD tomorrow and continue M/W/F schedule for now push fluid removal as tolerated follow electrolytes, volume status, and clearance (2) Chronic kidney failure: Code(s): N18.9 - Chronic kidney disease, unspecified Status: Chronic Assessment and Plan: unclear what baseline creatinine is but his creatinine was 2.1mg/dl back in 2013 suspect that his baseline creatinine is actually higher than 2.1mg/dl due to a component of kidney disease progression CKD likely secondary to DM, HTN, and vascular disease dialysis dependent at this time - no evidence of recovery (minimal UOP and BUN + creatinine rise between dialysis treatments). (3) Acute respiratory failure with hypoxia and hypercapnia: Code(s): J96.01 - Acute respiratory failure with hypoxia; J96.02 - Acute respiratory failure with hypercapnia Status: Acute Assessment and Plan: due to a combination of COPD and CHF remains on full ventilator support wean as tolerated s/p tracheostomy (4) Shock: Code(s): R57.9 - Shock, unspecified Status: Acute Assessment and Plan: off pressors on midodrine therapy follow trend of hemodynamics (5) Fluid overload, unspecified: Code(s): E87.70 - Fluid overload, unspecified Status: Acute Assessment and Plan: cardiac function seems to be pretty well except some pulmonary hypertension fluid removal as tolerated with HD/DUF making a moderate amount of urine (6) Type 2 diabetes mellitus: Code(s): E11.9 - Type 2 diabetes mellitus without complications Status: Chronic Assessment and Plan: follow accu-cheks on sliding-scale insulin Will continue to follow. Subjective Date/time seen: 09/13/20 13:08 Seems much more awake and alert than when I last saw him; remains on mechanical ventilator support; hemodynamically stable off pressor therapy; no new events/issues overnight or earlier this AM; no apparent distress noted at the time of my visit. Exam Narrative: Exam Narrative: General: WD/WN male in NAD; trached Heart: normal S1 and S2; no rub Lungs: coarse breath sounds Abdomen: soft, nontender, nondistended, positive bowel sounds Extremities: no cyanosis; 1+ edema Skin: venous stasis changes present Objective Data Vital Signs Vital Signs: Vital Signs Temp Pulse Resp BP Pulse Ox 09/13/20 12:00 36.0 C L 83 24 H 132/71 93 09/13/20 11:55 93 09/13/20 11:48 80 93 09/13/20 10:00 100 24 H 115/52 L 93 09/13/20 08:50 74 23 H 09/13/20 08:35 79 92 09/13/20 08:34 78 25 H 09/13/20 08:00 36.1 C L 79 24 H 123/57 L 90 09/13/20 07:53 80 09/13/20 06:00 85 23 H 132/61 92 09/13/20 05:06 82 92 09/13/20 04:00 88 23 H 125/59 L 91 09/13/20 03:00 82 24 H 91 09/13/20 01:59 80 92 09/13/20 01:56 82 23 H 09/13/20 00:00 36.7 C 77 23 H 135/70 93 09/12/20 23:00 76 89 L 09/12/20 22:00 36.9 C 78 24 H 130/79 91 09/12/20 21:05 79 09/12/20 20:00 36.8 C 72 24 H 141/68 H 93 09/12/20 19:36 71 92 09/12/20 19:35 76 23 H 09/12/20 18:00 70 25 H 106/60 95 09/12/20 17:05 74 96 09/12/20 16:00 36.2 C L 70 22 H 142/60 H 98 09/12/20 15:58 98 09/12/20 14:22 74 24 H Intake/Output Intake/Output: Intake & Output 09/10/20 09/11/20 09/12/20 09/14/20 23:59 23:59 23:59 00:59 Intake Total 2843.7 1364 1566 443 Output Total 50 2045 10 25 Balance 1223.7 -647 2547 418 Meds/Results Medications: Active Medications Generic Name Dose Route Start Last Admin Trade Name Freq PRN Reason Stop Dose Admin Amiodarone HCl 200 mg 09/12/20 21:00 09/13/20 07:53 Yancy
[2020-09-13 17:51] LABS: Glucose Point of Care 151 (65-105)
[2020-09-13] MEDS: ATORVASTATIN 10 MG TABLET PO (19:34)
[2020-09-14] VITALS (46 sets, daily range): BP systolic 101–150; BP diastolic 51–86; PULSE 79–139; RESP 21–31; TEMP 36.3–37.1; O2SAT 90–97; BMI 35.4
[2020-09-14 01:00] LABS: Glucose Point of Care 136 (65-105)
[2020-09-14] MEDS: IPRATROPIUM BR 0.02% INH SOLN 0.5 MG/2.5 ML VIAL INHALATION ×4 (01:44→20:01)
[2020-09-14 05:26] LABS: Hemoglobin 9.7 g/dL (14.0-18.0); Mean Corpuscular HGB Conc 31.3 g/dl (32-36); Mean Corpuscular Hemoglobin 27.1 pg (26-34); Mean Corpuscular Volume 86.6 fl (80-100); Mean Platelet Volume 8.8 fl (7.4-10.4); Platelet Count Result 270 k/mm3 (150-375); Red Blood Count 3.58 M/mm3 (4.6-6.20); Red Cell Distribution Width 17.1 % (11.5-14.5); White Blood Count 9.2 K/mm3 (4.5-10.0)
[2020-09-14 05:40] LABS: Anion Gap 13 mmol/L (8-16); Blood Urea Nitrogen 76 mg/dL (9-20); Calcium 8.4 mg/dL (8.4-10.2); Carbon Dioxide 30 mmol/L (22-30); Chloride 92 mmol/L (98-107); Estimated CRCL calculation 12 ml/min; Estimated Glomerular Filt Rate 8; Glucose 133 mg/dL (75-110); Magnesium 2.1 mg/dL (1.6-2.3); Phosphorus 6.3 mg/dL (2.5-4.5); Potassium 3.6 mmol/L (3.4-5.0); Sodium 135 mmol/L (137-145)
[2020-09-14] MEDS: BUDESONIDE RESPULE NEB 0.5 MG/2 ML AMP 1 MG INHALATION ×2 (07:32→20:01)
[2020-09-14] MEDS: CENTRAL LINE FLUSH 10 ML IV PUSH ×4 (07:35→20:44)
[2020-09-14] MEDS: PANTOPRAZOLE SODIUM IV 40 MG VIAL IV PUSH (08:18)
[2020-09-14] MEDS: MIDODRINE HCL 10 MG TABLET PO ×3 (08:18→17:48)
[2020-09-14] MEDS: AMIODARONE HCL 200 MG TABLET PO ×2 (08:18→20:43)
[2020-09-14] MEDS: APIXABAN 2.5 MG TABLET PO ×2 (08:18→20:43)
[2020-09-14] MEDS: SILVERGEL (ELTA) 45 ML 1 APPLIC TOPICAL (08:19)
[2020-09-14] MEDS: polyethylene glycoL 3350 17 GM POWD.PACK PO (08:19)
--- NOTE | 2020-09-14 08:35 | WPDINTPN ---
Progress Note: A&P Assessment and Plan (1) Acute respiratory failure with hypoxia and hypercapnia: Code(s): J96.01 - Acute respiratory failure with hypoxia; J96.02 - Acute respiratory failure with hypercapnia Status: Acute Assessment and Plan: Patient with acute respiratory failure likely related to pneumonia, significant atelectasis, COPD and CHF. Patient was intubated on 08/21/2020 -08/25/2020: Self Extubated -08/27/2020, complete whiteout on the left side likely secondary to mucus plugging - 08/31 -reintubated for persistent hypercarbia and hypoxia and poor mental status - 09/01 left thoracentesis with 1 L fluid removed - 09/11 status post Tracheostomy and PEG tube placement -Sputum cultures grew MRSA, status post vancomycin (14 days) and cefepime (7 days) -repeat sputum culture cultures on 09/06 growing yeast -ABG and chest x-ray reviewed. -patient seems to be doing better with high tidal volumes (7 mL/kg were predicted body) -patient was placed on ASV and tolerated well, starting dialysis, switched him back to CMV. Will put him back on ASV after dialysis -peep of 8, FiO2 of 60%,. Off all sedation (2) Shock: Code(s): R57.9 - Shock, unspecified Status: Acute Assessment and Plan: RESOLVED: PATIENT OFF LEVOPHED - Patient with RV failure, volume overload on chest x-ray and sensitive to volume removal - Started on Midodrine 09/09. Continue midodrine at current dose. Blood pressure is borderline normal. -left IJ line was placed on 09/09/2020. Removed right femoral central line and left mid thigh femoral PICC line 09/09/2020 (3) COPD (chronic obstructive pulmonary disease): Code(s): J44.9 - Chronic obstructive pulmonary disease, unspecified Status: Acute Assessment and Plan: Sputum culture from 08/23/2020 growing MRSA. Completed vancomycin for 14 days. -repeat sputum cultures from 09/07/2019 growing Yeast which is likely colonizer -continue bronchodilator Bronchodilators He is not actively wheezing. Systemic steroids not indicated. (4) Acute CHF (congestive heart failure): Qualifiers: Heart failure type: unspecified Qualified Code(s): I50.9 - Heart failure, unspecified Code(s): I50.9 - Heart failure, unspecified Status: Acute Assessment and Plan: Congestive heart failure with preserved ejection fraction. Ejection fraction was approximately 70%. Diastolic dysfunction could not be assessed. He did have significant right ventricular hypertrophy and hypokinesis but pulmonary artery pressures could not be estimated. - He has significant edema and fluid overload. He was diuresed with Lasix with worsening renal parameters. - Now on hemodialysis for fluid removal as per nephrology service. (5) Acute on chronic renal failure: Code(s): N17.9 - Acute kidney failure, unspecified; N18.9 - Chronic kidney disease, unspecified Status: Acute Assessment and Plan: Nephrology is following -diuresis was tried which helped patient for some time but continued to worsen his renal function, patient was more uremic - Tunnel dialysis catheter placed 3/3 -hemodialysis per nephrology -continue to monitor electrolytes, renal function and intake output record (6) Gastroesophageal reflux disease: Code(s): K21.9 - Gastro-esophageal reflux disease without esophagitis Status: Chronic Assessment and Plan: Protonix (7) Atrial fibrillation with RVR: Code(s): I48.91 - Unspecified atrial fibrillation Status: Acute Assessment and Plan: Patient went to AFib RVR nurses assistant again on 09/08/2020 soon after dialysis, patient started on amiodarone bolus and infusion and converted to sinus rhythm. -currently on p.o. amiodarone. His heart rate is well controlled in 70s and 80s. -cardiology following the patient -went into AFib RVR after dialysis was started, will continue to monitor day Continue Eliquis 2.5
[2020-09-14] MEDS: SODIUM CHLORIDE 0.9% IV 1,000 ML 999 ML IV CONT (09:32)
[2020-09-14] MEDS: EPOETIN ALFA-EPBX 10,000 UNITS/ML VIAL 10000 UNITS IV PUSH (09:34)
--- NOTE | 2020-09-14 10:52 | PCDIET ---
ICU Rounding Note: Patient tolerating Nepro at 45mL/hr with 30mL water flush every 4 hours. Recommended increase to 50mL/hr Nepro for 1980kcal and 89g protein over 22 hours/day. Last recorded weight is 118.3kg which is stable with last review. Bowel Motility: BM on 09/12/20 per MD. Labs Reviewed: Hgb (9.7), Hct (31.0), Glu (133), BUN (76), Cr (6.9), Na (135), PO4 (6.3) Meds Noted: Lipitor, Atrovent, Retacrit, Novolog, Xopenex, Protonix, Miralax Additional Notes: Buttocks macerated, per RN. Patient also with right lower leg arterial ulcer and skin tears. Patient having dialysis today with 2L removed on 09/11/20. Following daily in ICU rounds. Assessing/reassessing every Monday/Monday.
[2020-09-14 12:44] LABS: Glucose Point of Care 142 (65-105)
--- NOTE | 2020-09-14 13:44 | P.PNNP_ITS ---
Progress Note: A&P Assessment and Plan (1) MARSHA (acute kidney injury): Code(s): N17.9 - Acute kidney failure, unspecified Status: Acute Assessment and Plan: * due to low blood pressure and necessity of diuretic therapy * plan HD monday and continue MWF * push fluid removal as tolerated * follow electrolytes, volume status, and clearance (2) Chronic kidney failure: Code(s): N18.9 - Chronic kidney disease, unspecified Status: Chronic Assessment and Plan: * unclear what baseline creatinine is but his creatinine was 2.1mg/dl back in 2013 * suspect that his baseline creatinine is actually higher than 2.1mg/dl due to a component of kidney disease progression * CKD likely secondary to DM, HTN, and vascular disease * dialysis dependent at this time - no evidence of recovery (minimal UOP and BUN + creatinine rise between dialysis treatments). * with the significant ckd, recovery may be less likely. (3) Acute respiratory failure with hypoxia and hypercapnia: Code(s): J96.01 - Acute respiratory failure with hypoxia; J96.02 - Acute respiratory failure with hypercapnia Status: Acute Assessment and Plan: * due to a combination of COPD and CHF * remains on full ventilator support * wean as tolerated * s/p tracheostomy (4) Shock: Code(s): R57.9 - Shock, unspecified Status: Acute Assessment and Plan: * off pressors * on midodrine therapy * bp doing okay so far today (5) Fluid overload, unspecified: Code(s): E87.70 - Fluid overload, unspecified Status: Acute Assessment and Plan: * cardiac function seems to be pretty well except some pulmonary hypertension * fluid removal as tolerated with HD/DUF * making a moderate amount of urine (6) Type 2 diabetes mellitus: Code(s): E11.9 - Type 2 diabetes mellitus without complications Status: Chronic Assessment and Plan: * follow accu-cheks * on sliding-scale insulin Subjective Date/time seen: 09/14/20 13:44 Interval history: alert, not very interactive. daughter in the room. on the vent still in the ICU BP is okay Review of Systems Cardiovascular: Cardiovascular: Reports no additional cardiovascular complaints Respiratory: Respiratory: Reports no additional respiratory complaints Gastrointestinal: Gastrointestinal: Reports no additional gastrointestinal complaints Genitourinary: Genitourinary: Reports no additional male genitourinary complaints Exam Narrative: Exam Narrative: General: WD/WN male in NAD; trached Heart: normal S1 and S2; no rub or gallop Lungs: coarse breath sounds Abdomen: soft, nontender, nondistended, positive bowel sounds Extremities: no cyanosis; 1+ edema and no cyanosis. Skin: venous stasis changes present Objective Data Vital Signs Vital Signs: Vital Signs - 24 hr 09/13/20 14:00 09/13/20 14:18 09/13/20 14:20 Temperature Pulse Rate 81 83 82 Respiratory Rate 24 H 24 H Blood Pressure 136/71 Pulse Oximetry 89 L 92 09/13/20 14:27 09/13/20 16:00 09/13/20 17:10 Temperature 36.1 C L Pulse Rate 82 83 89 Respiratory Rate 25 H 24 H Blood Pressure 135/65 Pulse Oximetry 90 91 09/13/20 18:00 09/13/20 19:34 09/13/20 20:00
--- NOTE | 2020-09-14 13:44 | PM.PNNEP ---
Progress Note: A&P Assessment and Plan (1) MARSHA (acute kidney injury): Code(s): N17.9 - Acute kidney failure, unspecified Status: Acute Assessment and Plan: due to low blood pressure and necessity of diuretic therapy plan HD monday and continue MWF push fluid removal as tolerated follow electrolytes, volume status, and clearance (2) Chronic kidney failure: Code(s): N18.9 - Chronic kidney disease, unspecified Status: Chronic Assessment and Plan: unclear what baseline creatinine is but his creatinine was 2.1mg/dl back in 2013 suspect that his baseline creatinine is actually higher than 2.1mg/dl due to a component of kidney disease progression CKD likely secondary to DM, HTN, and vascular disease dialysis dependent at this time - no evidence of recovery (minimal UOP and BUN + creatinine rise between dialysis treatments). with the significant ckd, recovery may be less likely. (3) Acute respiratory failure with hypoxia and hypercapnia: Code(s): J96.01 - Acute respiratory failure with hypoxia; J96.02 - Acute respiratory failure with hypercapnia Status: Acute Assessment and Plan: due to a combination of COPD and CHF remains on full ventilator support wean as tolerated s/p tracheostomy (4) Shock: Code(s): R57.9 - Shock, unspecified Status: Acute Assessment and Plan: off pressors on midodrine therapy bp doing okay so far today (5) Fluid overload, unspecified: Code(s): E87.70 - Fluid overload, unspecified Status: Acute Assessment and Plan: cardiac function seems to be pretty well except some pulmonary hypertension fluid removal as tolerated with HD/DUF making a moderate amount of urine (6) Type 2 diabetes mellitus: Code(s): E11.9 - Type 2 diabetes mellitus without complications Status: Chronic Assessment and Plan: follow accu-cheks on sliding-scale insulin Subjective Date/time seen: 09/14/20 13:44 Interval history: alert, not very interactive. daughter in the room. on the vent still in the ICU BP is okay Review of Systems Cardiovascular: Cardiovascular: Reports no additional cardiovascular complaints Respiratory: Respiratory: Reports no additional respiratory complaints Gastrointestinal: Gastrointestinal: Reports no additional gastrointestinal complaints Genitourinary: Genitourinary: Reports no additional male genitourinary complaints Exam Narrative: Exam Narrative: General: WD/WN male in NAD; trached Heart: normal S1 and S2; no rub or gallop Lungs: coarse breath sounds Abdomen: soft, nontender, nondistended, positive bowel sounds Extremities: no cyanosis; 1+ edema and no cyanosis. Skin: venous stasis changes present Objective Data Vital Signs Vital Signs: Vital Signs - 24 hr 09/13/20 14:00 09/13/20 14:18 09/13/20 14:20 Temperature Pulse Rate 81 83 82 Respiratory Rate 24 H 24 H Blood Pressure 136/71 Pulse Oximetry 89 L 92 09/13/20 14:27 09/13/20 16:00 09/13/20 17:10 Temperature 36.1 C L Pulse Rate 82 83 89 Respiratory Rate 25 H 24 H Blood Pressure 135/65 Pulse Oximetry 90 91 09/13/20 18:00 09/13/20 19:34 09/13/20 20:00 Temperature 36.9 C Pulse Rate 83 82 80 Respiratory Rate 22 H 26 H Blood Pressure 135/63 138/72 Pulse Oximetry 90 92 09/13/20 22:00 09/13/20 23:00 09/14/20 00:00 Temperature 36.9 C Pulse Rate 83 83 81 Respiratory Rate 24 H 24 H Blood Pressure 127/66 133/70 Pulse Oximetry 93 92 95 09/14/20 01:45 09/14/20 02:00 09/14/20 04:00 Temperature Pulse Rate 80 81 79 Respiratory Rate 24 H 21 H 22 H Blood Pressure 150/64 H 101/51 L Pulse Oximetry 92 92 92 09/14/20 04:59 09/14/20 06:00 09/14/20 07:32 Temperature 36.6 C Pulse Rate 81 81 80 Respiratory Rate 26 H 25 H Blood Pressure 150/76 H Pulse Oximetry 94 93 91 09/14/20 07:44 09/14/20 08:00 09/14/20 08:05 Temperatu
[2020-09-14] MEDS: METOPROLOL TARTRATE INJ 5 MG/5 ML VIAL IV PUSH (14:28)
--- NOTE | 2020-09-14 16:48 | PM.IMPN ---
Progress Note: A&P Assessment and Plan (1) Shock: Code(s): R57.9 - Shock, unspecified Status: Acute Assessment and Plan: Possibly sepsis from PNA. Also hypotensive due to right sided failure and is probably very fluid sensitive. Patient requiring Levophed again since 08/31. Wean Levophed as tolerated. Will be challenging for hemodialysis. Completed Cefepime x7 days and Vanco x 14 days. Low grade fevers and BCx collected. Hold on resuming abx. Will continue Levophed and wean to maintain map of greater than 65. ICU team managing. 09/14/20 16:48 The patient originally presented to urgent care with complaints of shortness of breath and was sent to the ED as he was hypoxic in the 70s on room air. He was placed on BiPAP but despite several adjustments, he continued to be hypercarbic with evidence of respiratory distress and ultimately intubated 08/21/20. COVID negative 08/21/20. Suspect COPD and CHF exacerbation +/- PNA. Did well and able to be extubated 08/27 but was tenuous and had left sided white out by CXR. Aggressive pulmonary toilet but ultimately needed to be re-intubated 08/31/20. Cefepime stopped 09/05/20 after 7 days; Vanco started 08/25 (now Day 14) and will end today. Did have a left thoracentesis with 1L removed on 09/01. CXR reviewed showing more concerning for ARDS; patient was tested and it was negative, patient was not able to be weaned of vent and had trach and PEG placed on 09/11/20. today patient doing well, patient will be transferred to LTAC pending approval, patient family present in the room. (2) Acute respiratory failure with hypoxia and hypercapnia: Code(s): J96.01 - Acute respiratory failure with hypoxia; J96.02 - Acute respiratory failure with hypercapnia Status: Acute Assessment and Plan: The patient originally presented to urgent care with complaints of shortness of breath and was sent to the ED as he was hypoxic in the 70s on room air. He was placed on BiPAP but despite several adjustments, he continued to be hypercarbic with evidence of respiratory distress and ultimately intubated 08/21/20. COVID negative 08/21/20. Suspect COPD and CHF exacerbation +/- PNA. Did well and able to be extubated 08/27 but was tenuous and had left sided white out by CXR. Aggressive pulmonary toilet but ultimately needed to be re-intubated 08/31/20. Cefepime stopped 09/05/20 after 7 days; Vanco started 08/25 (now Day 14) and will end today. Did have a left thoracentesis with 1L removed on 09/01. CXR today reviewed showing more concerning for ARDS; consider COVID. Patient had trach and G-tube placed yesterday, doing slightly better today, will continue current treatment. (3) Pneumonia: Code(s): J18.9 - Pneumonia, unspecified organism Status: Acute Assessment and Plan: Patient probably had PNA on admission contributing to his respiratory failure and shock. Complicated by his right sided heart failure. No BCx drawn. Sputum on 08/23/20 showing yeast and MRSA. Completed Cefepime x 7 days and Vanco x 14 days (ending 09/07/20). Had treat the done yesterday. Will continue current treatment (4) Congestive heart failure: Code(s): I50.9 - Heart failure, unspecified Status: Acute Assessment and Plan: CHF contributing to [place] [id number]. Chest x-ray on admission showed cardiomegaly and pulmonary edema treated with IV diuretics but now stopped due to MARSHA. Echo showing small LV cavity, EF 70%, severe RVE with RVH and severe hypokinesis. Indeterminate diastolic function. Appears more right sided failure than left. Using HD now to control fluid status but only able to take off small amounts at a time. (5) Atrial fibrillation with RVR: Code(s): I48.91 - Unspecified atrial fibrillation Status: Acute Assessment and Plan: No response with IV Metoprolol initially but Amiodarone converted him out of AFib. Was not on any rate control
[2020-09-14 18:02] LABS: Glucose Point of Care 192 (65-105)
[2020-09-14] MEDS: ATORVASTATIN 10 MG TABLET PO (20:43)
[2020-09-15] VITALS (35 sets, daily range): BP systolic 83–152; BP diastolic 50–76; PULSE 77–99; RESP 21–30; TEMP 36.1–37; O2SAT 84–99
[2020-09-15 00:07] LABS: Glucose Point of Care 136 (65-105)
[2020-09-15] MEDS: IPRATROPIUM BR 0.02% INH SOLN 0.5 MG/2.5 ML VIAL INHALATION ×4 (01:31→20:13)
[2020-09-15] MEDS: MORPHINE SULFATE (*CRX) 2 MG/ML INJ IV PUSH (02:23)
[2020-09-15] MEDS: MIDAZOLAM HCL (*CRX) 2 MG/2 ML VIAL IV PUSH (02:43)
[2020-09-15 04:45] LABS: Hematocrit 32.5 % (42.0-52.0); Hemoglobin 9.8 g/dL (14.0-18.0); Mean Corpuscular HGB Conc 30.2 g/dl (32-36); Mean Corpuscular Hemoglobin 26.6 pg (26-34); Mean Corpuscular Volume 88.1 fl (80-100); Platelet Count Result 316 k/mm3 (150-375); Red Blood Count 3.69 M/mm3 (4.6-6.20); Red Cell Distribution Width 17.2 % (11.5-14.5)
[2020-09-15 05:12] LABS: Anion Gap 13 mmol/L (8-16); Blood Urea Nitrogen 52 mg/dL (9-20); Calcium 8.6 mg/dL (8.4-10.2); Carbon Dioxide 27 mmol/L (22-30); Chloride 98 mmol/L (98-107); Estimated CRCL calculation 16 ml/min; Estimated Glomerular Filt Rate 11; Glucose 150 mg/dL (75-110); Magnesium 2.1 mg/dL (1.6-2.3); Potassium 3.4 mmol/L (3.4-5.0); Sodium 138 mmol/L (137-145)
[2020-09-15 05:28] LABS: Alveolar/Arterial O2 Gradient 607.3 mmHg; Base Excess ABG -0.1 mEq/l (+/-2.0); Carboxyhemoglobin 0.2 % THb (0-2.0); Fractional Inspired Oxygen 100 %; HCO3 ABG 25.6 mEq/l (22.0-26.0); Methemoglobin ABG 0.2 %THb (0-1.5); Oxygen Content ABG 13.7 %vol (16.0-22.0); Oxygen Saturation ABG 89.6 % (95.0-100.0); Oxyhemoglobin 88.5 % THb (90.0-100.0); PCO2 ABG 46.4 mmHg (35.0-45.0); PO2 ABG 59.3 mmHg (80.0-100.0); PO2 FiO2 Ratio Arterial Blood 0.59 %; Reduced Hemoglobin 11.1 %THb (0-5.0)
[2020-09-15 05:32] LABS: Arterial Blood Gas PEEP 8 cmH2O; Arterial Blood Gas Tidal Volume 530 ml; Arterial Blood Gas Vent Mode CMV; Arterial Blood Gas Ventilator rate 22 /MIN; Device VENTILATOR; Modified Allen's Test Unable to perform; Site Drawn RIGHT RADIAL
[2020-09-15] MEDS: CENTRAL LINE FLUSH 10 ML IV PUSH ×4 (06:23→22:50)
--- NOTE | 2020-09-15 07:35 | P.PNNP_ITS ---
Progress Note: A&P Assessment and Plan (1) MARSHA (acute kidney injury): Code(s): N17.9 - Acute kidney failure, unspecified Status: Acute Assessment and Plan: * due to low blood pressure and necessity of diuretic therapy * He had dialysis yesterday. He had a couple of runs of SVT during the treatment but no drops in blood pressure. * plan HD Monday. * push fluid removal as tolerated * Volume status looks pretty good. He does not have much swelling. * Will try to remove 3L tomorrow if tolerated. * Discussed with Dr. Vanegas (2) Chronic kidney failure: Code(s): N18.9 - Chronic kidney disease, unspecified Status: Chronic Assessment and Plan: * unclear what baseline creatinine is but his creatinine was 2.1mg/dl back in 2013 * His ultrasound showed normal kidney size and no hydro. * suspect that his baseline creatinine is actually higher than 2.1mg/dl due to a component of kidney disease progression * CKD likely secondary to DM, HTN, and vascular disease * dialysis dependent at this time. He only made 25cc of urine last night. * with the significant ckd, recovery may be less likely. (3) Acute respiratory failure with hypoxia and hypercapnia: Code(s): J96.01 - Acute respiratory failure with hypoxia; J96.02 - Acute respiratory failure with hypercapnia Status: Acute Assessment and Plan: * due to a combination of COPD and CHF * Mucous plugging continues to be an issue. * remains on full ventilator support * wean as tolerated * s/p tracheostomy (4) Shock: Code(s): R57.9 - Shock, unspecified Status: Acute Assessment and Plan: * off pressors * on midodrine therapy * bp doing okay so far today (5) Fluid overload, unspecified: Code(s): E87.70 - Fluid overload, unspecified Status: Acute Assessment and Plan: * cardiac function seems to be pretty good except some pulmonary hypertension * fluid removal as tolerated with HD (6) Type 2 diabetes mellitus: Code(s): E11.9 - Type 2 diabetes mellitus without complications Status: Chronic Assessment and Plan: * follow accu-cheks * on sliding-scale insulin Subjective Date/time seen: 09/15/20 07:35 Interval history: alert, his glasses are on. I asked him if he was in any pain in he nodded his yes and no. I asked him few was short of breath and he closed his eyes. He does not look in distress. I think he just got tired. on the vent still in the ICU BP is okay Review of Systems Review of Systems: ROS unobtainable: Yes unobtainable due to medical condition Exam Narrative: Exam Narrative: General: WD/WN male in NAD; trached Heart: normal S1 and S2; no rub or gallop Lungs: coarse breath sounds mildly decreased on the left. Abdomen: Bowel sounds positive but hypoactive. Somewhat distended. Extremities: no cyanosis; 1+ edema and no cyanosis. Skin: venous stasis changes present Objective Data Vital Signs Vital Signs: Vital Signs - 24 hr 09/14/20 07:44 09/14/20 08:00 09/14/20 08:05 Temperature 36.4 C Pulse Rate 88 82 128 H Respiratory Rate 24 H 21 H Blood Pressure 119/61 Pulse Oximetry 91 09/14/20 08:10 09/14/20 08:18 09/14/20 08:20 Temperature 36.4 C Pulse Rate 82 136 H 139 H Respiratory Rate 25 H
--- NOTE | 2020-09-15 07:35 | PM.PNNEP ---
Progress Note: A&P Assessment and Plan (1) MARSHA (acute kidney injury): Code(s): N17.9 - Acute kidney failure, unspecified Status: Acute Assessment and Plan: due to low blood pressure and necessity of diuretic therapy He had dialysis yesterday. He had a couple of runs of SVT during the treatment but no drops in blood pressure. plan HD Monday. push fluid removal as tolerated Volume status looks pretty good. He does not have much swelling. Will try to remove 3L tomorrow if tolerated. Discussed with Dr. Vanegas (2) Chronic kidney failure: Code(s): N18.9 - Chronic kidney disease, unspecified Status: Chronic Assessment and Plan: unclear what baseline creatinine is but his creatinine was 2.1mg/dl back in 2013 His ultrasound showed normal kidney size and no hydro. suspect that his baseline creatinine is actually higher than 2.1mg/dl due to a component of kidney disease progression CKD likely secondary to DM, HTN, and vascular disease dialysis dependent at this time. He only made 25cc of urine last night. with the significant ckd, recovery may be less likely. (3) Acute respiratory failure with hypoxia and hypercapnia: Code(s): J96.01 - Acute respiratory failure with hypoxia; J96.02 - Acute respiratory failure with hypercapnia Status: Acute Assessment and Plan: due to a combination of COPD and CHF Mucous plugging continues to be an issue. remains on full ventilator support wean as tolerated s/p tracheostomy (4) Shock: Code(s): R57.9 - Shock, unspecified Status: Acute Assessment and Plan: off pressors on midodrine therapy bp doing okay so far today (5) Fluid overload, unspecified: Code(s): E87.70 - Fluid overload, unspecified Status: Acute Assessment and Plan: cardiac function seems to be pretty good except some pulmonary hypertension fluid removal as tolerated with HD (6) Type 2 diabetes mellitus: Code(s): E11.9 - Type 2 diabetes mellitus without complications Status: Chronic Assessment and Plan: follow accu-cheks on sliding-scale insulin Subjective Date/time seen: 09/15/20 07:35 Interval history: alert, his glasses are on. I asked him if he was in any pain in he nodded his yes and no. I asked him few was short of breath and he closed his eyes. He does not look in distress. I think he just got tired. on the vent still in the ICU BP is okay Review of Systems Review of Systems: ROS unobtainable: Yes unobtainable due to medical condition Exam Narrative: Exam Narrative: General: WD/WN male in NAD; trached Heart: normal S1 and S2; no rub or gallop Lungs: coarse breath sounds mildly decreased on the left. Abdomen: Bowel sounds positive but hypoactive. Somewhat distended. Extremities: no cyanosis; 1+ edema and no cyanosis. Skin: venous stasis changes present Objective Data Vital Signs Vital Signs: Vital Signs - 24 hr 09/14/20 07:44 09/14/20 08:00 09/14/20 08:05 Temperature 36.4 C Pulse Rate 88 82 128 H Respiratory Rate 24 H 21 H Blood Pressure 119/61 Pulse Oximetry 91 09/14/20 08:10 09/14/20 08:18 09/14/20 08:20 Temperature 36.4 C Pulse Rate 82 136 H 139 H Respiratory Rate 25 H Blood Pressure 119/61 114/71 Pulse Oximetry 90 09/14/20 08:30 09/14/20 08:45 09/14/20 09:00 Temperature Pulse Rate 106 H 121 H 120 H Respiratory Rate Blood Pressure 141/65 H 128/72 114/61 Pulse Oximetry 09/14/20 09:15 09/14/20 09:30 09/14/20 09:45 Temperature Pulse Rate 124 H 111 H 102 H Respiratory Rate Blood Pressure 116/73 128/76 121/65 Pulse Oximetry 09/14/20 10:00 09/14/20 10:15 09/14/20 10:30 Temperature Pulse Rate 124 H 114 H 119 H Respiratory Rate 26 H Blood Pressure 118/72 116/71 131/69 Pulse Oximetry 92 09/14/20 10:45 09/14/20 11:00 09/14/20 11:15 Temperature Puls
--- NOTE | 2020-09-15 07:47 | WPDINTPN ---
Progress Note: A&P Assessment and Plan (1) Acute respiratory failure with hypoxia and hypercapnia: Code(s): J96.01 - Acute respiratory failure with hypoxia; J96.02 - Acute respiratory failure with hypercapnia Status: Acute Assessment and Plan: Patient with acute respiratory failure likely related to pneumonia, significant atelectasis, COPD and CHF. Patient was intubated on 08/21/2020 -08/25/2020: Self Extubated -08/27/2020, complete whiteout on the left side likely secondary to mucus plugging - 08/31 -reintubated for persistent hypercarbia and hypoxia and poor mental status - 09/01 left thoracentesis with 1 L fluid removed - 09/11 status post Tracheostomy and PEG tube placement -Sputum cultures grew MRSA, status post vancomycin (14 days) and cefepime (7 days) -repeat sputum culture cultures on 09/06 growing yeast -ABG and chest x-ray reviewed. -patient seems to be doing better with high tidal volumes (7 mL/kg were predicted body) -patient desaturated overnight requiring 100% FiO2, wean FiO2 this morning to 70%, 09/15 chest x-ray showed complete whiteout on the left side, likely related to mucus plugging -will order chest PT, Pulmozyme, turn patient to the right side -will discuss with pulmonology regarding bronchoscopy if left lung does not open up Off all sedation (2) Shock: Code(s): R57.9 - Shock, unspecified Status: Acute Assessment and Plan: RESOLVED: PATIENT OFF LEVOPHED - Patient with RV failure, volume overload on chest x-ray and sensitive to volume removal - Started on Midodrine 09/09. Continue midodrine at current dose. Blood pressure is borderline normal. -left IJ line was placed on 09/09/2020. Removed right femoral central line and left mid thigh femoral PICC line 09/09/2020 (3) COPD (chronic obstructive pulmonary disease): Code(s): J44.9 - Chronic obstructive pulmonary disease, unspecified Status: Acute Assessment and Plan: Sputum culture from 08/23/2020 growing MRSA. Completed vancomycin for 14 days. -repeat sputum cultures from 09/07/2019 growing Yeast which is likely colonizer -continue bronchodilator Bronchodilators He is not actively wheezing. Systemic steroids not indicated. (4) Acute CHF (congestive heart failure): Qualifiers: Heart failure type: unspecified Qualified Code(s): I50.9 - Heart failure, unspecified Code(s): I50.9 - Heart failure, unspecified Status: Acute Assessment and Plan: Congestive heart failure with preserved ejection fraction. Ejection fraction was approximately 70%. Diastolic dysfunction could not be assessed. He did have significant right ventricular hypertrophy and hypokinesis but pulmonary artery pressures could not be estimated. - He has significant edema and fluid overload. He was diuresed with Lasix with worsening renal parameters. - Now on hemodialysis for fluid removal as per nephrology service. (5) Acute on chronic renal failure: Code(s): N17.9 - Acute kidney failure, unspecified; N18.9 - Chronic kidney disease, unspecified Status: Acute Assessment and Plan: Nephrology is following -diuresis was tried which helped patient for some time but continued to worsen his renal function, patient was more uremic - Tunnel dialysis catheter placed 3/3 -hemodialysis per nephrology -continue to monitor electrolytes, renal function and intake output record (6) Gastroesophageal reflux disease: Code(s): K21.9 - Gastro-esophageal reflux disease without esophagitis Status: Chronic Assessment and Plan: Protonix (7) Atrial fibrillation with RVR: Code(s): I48.91 - Unspecified atrial fibrillation Status: Acute Assessment and Plan: 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 -currently on p.o. amiodarone. His heart rate is w
[2020-09-15] MEDS: BUDESONIDE RESPULE NEB 0.5 MG/2 ML AMP 1 MG INHALATION ×2 (08:26→20:13)
[2020-09-15] MEDS: DORNASE ALFA INH SOLN 1 MG/ML 2.5 ML AMP 2.5 MG INHALATION ×2 (08:29→20:13)
[2020-09-15] MEDS: PANTOPRAZOLE SODIUM IV 40 MG VIAL IV PUSH (09:26)
[2020-09-15] MEDS: MIDODRINE HCL 10 MG TABLET PO ×3 (09:26→17:44)
[2020-09-15] MEDS: AMIODARONE HCL 200 MG TABLET PO ×2 (09:26→21:01)
[2020-09-15] MEDS: METOPROLOL TARTRATE 12.5 MG TABLET PO ×2 (09:27→21:02)
[2020-09-15] MEDS: APIXABAN 2.5 MG TABLET PO ×2 (09:27→21:02)
[2020-09-15] MEDS: SILVERGEL (ELTA) 45 ML 1 APPLIC TOPICAL (09:28)
[2020-09-15] MEDS: POTASSIUM CHLORIDE 20 MEQ PACKET (FOR LIQUID) 40 MEQ FEED TUBE (09:29)
[2020-09-15] MEDS: ALTEPLASE 2 MG VIAL (CATHFLO) IV PUSH ×4 (10:16→13:30)
--- NOTE | 2020-09-15 10:37 | PCDIET ---
Nutrition Follow-Up Complete: Nutrition Diagnosis: Inadequate oral intake related to oral intubation as evidenced by NPO status. Nutrition Goal: Patient to meet estimated nutritional needs. Goal not met. Tube feedings on hold with abdominal x-ray showing adynamic ileus vs. distal colonic obstruction. MD order for feeding tube to suction. If unable to resume tube feedings in the next 24-48 hours, would begin to consider parenteral nutrition. Last recorded weight is 117.2 kg which is down from last review. -I/O. Bowel Motility: Reported BM on 09/12/20 with last documented BM on 09/11/20. Labs Reviewed: WBC (12.0), Hgb (9.8), Hct (32.5), Glu (150), BUN (52), Cr (5.0) Meds Noted: Protonix, Miralax, Amiodarone, Novolog, Xopenex, Lipitor, Atrovent, Lopressor, Pulmicort, Epogen, Midodrine Additional Notes: No change in skin reported. Will continue to monitor with same goal. Nutrition Monitoring and Evaluation: Follow up every Monday/Monday. Follow daily in ICU rounds.
[2020-09-15 11:47] LABS: Glucose Point of Care 152 (65-105)
[2020-09-15] MEDS: ACETYLCYSTEINE 20% INHAL SOLN 800 MG/4 ML VIAL 200 MG INHALATION (14:18)
--- NOTE | 2020-09-15 15:49 | PM.IMPN ---
Progress Note: A&P Assessment and Plan (1) Shock: Code(s): R57.9 - Shock, unspecified Status: Acute Assessment and Plan: Possibly sepsis from PNA. Also hypotensive due to right sided failure and is probably very fluid sensitive. Patient requiring Levophed again since 08/31. Wean Levophed as tolerated. Will be challenging for hemodialysis. Completed Cefepime x7 days and Vanco x 14 days. Low grade fevers and BCx collected. Hold on resuming abx. Will continue Levophed and wean to maintain map of greater than 65. ICU team managing. 09/15/20 15:50 The patient originally presented to urgent care with complaints of shortness of breath and was sent to the ED as he was hypoxic in the 70s on room air. He was placed on BiPAP but despite several adjustments, he continued to be hypercarbic with evidence of respiratory distress and ultimately intubated 08/21/20. COVID negative 08/21/20. Suspect COPD and CHF exacerbation +/- PNA. Did well and able to be extubated 08/27 but was tenuous and had left sided white out by CXR. Aggressive pulmonary toilet but ultimately needed to be re-intubated 08/31/20. Cefepime stopped 09/05/20 after 7 days; Vanco started 08/25 (now Day 14) and will end today. Did have a left thoracentesis with 1L removed on 09/01. CXR reviewed showing more concerning for ARDS; patient was tested and it was negative, patient was not able to be weaned of vent and had trach and PEG placed on 09/11/20. today patient doing well, patient will be transferred to LTAC pending approval, patient family present in the room. 09/15 Patient desaturated last night and Fio2 was increased to 100% and little better on 90% Fio2, chest x-ray showed Complete opacification of left hemithorax with volume loss with interval worsening, likely predominantly atelectasis and mucus plugging. patient had dialysis on 09/14 and 2000cc was removed, today patient stomach is distended and x-ray showed gaseous distention of small and large bowel, consistent with adynamic ileus versus distal colonic obstruction, patient is placed on intermittent suction and symptoms are improving, patient is accepted by LTAC waiting for bed, family present in the room. (2) Acute respiratory failure with hypoxia and hypercapnia: Code(s): J96.01 - Acute respiratory failure with hypoxia; J96.02 - Acute respiratory failure with hypercapnia Status: Acute Assessment and Plan: The patient originally presented to urgent care with complaints of shortness of breath and was sent to the ED as he was hypoxic in the 70s on room air. He was placed on BiPAP but despite several adjustments, he continued to be hypercarbic with evidence of respiratory distress and ultimately intubated 08/21/20. COVID negative 08/21/20. Suspect COPD and CHF exacerbation +/- PNA. Did well and able to be extubated 08/27 but was tenuous and had left sided white out by CXR. Aggressive pulmonary toilet but ultimately needed to be re-intubated 08/31/20. Cefepime stopped 09/05/20 after 7 days; Vanco started 08/25 (now Day 14) and will end today. Did have a left thoracentesis with 1L removed on 09/01. CXR today reviewed showing more concerning for ARDS; consider COVID. Patient had trach and G-tube placed yesterday, doing slightly better today, will continue current treatment. (3) Pneumonia: Code(s): J18.9 - Pneumonia, unspecified organism Status: Acute Assessment and Plan: Patient probably had PNA on admission contributing to his respiratory failure and shock. Complicated by his right sided heart failure. No BCx drawn. Sputum on 08/23/20 showing yeast and MRSA. Completed Cefepime x 7 days and Vanco x 14 days (ending 09/07/20). Had treat the done yesterday. Will continue current treatment (4) Congestive heart failure: Code(s): I50.9 - Heart failure, unspecified Status: Acute Assessment and Plan: CHF contributing [place] [id number]. Chest x-ray
[2020-09-15 18:12] LABS: Glucose Point of Care 138 (65-105)
[2020-09-15] MEDS: ATORVASTATIN 10 MG TABLET PO (21:02)
[2020-09-15 23:58] LABS: Glucose Point of Care 126 (65-105)
[2020-09-16] VITALS (44 sets, daily range): BP systolic 85–141; BP diastolic 45–75; PULSE 67–88; RESP 18–26; TEMP 36.3–37.1; O2SAT 90–100
[2020-09-16] MEDS: IPRATROPIUM BR 0.02% INH SOLN 0.5 MG/2.5 ML VIAL INHALATION ×4 (02:30→19:44)
[2020-09-16 05:04] LABS: Hematocrit 32.5 % (42.0-52.0); Hemoglobin 9.8 g/dL (14.0-18.0); Mean Corpuscular HGB Conc 30.2 g/dl (32-36); Mean Corpuscular Hemoglobin 26.8 pg (26-34); Mean Platelet Volume 8.8 fl (7.4-10.4); Platelet Count Result 316 k/mm3 (150-375); Red Blood Count 3.65 M/mm3 (4.6-6.20)
[2020-09-16 05:25] LABS: Anion Gap 11 mmol/L (8-16); Blood Urea Nitrogen 68 mg/dL (9-20); Calcium 8.6 mg/dL (8.4-10.2); Carbon Dioxide 28 mmol/L (22-30); Chloride 99 mmol/L (98-107); Estimated CRCL calculation 13 ml/min; Estimated Glomerular Filt Rate 9; Glucose 137 mg/dL (75-110); Magnesium 2.2 mg/dL (1.6-2.3); Phosphorus 5.2 mg/dL (2.5-4.5); Potassium 4.3 mmol/L (3.4-5.0); Sodium 138 mmol/L (137-145)
[2020-09-16] MEDS: CENTRAL LINE FLUSH 10 ML IV PUSH ×4 (06:38→21:13)
[2020-09-16 06:41] LABS: Glucose Point of Care 131 (65-105)
[2020-09-16] MEDS: BUDESONIDE RESPULE NEB 0.5 MG/2 ML AMP 1 MG INHALATION ×2 (08:50→19:58)
[2020-09-16] MEDS: DORNASE ALFA INH SOLN 1 MG/ML 2.5 ML AMP 2.5 MG INHALATION ×2 (08:51→20:05)
--- NOTE | 2020-09-16 08:54 | P.PNNP_ITS ---
Progress Note: A&P Assessment and Plan (1) MARSHA (acute kidney injury): Code(s): N17.9 - Acute kidney failure, unspecified Status: Acute Assessment and Plan: * due to low blood pressure * Due for dialysis today. Will remove extra fluid. * plan HD Monday. * push fluid removal as tolerated * Volume status looks pretty good. He does not have much swelling. * Will try to remove 3L Today * Discussed with Dr. Vanegas (2) Chronic kidney failure: Code(s): N18.9 - Chronic kidney disease, unspecified Status: Chronic Assessment and Plan: * unclear what baseline creatinine is but his creatinine was 2.1mg/dl back in 2013 * His ultrasound showed normal kidney size and no hydro. * suspect that his baseline creatinine is actually higher than 2.1mg/dl due to a component of kidney disease progression * CKD likely secondary to DM, HTN, and vascular disease (3) Acute respiratory failure with hypoxia and hypercapnia: Code(s): J96.01 - Acute respiratory failure with hypoxia; J96.02 - Acute respiratory failure with hypercapnia Status: Acute Assessment and Plan: * due to a combination of COPD and CHF * Mucous plugging continues to be an issue. * remains on full ventilator support * FiO2 set at 70%. Mucous plugging responsible for much of this but will also take off fluid as tolerated. * wean as tolerated * s/p tracheostomy (4) Shock: Code(s): R57.9 - Shock, unspecified Status: Acute Assessment and Plan: Resolved (5) Fluid overload, unspecified: Code(s): E87.70 - Fluid overload, unspecified Status: Acute Assessment and Plan: * cardiac function seems to be pretty good except some pulmonary hypertension * fluid removal as tolerated with HD (6) Type 2 diabetes mellitus: Code(s): E11.9 - Type 2 diabetes mellitus without complications Status: Chronic Assessment and Plan: * follow accu-cheks * on sliding-scale insulin Subjective Date/time seen: 09/16/20 08:54 Interval history: alert, Comfortable. Somewhat interactive, about the same. on the vent still in the ICU BP is okay Review of Systems Review of Systems: ROS unobtainable: Yes unobtainable due to medical condition Exam Narrative: Exam Narrative: General: WD/WN male in NAD; trached Heart: normal S1 and S2; no rub or gallop Lungs: coarse breath sounds mildly decreased on the left. Abdomen: Bowel sounds positive but hypoactive. Somewhat distended. Extremities: 1+ edema Skin: venous stasis changes present Objective Data Vital Signs Vital Signs: Vital Signs - 24 hr 09/15/20 09:25 09/15/20 09:26 09/15/20 09:27 Temperature Pulse Rate 79 87 86 Respiratory Rate 27 H Blood Pressure Pulse Oximetry 09/15/20 10:00 09/15/20 10:35 09/15/20 12:00 Temperature 36.1 C L Pulse Rate 85 83 80 Respiratory Rate 28 H 24 H Blood Pressure 134/65 120/63 Pulse Oximetry 89 L 88 L 94 09/15/20 14:00 09/15/20 14:13 09/15/20 14:19 Temperature Pulse Rate 81 80 82 Respiratory Rate 27 H 24 H Blood Pressure 83/60 L Pulse Oximetry 97 97 09/15/20 14:40 09/15/20 16:00 09/15/20
--- NOTE | 2020-09-16 08:54 | PM.PNNEP ---
Progress Note: A&P Assessment and Plan (1) MARSHA (acute kidney injury): Code(s): N17.9 - Acute kidney failure, unspecified Status: Acute Assessment and Plan: due to low blood pressure Due for dialysis today. Will remove extra fluid. plan HD Monday. push fluid removal as tolerated Volume status looks pretty good. He does not have much swelling. Will try to remove 3L Today Discussed with Dr. Vanegas (2) Chronic kidney failure: Code(s): N18.9 - Chronic kidney disease, unspecified Status: Chronic Assessment and Plan: unclear what baseline creatinine is but his creatinine was 2.1mg/dl back in 2013 His ultrasound showed normal kidney size and no hydro. suspect that his baseline creatinine is actually higher than 2.1mg/dl due to a component of kidney disease progression CKD likely secondary to DM, HTN, and vascular disease (3) Acute respiratory failure with hypoxia and hypercapnia: Code(s): J96.01 - Acute respiratory failure with hypoxia; J96.02 - Acute respiratory failure with hypercapnia Status: Acute Assessment and Plan: due to a combination of COPD and CHF Mucous plugging continues to be an issue. remains on full ventilator support FiO2 set at 70%. Mucous plugging responsible for much of this but will also take off fluid as tolerated. wean as tolerated s/p tracheostomy (4) Shock: Code(s): R57.9 - Shock, unspecified Status: Acute Assessment and Plan: Resolved (5) Fluid overload, unspecified: Code(s): E87.70 - Fluid overload, unspecified Status: Acute Assessment and Plan: cardiac function seems to be pretty good except some pulmonary hypertension fluid removal as tolerated with HD (6) Type 2 diabetes mellitus: Code(s): E11.9 - Type 2 diabetes mellitus without complications Status: Chronic Assessment and Plan: follow accu-cheks on sliding-scale insulin Subjective Date/time seen: 09/16/20 08:54 Interval history: alert, Comfortable. Somewhat interactive, about the same. on the vent still in the ICU BP is okay Review of Systems Review of Systems: ROS unobtainable: Yes unobtainable due to medical condition Exam Narrative: Exam Narrative: General: WD/WN male in NAD; trached Heart: normal S1 and S2; no rub or gallop Lungs: coarse breath sounds mildly decreased on the left. Abdomen: Bowel sounds positive but hypoactive. Somewhat distended. Extremities: 1+ edema Skin: venous stasis changes present Objective Data Vital Signs Vital Signs: Vital Signs - 24 hr 09/15/20 09:25 09/15/20 09:26 09/15/20 09:27 Temperature Pulse Rate 79 87 86 Respiratory Rate 27 H Blood Pressure Pulse Oximetry 09/15/20 10:00 09/15/20 10:35 09/15/20 12:00 Temperature 36.1 C L Pulse Rate 85 83 80 Respiratory Rate 28 H 24 H Blood Pressure 134/65 120/63 Pulse Oximetry 89 L 88 L 94 09/15/20 14:00 09/15/20 14:13 09/15/20 14:19 Temperature Pulse Rate 81 80 82 Respiratory Rate 27 H 24 H Blood Pressure 83/60 L Pulse Oximetry 97 97 09/15/20 14:40 09/15/20 16:00 09/15/20 16:54 Temperature 36.2 C L Pulse Rate 81 77 77 Respiratory Rate 26 H 21 H Blood Pressure 115/53 L Pulse Oximetry 92 92 09/15/20 18:00 09/15/20 19:55 09/15/20 20:00 Temperature 36.3 C L Pulse Rate 79 80 Respiratory Rate 24 H 26 H Blood Pressure 129/60 119/50 L Pulse Oximetry 91 86 L 91 09/15/20 20:16 09/15/20 20:21 09/15/20 20:37 Temperature Pulse Rate 81 80 80 Respiratory Rate 24 H 26 H Blood Pressure Pulse Oximetry 91 09/15/20 21:01 09/15/20 21:02 09/15/20 22:00 Temperature Pulse Rate 84 84 80 Respiratory Rate 25 H Blood Pressure 137/59 L Pulse Oximetry 89 L 09/15/20 23:25 09/16/20 00:00 09/16/20 02:00 Temperature 36.5 C Pulse Rate 80 82 82 Respiratory Rate 25 H 26 H Blood Press
--- NOTE | 2020-09-16 09:08 | WPDINTPN ---
Progress Note: A&P Assessment and Plan (1) Ileus: Code(s): K56.7 - Ileus, unspecified Status: Acute Assessment and Plan: Abdominal obstructive series on 09/15/2020 showed gaseous distension of small and large bowel consistent with adynamic ileus versus distal colonic obstruction -continue PEG tube to suction, continue Reglan, patient did have a bowel movement -will repeat abdominal obstructive series today. If ileus or distal colon obstruction persists, will consult surgery (2) Acute respiratory failure with hypoxia and hypercapnia: Code(s): J96.01 - Acute respiratory failure with hypoxia; J96.02 - Acute respiratory failure with hypercapnia Status: Acute Assessment and Plan: Patient with acute respiratory failure likely related to pneumonia, significant atelectasis, COPD and CHF. Patient was intubated on 08/21/2020 -08/25/2020: Self Extubated -08/27/2020, complete whiteout on the left side likely secondary to mucus plugging - 08/31 -reintubated for persistent hypercarbia and hypoxia and poor mental status - 3/ left thoracentesis with 1 L fluid removed - 09/11 status post Tracheostomy and PEG tube placement -Sputum cultures grew MRSA, status post vancomycin (14 days) and cefepime (7 days) -repeat sputum culture cultures on 09/06 growing yeast -ABG and chest x-ray reviewed. -patient seems to be doing better with high tidal volumes (7 mL/kg were predicted body) -patient desaturated overnight requiring 100% FiO2, wean FiO2 this morning to 70%, 09/15 chest x-ray showed complete whiteout on the left side, likely related to mucus plugging -continue chest PT, Pulmozyme, Mucomyst nebs -chest x-ray on 09/16 shows improved aeration on the left side, will continue to wean FiO2 as tolerated Off all sedation (3) Shock: Code(s): R57.9 - Shock, unspecified Status: Acute Assessment and Plan: RESOLVED: PATIENT OFF LEVOPHED - Patient with RV failure, volume overload on chest x-ray and sensitive to volume removal - Started on Midodrine 09/09. Continue midodrine at current dose. Blood pressure is borderline normal. -left IJ line was placed on 09/09/2020. Removed right femoral central line and left mid thigh femoral PICC line 09/09/2020 (4) COPD (chronic obstructive pulmonary disease): Code(s): J44.9 - Chronic obstructive pulmonary disease, unspecified Status: Acute Assessment and Plan: Sputum culture from 08/23/2020 growing MRSA. Completed vancomycin for 14 days. -repeat sputum cultures from 09/07/2019 growing Yeast which is likely colonizer -continue bronchodilator Bronchodilators He is not actively wheezing. Systemic steroids not indicated. (5) Acute CHF (congestive heart failure): Qualifiers: Heart failure type: unspecified Qualified Code(s): I50.9 - Heart failure, unspecified Code(s): I50.9 - Heart failure, unspecified Status: Acute Assessment and Plan: Congestive heart failure with preserved ejection fraction. Ejection fraction was approximately 70%. Diastolic dysfunction could not be assessed. He did have significant right ventricular hypertrophy and hypokinesis but pulmonary artery pressures could not be estimated. - He has significant edema and fluid overload. He was diuresed with Lasix with worsening renal parameters. - Now on hemodialysis for fluid removal as per nephrology service. (6) Acute on chronic renal failure: Code(s): N17.9 - Acute kidney failure, unspecified; N18.9 - Chronic kidney disease, unspecified Status: Acute Assessment and Plan: Nephrology is following -diuresis was tried which helped patient for some time but continued to worsen his renal function, patient was more uremic - Tunnel dialysis catheter placed 3/3 -hemodialysis per nephrology -continue to monitor electrolytes, renal function and intake output record (7) Gastroesophageal reflux disease: Code(s): K21.9 - Gastr
--- NOTE | 2020-09-16 10:59 | PCDIET ---
ICU Rounding Note: Tube feedings remain on hold with plan for obstructive series after dialysis. MD reports good bowel sounds, but abdomen remains distended. Last recorded weight is 116.9kg which is down from last review. Plan to remove 3L with dialysis today. Bowel Motility: Small BM today, per RN. Labs Reviewed: Hgb (9.8), Hct (32.5), Glu (137), BUN (68), Cr (6.1), PO4 (5.2) Meds Noted: Lipitor, Pulmicort, Epogen, Novolog, Atrovent, Xopenex, Lopressor, Protonix Additional Notes: No change in skin reported. Following daily in ICU rounds. Assessing/reassessing every Monday/Monday.
[2020-09-16 11:26] LABS: Glucose Point of Care 136 (65-105)
--- NOTE | 2020-09-16 12:37 | PM.IMPN ---
Progress Note: A&P Assessment and Plan (1) Shock: Code(s): R57.9 - Shock, unspecified Status: Acute Assessment and Plan: Possibly sepsis from PNA. Also hypotensive due to right sided failure and is probably very fluid sensitive. Patient requiring Levophed again since 08/31. Wean Levophed as tolerated. Will be challenging for hemodialysis. Completed Cefepime x7 days and Vanco x 14 days. Low grade fevers and BCx collected. Hold on resuming abx. Will continue Levophed and wean to maintain map of greater than 65. ICU team managing. 09/16/20 12:37 09/14 The patient originally presented to urgent care with complaints of shortness of breath and was sent to the ED as he was hypoxic in the 70s on room air. He was placed on BiPAP but despite several adjustments, he continued to be hypercarbic with evidence of respiratory distress and ultimately intubated 08/21/20. COVID negative 08/21/20. Suspect COPD and CHF exacerbation +/- PNA. Did well and able to be extubated 08/27 but was tenuous and had left sided white out by CXR. Aggressive pulmonary toilet but ultimately needed to be re-intubated 08/31/20. Cefepime stopped 09/05/20 after 7 days; Vanco started 08/25 (now Day 14) and will end today. Did have a left thoracentesis with 1L removed on 09/01. CXR reviewed showing more concerning for ARDS; patient was tested and it was negative, patient was not able to be weaned of vent and had trach and PEG placed on 09/11/20. today patient doing well, patient will be transferred to LTAC pending approval, patient family present in the room. 09/15 Patient desaturated last night and Fio2 was increased to 100% and little better on 90% Fio2, chest x-ray showed Complete opacification of left hemithorax with volume loss with interval worsening, likely predominantly atelectasis and mucus plugging. patient had dialysis on 09/14 and 2000cc was removed, today patient stomach is distended and x-ray showed gaseous distention of small and large bowel, consistent with adynamic ileus versus distal colonic obstruction, patient is placed on intermittent suction and symptoms are improving, patient is accepted by LTAC waiting for bed, family present in the room. 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 (2) Acute respiratory failure with hypoxia and hypercapnia: Code(s): J96.01 - Acute respiratory failure with hypoxia; J96.02 - Acute respiratory failure with hypercapnia Status: Acute Assessment and Plan: The patient originally presented to urgent care with complaints of shortness of breath and was sent to the ED as he was hypoxic in the 70s on room air. He was placed on BiPAP but despite several adjustments, he continued to be hypercarbic with evidence of respiratory distress and ultimately intubated 08/21/20. COVID negative 08/21/20. Suspect COPD and CHF exacerbation +/- PNA. Did well and able to be extubated 08/27 but was tenuous and had left sided white out by CXR. Aggressive pulmonary toilet but ultimately needed to be re-intubated 08/31/20. Cefepime stopped 09/05/20 after 7 days; Vanco started 08/25 (now Day 14) and will end today. Did have a left thoracentesis with 1L removed on 09/01. CXR today reviewed showing more concerning for ARDS; consider COVID. Patient had trach and G-tube placed yesterday, doing slightly better today, will continue current treatment. (3) Pneumonia: Code(s): J18.9 - Pneumonia, unspecified organism Status: Acute Assessment and Plan: Patient probably had PNA on admission contributing to his respiratory failure and shock. Complicated by his right sided heart failure. No BCx
[2020-09-16 12:55] LABS: Fractional Inspired Oxygen 80 %; HCO3 ABG 29.2 mEq/l (22.0-26.0); Oxygen Content ABG 16.1 %vol (16.0-22.0); Oxygen Saturation ABG 92.9 % (95.0-100.0); Oxyhemoglobin 91.9 % THb (90.0-100.0); PCO2 ABG 57.1 mmHg (35.0-45.0); PO2 ABG 71.5 mmHg (80.0-100.0); PO2 FiO2 Ratio Arterial Blood 0.89 %; Total Hemoglobin 12.4 g/dL (12.0-18.0); pH ABG 7.326 (7.350-7.450)
[2020-09-16 12:56] LABS: Arterial Blood Gas Vent Mode ASSIST CONTROL; Arterial Blood Gas Ventilator rate 22 /MIN; Device VENTILATOR; Modified Allen's Test Pass; Site Drawn LEFT RADIAL
[2020-09-16 12:57] LABS: Arterial Blood Gas PEEP 10 cmH2O; Arterial Blood Gas Tidal Volume 570 ml
[2020-09-16 12:59] LABS: Glucose Point of Care 141 (65-105)
[2020-09-16] MEDS: AMIODARONE HCL 200 MG TABLET PO ×2 (13:15→21:13)
[2020-09-16] MEDS: MIDODRINE HCL 10 MG TABLET PO ×2 (13:16→17:32)
[2020-09-16] MEDS: APIXABAN 2.5 MG TABLET PO ×2 (13:16→21:12)
[2020-09-16] MEDS: PANTOPRAZOLE SODIUM IV 40 MG VIAL IV PUSH (13:17)
[2020-09-16] MEDS: SILVERGEL (ELTA) 45 ML 1 APPLIC TOPICAL (13:17)
[2020-09-16] MEDS: polyethylene glycoL 3350 17 GM POWD.PACK PO (13:17)
[2020-09-16] MEDS: ALBUMIN HUMAN 25% 25 GM/100 ML 100 ML IVPB (13:18)
[2020-09-16] MEDS: SODIUM CHLORIDE 0.9% IV 1,000 ML 500 ML (13:20)
--- NOTE | 2020-09-16 13:57 | PC.NURSE ---
1245-PATIENT CURRENTLY GETTING HEMODIALYSIS. NOTICED INCREASED RESPIRATIONS. DIALYSIS NURSE COMPLETING HEMODIALYSIS. PATIENTS O2 SAT DROPPING. DR. BERNSTEIN AT BEDSIDE ADJUSTING VENT SETTINGS. BP NOW DROPPING. PATIENT GIVEN NS 500 ML BOLUS AND 100 MLS ALBUMIN. WILL CONTINUE TO MONITOR. 1400-BP IMPROVING. RESPIRATIONS MORE STABLE AND PATIENT MORE AWAKE. WILL CONTINUE TO MONITOR.
[2020-09-16] MEDS: ACETYLCYSTEINE 20% INHAL SOLN 800 MG/4 ML VIAL 200 MG INHALATION ×2 (14:02→19:44)
[2020-09-16] MEDS: EPOETIN ALFA-EPBX 10,000 UNITS/ML VIAL 10000 UNITS IV PUSH (17:32)
[2020-09-16 17:50] LABS: Glucose Point of Care 134 (65-105)
[2020-09-16] MEDS: ATORVASTATIN 10 MG TABLET PO (21:12)
[2020-09-16] MEDS: METOPROLOL TARTRATE 12.5 MG TABLET PO (21:13)
[2020-09-17] VITALS (23 sets, daily range): BP systolic 101–142; BP diastolic 51–62; PULSE 66–84; RESP 20–24; TEMP 35.8–36.6; O2SAT 88–100
[2020-09-17 00:36] LABS: Glucose Point of Care 110 (65-105)
[2020-09-17] MEDS: ACETYLCYSTEINE 20% INHAL SOLN 800 MG/4 ML VIAL 200 MG INHALATION ×2 (02:00→13:53)
[2020-09-17] MEDS: IPRATROPIUM BR 0.02% INH SOLN 0.5 MG/2.5 ML VIAL INHALATION ×3 (02:00→13:52)
[2020-09-17 04:39] LABS: Alveolar/Arterial O2 Gradient 334.6 mmHg; Base Excess ABG 3.1 mEq/l (+/-2.0); Device VENTILATOR; Fractional Inspired Oxygen 65 %; HCO3 ABG 28.3 mEq/l (22.0-26.0); Methemoglobin ABG 0.2 %THb (0-1.5); Modified Allen's Test Pass; Oxygen Content ABG 15.1 %vol (16.0-22.0); Oxygen Saturation ABG 95.7 % (95.0-100.0); Oxyhemoglobin 94.4 % THb (90.0-100.0); PCO2 ABG 45.7 mmHg (35.0-45.0); PO2 ABG 79.2 mmHg (80.0-100.0); PO2 FiO2 Ratio Arterial Blood 1.22 %; Reduced Hemoglobin 5.4 %THb (0-5.0); Site Drawn LEFT RADIAL; Total Hemoglobin 11.3 g/dL (12.0-18.0); pH ABG 7.409 (7.350-7.450)
[2020-09-17 04:40] LABS: Arterial Blood Gas PEEP 8 cmH2O; Arterial Blood Gas Tidal Volume 570 ml; Arterial Blood Gas Vent Mode CMV; Arterial Blood Gas Ventilator rate 22 /MIN
[2020-09-17 04:59] LABS: Hematocrit 31.2 % (42.0-52.0); Hemoglobin 9.3 g/dL (14.0-18.0); Mean Corpuscular HGB Conc 29.8 g/dl (32-36); Mean Corpuscular Hemoglobin 26.3 pg (26-34); Mean Corpuscular Volume 88.1 fl (80-100); Mean Platelet Volume 8.7 fl (7.4-10.4); Platelet Count Result 301 k/mm3 (150-375); Red Blood Count 3.54 M/mm3 (4.6-6.20); Red Cell Distribution Width 16.8 % (11.5-14.5)
[2020-09-17 05:52] LABS: Albumin Level 3.5 g/dL (3.5-5.1); Anion Gap 9 mmol/L (8-16); Blood Urea Nitrogen 49 mg/dL (9-20); Carbon Dioxide 31 mmol/L (22-30); Chloride 98 mmol/L (98-107); Estimated CRCL calculation 16 ml/min; Estimated Glomerular Filt Rate 11; Glucose 119 mg/dL (75-110); Phosphorus 3.2 mg/dL (2.5-4.5); Potassium 3.3 mmol/L (3.4-5.0); Sodium 138 mmol/L (137-145)
[2020-09-17] MEDS: CENTRAL LINE FLUSH 10 ML IV PUSH ×2 (06:33→14:51)
[2020-09-17 06:35] LABS: Glucose Point of Care 119 (65-105)
[2020-09-17] MEDS: APIXABAN 2.5 MG TABLET PO (08:31)
[2020-09-17] MEDS: AMIODARONE HCL 200 MG TABLET PO (08:31)
[2020-09-17] MEDS: PANTOPRAZOLE SODIUM IV 40 MG VIAL IV PUSH (08:31)
[2020-09-17] MEDS: SILVERGEL (ELTA) 45 ML 1 APPLIC TOPICAL (08:32)
[2020-09-17] MEDS: BUDESONIDE RESPULE NEB 0.5 MG/2 ML AMP 1 MG INHALATION (08:37)
[2020-09-17] MEDS: DORNASE ALFA INH SOLN 1 MG/ML 2.5 ML AMP 2.5 MG INHALATION (08:37)
[2020-09-17] MEDS: KCL 20 MEQ/SW 100 ML 100 ML 50 MEQ IVPB (09:38)
--- NOTE | 2020-09-17 10:41 | PCDIET ---
ICU Rounding Note: Patient remains NPO, but is having bowel movements. MD reports soft abdomen with good bowel sounds. KUB being obtained with goal to resume tube feedings today. Last recorded weight is 110kg which is decreased from last review. Patient had 3667mL UF on 09/16/20. Bowel Motility: BM x 2 today. Labs Reviewed: Hgb (9.3), Hct (31.2), Glu (119), BUN (49), Cr (5.0), K (3.3) Meds Noted: Lipitor, Xopenex, Epogen, Atrovent, Novolog, Protonix, KCl Additional Notes: Buttocks macerated; RLE with arterial ulcer; no significant change reported. Following daily in ICU rounds. Assessing/reassessing every Monday/Monday.
--- NOTE | 2020-09-17 11:36 | P.PNNP_ITS ---
Progress Note: A&P Assessment and Plan (1) MARSHA (acute kidney injury): Code(s): N17.9 - Acute kidney failure, unspecified Status: Acute Assessment and Plan: * due to low blood pressure * he had dialysis yesterday. * plan HD Monday. * Volume status looks pretty good. He does not have much swelling. * Discussed with Dr. Vanegas (2) Chronic kidney failure: Code(s): N18.9 - Chronic kidney disease, unspecified Status: Chronic Assessment and Plan: * unclear what baseline creatinine is but his creatinine was 2.1mg/dl back in 2013 * His ultrasound showed normal kidney size and no hydro. * suspect that his baseline creatinine is actually higher than 2.1mg/dl due to a component of kidney disease progression * CKD likely secondary to DM, HTN, and vascular disease (3) Acute respiratory failure with hypoxia and hypercapnia: Code(s): J96.01 - Acute respiratory failure with hypoxia; J96.02 - Acute respiratory failure with hypercapnia Status: Acute Assessment and Plan: * due to a combination of COPD and CHF * Mucous plugging continues to be an issue. * remains on full ventilator support * FiO2 set at 70%. Mucous plugging responsible for much of this but will also take off fluid as tolerated. * wean as tolerated * s/p tracheostomy (4) Shock: Code(s): R57.9 - Shock, unspecified Status: Acute Assessment and Plan: Resolved (5) Fluid overload, unspecified: Code(s): E87.70 - Fluid overload, unspecified Status: Acute Assessment and Plan: * cardiac function seems to be pretty good except some pulmonary hypertension * fluid removal as tolerated with HD (6) Type 2 diabetes mellitus: Code(s): E11.9 - Type 2 diabetes mellitus without complications Status: Chronic Assessment and Plan: * follow accu-cheks * on sliding-scale insulin Subjective Date/time seen: 09/17/20 11:36 Interval history: Resting on the ventilator. Not very interactive BP is okay Review of Systems Review of Systems: ROS unobtainable: Yes unobtainable due to medical condition Exam Narrative: Exam Narrative: General: WD/WN male in NAD; trached Heart: normal S1 and S2; no rub or gallop Lungs: coarse breath sounds mildly decreased on the left. Abdomen: BS+ nontender Extremities: 1+ edema Skin: venous stasis changes present Objective Data Vital Signs Vital Signs: Vital Signs - 24 hr 09/16/20 11:45 09/16/20 12:00 09/16/20 12:15 Temperature 36.7 C Pulse Rate 83 81 83 Respiratory Rate 23 H Blood Pressure 128/69 120/72 115/75 Pulse Oximetry 90 09/16/20 12:30 09/16/20 12:45 09/16/20 12:53 Temperature 36.6 C Pulse Rate 77 79 80 Respiratory Rate 18 Blood Pressure 119/70 99/55 L 85/45 L Pulse Oximetry 91 09/16/20 13:15 09/16/20 14:00 09/16/20 14:05 Temperature 36.7 C Pulse Rate 81 80 79 Respiratory Rate 22 H 24 H Blood Pressure 107/52 L Pulse Oximetry 100 09/16/20 14:07 09/16/20 14:15 09/16/20 16:00 Temperature 37.1 C Pulse Rate 86 81 80 Respiratory Rate 26 H 22 H Blood Pressure 118/59 L Pulse O
--- NOTE | 2020-09-17 11:36 | PM.PNNEP ---
Progress Note: A&P Assessment and Plan (1) MARSHA (acute kidney injury): Code(s): N17.9 - Acute kidney failure, unspecified Status: Acute Assessment and Plan: due to low blood pressure he had dialysis yesterday. plan HD Monday. Volume status looks pretty good. He does not have much swelling. Discussed with Dr. Vanegas (2) Chronic kidney failure: Code(s): N18.9 - Chronic kidney disease, unspecified Status: Chronic Assessment and Plan: unclear what baseline creatinine is but his creatinine was 2.1mg/dl back in 2013 His ultrasound showed normal kidney size and no hydro. suspect that his baseline creatinine is actually higher than 2.1mg/dl due to a component of kidney disease progression CKD likely secondary to DM, HTN, and vascular disease (3) Acute respiratory failure with hypoxia and hypercapnia: Code(s): J96.01 - Acute respiratory failure with hypoxia; J96.02 - Acute respiratory failure with hypercapnia Status: Acute Assessment and Plan: due to a combination of COPD and CHF Mucous plugging continues to be an issue. remains on full ventilator support FiO2 set at 70%. Mucous plugging responsible for much of this but will also take off fluid as tolerated. wean as tolerated s/p tracheostomy (4) Shock: Code(s): R57.9 - Shock, unspecified Status: Acute Assessment and Plan: Resolved (5) Fluid overload, unspecified: Code(s): E87.70 - Fluid overload, unspecified Status: Acute Assessment and Plan: cardiac function seems to be pretty good except some pulmonary hypertension fluid removal as tolerated with HD (6) Type 2 diabetes mellitus: Code(s): E11.9 - Type 2 diabetes mellitus without complications Status: Chronic Assessment and Plan: follow accu-cheks on sliding-scale insulin Subjective Date/time seen: 09/17/20 11:36 Interval history: Resting on the ventilator. Not very interactive BP is okay Review of Systems Review of Systems: ROS unobtainable: Yes unobtainable due to medical condition Exam Narrative: Exam Narrative: General: WD/WN male in NAD; trached Heart: normal S1 and S2; no rub or gallop Lungs: coarse breath sounds mildly decreased on the left. Abdomen: BS+ nontender Extremities: 1+ edema Skin: venous stasis changes present Objective Data Vital Signs Vital Signs: Vital Signs - 24 hr 09/16/20 11:45 09/16/20 12:00 09/16/20 12:15 Temperature 36.7 C Pulse Rate 83 81 83 Respiratory Rate 23 H Blood Pressure 128/69 120/72 115/75 Pulse Oximetry 90 09/16/20 12:30 09/16/20 12:45 09/16/20 12:53 Temperature 36.6 C Pulse Rate 77 79 80 Respiratory Rate 18 Blood Pressure 119/70 99/55 L 85/45 L Pulse Oximetry 91 09/16/20 13:15 09/16/20 14:00 09/16/20 14:05 Temperature 36.7 C Pulse Rate 81 80 79 Respiratory Rate 22 H 24 H Blood Pressure 107/52 L Pulse Oximetry 100 09/16/20 14:07 09/16/20 14:15 09/16/20 16:00 Temperature 37.1 C Pulse Rate 86 81 80 Respiratory Rate 26 H 22 H Blood Pressure 118/59 L Pulse Oximetry 98 100 09/16/20 17:27 09/16/20 18:00 09/16/20 19:49 Temperature Pulse Rate 82 80 79 Respiratory Rate 23 H 24 H Blood Pressure 130/67 Pulse Oximetry 98 97 09/16/20 19:50 09/16/20 20:00 09/16/20 20:23 Temperature Pulse Rate 82 80 84 Respiratory Rate 24 H 24 H Blood Pressure Pulse Oximetry 98 96 09/16/20 20:45 09/16/20 21:13 09/16/20 22:00 Temperature 36.3 C L Pulse Rate 79 80 80 Respiratory Rate 24 H 24 H Blood Pressure 132/64 127/58 L Pulse Oximetry 96 100 09/16/20 22:18 09/17/20 00:00 09/17/20 01:58 Temperature 36.3 C L Pulse Rate 84 84 81 Respiratory Rate 24 H Blood Pressure 134/61 Pulse Oximetry 98 94 97 09/17/20 02:00 09/17/20 02:02 09/17/20 02:08 Temperature Pulse Rate 82 82 80 Respiratory Rate 22 H 23
[2020-09-17 11:54] LABS: Glucose Point of Care 106 (65-105)
--- NOTE | 2020-09-17 12:05 | WPDINTPN ---
Progress Note: A&P Assessment and Plan (1) Ileus: Code(s): K56.7 - Ileus, unspecified Status: Acute Assessment and Plan: Abdominal obstructive series on 09/15/2020 showed gaseous distension of small and large bowel consistent with adynamic ileus versus distal colonic obstruction -continue PEG tube to suction, continue Reglan, patient has had multiple bowel movements, repeat abdominal obstructive series shows improvement in the ileus. -will start trickle tube feeds (2) Acute respiratory failure with hypoxia and hypercapnia: Code(s): J96.01 - Acute respiratory failure with hypoxia; J96.02 - Acute respiratory failure with hypercapnia Status: Acute Assessment and Plan: Patient with acute respiratory failure likely related to pneumonia, significant atelectasis, COPD and CHF. Patient was intubated on 08/21/2020 -08/25/2020: Self Extubated -08/27/2020, complete whiteout on the left side likely secondary to mucus plugging - 08/31 -reintubated for persistent hypercarbia and hypoxia and poor mental status - 3/ left thoracentesis with 1 L fluid removed - 09/11 status post Tracheostomy and PEG tube placement -Sputum cultures grew MRSA, status post vancomycin (14 days) and cefepime (7 days) -repeat sputum culture cultures on 09/06 growing yeast -ABG and chest x-ray reviewed. -patient seems to be doing better with high tidal volumes (7 mL/kg were predicted body) -patient desaturated overnight requiring 100% FiO2, wean FiO2 this morning to 70%, 09/15 chest x-ray showed complete whiteout on the left side, likely related to mucus plugging -continue chest PT, Pulmozyme, Mucomyst nebs -chest x-ray on 09/17 shows improved aeration on the left side, will continue to wean FiO2 as tolerated Off all sedation (3) Shock: Code(s): R57.9 - Shock, unspecified Status: Acute Assessment and Plan: RESOLVED: PATIENT OFF LEVOPHED - Patient with RV failure, volume overload on chest x-ray and sensitive to volume removal - Started on Midodrine 09/09. Continue midodrine at current dose. Blood pressure is borderline normal. -left IJ line was placed on 09/09/2020. Removed right femoral central line and left mid thigh femoral PICC line 09/09/2020 (4) COPD (chronic obstructive pulmonary disease): Code(s): J44.9 - Chronic obstructive pulmonary disease, unspecified Status: Acute Assessment and Plan: Sputum culture from 08/23/2020 growing MRSA. Completed vancomycin for 14 days. -repeat sputum cultures from 09/07/2019 growing Yeast which is likely colonizer -continue bronchodilator Bronchodilators He is not actively wheezing. Systemic steroids not indicated. (5) Acute CHF (congestive heart failure): Qualifiers: Heart failure type: unspecified Qualified Code(s): I50.9 - Heart failure, unspecified Code(s): I50.9 - Heart failure, unspecified Status: Acute Assessment and Plan: Congestive heart failure with preserved ejection fraction. Ejection fraction was approximately 70%. Diastolic dysfunction could not be assessed. He did have significant right ventricular hypertrophy and hypokinesis but pulmonary artery pressures could not be estimated. - He has significant edema and fluid overload. He was diuresed with Lasix with worsening renal parameters. - Now on hemodialysis for fluid removal as per nephrology service. (6) Acute on chronic renal failure: Code(s): N17.9 - Acute kidney failure, unspecified; N18.9 - Chronic kidney disease, unspecified Status: Acute Assessment and Plan: Nephrology is following -diuresis was tried which helped patient for some time but continued to worsen his renal function, patient was more uremic - Tunnel dialysis catheter placed 3/3 -hemodialysis per nephrology -continue to monitor electrolytes, renal function and intake output record (7) Gastroesophageal reflux disease: Code(s): K21.9 - Gastro-esophagea
--- NOTE | 2020-09-17 14:14 | PM.DS ---
DS: Admitting Diagnosis Admitting Diagnosis Admitting Diagnosis: Chief Complaint: Shortness of breath. DS: Discharge Diagnosis Discharge Diagnosis (1) Shock: Code(s): R57.9 - Shock, unspecified Status: Acute Assessment and Plan: Possibly sepsis from PNA. Also hypotensive due to right sided failure and is probably very fluid sensitive. Patient requiring Levophed again since 08/31. Wean Levophed as tolerated. Will be challenging for hemodialysis. Completed Cefepime x7 days and Vanco x 14 days. Low grade fevers and BCx collected. Hold on resuming abx. Will continue Levophed and wean to maintain map of greater than 65. ICU team managing. 09/16/20 12:37 09/14 The patient originally presented to urgent care with complaints of shortness of breath and was sent to the ED as he was hypoxic in the 70s on room air. He was placed on BiPAP but despite several adjustments, he continued to be hypercarbic with evidence of respiratory distress and ultimately intubated 08/21/20. COVID negative 08/21/20. Suspect COPD and CHF exacerbation +/- PNA. Did well and able to be extubated 08/27 but was tenuous and had left sided white out by CXR. Aggressive pulmonary toilet but ultimately needed to be re-intubated 08/31/20. Cefepime stopped 09/05/20 after 7 days; Vanco started 08/25 (now Day 14) and will end today. Did have a left thoracentesis with 1L removed on 09/01. CXR reviewed showing more concerning for ARDS; patient was tested and it was negative, patient was not able to be weaned of vent and had trach and PEG placed on 09/11/20. today patient doing well, patient will be transferred to LTAC pending approval, patient family present in the room. 09/15 Patient desaturated last night and Fio2 was increased to 100% and little better on 90% Fio2, chest x-ray showed Complete opacification of left hemithorax with volume loss with interval worsening, likely predominantly atelectasis and mucus plugging. patient had dialysis on 09/14 and 2000cc was removed, today patient stomach is distended and x-ray showed gaseous distention of small and large bowel, consistent with adynamic ileus versus distal colonic obstruction, patient is placed on intermittent suction and symptoms are improving, patient is accepted by LTAC waiting for bed, family present in the room. 09/16 today patient and a small BM however suspect patient may have small-bowel obstruction seen by sofa back upholsterer and will do the x-ray of abdominal and further recommendation to follow, patient remains clinically stable is not as hypoxic as yesterday requiring FiO2 80% compared to 90% yesterday, patient family present in the room, waiting for LTAC placement will continue to monitor. (2) Acute respiratory failure with hypoxia and hypercapnia: Code(s): J96.01 - Acute respiratory failure with hypoxia; J96.02 - Acute respiratory failure with hypercapnia Status: Acute Assessment and Plan: The patient originally presented to urgent care with complaints of shortness of breath and was sent to the ED as he was hypoxic in the 70s on room air. He was placed on BiPAP but despite several adjustments, he continued to be hypercarbic with evidence of respiratory distress and ultimately intubated 08/21/20. COVID negative 08/21/20. Suspect COPD and CHF exacerbation +/- PNA. Did well and able to be extubated 08/27 but was tenuous and had left sided white out by CXR. Aggressive pulmonary toilet but ultimately needed to be re-intubated 08/31/20. Cefepime stopped 09/05/20 after 7 days; Vanco started 08/25 (now Day 14) and will end today. Did have a left thoracentesis with 1L removed on 09/01. CXR today reviewed showing more concerning for ARDS; consider COVID. Patient had trach and G-tube placed yesterday, doing slightly better today, will continue current treatment. (3) Pneumonia: Code(s): J18.9 - Pneumonia, unspecified organism Status: Acute Assessment and Plan: Patient probably had PNA on admiss
--- NOTE | 2020-10-01 06:48 | WPDPROCEDUR ---
Procedures Central Line Placement Right Femoral: Central Line Date: 08/28/20 Discussed w/ the patient/family/POA,the placement of a central venous catheter, including its clinical necessity/indication & associated potential risks, benifits and alternatives.: Yes Patient Position: supine Patient placed on monitor/pulse ox: Yes Provider Prep: mask, sterile gown, sterile gloves, Max. sterile barrier precautions, cap and hand hygiene with conventional soap/water or alcohol based hand rub Central line prep: 2% Chlorhexidine scrub Sterile US Technique with sterile gel/sterile probe covers: Yes Central line lumen inserted: triple Ukrainian: 7 Length (cm): 20 Depth of Insertion (cm): 20 Post Procedure: sutured in place, good blood return, all ports aspirated, flushed, capped, securement product and aseptic technique maintained throughout procedure Patient tolerated procedure: well Complications: none
== END 2020-09-17 17:12 | DRG 4 ==
LOC: ANHED 12:26 → ANHIMU 14:04 → ANHICU 23:18
PROVIDERS: Internal Medicine; Internal Medicine Critical Care Medicine; Internal Medicine Gastroenterology; Internal Medicine Nephrology; Otolaryngology; Physician Assistant; Surgery; Admitting Provider Internal Medicine; Emergency Provider Emergency Medicine; Visit Provider Family Medicine
PROC: 0JH63XZ Insertion of Tunneled Vascular Access Device into Chest Subcutaneous Tissue and Fascia, Percutaneous Approach (ICD-10-PCS; CPT 36908; principal; 2020-09-02 12:30)
PROC: 0DJ08ZZ Inspection of Upper Intestinal Tract, Via Natural or Artificial Opening Endoscopic (ICD-10-PCS; CPT 43235; principal; 2020-09-11 14:30)
PROC: 0B110F4 Bypass Trachea to Cutaneous with Tracheostomy Device, Open Approach (ICD-10-PCS; principal; 2020-09-11 14:30)
PROC: 0DH63UZ Insertion of Feeding Device into Stomach, Percutaneous Approach (ICD-10-PCS; CPT 43246; 2020-09-11 14:30)
DX: J96.01 Acute respiratory failure with hypoxia (principal); I50.31 Acute diastolic (congestive) heart failure; J18.9 Pneumonia, unspecified organism; I13.0 Hypertensive heart and chronic kidney disease with heart failure and stage 1 through stage 4 chronic kidney disease, or unspecified chronic kidney disease; N17.9 Acute kidney failure, unspecified; I48.92 Unspecified atrial flutter; R57.9 Shock, unspecified; I47.1 Supraventricular tachycardia; I27.20 Pulmonary hypertension, unspecified; I48.91 Unspecified atrial fibrillation; Z20.822 Contact with and (suspected) exposure to COVID-19; R13.10 Dysphagia, unspecified; J96.02 Acute respiratory failure with hypercapnia; J43.9 Emphysema, unspecified; E11.22 Type 2 diabetes mellitus with diabetic chronic kidney disease; N18.9 Chronic kidney disease, unspecified; E87.70 Fluid overload, unspecified; R41.0 Disorientation, unspecified; E78.5 Hyperlipidemia, unspecified; K21.9 Gastro-esophageal reflux disease without esophagitis; N40.0 Benign prostatic hyperplasia without lower urinary tract symptoms; M10.9 Gout, unspecified; F17.210 Nicotine dependence, cigarettes, uncomplicated; R77.8 Other specified abnormalities of plasma proteins; E87.5 Hyperkalemia; R19.00 Intra-abdominal and pelvic swelling, mass and lump, unspecified site; Z79.84 Long term (current) use of oral hypoglycemic drugs; Z79.899 Other long term (current) drug therapy
CPT/HCPCS: 31500; 32555; 36415; 36569; 36600; 43246; 70450; 71045; 74018; 74019; 76775; 77001; 80048; 80053; 80069; 80202; 81001; 82375; 82533; 82550; 82570; 82805; 82948; 83036; 83050; 83540; 83550; 83605; 83735; 83880; 83883; 84100; 84156; 84300; 84443; 84484; 84540; 85025; 85027; 85610; 85652; 85730; 85999; 86038; 86039; 86140; 86160; 86162; 86334; 86335; 86706; 87040; 87070; 87086; 87147; 87186; 87205; 87340; 93005; 93970; 94002; 94003; 94640; 94667; 94668; 96374; 97110; 97161; 99285; A9270; C1750; C1751; C8929; C9113; C9803; G0257; J0282; J0330; J0360; J0456; J0610; J0690; J0692; J0696; J1120; J1644; J1815; J1940; J2060; J2250; J2270; J2405; J2930; J2997; J3010; J3370; J3475; J3480; J7030; J7040; J7050; P9047; Q5106; Q9957; U0003; U0005